=== PATIENT | female | born 1960 | race American Indian/Alaskan Native ===

== ENCOUNTER → 2018-12-11 | Emergency (ER) | payer MEDICARE, OTHER ==
[~2018-12-11] VITALS: Ht 162.6 cm; Wt 80.7 kg
[~2018-12-11] MED LIST: ACETAMINOPHEN500 MG PO; ALLERGY MEDICAT25 MG PO; AMLODIPINE BESY10 MG PO; ASPIRIN EC81 MG PO; CARDURA2 MG PO; CELLCEPT250 MG PO; CITALOPRAM HBR40 MG PO; COZAAR50 MG PO; DEMADEX20 MG PO; FOLIC ACID1 MG PO; HYDROCHLOROTH12.5 MG PO; HYDROCHLOROTHIA25 MG PO; ISOSORBIDE MONO30 MG PO; LANTUS SOL100 UNIT/1 SUB-Q; LEVOTHYROXINE200 MCG PO; LOSARTAN POTASS50 MG PO; NITROFURANTOIN100 M1 PO; NITROSTAT0.4 MG SL; NOVOLOG100 UNITS/ SUB-Q; PEPCID20 MG PO; PREDNISONE20 MG PO; PROAIR RESPICL90 MCG IH; PROCARDIA XL90 MG PO; PULMICORT FLE180 MCG INH; SODIUM BICARBO325 MG PO; TACROLIMUS1 MG PO; TOPROL XL25 MG PO; TOUJEO SOL300 UNIT/1 SQ; VALCYTE450 MG PO; VITAMIN D-32000 UNIT PO; VITAMIN D250000 UNIT PO; ZOCOR20 MG PO; ZOFRAN ODT4 MG SL
--- OUTSIDE RECORDS SUMMARY | ~2018-12-11 | XMS | Encounter Summary ---
Demographics + + + | Address | [address] | | | [place] [address] | + + + | Home Phone | | + + + | Preferred Language | Unknown | + + + | Marital Status | Single | + + + | Advent Affiliation | NRP | + + + | Race | or Other | + + + | Ethnic Group | Not or | + + + Author + + + | Author | [facility] | + + + | Organization | [facility] | + + + | Address | Unknown | + + + | Phone | Unavailable | + + + Support + + +---------+ + | Name | Relationship | Address | Phone | + + +---------+ + | Geraldine Canales | ECON | Unknown | | + + +---------+ + Care Team Providers + +------+ + | Care Technical Education Teacher Name | Role | Phone | + +------+ + | Nadeem Caruso | PCP | | + +------+ + Reason for Visit + + + | Reason | Comments | + + + | Eye examination | OCT | + + + Encounter Details +--------+ + + + + | Date | Type | Department | Care Team | Description | +--------+ + + + + | 05/16/ | Diagnostic | [facility] | | Eye examination | | 2013 | Visit | [facility] | | ([facility]) | | | | [facility] at | | | | | | [place] [address] | | | | | | [address] | | | | | | Mailcode: [place] | | | | | | [place], [place] | | | | | | [address] | | | | | | [phone] | | | +--------+ + + + + Social History + + + +--------+ + | Tobacco Use | Types | Packs/Day | Years | Date | | | | | Used | | + + + +--------+ + | Current Every Day | Cigarettes | 0.2 | 32 | Quit: 11/20/2013 | | Smoker | | | | | + + + +--------+ + + +---+---+---+ | Smokeless Tobacco: | | | | | Never Used | | | | + +---+---+---+ + + +---------+ + | Alcohol Use | Drinks/Week | oz/Week | Comments | + + +---------+ + | No | | | used to "drink | | | | | heavily" | + + +---------+ + + + + | Sex Assigned at | Date Recorded | | | | + + + | Not on file | | + + + + + + + | Job Start Date | Occupation | Industry | + + + + | Not on file | Not on file | Not on file | + + + + + + + + | Travel History | Travel Start | Travel End | + + + + + + | No recent travel history available. | + + documented as of this encounter Progress Reece Sigala - 05/16/2014 12:53 PM PDT Joyce Arnold was seen in the [facility] today, 05/16/2014, for OCT OU. REECE ALBERTO documented in t his encounter Plan of Treatment +--------+---------+ + + + | Date | Type | Specialty | Care Team | Description | +--------+---------+ + + + | 01/30/ | Office | Ophthalmology | Susan Andrews MD | | | 2019 | Visit | | [address] | | | | | | [place], [place] | | | | | | [address] | | | | | | [phone] | | | | | | | | +--------+---------+ + + + documented as of this encounter Visit Diagnoses + + | Diagnosis | + + | Macular edema, diabetic, type 2, with proliferative retinopathy [250.50, 362.02, | | 362.07] - Primary | + + documented in this encounter
--- OUTSIDE RECORDS SUMMARY | ~2018-12-11 | XMS | Encounter Summary ---
Demographics + + + | Address | [address] | | | [place] [address] | + + + | Home Phone | | + + + | Preferred Language | Unknown | + + + | Marital Status | Single | + + + | Sikh Affiliation | NRP | + + + | Race | or Other | + + + | Ethnic Group | Not or | + + + Author + + + | Author | [facility] [facility] | + + + | Organization | [facility] | + + + | Address | Unknown | + + + | Phone | Unavailable | + + + Support + + +---------+ + | Name | Relationship | Address | Phone | + + +---------+ + | Geraldine Canales | ECON | Unknown | | + + +---------+ + Care Team Providers + +------+ + | Care Drug And Alcohol Counselor Name | Role | Phone | + +------+ + | Nadeem Caruso | PCP | | + +------+ + Reason for Visit +---------+ + | Reason | Comments | +---------+ + | Post Op | | +---------+ + Other (Routine) +--------+--------+ + + + + | Status | Reason | Specialty | Diagnoses / | Referred By | Referred To | | | | | Procedures | Contact | Contact | +--------+--------+ + + + + | Closed | | Ophthalmology | Procedures | Non-[facility] | [place], | | | | | [facility] | Epic Dept | MD Susan | | | | | OPHTH DX IMG | | [address] | | | | [address] | | [address] | | | | [address] | | [address] | | | | | [place] | | [place], [place] | | | | | [place] | | [address] | | | | | ANGIOGRAPHY | | Phone: | | | | | AL FUNDAL | | [phone] | | | | | PHOTOGRAPHY | | Fax: | | | | | [place] INJECT | | [phone] | | | | | INTRAVITREAL | | | | | | | | | | | | | | PHARMCOLOGIC | | | | | | | AL | | | | | | | TRIAMCINOLON | | | | | | | E ACETONIDE | | | | | | | INJ 10 MG | | | | | | | AL INJ,THER | | | | | | | AGENT INTO | | | | | | | [place] | | | | | | | CAPSULE | | | +--------+--------+ + + + + Encounter Details +--------+---------+ + + + | Date | Type | Department | Care Team | Description | +--------+---------+ + + + | 01/22/ | Office | [facility] | Susan Chau MD | PDR (proliferative | | 2014 | Visit | [facility] | [address] | diabetic | | | | [facility] [address] [facility] [place] | retinopathy), type | | | | [place] | [address] | 2, with macular | | | | Mailcode: [facility] | [phone] | edema (Primary Dx); | | | | [facility] [place] | | TRD (traction | | | | [phone] | | retinal detachment), | | | | [phone] | | bilateral; Vitreous | | | | | | hemorrhage of both | | | | | | eyes (HCC) | +--------+---------+ + + + Social History + + + +--------+ + | Tobacco Use | Types | Packs/Day | Years | Date | | | | | Used | | + + + +--------+ + | Former Smoker | Cigarettes | 0.2 | 32 | Quit: 11/20/2013 | + + + +--------+ + + [...] + documented as of this encounter Progress Notes Susan Chau MD - 01/22/2014 8:01 AM PDTFormatting of this note might be different from melvin rachel. [facility] Progress Note 01/22/2014 CC: Post Op Initial History: PPV/MP/EL/FAx/1000cstSO right eye and small amount of PRP left eye with preop avastin both eyes. Vision slightly better though having difficulty using eyes together. Denies pain th ough reports intermittent occurrence of sensation similar to a growing pain in legs. Resolv es on its own. Last 3 ambulatory procedures on record: Procedure: Avasti OU (01/01/14 8804) HPI: Joyce Arnold is a 53 y.o. female Last visit: 01/10/14 at 9:00 am Says vision is slightly better, getting around ok. Says vision OD has improved some. Left eye is still pretty bad, but perhaps slightly better than last visit,. Pain:No pain (0 of 0-10) POH: 01/09/14 PPV/MP/EL/FAx/1000cstSO OD and small amount of PRP OS with preop avastin OUDME -Avastin OU initiated 01/01/14 PDR OU Current Outpatient Prescriptions (Ophthalmic Medications) Medication Sig atropine Instill 1 drop into the right eye two times daily. ofloxacin Instill 1 drop into the right eye four times daily for 7 days. prednisoLONE acetate Instill 1 drop into the right eye four times daily. Current Outpatient Prescriptions (Other) Medication Sig amLODIPine Take 10 mg by mouth once daily. aspirin EC Take 81 mg by mouth once daily. citalopram Take 40 mg by mouth once daily. famotidine Take 20 mg by mouth once daily. hydrochlorothiazide Take 25 mg by mouth once daily. HYDROcodone-acetaminophen Take 1-2 tablets by mouth every four hours as needed for mild pain. Max 3250mg acetaminophen per 24hrs insulin detemir Inject 30 Units under the skin (SUBC) two times daily. insulin lispro Inject under the skin (SUBC). "1 dose prn- use sliding scale before ariel ls" isosorbide mononitrate CR Take 30 mg by mouth once daily. LANCETS & BLOOD GLUCOSE STRIPS MISC LEVOTHYROXINE SODIUM (LEVOXYL ORAL) Take 0.2 mg by mouth once daily. metoprolol succinate Take 50 mg by mouth once daily. nitroglycerin Place 0.4 mg under tongue every five minutes as needed for chest pain. Pl romel under tongue and allow to dissolve. Administer every 5 minutes, max of 3 doses in 15 mi nutes. promethazine Take 25 mg by mouth three times daily as needed for nausea/vomiting. simvastatin Take 40 mg by mouth once daily. SYRING W-NDL,DISP,INSUL,0.5ML (INSULIN SYRINGE MISC) Past Medical History Diagnosis Date Diabetes mellitus type 1 Hypertension Heart disease, unspecified Past Surgical History Procedure Laterality Date Tonsillectomy Tubal ligation Cholecystectomy Thyroid lobectomy Carpal tunnel surgery History Substance Use Topics Smoking status: Former Smoker -- 0.20 packs/day for 33 years Types: Cigarettes Quit date: 11/20/2013 Smokeless tobacco: Never Used Alcohol Use: No Comment: used to "drink heavily" See Ophthalmology Module for Examination Diagnostics Ordered Right Left OCT --- --- FA --- --- FUNDUS --- --- Others IMPRESSION: 53 y.o. female with Ophthalmologic Problems 1. POW# 2 s/p 23g PPV/MP/EL/FAx/1000cstSO OD 01/02/14 (oil used because of poor vision in co ntralateral eye) PDR (proliferative diabetic retinopathy) [988160] - previously untreated OD - francois-jaw TRD threatening macula and VH - doing well, retina attached, epi defect healed 2. DME (diabetic macular edema) [825675] OU s/p Avastin x 1 OU pre-op to above surgery - stable OD last visit - unable to determine OS due to VH OS 3. Retinal detachment, tractional, both eyes [394115] 2/2 PDR OU - stable OD, likely stable, extramacular OS 4. Vitreous hemorrhage [379.23] OS - only slightly improved today OS PLAN: Discussed r/b/a of PPV/MP/EL/Gas or Oil OS, IC obtained D/c ofloxacin cont atropine daily, taper prednisolone Stay off of back Call for decreased vision, increased distortion, increased pain, new floaters or flashing l ights Follow up post op NEXT VISIT: DILATE OU Attestations: The tool technician, under the supervision of the physician, is responsible for performing the f ollowing sections: RFV, ROS, PMH, PSH, SocHx, FH, Med list, Base Ophth Exam. The attending physician is responsible for the entire content of the note and has personall y performed the HPI and the physical examination SUSAN CHAU MD documented in this encoun ter Plan of Treatment +--------+---------+ + + + | Date | Type | Specialty | Care Team | Description | +--------+---------+ + + + | 01/30/ | Office | Ophthalmology | Susan Chau MD | | | 2019 | Visit | | [address] | | | | | | [place], [place] | | | | | | [address] | | | | | | [phone] | | | | | | | | +--------+---------+ + + + documented as of this encounter Visit Diagnoses + + | Diagnosis | + + | PDR (proliferative diabetic retinopathy), type 2, with macular edema - Primary | + + | TRD (traction retinal detachment), bilateral Traction detachment of retina | + + | Vitreous hemorrhage of both eyes (HCC) Vitreous hemorrhage | + + documented in this encounter
--- OUTSIDE RECORDS SUMMARY | ~2018-12-11 | XMS | Encounter Summary ---
Demographics + + + | Address | [address] | | | [place] [address] | + + + | Home Phone | | + + + | Preferred Language | Unknown | + + + | Marital Status | Single | + + + | Catholic Affiliation | NRP | + + + | Race | or Other | + + + | Ethnic Group | Not or | + + + Author + + + | Author | [facility] | + + + | Organization | [facility] | + + + | Address | Unknown | + + + | Phone | Unavailable | + + + Support + + +---------+ + | Name | Relationship | Address | Phone | + + +---------+ + | Geraldine Parker | ECON | Unknown | | + + +---------+ + Care Team Providers + +------+ + | Care Training Designer Name | Role | Phone | + +------+ + | Nadeem Caruso | PCP | | + +------+ + Reason for Visit AUTH/CERT +--------+--------+ + + + + | Status | Reason | Specialty | Diagnoses / | Referred By | Referred To | | | | | Procedures | Contact | Contact | +--------+--------+ + + + + | Closed | | | | | | +--------+--------+ + + + + Encounter Details +--------+---------+ + + + | Date | Type | Department | Care Team | Description | +--------+---------+ + + + | 05/08/ | Surgery | [facility] | Susan Andrews MD | [facility] | | 2013 | | [address] | [address] | VITRECTOMY AND | | | | [facility] | [address] [place], [place] | SILICONE OIL | | | | [facility], | [address] | REMOVAL-RIGHT *[id number]* | | | | [place] [address] | [phone] | (ISAC); | | | | | | | +--------+---------+ + + + Social History [...] + + documented as of this encounter Last Filed Vital Signs + + + + + | Vital Sign | Reading | Time Taken | Comments | + + + + + | Blood Pressure | 140/50 | 05/08/2014 9:44 AM | | | | | PDT | | + + + + + | Pulse | 59 | 05/08/2014 9:44 AM | | | | | PDT | | + + + + + | Temperature | 37 C (98.6 F) | 05/08/2014 10:06 AM | | | | | PDT | | + + + + + | Respiratory Rate | 16 | 05/08/2014 9:44 AM | | | | | PDT | | + + + + + | Oxygen Saturation | 96% | 05/08/2014 9:44 AM | | | | | PDT | | + + + + + | Inhaled Oxygen | - | - | | | Concentration | | | | + + + + + | Weight | 82.3 kg (181 lb 8 | 05/08/2014 6:54 AM | | | | oz) | PDT | | + + + + + | Height | 162.6 cm (5' 4") | 05/08/2014 6:33 AM | | | | | PDT | | + + + + + | Body Mass Index | 31.15 | 05/08/2014 6:33 AM | | | | | PDT | | + + + + + documented in this encounter Discharge Instructions Alecia Carrion Chi, RN - 05/08/2014Home care after vitrectomy given to patient and family. documented in this encounter Medications at Time of Discharge + + + +---------+ + + | Medication | Sig | Dispensed | Refills | Start | End Date | | | | | | Date | | + + + +---------+ + + | amLODIPine 10 mg | Take 10 mg by mouth | | 0 | | | | oral tablet | once daily. | | | | | + + + +---------+ + + | aspirin EC 81 mg | Take 325 mg by mouth | | 0 | | | | oral tablet,delayed | once daily. | | | | | | release (/ROCAEL) | | | | | | + + + +---------+ + + | citalopram 40 mg | Take 40 mg by mouth | | 0 | | | | oral tablet | once daily. | | | | | + + + +---------+ + + | famotidine 20 mg | Take 20 mg by mouth | | 0 | | | | oral tablet | once daily. | | | | | + + + +---------+ + + | | Take 25 mg by mouth | | 0 | | | | hydrochlorothiazide | two times daily. | | | | | | 25 mg oral tablet | | | | | | + + + +---------+ + + | LANCETS & BLOOD | | | 0 | | | | GLUCOSE STRIPS MISC | | | | | | + + + +---------+ + + | LEVOTHYROXINE | Take 0.2 mg by mouth | | 0 | | | | SODIUM (LEVOXYL | once daily. | | | | | | ORAL) | | | | | | + + + +---------+ + + | losartan 50 mg | Take 50 mg by mouth | | 0 | | | | oral tablet | two times daily. | | | | | + + + +---------+ + + | nitroglycerin 0.4 | Place 0.4 mg under | | 0 | | | | mg sublingual | tongue every five | | | | | | tablet, sublingual | minutes as needed | | | | | | | for chest pain. | | | | | | | Place under tongue | | | | | | | and allow to | | | | | | | dissolve. | | | | | | | Administer every 5 | | | | | | | minutes, max of 3 | | | | | | | doses in 15 minutes. | | | | | + + + +---------+ + + | simvastatin 40 mg | Take 40 mg by mouth | | 0 | | | | oral tablet | once daily. | | | | | + + + +---------+ + + | sodium bicarbonate | Take 650 mg by mouth | | 0 | | | | 650 mg oral tablet | three times daily. | | | | | + + + +---------+ + + | SYRING | | | 0 | | | | W-NDL,DISP,INSUL,0.5 | | | | | | | ML (INSULIN SYRINGE | | | | | | | MISC) | | | | | | + + + +---------+ + + | ofloxacin 0.3 % | Instill 1 drop into | 5 mL | 0 | 05/08/20 | | | ophthalmic drops | the right eye four | | | 14 | 4 | | | times daily for 7 | | | | | | | days. | | | | | + + + +---------+ + + documented as of this encounter Plan of Treatment +--------+---------+ + + + | Date | Type | Specialty | Care Team | Description | +--------+---------+ + + + | 01/30/ | Office | Ophthalmology | Susan Andrews MD | | | 2019 | Visit | | [address] | | | | | | [place], [place] | | | | | | [address] | | | | | | [phone] | | | | | | | | +--------+---------+ + + + documented as of this encounter Procedures + +--------+ + + + | Procedure Name | Priori | Date/Time | Associated Diagnosis | Comments | | | ty | | | | + +--------+ + + + | PROCEDURE NOTE | Routin | 08/27/2015 | | Results for this | | | e | 5:15 PM | | procedure are in the | | | | PST | | results section. | + +--------+ + + + | PROCEDURE NOTE | Routin | 08/27/2015 | | Results for this | | | e | 5:15 PM | | procedure are in the | | | | PST | | results section. | + +--------+ + + + | PROCEDURE NOTE | Routin | 08/27/2015 | | Results for this | | | e | 5:09 PM | | procedure are in the | | | | PST | | results section. | + +--------+ + + + | CAPILLARY BLOOD | Routin | 05/08/2014 | | Results for this | | GLUCOSE (NO CHG), | e | 10:02 AM | | procedure are in the | | POC | | PDT | | results section. | + +--------+ + + + | CAPILLARY BLOOD | Routin | 05/08/2014 | | Results for this | | GLUCOSE (NO CHG), | e | 9:34 AM | | procedure are in the | | POC | | PDT | | results section. | + +--------+ + + + | CAPILLARY BLOOD | Routin | 05/08/2014 | | Results for this | | GLUCOSE (NO CHG), | e | 8:50 AM | | procedure are in the | | POC | | PDT | | results section. | + +--------+ + + + | PHACO W/IOL | Electi | 05/08/2014 | Chorioretinal | | | | ve | 7:27 AM | scar, left Cataract | | | | Surgic | PDT | | | | | al | | | | + +--------+ + + + | 23G VITRECTOMY | Electi | 05/08/2014 | Chorioretinal | | | | ve | 7:27 AM | scar, left Cataract | | | | Surgic | PDT | | | | | al | | | | + +--------+ + + + | CAPILLARY BLOOD | Routin | 05/08/2014 | | Results for this | | GLUCOSE (NO CHG), | e | 7:16 AM | | procedure are in the | | POC | | PDT | | results section. | + +--------+ + + + | LAB REPORTS | | 05/08/2014 | | Results for this | | | | 12:00 AM | | procedure are in the | | | | PDT | | results section. | + +--------+ + + + documented in this encounter Results PROCEDURE NOTE (08/27/2015 5:15 PM PST)PROCEDURE NOTE (08/27/2015 5:15 PM PST)PROCEDURE N OTE (08/27/2015 5:09 PM PST) + + | Transcriptions | + + | Other, Faculty - 05/20/2014 8:12 AM PDT | + + CAPILLARY BLOOD GLUCOSE (NO CHG), POC (05/08/2014 10:02 AM PDT) + +---------+ + + + | Component | Value | Ref Range | Performed | Pathologist | | | | | At | Signature | + +---------+ + + + | BLOOD | 320 (H) | 60 - 99 mg/dL | [facility] - | | | GLUCOSE, | | | [facility] | | | POC | | | [facility] | | | | | | OF CARE | | | | | | TESTS | | + +---------+ + + + + + | Specimen | + + | | + + + + + + + | Performing | Address | City/State/Zipcode | Phone Number | | Organization | | | | + + + + + | [facility] | [address] | [place], [place] | | | [facility] | [address] | [address] | | | TESTS | | | | + + + + + CAPILLARY BLOOD GLUCOSE (NO CHG), POC (05/08/2014 9:34 AM PDT) + +---------+ + + + | Component | Value | Ref Range | Performed | Pathologist | | | | | At | Signature | + +---------+ + + + | BLOOD | 375 (H) | 60 - 99 mg/dL | [facility] - | | | GLUCOSE, | | | [facility] | | | POC | | | [facility] | | | | | | OF CARE | | | | | | TESTS | | + +---------+ + + + + + | Specimen | + + | | + + + + + + + | Performing | Address | City/State/Zipcode | Phone Number | | Organization | | | | + + + + + | [facility] | [address] | [place], [place] | | | [facility] | [facility] | [address] | | | TESTS | | | | + + + + + CAPILLARY BLOOD GLUCOSE (NO CHG), POC (05/08/2014 8:50 AM PDT) + +---------+ + + + | Component | Value | Ref Range | Performed | Pathologist | | | | | At | Signature | + +---------+ + + + | BLOOD | 396 (H) | 60 - 99 mg/dL | [facility] - | | | GLUCOSE, | | | [facility] | | | POC | | | [facility] | | | | | | OF CARE | | | | | | TESTS | | + +---------+ + + + + + | Specimen | + + | | + + + + + + + | Performing | Address | City/State/Zipcode | Phone Number | | Organization | | | | + + + + + | [facility] | [address] | [place], [place] | | | [facility] | [address] | [address] | | | TESTS | | | | + + + + + CAPILLARY BLOOD GLUCOSE (NO CHG), POC (05/08/2014 7:16 AM PDT) + +---------+ + + + | Component | Value | Ref Range | Performed | Pathologist | | | | | At | Signature | + +---------+ + + + | BLOOD | 355 (H) | 60 - 99 mg/dL | [facility] | | | GLUCOSE, | | | [facility] | | | POC | | | [facility] | | | | | | OF CARE | | | | | | TESTS | | + +---------+ + + + + + | Specimen | + + | | + + + + + + + | Performing | Address | City/State/Zipcode | Phone Number | | Organization | | | | + + + + + | [facility] | [address] | [place], [place] | | | [facility] | [address] | [address] | | | TESTS | | | | + + + + + LAB REPORTS (05/08/2014 12:00 AM PDT) + + + | Narrative | Performed At | + + + | | | | | | + + + + + | Procedure Note | + + | Netta Ross - 05/20/2014 3:03 PM PDT | + + documented in this encounter Visit Diagnoses + + | Diagnosis | + + | Chorioretinal scar, left | + + | Cataract Unspecified cataract | + + documented in this encounter Administered Medications + +--------+ +--------+------+------+ | Medication Order | MAR | Action | Dose | Rate | Site | | | Action | Date | | | | + +--------+ +--------+------+------+ | atropine 1 % ophthalmic drops | Given | 05/08/20 | 1 drop | | | | INTRAPROCEDURE PRN, Starting [facility] | | 14 8:41 | | | | | 05/08/14 at 0841, Until [facility] | | AM PDT | | | | | 05/08/14 at 0849 | | | | | | + +--------+ +--------+------+------+ +---+---+ | | | +---+---+ + +-------+ +-------+---+---+ | balanced salt (BSS) ophthalmic | Given | 05/08/20 | 15 mL | | | | irrigation INTRAPROCEDURE PRN, | | 14 7:55 | | | | | Starting [facility] 05/08/14 at 0755, | | AM PDT | | | | | Until [facility] 05/08/14 at 0849 | | | | | | + +-------+ +-------+---+---+ +---+---+ | | | +---+---+ + +-------+ +--------+---+---+ | cyclopentolate 1%-PHENYLEPHrine | Given | 05/08/20 | 1 drop | | | | 2.5%-tropicamide 0.25% | | 14 7:18 | | | | | (SUPERDROPS) ophthalmic drops 1 | | AM PDT | | | | | drop 1 drop, Right Eye, EVERY 5 | | | | | | | MINUTES NEEDED, 2 doses, | | | | | | | Starting [facility] 05/08/14 at 0704, | | | | | | | Until [facility] 05/08/14 at 0718, | | | | | | | pre-procedure dilation | | | | | | + +-------+ +--------+---+---+ +-------+ +--------+---+---+ | Given | 05/08/20 | 1 drop | | | | | 14 7:13 | | | | | | AM PDT | | | | +-------+ +--------+---+---+ +---+---+ | | | +---+---+ + +-------+ +-------+---+---+ | dexamethasone (DECADRON) | Given | 05/08/20 | 10 mg | | | | injection INTRAPROCEDURE PRN, | | 14 7:55 | | | | | Starting [facility] 05/08/14 at 0755, | | AM PDT | | | | | Until [facility] 05/08/14 at 0849 | | | | | | + +-------+ +-------+---+---+ +---+---+ | | | +---+---+ + +-------+ + +---+---+ | Dilating Solution: BSS Plain | Given | 05/08/20 | 1 Bottle | | | | 500 mL - 0.5 mL EPINEPHrine | | 14 7:55 | | | | | (1:1,000) INTRAPROCEDURE PRN, | | AM PDT | | | | | Starting [facility] 05/08/14 at 0755, | | | | | | | Until [facility] 05/08/14 at 0849 | | | | | | + +-------+ + +---+---+ +---+---+ | | | +---+---+ + +-------+ +-------+---+---+ | hydroxypropyl methylcellulose | Given | 05/08/20 | 15 mL | | | | (GONIOSOL) 2.5 % ophthalmic drops | | 14 7:55 | | | | | INTRAPROCEDURE PRN, Starting | | AM PDT | | | | | [facility] 05/08/14 at 0755, Until [facility] | | | | | | | 05/08/14 at 0849, dry eyes | | | | | | + +-------+ +-------+---+---+ +---+---+ | | | +---+---+ + +---------+ + +---+---+ | insulin regular (HUMULIN R) | New Bag | 05/08/20 | 12 Units | | | | injection 12 Units 12 Units, | | 14 8:56 | | | | | intravenous, ONCE, 1 dose, Mehn[facility] | | AM PDT | | | | | 05/08/14 at 0930 | | | | | | + +---------+ + +---+---+ +---+---+ | | | +---+---+ + +---------+ + + +---+ | lactated ringers IV 10 mL/hr, | New Bag | 05/08/20 | 10 mL/hr | 10 mL/hr | | | intravenous, CONTINUOUS, Starting | | 14 7:01 | | | | | [facility] 05/08/14 at 0700, Until [facility] | | AM PDT | | | | | 05/08/14 at 1616 | | | | | | + +---------+ + + +---+ +---+---+ | | | +---+---+ + +-------+ +-------+---+---+ | Local with hyaluronidase: | Given | 05/08/20 | 10 mL | | | | lidocaine 2% - bupivacaine 0.75% | | 14 7:56 | | | | | - hyaluronidase 200 units/mL 1 mL | | AM PDT | | | | | 1:10:10) INTRAPROCEDURE PRN, | | | | | | | Starting Mehn[facility] 05/08/14 at 0756, | | | | | | | Until [facility] 05/08/14 at 0849 | | | | | | + +-------+ +-------+---+---+ +---+---+ | | | +---+---+ + +-------+ +--------+---+---+ | proparacaine (OPHTHAINE) 0.5 % | Given | 05/08/20 | 1 drop | | | | ophthalmic drops INTRAPROCEDURE | | 14 7:56 | | | | | PRN, Starting Mon05/08/14 at | | AM PDT | | | | | 0756, Until Mon05/08/14 at 0849 | | | | | | + +-------+ +--------+---+---+ +---+---+ | | | +---+---+ + +-------+ +--------+---+---+ | Shugarcaine: lidocaine MPF 4% 1 | Given | 05/08/20 | 0.5 mL | | | | mL - EPINEPHrine 1:1000 1 mL - | | 14 7:56 | | | | | BSS 3 mL INTRAPROCEDURE PRN, | | AM PDT | | | | | Starting [facility]hn[facility] 10/16/14 at 0756, | | | | | | | Until [facility] 05/08/14 at 0849 | | | | | | + +-------+ +--------+---+---+ +---+---+ | | | +---+---+ + +-------+ +--------+---+---+ | tetracaine 0.5 % ophthalmic | Given | 05/08/20 | 1 drop | | | | drops INTRAPROCEDURE PRN, | | 14 7:56 | | | | | Starting [facility]hn[facility] 05/08/14 at 0756, | | AM PDT | | | | | Until [facility] 05/08/14 at 0849 | | | | | | + +-------+ +--------+---+---+ +---+---+ | | | +---+---+ + +-------+ +-------+---+---+ | vancomycin (VANCOCIN) injection | Given | 05/08/20 | 25 mg | | | | INTRAPROCEDURE PRN, Starting | | 14 7:56 | | | | | Mehnaz 05/08/14 at 0756, Until [facility]hn[facility] | | AM PDT | | | | | 05/08/14 at 0849 | | | | | | + +-------+ +-------+---+---+ +---+---+ | | | +---+---+ documented in this encounter
--- OUTSIDE RECORDS SUMMARY | ~2018-12-11 | XMS | Encounter Summary ---
Demographics + + + | Address | [address] | | | [place] [address] | + + + | Home Phone | | + + + | Preferred Language | Unknown | + + + | Marital Status | Single | + + + | Cheondoism Affiliation | NRP | + + + | Race | or Other | + + + | Ethnic Group | Not or | + + + Author + + + | Author | [facility] | + + + | Organization | [facility] | + + + | Address | Unknown | + + + | Phone | Unavailable | + + + Support + + +---------+ + | Name | Relationship | Address | Phone | + + +---------+ + | Geraldine Parker | ECON | Unknown | | + + +---------+ + Care Team Providers + +------+ + | Care Case Checker Name | Role | Phone | + +------+ + | Rohan Wilkes DO | PCP | | + +------+ + Encounter Details +--------+ + + + + | Date | Type | Department | Care Team | Description | +--------+ + + + + | 11/14/ | Lab | LAB [facility] | | | | 2017 | Requisition | [facility] | | | | | | [address] | | | | | | [facility] | | | | | | [place], [place] | | | | | | [address] | | | +--------+ + + + + Social History + + + +--------+ + | Tobacco Use | Types | Packs/Day | Years | Date | | | | | Used | | + + + +--------+ + | Former Smoker | Cigarettes | 2.5 | 32 | Quit: 05/31/2014 | + + + +--------+ + + [...] | | | | | | [place], [place] | | | | | | [address] | | | | | | [phone] | | | | | | | | +--------+---------+ + + + documented as of this encounter Procedures + +--------+ + + + | Procedure Name | Priori | Date/Time | Associated Diagnosis | Comments | | | ty | | | | + +--------+ + + + | LIT ANTI - A TITER, | Routin | 11/14/2017 | | | | BLOOD | e | 7:40 AM | | | | | | PDT | | | + +--------+ + + + documented in this encounter Results LIT ANTI - A TITER, BLOOD (11/14/2017 7:40 AM PDT) + + | Specimen | + + | Blood | + + + + + + + | Performing | Address | City/State/Zipcode | Phone Number | | Organization | | | | + + + + + | [facility] - | [address] | [place] [address] | | | IMMUNOGENETICS/TRANS | [address] | | | | [facility] | | | | + + + + + documented in this encounter Visit Diagnoses Not on filedocumented in this encounter
--- OUTSIDE RECORDS SUMMARY | ~2018-12-11 | XMS | Clinical Summary ---
Demographics + + + | Address | [address] | | | [place] [address] | + + + | Home Phone | | + + + | Preferred Language | Unknown | + + + | Marital Status | Single | + + + | Confucianism Affiliation | NRP | + + + | Race | or Other | + + + | Ethnic Group | Not or | + + + Author + + + | Author | [facility] | + + + | Organization | [facility] | + + + | Address | Unknown | + + + | Phone | Unavailable | + + + Support + + +---------+ + | Name | Relationship | Address | Phone | + + +---------+ + | Geraldine Canales | ECON | Unknown | | + + +---------+ + Care Team Providers + +------+ + | Care Refining Machine Operator Name | Role | Phone | + +------+ + | Rohan Wilkes DO | PP | | + +------+ + Source Comments [facility] is [facility] Allergies + + + + + + | Active Allergy | Reactions | Severity | Noted | Comments | | | | | Date | | + + + + + + | Celecoxib | Pruritus, Rash | | 12/07/19 | | | | | | 14 | | + + + + + + | Iron Dextran | Unknown | Medium | 02/13/20 | Numb lips, itchy | | | | | 14 | on face | + + + + + + | Penicillins | Unknown | | 12/07/19 | Pt. States it | | | | | 14 | doesn't work on her. | + + + + + + | Sulfa (Sulfonamide | Pruritus, Rash | | 12/07/19 | Pt. States she | | Antibiotics) | | | 14 | also gets horrible | | | | | | yeast infection. | + + + + + + Medications + + + +---------+------+------+-------+ | Medication | Sig | Dispensed | Refills | Star | End | Statu | | | | | | t | Date | s | | | | | | Date | | | + + + +---------+------+------+-------+ | amLODIPine 10 mg | Take 10 mg by mouth | | 0 | | | Activ | | oral tablet | once daily. | | | | | e | + + + +---------+------+------+-------+ | aspirin EC 81 mg | Take 325 mg by mouth | | 0 | | | Activ | | oral tablet,delayed | once daily. | | | | | e | | release (DR/EC) | | | | | | | + + + +---------+------+------+-------+ | LANCETS & BLOOD | | | 0 | | | Activ | | GLUCOSE STRIPS MISC | | | | | | e | + + + +---------+------+------+-------+ | citalopram 40 mg | Take 40 mg by mouth | | 0 | | | Activ | | oral tablet | once daily. | | | | | e | + + + +---------+------+------+-------+ | famotidine 20 mg | Take 20 mg by mouth | | 0 | | | Activ | | oral tablet | once daily. | | | | | e | + + + +---------+------+------+-------+ | | Take 25 mg by mouth | | 0 | | | Activ | | hydrochlorothiazide | two times daily. | | | | | e | | 25 mg oral tablet | | | | | | | + + + +---------+------+------+-------+ | LEVOTHYROXINE | Take 0.2 mg by mouth | | 0 | | | Activ | | SODIUM (LEVOXYL | once daily. | | | | | e | | ORAL) | | | | | | | + + + +---------+------+------+-------+ | nitroglycerin 0.4 | Place 0.4 mg under | | 0 | | | Activ | | mg sublingual | tongue every five | | | | | e | | tablet, sublingual | minutes as [...] 15 minutes. | | | | | | + + + +---------+------+------+-------+ | simvastatin 40 mg | Take 40 mg by mouth | | 0 | | | Activ | | oral tablet | once daily. | | | | | e | + + + +---------+------+------+-------+ | SYRING | | | 0 | | | Activ | | W-NDL,DISP,INSUL,0.5 | | | | | | e | | ML (INSULIN SYRINGE | | | | | | | | MISC) | | | | | | | + + + +---------+------+------+-------+ | losartan 50 mg | Take 50 mg by mouth | | 0 | | | Activ | | oral tablet | two times daily. | | | | | e | + + + +---------+------+------+-------+ | sodium bicarbonate | Take 650 mg by mouth | | 0 | | | Activ | | 650 mg oral tablet | three times daily. | | | | | e | + + + +---------+------+------+-------+ | promethazine 25 mg | Take 1 tablet by | 20 | 0 | 11/1 | | Activ | | oral tablet | mouth four times | tablet | | 3/20 | | e | | | daily as needed for | | | 14 | | | | | nausea/vomiting. | | | | | | + + + +---------+------+------+-------+ | NOVOLOG FLEXPEN | | | 12 | 04/2 | | Activ | | 100 unit/mL | | | | 7/20 | | e | | subcutaneous insulin | | | | 15 | | | | pen | | | | | | | + + + +---------+------+------+-------+ | insulin glargine | Inject under the | | 0 | | | Activ | | (CINDY WEEMS) | skin (SUBC). | | | | | e | | 300 unit/mL (1.5 mL) | Indications: TYPE 1 | | | | | | | subcutaneous | DIABETES MELLITUS | | | | | | | insulin | | | | | | | | penIndications: type | | | | | | | | 1 diabetes mellitus | | | | | | | + + + +---------+------+------+-------+ | simvastatin 20 mg | Take 20 mg by mouth | | 0 | | | Activ | | oral tablet | once daily in the | | | | | e | | | evening. | | | | | | + + + +---------+------+------+-------+ | FOLIC ACID ORAL | Take by mouth. | | 0 | | | Activ | | | | | | | | e | + + + +---------+------+------+-------+ | ASMANEX TWISTHALER | | | 5 | 01/1 | | Activ | | 110 mcg (30 doses) | | | | 1/20 | | e | | inhalation aerosol | | | | 16 | | | | powdr breath | | | | | | | | activated | | | | | | | + + + +---------+------+------+-------+ | VITAMIN D2 50,000 | | | 4 | 01/0 | | Activ | | unit oral capsule | | | | 2/20 | | e | | | | | | 16 | | | + + + +---------+------+------+-------+ | torsemide 20 mg | | | 11 | 06/2 | | Activ | | oral tablet | | | | 4/20 | | e | | | | | | 16 | | | + + + +---------+------+------+-------+ | RENVELA 800 mg | | | 0 | 09/1 | | Activ | | oral tablet | | | | 2/20 | | e | | | | | | 16 | | | + + + +---------+------+------+-------+ | potassium chloride | TK 1 T PO daily | | 3 | 10/2 | | Activ | | SR 20 mEq oral | | | | 0/20 | | e | | tablet,ER | | | | 16 | | | | particles/crystals | | | | | | | + + + +---------+------+------+-------+ Active Problems + + + | Problem | Noted Date | + + + | 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/10/2015 | | with type 2 diabetes mellitus | | + + + | Macular edema, diabetic | 03/14/2014 | + + + | TRD (traction retinal detachment) | 01/22/2014 | + + + | Vitreous hemorrhage of both eyes | 01/22/2014 | + + + | PDR (proliferative diabetic retinopathy) | 01/03/2014 | + + + | DME (diabetic macular edema) | 01/03/2014 | + + + | Retinal detachment, tractional, both eyes | 01/03/2014 | + + + | Vitreous hemorrhage | 12/06/2013 | + + + Encounters +--------+ + + + + | Date | Type | Specialty | Care Team | Description | +--------+ + + + + | 11/13/ | Lab | | | | | 2018 | Requisition | | | | +--------+ + + + + | 09/14/ | Lab | | | | | 2018 | Requisition | | | | +--------+ + + + + from Last 3 Months Family History + + +------+ + | Medical History | Relation | Name | Comments | + + +------+ + | Diabetes | Cousin | | | + + +------+ + | Diabetes | Grandmoth | | | | | er | | | + + +------+ + | Additional Family | Maternal | | breast cancer | | History | Grandmoth | | | | | er | | | + + +------+ + | Diabetes | Paternal | | | | | Cousin | | | + + +------+ + | Cataracts | Paternal | | | | | Cousin | | | + + +------+ + | Additional Family | Paternal | | breast cancer | | History | Grandmoth | | | | | er | | | + + +------+ + | Cataracts | Paternal | | | | | Uncle | | | + + +------+ + | Amblyopia | Neg Hx | | | + + +------+ + | Blindness | Neg Hx | | | + + +------+ + | Glaucoma | Neg Hx | | | + + +------+ + | Macular degeneration | Neg Hx | | | + + +------+ + | Retinal detachment | Neg Hx | | | + + +------+ + | Strabismus | Neg Hx | | | + + +------+ + + +------+--------+ + | Relation | Name | Status | Comments | + +------+--------+ + | Cousin | | | | + +------+--------+ + | Grandmother | | | | + +------+--------+ + | Maternal Grandmother | | | | + +------+--------+ + | Paternal Cousin | | | | + +------+--------+ + | Paternal Cousin | | | | + +------+--------+ + | Paternal Grandmother | | | | + +------+--------+ + | Paternal Uncle | | | | + +------+--------+ + Social History + + + +--------+ [...] recent travel history available. | + + Last Filed Vital Signs + + + + + | Vital Sign | Reading | Time Taken | Comments | + + + + + | Blood Pressure | 129/49 | 06/05/2014 9:05 AM | | | | | PST | | + + + + + | Pulse | 58 | 06/05/2014 9:05 AM | | | | | PST | | + + + + + | Temperature | 36.8 C (98.2 F) | 06/05/2014 9:05 AM | | | | | PST | | + + + + + | Respiratory Rate | 16 | 06/05/2014 9:05 AM | | | | | PST | | + + + + + | Oxygen Saturation | 98% | 06/05/2014 9:05 AM | | | | | PST | | + + + + + | Inhaled Oxygen | - | - | | | Concentration | | | | + + + + + | Weight | 85.3 kg (188 lb) | 06/05/2014 7:14 AM | | | | | PST | | + + + + + | Height | 162.6 cm (5' 4") | 06/05/2014 6:44 AM | | | | | PST | | + + + + + | Body Mass Index | 32.27 | 06/05/2014 6:44 AM | | | | | PST | | + + + + + Plan of Treatment +--------+---------+ + + + | Date | Type | Specialty | Care Team | Description | +--------+---------+ + + + | 01/30/ | Office | | Susan Andrews MD | | | 2019 | Visit | | [address] | | | | | | [place], [place] | | | | | | [address] | | | | | | [phone] | | | | | | | | +--------+---------+ + + + + + + + + | Health Maintenance | Due Date | Last Done | Comments | + + + + + | Pneumococcal | | | | | vaccination (1 of 3 | 5 | | | | - PCV13) | | | | + + + + + | Influenza (Flu) | | 04/26/2016, 04/11/2016, | | | vaccination (Season | 9 | 04/27/2015, Additional history | | | Ended) | | exists | | + + + + + Implants + +------+--------+ +--------+--------+--------+ | Implanted | Type | Area | Manufacture | Device | Shelf | Model | | | | | r | | Expira | / | | | | | | Identi | tion | Serial | | | | | | fier | Date | / Lot | + +------+--------+ +--------+--------+--------+ | Oil Silicone 1000 - | | | AJAY | | 03/23/ | [id number] | | [id number]: Qty: 1 on | | | | | 2013 | 1185 / | | 01/02/2014 by Susan Andrews, | | | | | | | | MD at [facility] REV LOC | | | | | | /TPHY. | | | | | | | | 09.01 | + +------+--------+ +--------+--------+--------+ | Oil Silicone 1000 - | | Left: | AJAY | | 08/23/ | [id number] | | [id number]: Qty: 1 on | | Eye | | | 2014 | 1185 / | | 02/21/2014 by Susan Andrews, | | | | | | | | MD at [facility] REV LOC | | | | | | /[id number] | | | | | | | | 107 | + +------+--------+ +--------+--------+--------+ | Implant Lens Posterior | | Right: | AJAY | | 04/22/ | [id number] | | Foldable Optic Type A 6.0mm | | Eye | | | 2017 | | | Aura 10 Deg Haptic Angle - | | | | | | /[id number] | | [id number]: Qty: 1 | | | | | | [id number] | | on 05/08/2014 by Pito, | | | | | | / | | Anderson White MD at [facility] | | | | | | | | REV LOC | | | | | | | + +------+--------+ +--------+--------+--------+ | Implant Lens Posterior | | Left: | AJAY | | 12/21/ | [id number] | | Foldable Optic Type A 6.0mm | | Eye | | | 2017 | | | Aura 10 Deg Haptic Angle - | | | | | | /[id number] | | [id number]: Qty: 1 | | | | | | [id number] | | on 06/05/2014 by Pito, | | | | | | / | | Anderson White MD at [facility] | | | | | | | | REV LOC | | | | | | | + +------+--------+ +--------+--------+--------+ Procedures + +--------+ + + + | Procedure Name | Priori | Date/Time | Associated Diagnosis | Comments | | | ty | | | | + +--------+ + + + | LIT FLOW HLA II AB | Routin | 11/12/2018 | | | | AG ID, BLOOD | e | 12:00 AM | | | | | | PDT | | | + +--------+ + + + | LIT FLOW HLA I AB AG | Routin | 11/12/2018 | | Results for this | | ID, BLOOD | e | 12:00 AM | | procedure are in the | | | | PDT | | results section. | + +--------+ + + + | CLASS I & II ID | Routin | 11/12/2018 | | Results for this | | | e | 12:00 AM | | procedure are in the | | | | PDT | | results section. | + +--------+ + + + | LIT FLOW HLA II AB | Routin | 09/14/2018 | | | | AG ID, BLOOD | e | 12:00 AM | | | | | | PST | | | + +--------+ + + + | LIT FLOW HLA I AB AG | Routin | 09/14/2018 | | Results for this | | ID, BLOOD | e | 12:00 AM | | procedure are in the | | | | PST | | results section. | + +--------+ + + + | CLASS I & II ID | Routin | 09/14/2018 | | Results for this | | | e | 12:00 AM | | procedure are in the | | | | PST | | results section. | + +--------+ + + + from Last 3 Months Results LIT FLOW HLA II AB AG ID, BLOOD (11/12/2018 12:00 AM PDT)Only the most recent of 2 results within the time period is included. + + | Specimen | + + | Blood | + + + + + + + | Performing | Address | City/State/Zipcode | Phone Number | | Organization | | | | + + + + + | [facility] - | [address] | [place] [address] | | | IMMUNOGENETICS/TRANS | [address] | | | | [facility] | | | | + + + + + LIT FLOW HLA I AB AG ID, BLOOD (11/12/2018 12:00 AM PDT)Only the most recent of 2 results w ithin the time period is included. + + + + + + | Component | Value | Ref Range | Performed | Pathologist | | | | | At | Signature | + + + + + + | LABEL ONLY | Please see lab report | | [facility] - | | | - LIT | for result. | | IMMUNOGENET | | | | | | ICS/TRANSPL | | | | | | ANT | | | | | | LABORATORY | | + + + + + + + + | Specimen | + + | Blood | + + + + + + + | Performing | Address | City/State/Zipcode | Phone Number | | Organization | | | | + + + + + | [facility] - | [address] | [place] [address] | | | IMMUNOGENETICS/TRANS | [address] | | | | [facility] | | | | + + + + + from Last 3 Months Insurance + +--------+ +--------+ + +--------+ | Payer | Benefi | Subscriber | Effect | Phone | Address | Type | | | t Plan | ID | radha | | | | | | / | | Dates | | | | | | Group | | | | | | + +--------+ +--------+ + +--------+ | MEDICARE | MEDICA | xxxxxxxxxxx | 03/24/20 | [phone] | [address] | [address] | | | RE A & | | 14-Pre | 1 | [address] | re | | | B | | sent | | [place] | | | | | | | | [address] | | + +--------+ +--------+ + +--------+ | MEDICAID [place] | MCAID | xxxxxxxx | 02/22/20 | [phone] | [address] | [address] | | | QMM | | 15-Pre | 6 | [phone] | id | | | QMB | | sent | | [place], [place] | | | | | | | | [address] | | + +--------+ +--------+ + +--------+ + +--------+ +--------+ + + | Guarantor Name | Accoun | Relation to | Date | Phone | Billing Address | | | t Type | Patient | of | | | | | | | | | | + +--------+ +--------+ + + | Joyce Arnold | Person | Self | [birth year] | [address] | | | al/Fam | | 1959 | [phone] | [place] [address] | | | gucci | | | 8 (Home) | | + +--------+ +--------+ + +
--- OUTSIDE RECORDS SUMMARY | ~2018-12-11 | XMS | Encounter Summary ---
Demographics + + + | Address | [address] | | | [place] [address] | + + + | Home Phone | | + + + | Preferred Language | Unknown | + + + | Marital Status | Single | + + + | Moravian Affiliation | NRP | + + + | Race | or Other | + + + | Ethnic Group | Not or | + + + Author + + + | Author | [place] [facility] | + + + | Organization | [facility] | + + + | Address | Unknown | + + + | Phone | Unavailable | + + + Support + + +---------+ + | Name | Relationship | Address | Phone | + + +---------+ + | Geraldine Parker | ECON | Unknown | | + + +---------+ + Care Team Providers + +------+ + | Care Delivery Technician Name | Role | Phone | + +------+ + | Rohan Wilkes DO | PCP | | + +------+ + Encounter Details +--------+ + + + + | Date | Type | Department | Care Team | Description | +--------+ + + + + | 09/04/ | Lab | LAB IMMUNOGENETIC | | | | 2019 | Requisition | [facility] | | | | | | [address] | | | | | | [facility] | | | | | | [place], [place] | | | | | | [address] | | | +--------+ + + + [...] | | | | | | [place], [place] | | | | | | [address] | | | | | | [phone] | | | | | | | | +--------+---------+ + + + documented as of this encounter Procedures + +--------+ + + + | Procedure Name | Priori | Date/Time | Associated Diagnosis | Comments | | | ty | | | | + +--------+ + + + | LIT FLOW HLA AB PRA | Routin | 08/29/2018 | | | | SCREEN I/II | e | 12:00 AM | | | | | | PST | | | + +--------+ + + + documented in this encounter Results LIT FLOW HLA AB PRA SCREEN I/II (08/29/2018 12:00 AM PST) + + | Specimen | + + | Blood | + + + + + + + | Performing | Address | City/State/Zipcode | Phone Number | | Organization | | | | + + + + + | [facility] - | [address], | [place] [address] | | | IMMUNOGENETICS/TRANS | [address] | | | | [facility] | | | | + + + + + documented in this encounter Visit Diagnoses Not on filedocumented in this encounter
--- OUTSIDE RECORDS SUMMARY | ~2018-12-11 | XMS | Encounter Summary ---
Demographics + + + | Address | [address] | | | [place] [address] | + + + | Home Phone | | + + + | Preferred Language | Unknown | + + + | Marital Status | Single | + + + | Uatsdin Affiliation | NRP | + + + | Race | or Other | + + + | Ethnic Group | Not or | + + + Author + + + | Author | [facility] | + + + | Organization | [facility] | + + + | Address | Unknown | + + + | Phone | Unavailable | + + + Support + + +---------+ + | Name | Relationship | Address | Phone | + + +---------+ + | Geraldine Parker | ECON | Unknown | | + + +---------+ + Care Team Providers + +------+ + | Care Fabricating Machine Operator Name | Role | Phone | + +------+ + | Nadeem Caruso | PCP | | + +------+ + Encounter Details +--------+ + + + + | Date | Type | Department | Care Team | Description | +--------+ + + + + | 01/10/ | Results/Int | [facility] | Meng Stone | Retinal detachment, | | 2013 | erpretation | [facility] | Lewis Mooney MD [address] | tractional, both | | | | [facility] [address] | eyes (Primary Dx) | | | | [address] | [place], [place] | | | | | Mailcode: [place] | [address] | | | | | [place], [place] | [phone] | | | | | [address] | | | | | | [phone] | | | +--------+ + + + [...] + documented as of this encounter Progress Alexey Hutchinson - 01/10/2014 9:44 AM PDT Joyce Arnold was seen in the [facility] today, 01/10/2014, for ultrasound. B-scan OS AC: Formed, deep and clear Lens: Phakic, in relatively good position, clear Vitreous: Mobile vitreous opacities. Incomplete PVD with adhesion at disc. Subhyaloid opaci ties noted. Retina: Multiple focal TRD noted in nasal periphery, inferonasal, and inferotemporal quadra nts. There is a bridging membrane connecting the inferotemporal and inferonasal TRD. The mac yudith appears thick, but attached. Nerve appearance: This is a Preliminary Report. It is the responsibility of the ordering physician to determi ne clinical care from image provided, or wait for official report. ALEXEY DELUCA I have reviewed the images and the initial report and I have made any necessary changes to the report as needed based on my assessment. MENG STONE MD documented in this encounter Plan of Treatment +--------+---------+ + + + | Date | Type | Specialty | Care Team | Description | +--------+---------+ + + + | 01/30/ | Office | Ophthalmology | Susan Andrews MD | | | 2019 | Visit | | [address] | | | | | | [place], [place] | | | | | | [address] | | | | | | [phone] | | | | | | | | +--------+---------+ + + + documented as of this encounter Visit Diagnoses + + | Diagnosis | + + | Retinal detachment, tractional, both eyes - Primary Traction detachment of retina | + + documented in this encounter
--- OUTSIDE RECORDS SUMMARY | ~2018-12-11 | XMS | Encounter Summary ---
Demographics + + + | Address | [address] | | | [place] [address] | + + + | Home Phone | | + + + | Preferred Language | Unknown | + + + | Marital Status | Single | + + + | Yarsanism Affiliation | NRP | + + + | Race | or Other | + + + | Ethnic Group | Not or | + + + Author + + + | Author | [place] [employer] [facility] | + + + | Organization | [facility] | + + + | Address | Unknown | + + + | Phone | Unavailable | + + + Support + + +---------+ + | Name | Relationship | Address | Phone | + + +---------+ + | Princeton Parker | ECON | Unknown | | + + +---------+ + Care Team Providers + +------+ + | Care Compounder Helper Name | Role | Phone | + +------+ + | Nadeem Caruso | PCP | | + +------+ + Reason for Visit + + + | Reason | Comments | + + + | OCT - Macula | ou | + + + Encounter Details +--------+ + + + + | Date | Type | Department | Care Team | Description | +--------+ + + + + | 02/06/ | Diagnostic | [facility] | | OCT - Macula (ou) | | 2015 | Visit | Center | | | | | | Photography at | | | | | | [place] [address] | | | | | | [address] | | | | | | Mailcode: [place] | | | | | | [place], [place] | | | | | | [address] | | | | | | [phone] | | | +--------+ + + + [...] + + documented as of this encounter Mayra Hood - 02/06/2015 3:17 PM PDTThe interpretation for the following study: APR - Raúl - yoli can be found on physician encounter on 02/06/2015. documented in this encounter Plan of Treatment +--------+---------+ + + + | Date | Type | Specialty | Care Team | Description | +--------+---------+ + + + | 01/30/ | Office | Ophthalmology | Susan Andrews MD | | | 2019 | Visit | | [address] | | | | | | [place], [place] | | | | | | [address] | | | | | | [phone] | | | | | | | | +--------+---------+ + + + documented as of this encounter Visit Diagnoses + + | Diagnosis | + + | Macular edema, diabetic (HCC) Type II or unspecified type diabetes mellitus with | | ophthalmic manifestations, not stated as uncontrolled | + + documented in this encounter
--- OUTSIDE RECORDS SUMMARY | ~2018-12-11 | XMS | Encounter Summary ---
Demographics + + + | Address | [address] | | | [place] [address] | + + + | Home Phone | | + + + | Preferred Language | Unknown | + + + | Marital Status | Single | + + + | Congregational Affiliation | NRP | + + + | Race | or Other | + + + | Ethnic Group | Not or | + + + Author + + + | Author | [place] [employer] [facility] | + + + | Organization | [facility] [employer] [facility] | + + + | Address | Unknown | + + + | Phone | Unavailable | + + + Support + + +---------+ + | Name | Relationship | Address | Phone | + + +---------+ + | Geraldine Parker | ECON | Unknown | | + + +---------+ + Care Team Providers + +------+ + | Care L Tacker Name | Role | Phone | + +------+ + | Nadeem Caruso | PCP | | + +------+ + Encounter Details +--------+---------+ + + + | Date | Type | Department | Care Team | Description | +--------+---------+ + + + | 02/22/ | Office | [facility] | Susan Chau MD | PDR (proliferative | | 2013 | Visit | [facility] at | [address] | diabetic | | | | [facility] [address] [facility] [place] | retinopathy), type | | | | [address] | [address] | 2, with macular | | | | Mailcode: [facility] | [phone] | edema (Primary Dx); | | | | [place], [place] | | TRD (traction | | | | [address] | | retinal detachment), | | | | [phone] | | bilateral | +--------+---------+ + + + Social History [...] encounter Progress Notes Susan Chau MD - 02/22/2014 11:18 AM PDTFormatting of this note might be different from melvin rachel. [facility] Progress Note 02/22/2014 CC: No chief complaint on file. Initial History: Last 3 ambulatory procedures on record: Procedure: Avasti OU (01/01/14 9564) HPI: Joyce Arnold is a 53 y.o. female Last visit: 02/21/14 at 9:30 am Here post op day one PPV/EL/drainage/Frieda oil OS for retinal detachment. She says that she hasn't really had too much pain, just itching. Pain:No pain (0 of 0-10) POH: PPV/MP/EL, left eye 02/13/2014 01/09/14 PPV/MP/EL/FAx/1000cstSO OD and small amount of PRP OS with preop avastin OUDME -Avastin OU initiated 6/11/14 PDR OU Current Outpatient Prescriptions (Ophthalmic Medications) Medication Sig atropine Instill 1 drop into the left eye two times daily. ofloxacin Instill 1 drop into the left eye four times daily. prednisoLONE acetate Instill 1 drop into the left eye four times daily. Current Outpatient Prescriptions (Other) Medication Sig amLODIPine Take 10 mg by mouth once daily. aspirin EC Take 81 mg by mouth once daily. citalopram Take 40 mg by mouth once daily. famotidine Take 20 mg by mouth once daily. hydrochlorothiazide Take 25 mg by mouth two times daily. HYDROcodone-acetaminophen Take 1-2 tablets by mouth every four hours as needed for mild pain. Max 3250mg acetaminophen per 24hrs insulin detemir Inject 22 Units under the skin (SUBC) before breakfast. 22 units AM and 18 at HS insulin lispro Inject under the skin (SUBC). "1 dose prn- use sliding scale before ariel ls" isosorbide mononitrate CR Take 30 mg by mouth once daily. LANCETS & BLOOD GLUCOSE STRIPS MISC LEVOTHYROXINE SODIUM (LEVOXYL ORAL) Take 0.2 mg by mouth once daily. losartan Take 50 mg by mouth two times daily. metoprolol succinate Take 50 mg by mouth once daily. nitroglycerin Place 0.4 mg under tongue every five minutes as needed for chest pain. Pl romel under tongue and allow to dissolve. Administer every 5 minutes, max of 3 doses in 15 mi nutes. oxyCODONE (immediate release) Take 1 tablet by mouth every six hours as needed (pain). promethazine Take 25 mg by mouth three times daily as needed for nausea/vomiting. simvastatin Take 40 mg by mouth once daily. SYRING W-NDL,DISP,INSUL,0.5ML (INSULIN SYRINGE MISC) Past Medical History Diagnosis Date Diabetes mellitus type 1 Hypertension Heart disease, unspecified Heart attack Other and unspecified hyperlipidemia Shortness of breath Pneumonia, organism unspecified Renal failure, unspecified Unspecified disorder of thyroid Retinal detachment Cataract Migraine, unspecified, without mention of intractable migraine without mention of statu s migrainosus Congestive heart failure, unspecified stroke Told she had a stroke about 9 years ago Depressive disorder, not elsewhere classified panic attack Past Surgical History Procedure Laterality Date Tonsillectomy [...] 53 y.o. female with Ophthalmologic Problems 1. 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 POM# 1.5 s/p 23g PPV/MP/EL/FAx/1000cstSO OD 01/02/14 PDR (proliferative diabetic retinopathy) [854730] OD - francois-jaw TRD threatening macula and VH - doing well, retina attached, stable - oil was placed due to poor vision in contralateral eye, and [place] 3. 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
--- OUTSIDE RECORDS SUMMARY | ~2018-12-11 | XMS | Encounter Summary ---
Demographics + + + | Address | [address] | | | [place] [address] | + + + | Home Phone | | + + + | Preferred Language | Unknown | + + + | Marital Status | Single | + + + | Presybeterian Affiliation | NRP | + + + | Race | or Other | + + + | Ethnic Group | Not or | + + + Author + + + | Author | [place] [employer] [facility] | + + + | Organization | [facility] | + + + | Address | Unknown | + + + | Phone | Unavailable | + + + Support + + +---------+ + | Name | Relationship | Address | Phone | + + +---------+ + | Geraldine Canales | ECON | Unknown | | + + +---------+ + Care Team Providers + +------+ + | Care Manager Of Pharmacy Name | Role | Phone | + +------+ + | Nadeem Caruso | PCP | | + +------+ + Reason for Visit +---------+ + | Reason | Comments | +---------+ + | Post Op | | +---------+ + Encounter Details +--------+---------+ + + + | Date | Type | Department | Care Team | Description | +--------+---------+ + + + | 09/19/ | Office | [facility] | Carolyn Murphy, | Cataract extraction | | 2015 | Visit | [facility] at | [address] | status, right | | | | [facility] [address] | (Primary Dx); | | | | [address] | [facility] [place] | Cataract extraction | | | | Mailcode: [facility] | [phone] | status, left; | | | | [place], [place] | [phone] | Diabetic macular | | | | [address] | | edema(362.07) ([facility]) | | | | [phone] | | | +--------+---------+ + + + [...] documented as of this encounter Progress Notes Carolyn Murphy MD - 09/19/2014 10:47 AM PSTFormatting of this note might be different fr om the original. [facility] Progress Note 09/19/2014 Joyce Arnold is a 54 y.o. female who returns for follow up. Chief Complaint Patient presents with Post Op Here for po s/p CE/IOL/SOR OD. Patient reports that her eyes seem to be doing well since exam. says she is having a better time reading. Still having problems when it's d ark. Has a cold and is on antibiotics. Says her vision has been a little blurry because of t hat. Pain: 0 ROS: Medications, allergies, medical, surgical and family history were reviewed by me at th is visit utilizing [facility] patient history form and Epic patient history pertinent positives: Past Medical History Diagnosis Date Diabetes mellitus [...] ligation Cholecystectomy Thyroid lobectomy Carpal tunnel surgery Family History Problem Relation Retinal detachment Neg Hx Macular degeneration Neg Hx Glaucoma Neg Hx Diabetes Grandmother Diabetes Cousin Blindness Neg Hx Strabismus Neg Hx Amblyopia Neg Hx Diabetes Paternal Cousin Additional Family History Maternal Grandmother breast cancer Additional Family History Paternal Grandmother breast cancer Cataract Paternal Cousin Cataract Paternal Uncle History Smoking status Former Smoker -- 2.50 packs/day for 33 years Types: Cigarettes Quit date: 05/31/2014 Smokeless tobacco Never Used Allergies Allergen Reactions Iron Dextran Unknown Numb lips, itchy on face Celebrex [Celecoxib] Pruritis and Rash Penicillins Unknown Pt. States it doesn't work on her. Sulfa (Sulfonamide Antibiotics) Pruritis and Rash Pt. States she also gets horrible yeast infection. Current Outpatient Prescriptions (Other) Medication Sig amLODIPine Take 10 mg by mouth once daily. aspirin EC Take 81 mg by mouth once daily. citalopram Take 40 mg by mouth once daily. famotidine Take 20 mg by mouth once daily. hydrochlorothiazide Take 25 mg by mouth two times daily. insulin detemir Inject 15 Units under the skin (SUBC) two times daily. insulin lispro Inject 10-22 Units under the skin (SUBC) four times daily. With every me al. isosorbide mononitrate CR Take 30 mg by [...] doses in 15 mi nutes. promethazine Take 1 tablet by mouth four times daily as needed for nausea/vomiting. promethazine Take 25 mg by mouth three times daily as needed for nausea/vomiting. simvastatin Take 40 mg by mouth once daily. sodium bicarbonate Take 650 mg by mouth three times daily. SYRING W-NDL,DISP,INSUL,0.5ML (INSULIN SYRINGE MISC) All else unless noted was neg. (fever, wt. loss, ENT, cardiovascular, pulmonary, GI, urinar y, neurologic, endocrine, bleeding/blood disorders, AIDS/HIV, cancer/tumors, arthritis) Surplus Property Disposal Agent Attestation: JOSEF Hutton, performed, reviewed or revised the above history, medications, allergies, as well as performed elements noted in the Base Ophthalmology Exam, including visual acuity, pupils, EOMs, CVF and IOP. Examination: Base Exam Visual Acuity Right Left Dist sc 20/60 +2 20/100 -1 Dist ph sc 20/50-1+2 20/80-1 Method: Snellen - Linear Tonometry Right Left Pressure 15 13 Method: Tonopen Time: 11:09 AM Manifest Refraction Sphere Cylinder Alliance Dist Right -0.25 -1.25 175 20/30-2 Left +0.50 -1.00 005 20/80-1 Final Rx Sphere Cylinder Alliance Add Right -0.25 -1.25 175 +2.50 Left +0.50 -1.00 005 +2.50 Neuro/Psych Oriented x3: Yes Mood/Affect: Normal Slit Lamp and Fundus Exam External Exam Right Left External Normal Normal Slit Lamp Exam Right Left Lids/Lashes Normal Normal Conjunctiva/Sclera White and quiet superior suture granuloma [facility] All layers clear All layers clear Anterior Chamber Deep; trace pigment Deep and quiet Iris dilated dilated Lens PCIOL, centered in bag PCIOL well-centered in bag Vitreous avitric avitric Fundus Exam Right Left Disc flat regressed fibrotic NVD slighlty pale Macula tr CME tr CME Vessels attenuated attenuated Periphery good PRP, flat fibrotic scar inferior to IT arcade; attached good PRP, nasal pre- retinal fibrosis is flat, inferior pre-retinal fibrosis is flat, inferotemporal laser, retin a attached throughout IMPRESSION: 54 y.o. female with Ophthalmologic Problems 1.CE c PCIOL OU/Silicone oil removal OD 05/08/14 OS 06/05/14 - doing well, IOL well-centered 2. 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 PDR (proliferative diabetic retinopathy) [565496] - s/p EL PRP OU, regressed OU 4. DME (diabetic macular edema) [444291] OU - follow with Dr Andrews PLAN: MRx given today Continue Artificial tears Follow up with me in 1 year Continue retina exams CAROLYN MURPHY MD [facility]External Disease [facility] documented in this e ncounter Plan of Treatment +--------+---------+ + + + | Date | Type | Specialty | Care Team | Description | +--------+---------+ + + + | 01/30/ | Office | Ophthalmology | Susan Andrews MD | | | 2019 | Visit | | [address] | | | | | | [place], [place] | | | | | | [address] | | | | | | [phone] | | | | | | | | +--------+---------+ + + + documented as of this encounter Visit Diagnoses + + | Diagnosis | + + | Cataract extraction status, right - Primary | + + | Cataract extraction status, left | + + | Diabetic macular edema(362.07) Diabetic macular edema | + + documented in this encounter
--- OUTSIDE RECORDS SUMMARY | ~2018-12-11 | XMS | Encounter Summary ---
Demographics + + + | Address | [address] | | | [place] [address] | + + + | Home Phone | | + + + | Preferred Language | Unknown | + + + | Marital Status | Single | + + + | Druze Affiliation | NRP | + + + | Race | or Other | + + + | Ethnic Group | Not or | + + + Author + + + | Author | [facility] [facility] | + + + | Organization | [facility] | + + + | Address | Unknown | + + + | Phone | Unavailable | + + + Support + + +---------+ + | Name | Relationship | Address | Phone | + + +---------+ + | Geraldine Canales | ECON | Unknown | | + + +---------+ + Care Team Providers + +------+ + | Care Hotel Recreational Facilities Manager Name | Role | Phone | + +------+ + | Nadeem Caruso | PCP | | + +------+ + Reason for Visit + + + | Reason | Comments | + + + | Postoperative visit | | + + + Other (Routine) +--------+--------+ + + + + | Status | Reason | Specialty | Diagnoses / | Referred By | Referred To | | | | | Procedures | Contact | Contact | +--------+--------+ + + + + | Closed | | Ophthalmology | Procedures | Non-[facility] | Juliana, | | | | | MS CPTR | Epic Dept | MD Susan | | | | | OPHTH DX IMG | | [address] | | | | | [address] | | [address] | | | | SE[address]RETINA | | [address] | | | | | [place] | | [place], [place] | | | | | [place]IN | | [address] | | | | | ANGIOGRAPHY | | Phone: | | | | | MS FUNDAL | | [phone] | | | | | PHOTOGRAPHY | | Fax: | | | | | MS INJECT | | [phone] | | | | | INTRAVITREAL | | | | | | | | | | | | | | PHARMCOLOGIC | | | | | | | MS | | | | | | | TRIAMCINOLON | | | | | | | E ACETONIDE | | | | | | | INJ 10 MG | | | | | | | MS INJ,THER | | | | | | | AGENT INTO | | | | | | | TENON'S | | | | | | | CAPSULE | | | +--------+--------+ + + + + Encounter Details +--------+---------+ + + + | Date | Type | Department | Care Team | Description | +--------+---------+ + + + | 03/14/ | Office | [facility] | Susan Chau MD | Macular edema, | | 2013 | Visit | [facility] at | [address] | diabetic, type 2, | | | | [place] [address] [place], [place] | with proliferative | | | | [address] [facility] | [address] | retinopathy [250.50, | | | | Mailcode: [facility] | [phone] | 362.02, 362.07] | | | | [place], [place] | | (Primary Dx); TRD | | | | [address] | | (traction retinal | | | | [phone] | | detachment), | | | | | | bilateral; Vitreous | | | [...] encounter Progress Notes Susan Chau MD - 03/14/2014 8:40 AM PDTFormatting of this note might be different from melvin rachel. [facility] Progress Note 03/14/2014 CC: Postoperative visit Initial History: Increased vision in the left eye. Right eye stable. Pain rating 6 in the left eye 500 mg Tylenol brings pain to 0. No new flashes or floaters. Double vision persists-horizontal. Last 3 ambulatory procedures on record: Procedure: Kenalog both eyes (02/28/14 1047) Procedure: Avasti OU (01/01/14 8574) HPI: Joyce Arnold is a 53 y.o. female Last visit: 02/28/14 at 10:00 am Vision is better. Pain is better too. Pain:Patient had pain 6 of 10. This was relieved with pain medications. POH: PPV/MP/EL, left eye 02/13/2014 01/09/14 PPV/MP/EL/FAx/1000cstSO [...] for Examination Diagnostics Ordered Right Left OCT CMT/Vol:345/9.26 +IRF, similar to previously CMT/Vol: 459/9.97 +IRF, similar to prev iously FA --- --- FUNDUS --- --- Others IMPRESSION: 53 y.o. female with Ophthalmologic Problems 1. 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 POM# 2 s/p 23g PPV/MP/EL/FAx/1000cstSO OD 01/02/14 PDR (proliferative diabetic retinopathy) [321257] OD - francois-jaw TRD threatening macula and VH - doing well, retina attached, stable, vision improved - oil was placed due to poor vision in contralateral eye, and [place] 3. DME (diabetic macular edema) [931695] OU - s/p Avastin x 1 OU pre-op to above surgery - stable OD last visit , stable OS today - s/p PSTK OU, here for IOP check - good IOPs OU, but no improvement in CME OU 4. Cataracts OU PLAN: Observe for now; will consider SOR OD vs CE/IOL/SOR OD at next visit if stable (may conside r intraoperative Avastin too). Will obtain IOL measurements today. 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 physician, [...] | | | | | | [place] [place], [place] | | | | | | [address] | | | | | | [phone] | | | | | | | | +--------+---------+ + + + + + +--------+ + + | Name | Type | Priori | Associated Diagnoses | Order Schedule | | | | ty | | | + + +--------+ + + | CMPTR OPHTH DX IMG | Procedures | Routin | Macular edema, | Expected: | | POST SEGMT | | e | diabetic, type 2, | 03/13/2014, Expires: | | | | | with proliferative | 05/12/2014 | | | | | retinopathy [250.50, | | | | | | 362.02, 362.07] | | + + +--------+ + + | BIOMETRIC RULING | Procedures | Routin | Macular edema, | Expected: | | | | e | diabetic, type 2, | 03/14/2014, Expires: | | | | | with proliferative | 05/13/2014 | | | | | retinopathy [250.50, | | | | | | 362.02, 362.07] | | + + +--------+ + + documented as of this encounter Visit Diagnoses + + | Diagnosis | + + | Macular edema, diabetic, type 2, with proliferative retinopathy [250.50, 362.02, | | 362.07] - Primary | + + | TRD (traction retinal detachment), bilateral Traction detachment of retina | + + | Vitreous hemorrhage of both eyes (HCC) Vitreous hemorrhage | + + documented in this encounter
--- OUTSIDE RECORDS SUMMARY | ~2018-12-11 | XMS | Encounter Summary ---
Demographics + + + | Address | [address] | | | [place] [address] | + + + | Home Phone | | + + + | Preferred Language | Unknown | + + + | Marital Status | Single | + + + | Holiness Affiliation | NRP | + + + | Race | or Other | + + + | Ethnic Group | Not or | + + + Author + + + | Author | [place] [facility] | + + + | Organization | [facility] | + + + | Address | Unknown | + + + | Phone | Unavailable | + + + Support + + +---------+ + | Name | Relationship | Address | Phone | + + +---------+ + | Kingsville Parker | ECON | Unknown | | + + +---------+ + Care Team Providers + +------+ + | Care Billing Clerk Name | Role | Phone | + [...] | +--------+ + + + + | 10/17/ | Diagnostic | [facility] | | OCT - Macula (ou) | | 2015 | Visit | [place] | | | | | | [facility] at | | | | | | [place] [address] | | | | | [address] | | | | | | Mailcode: [place] | | | | | | [place], [place] | | | | | | [address] | | | | | | [phone] | | | +--------+ + + + [...] of this encounter Progress Reece Sigala - 10/20/2014 1:07 PM PDTThe interpretation for the following study: OCT - Macula - ou can be found on physician encounter on 10/17/2014. documented in this encounte r Plan of Treatment +--------+---------+ + + + | Date | Type | Specialty | Care Team | Description | +--------+---------+ + + + | 01/30/ | Office | Ophthalmology | Susan Andrews MD | | | 2019 | Visit | | [address] | | | | | | [place], [place] | | | | | | [address] | | | | | | [phone] | | | | | | | | +--------+---------+ + + + documented as of this encounter Visit Diagnoses + + | Diagnosis | + + | Macular edema, diabetic, type 2, with proliferative retinopathy [250.50, 362.02, | | 362.07] | + + documented in this encounter
--- OUTSIDE RECORDS SUMMARY | ~2018-12-11 | XMS | Encounter Summary ---
Demographics + + + | Address | [address] | | | [place] [address] | + + + | Home Phone | | + + + | Preferred Language | Unknown | + + + | Marital Status | Single | + + + | Jehovah'S Witness Affiliation | NRP | + + + | Race | or Other | + + + | Ethnic Group | Not or | + + + Author + + + | Author | [place] [facility] | + + + | Organization | [facility] | + + + | Address | Unknown | + + + | Phone | Unavailable | + + + Support + + +---------+ + | Name | Relationship | Address | Phone | + + +---------+ + | Geraldine Parker | ECON | Unknown | | + + +---------+ + Care Team Providers + +------+ + | Care Infection Control Manager Name | Role | Phone | + +------+ + | Rohan Wilkes DO | PCP | | + +------+ + Reason for Visit + + + | Reason | Comments | + + + | Diabetic Retinopathy | | | Follow-up | | + + + Office Visit - E/M Services (Routine) +--------+--------+ + + + + | Status | Reason | Specialty | Diagnoses / | Referred By | Referred To | | | | | Procedures | Contact | Contact | +--------+--------+ + + + + | Closed | | Ophthalmology | | Non-[facility] | [facility] | | | | | | Epic Dept | MD Indira | | | | | | | [address] | | | | | [address] | | | | | | | [place] | | | | | | | [place], [place] | | | | | | | [address] | | | | | | | Phone: | | | | | | | [phone] | | | | | | | Fax: | | | | | | | [phone] | +--------+--------+ + + + + Encounter Details +--------+---------+ + + + | Date | Type | Department | Care Team | Description | +--------+---------+ + + + | 01/27/ | Office | [facility] | Indira Chau MD | Proliferative | | 2017 | Visit | [facility] at | [address] | diabetic retinopathy | | | | [facility] [address] [place], [place] | of both eyes with | | | | [address] | [address] | macular edema | | | | Mailcode: [facility] | [phone] | associated with type | | | | [place], [place] | | 2 diabetes mellitus | | | | [address] | | ([facility]) (Primary Dx) | | | | [phone] | | | +--------+---------+ + + + [...] documented as of this encounter Progress Notes Zita Escobar - 01/27/2017 1:30 PM PDT [facility] Progress Note 01/27/2017 CC: Diabetic Retinopathy Follow-up Initial History: Last 3 ambulatory procedures on record: Procedure: Ozurdex both eyes (08/21/15 4712) Procedure: Ozurdex both eyes (02/06/15 1890) Procedure: Ozurdex right eye (10/31/14 1220) HPI: Joyce Arnold is a 56 y.o. female Says vision has been stable Pain:No pain (0 of 0-10) POH: DME Last consent: Ozurdex OU 10/17/2014 Last consent: Avastin OU 01/01/2014 Sub conj Lido -Ozurdex initiated OS 10/17/14-Present -Avastin OU initiated 01/01/14-09/19/14 PPV/SO removal PHACO IOL OS 06/05/14 PPV/SO removal PC IOL OD 05/08/14 PPV/MP/EL, silicone oil left eye 02/13/2014 01/09/14 PPV/MP/EL/FAx/1000cstSO OD and small amount of PRP OS with preop PDR OU Current Outpatient Prescriptions (Other) Medication Sig amLODIPine Take 10 mg by mouth once daily. ASMANEX TWISTHALER aspirin EC Take 325 mg by mouth once daily. citalopram Take 40 mg by mouth once daily. famotidine Take 20 mg by mouth once daily. FOLIC ACID ORAL Take by mouth. hydroCHLOROthiazide Take 25 mg by mouth two times daily. insulin glargine Inject under the skin (SUBC). Indications: TYPE 1 DIABETES MELLITUS LANCETS & BLOOD GLUCOSE STRIPS MISC LEVOTHYROXINE SODIUM (LEVOXYL ORAL) Take 0.2 mg by mouth once daily. losartan Take 50 mg by mouth two times daily. metoprolol succinate TK 2 TS PO ONCE D nitroglycerin Place 0.4 mg under tongue every five minutes as needed for chest pain. Pl romel under tongue and allow to dissolve. Administer every 5 minutes, max of 3 doses in 15 mi nutes. NovoLOG Flexpen potassium chloride SR TK 1 T PO BID promethazine Take 1 tablet by mouth four times daily as needed for nausea/vomiting. RENVELA simvastatin Take 20 mg by mouth once daily in the evening. simvastatin Take 40 mg by mouth once daily. sodium bicarbonate Take 650 mg by mouth three times daily. SYRING W-NDL,DISP,INSUL,0.5ML (INSULIN SYRINGE MISC) torsemide VITAMIN D2 Past Medical History: Diagnosis Date Cataract Congestive heart failure, unspecified (HCC) Depressive disorder, not elsewhere classified Diabetes mellitus type 1 (HCC) Dialysis patient (HCC) Heart attack (HCC) Heart disease, unspecified Hypertension Migraine, unspecified, without mention of intractable migraine without mention of statu s migrainosus Other and unspecified hyperlipidemia panic attack Pneumonia, organism unspecified Renal failure, unspecified Retinal detachment Shortness of breath stroke Told she had a stroke about 9 years ago Unspecified disorder of thyroid Past Surgical History Procedure Laterality Date Tonsillectomy Tubal ligation Cholecystectomy Thyroid lobectomy Carpal tunnel surgery Quadruple coronary bypass Social History Substance Use Topics Smoking status: Former Smoker Packs/day: 2.50 Years: 33.00 Types: Cigarettes Quit date: 05/31/2014 Smokeless tobacco: Never Used Alcohol use No Comment: used to "drink heavily" See Ophthalmology Module for Examination Diagnostics Ordered Right Left OCT CMT/Vol: 289/8.85 tr IRF; overall stable CMT/Vol: 276/8.72 tr temporal IRF; overall s table FA --- --- FUNDUS --- --- Others IMPRESSION: 56 y.o. female with Ophthalmologic Problems 1. s/p PPV/Silicone oil removal/PHACO/IOL OS 06/05/14, oil placed because of altitude - s/p PPV/EL/SO OS on 02/21/14 - doing great, retina attached, PCIOL centered, PDR regressed 2. s/p CE/IOL/SOR OD for retained silicone oil and nuclear cataract 05/08/2014 - s/p 23g PPV/MP/EL/FAx/1000cstSO OD 01/02/14, oil placed because of altitutde - for francois jaw TRD, VH, PDR - doing well, retina attached and stable with regressed PDR , vision great compared to preo p 3. PDR (proliferative diabetic retinopathy) [553934] - regressed OU after the above procedures - initial vision was CF OU 4. DME (diabetic macular edema) [036790] OU - s/p Avastin OD on 05/16/14, OU x3 06/27/14, 08/08/14, 09/19/14 - s/p PSTK OU in the past also with minimal benefit - s/p Ozurdex OS on 10/17/14 - s/p Ozurdex OD on 10/31/14 - s/p Ozurdex OU on 02/06/15, 08/21/15, last 10/02/15 - stable OU without repeated injections PLAN: Observe for now; BG control discussed Call for decreased vision, increased distortion, increased pain, new floaters or flashing l ights Follow up: 6 months 08/04/17 at 10:00 am NEXT VIIST: DILATE OU, OCT OU Attestations: The hospital laboratory technician, under the supervision of the physician, is responsible for performing the f ollowing sections: RFV, ROS, PMH, PSH, SocHx, FH, Med list, Base Ophth Exam. The attending physician is responsible for the entire content of the note and has personall y performed the HPI and the physical examination INDIRA CHAU MD documented in this encoun ter Plan of Treatment +--------+---------+ + + + | Date | Type | Specialty | Care Team | Description | +--------+---------+ + + + | 01/30/ | Office | Ophthalmology | Indira Chau MD | | | 2019 | Visit | | [address] | | | | | | [place], [place] | | | | | | [address] | | | | | | [phone] | | | | | | | | +--------+---------+ + + + + + +--------+ + + | Name | Type | Priori | Associated Diagnoses | Order Schedule | | | | ty | | | + + +--------+ + + | CMPTR OPHTH DX IMG | Procedures | Routin | Proliferative | Expected: | | POST SEGMT | | e | diabetic retinopathy | 01/26/2017, Expires: | | | | | of both eyes with | 07/29/2018 | | | | | macular edema | | | | | | associated with type | | | | | | 2 diabetes mellitus | | | | | | ([facility]) | | + + +--------+ + + documented as of this encounter Visit Diagnoses + + | Diagnosis | + + | Proliferative diabetic retinopathy of both eyes with macular edema associated with | | type 2 diabetes mellitus ([facility]) - Primary | + + documented in this encounter
--- OUTSIDE RECORDS SUMMARY | ~2018-12-11 | XMS | Encounter Summary ---
Demographics + + + | Address | [address] | | | [place] [address] | + + + | Home Phone | | + + + | Preferred Language | Unknown | + + + | Marital Status | Single | + + + | Mormon Affiliation | NRP | + + + | Race | or Other | + + + | Ethnic Group | Not or | + + + Author + + + | Author | [place] [employer] [facility] | + + + | Organization | [facility] [employer] [facility] | + + + | Address | Unknown | + + + | Phone | Unavailable | + + + Support + + +---------+ + | Name | Relationship | Address | Phone | + + +---------+ + | [place] | ECON | Unknown | | + + +---------+ + Care Team Providers + +------+ + | Care Records Specialist Name | Role | Phone | + +------+ + | Nadeem Caruso | PCP | | + +------+ + Reason for Visit + + + | Reason | Comments | + + + | OCT - Macula | OU | + + + Encounter Details +--------+ + + + + | Date | Type | Department | Care Team | Description | +--------+ + + + + | 11/28/ | Diagnostic | [facility] | | OCT - Macula (OU) | | 2015 | Visit | [place] | | | | | | Photography at | | | | | | [place] [address] | | | | | | [address] | | | | | | Mailcode: [address] | | | | | | [place], [place] | | | | | | [address] | | | | | | [phone] | | | +--------+ + + + [...] of this encounter Progress Reece Sigala - 11/28/2014 4:31 PM PDTThe interpretation for the following study: OCT - Macula - OU can be found on physician encounter on 11/28/2014. documented in this encounte r Plan of Treatment +--------+---------+ + + + | Date | Type | Specialty | Care Team | Description | +--------+---------+ + + + | 01/30/ | Office | Ophthalmology | Susan Andrews MD | | | 2019 | Visit | | [address] | | | | | | [place], [place] | | | | | | [address] | | | | | | [phone] | | | | | | | | +--------+---------+ + + + documented as of this encounter Visit Diagnoses + + | Diagnosis | + + | Macular edema, diabetic (HCC) Type II or unspecified type diabetes mellitus with | | ophthalmic manifestations, not stated as uncontrolled | + + | Proliferative diabetic retinopathy with macular edema associated with type 2 diabetes | | mellitus [250.50, 362.07, 362.02] | + + documented in this encounter
--- OUTSIDE RECORDS SUMMARY | ~2018-12-11 | XMS | Encounter Summary ---
Demographics + + + | Address | [address] | | | [place] [address] | + + + | Home Phone | | + + + | Preferred Language | Unknown | + + + | Marital Status | | + + + | Worship Affiliation | Unknown | + + + | Race | Unknown | + + + | Ethnic Group | Unknown | + + + Author + + + | Author | [facility] | + + + | Organization | [facility] | + + + | Address | Unknown | + + + | Phone | Unavailable | + + + Support + + +---------+ + | Name | Relationship | Address | Phone | + + +---------+ + | Geraldine Canales | ECON | Unknown | | + + +---------+ + | Mario Stahl | ECON | Unknown | | + + +---------+ + Care Team Providers + +------+ + | Care Director Of Counseling Name | Role | Phone | + +------+ + | Rohan Wilkes DO | PCP | | + +------+ + Encounter Details +--------+ + + + + | Date | Type | Department | Care Team | Description | +--------+ + + + + | 12/06/ | Orders Only | [facility] | Sherman Chambers MD | Kidney replaced by | | 2019 | | [address] | transplant; | | | | [address] | [address] [place], [place] | Immunosuppression | | | | [place] [address] | [phone] | (HCC); Fever and | | | | [phone] | | chills | +--------+ + + + + Social History + +-------+ +--------+ + | Tobacco Use | Types | Packs/Day | Years | Date | | | | | Used | | + +-------+ +--------+ + | Former Smoker | | | | Quit: 04/22/2015 | + +-------+ +--------+ + + +---+---+---+ | Smokeless Tobacco: | | | | | Never Used | | | | + +---+---+---+ + + +---------+ + | Alcohol Use | Drinks/We | oz/Week | Comments | | | ek | | | + + +---------+ + | No | | | | + + +---------+ + + + + | Sex Assigned at | Date Recorded | | | | + + + | Not on file | | + + + as of this encounter Plan of Treatment +--------+---------+ + + + | Date | Type | Specialty | Care Team | Description | +--------+---------+ + + + | 12/27/ | Office | Endocrinology | Ben Ochoa, | | | 2019 | Visit | | MD Claudine RAHMAN | | | | | | [address] | | | | | | [place] [address] | | | | | | [phone] | | | | | | | | +--------+---------+ + + + + +--------+ + + | Name | Priori | Associated Diagnoses | Order Schedule | | | ty | | | + +--------+ + + | [id number] | Routin | Kidney replaced by | Expected: | | | e | transplant | 12/06/2018, Expires: | | | | Immunosuppression | 12/07/2019 | | | | (HCC) Fever and | | | | | chills | | + +--------+ + + | CBC W/Auto Diff (Reflex to | Routin | Kidney replaced by | Expected: | | Manual) | e | transplant | 12/06/2018, Expires: | | | | Immunosuppression | 12/07/2019 | | | | (HCC) Fever and | | | | | chills | | + +--------+ + + | Renal function panel | Routin | Kidney replaced by | Expected: | | | e | transplant | 12/06/2018, Expires: | | | | Immunosuppression | 12/07/2019 | | | | (HCC) Fever and | | | | | chills | | + +--------+ + + | Urinalysis w/microscopic (reflex | Routin | Kidney replaced by | Expected: | | to culture) | e | transplant | 12/06/2018, Expires: | | | | Immunosuppression | 12/07/2019 | | | | (HCC) Fever and | | | | | chills | | + +--------+ + + as of this encounter Visit Diagnoses + + | Diagnosis | + + | Kidney replaced by transplant | + + | Immunosuppression (HCC) | + + | Unspecified disorder of immune mechanism | + + | Fever and chills | + + | Fever, unspecified | + +"
--- OUTSIDE RECORDS SUMMARY | ~2018-12-11 | XMS | Encounter Summary ---
Demographics + + + | Address | [address] | | | [place] [address] | + + + | Home Phone [...] Author + + + | Author | [place] [employer] [facility] | + + + | Organization | [facility] [employer] [facility] | + + + | Address | Unknown | + + + | Phone | Unavailable | + + + Support + + +---------+ + | Name | Relationship | Address | Phone | + + +---------+ + | Geraldine Parker | ECON | Unknown | | + + +---------+ + Care Team Providers + +------+ + | Care Client Technologies Specialist Name | Role | Phone | [...] +--------+--------+ + + + + Encounter Details +--------+ + + + + | Date | Type | Department | Care Team | Description | +--------+ + + + + | 01/02/ | Anesthesia | [facility] | Julian Pierce, | | | 2013 | Event | [address] | CASUALTY INSURANCE CLAIM ADJUSTER [address] | | | | | [place] | [address] | | | | | [facility], | [place], [place] | | | | | [place] [address] | [address] | | | | | | [phone] | | | | | | | | +--------+ + + + + Anesthesia Record + + + + + | Procedure Name | Responsible | Anesthesia Start | Anesthesia Stop Time | | | Anesthesiologist | Time | | + + + + + | (INACTIVE) 23G | Brandt Ortez MD | 01/02/14 1216 | 01/02/14 1525 | | VITRECTOMY WITH | | | | | SILICONE OIL | | | | | INSERTION (Bilateral | | | | | Eye) | | | | + + + + + +----+---+ + + | Da | T | Event | Comment | | te | i | | | | | m | | | | | e | | | +----+---+ + + | 06 | 1 | Eq Check | Anesthesia machine checked Equipment verified | | /1 | 1 | | | | 2/ | 5 | | | | 20 | 1 | | | | 14 | | | | +----+---+ + + | | 1 | An Start | | | | 2 | | | | | 1 | | | | | 6 | | | +----+---+ + + | | 1 | An Start | | | | 2 | Data | | | | 1 | | | | | 9 | | | +----+---+ + + | | 1 | Vitals | Monitors applied Vital signs checked Patient ready for anesthesia | | | 2 | Checked | | | | 1 | | | | | 9 | | | +----+---+ + + | | 1 | Quick [facility] | a) Monitors Placed b) Arms <90 degrees c) Warm Blankets placed | | | 2 | | Upper and Lower Body d) Bed Turned 90 Degrees | | | 1 | | | | | 9 | | | +----+---+ + + | | 1 | O2 by NC | | | | 2 | | | | | 1 | | | | | 9 | | | +----+---+ + + | | 1 | Ready | | | | 2 | | | | | 2 | | | | | 2 | | | +----+---+ + + | | 1 | Pause | | | | 2 | | | | | 2 | | | | | 3 | | | +----+---+ + + | | 1 | Abx held | | | | 2 | Not Ordered | | | | 2 | | | | | 3 | | | +----+---+ + + | | 1 | Retrobulbar | | | | 2 | Block by | | | | 2 | Surgeon | | | | 5 | | | +----+---+ + + | | 1 | Incision | | | | 2 | | | | | 4 | | | | | 9 | | | +----+---+ + + | | 1 | Surgery end | | | | 5 | | | | | 2 | | | | | 1 | | | +----+---+ + + | | 1 | an stop | | | | 5 | data | | | | 2 | | | | | 1 | | | +----+---+ + + | | 1 | Anesthesia | | | | 5 | End | | | | 2 | | | | | 5 | | | +----+---+ + + +------+ | Meds | +------+ + + + | Name | Total | + + + | midazolam | 3 mg | + + + | alfentanil | 1,000 mcg | + + + | propofol | 20 mg | + + + | fentaNYL | 75 mcg | + + + | ondansetron | 4 mg | + + + | lactated ringers IV | 600 mL | + + + + + | Name | + + | O2 Flow Rate (Total Liters) | + + + + | No blood administrations on file. | + + +--------+ + + + | Type | Details | Placement | Removal | +--------+ + + + | RETIRE | 01/02/14; 1001; 01/02/14; 1620; | 01/02/14 1001 by | 01/02/14 1620 by | | D - | No; 22; Left; Antecubital; None; | Anshu Perry RN | Anshu Perry RN | | Periph | Positive | | | | eral | | | | | Line | | | | +--------+ + + + documented in this encounter Social History + + + +--------+ + | Tobacco Use | Types | Packs/Day | Years | Date | | | | | Used | | + + + +--------+ + | Former Smoker | Cigarettes | 0.2 | 33 | Quit: 11/06/2013 | + + + +--------+ + + [...] | | | | | | [place], [place] | | | | | | [address] | | | | | | [phone] | | | | | | | | +--------+---------+ + + + documented as of this encounter Visit Diagnoses Not on filedocumented in this encounter Administered Medications + +--------+ +--------+------+------+ | Medication Order | MAR | Action | Dose | Rate | Site | | | Action | Date | | | | + +--------+ +--------+------+------+ | alfentanil (ALFENTA) injection | Given | 01/03/20 | 1,000 | | | | INTRAPROCEDURE PRN, Starting Mehnaz | | 14 12:21 | mcg | | | | 01/02/14 at 1221, Until Mehnaz | | PM PDT | | | | | 01/02/14 at 1521 | | | | | | + +--------+ +--------+------+------+ +---+---+ | | | +---+---+ + +-------+ +--------+---+---+ | fentaNYL citrate (PF) | Given | 01/03/20 | 25 mcg | | | | (SUBLIMAZE) injection | | 14 2:27 | | | | | INTRAPROCEDURE PRN, Starting Mehnaz | | PM PDT | | | | | 01/02/14 at 1259, Until Mehnaz | | | | | | | 01/02/14 at 1521, sedation | | | | | | + +-------+ +--------+---+---+ +-------+ +--------+---+---+ | Given | 01/03/20 | 25 mcg | | | | | 14 1:50 | | | | | | PM PDT | | | | +-------+ +--------+---+---+ | Given | 01/03/20 | 25 mcg | | | | | 14 12:59 | | | | | | PM PDT | | | | +-------+ +--------+---+---+ +---+---+ | | | +---+---+ + + + +---+---+---+ | lactated ringers IV 10 mL/hr, | given by | 01/03/20 | | | | | intravenous, CONTINUOUS, Starting | | 14 3:10 | | | | | Mehnaz 01/02/14 at 1030, Until Mehnaz | anesthes | PM PDT | | | | | 01/02/14 at 2220 | iology | | | | | + + + +---+---+---+ +---------+ + + +---+ | New Bag | 01/03/20 | 10 mL/hr | 10 mL/hr | | | | 14 10:01 | | | | | | AM PDT | | | | +---------+ + + +---+ +---+---+ | | | +---+---+ + +-------+ +--------+---+---+ | midazolam (VERSED) injection | Given | 01/03/20 | 0.5 mg | | | | INTRAPROCEDURE PRN, Starting Mehnaz | | 14 1:28 | | | | | 01/02/14 at 1248, Until Mehnaz | | PM PDT | | | | | 01/02/14 at 1521, sedation | | | | | | + +-------+ +--------+---+---+ +-------+ +--------+---+---+ | Given | 01/03/20 | 0.5 mg | | | | | 14 12:48 | | | | | | PM PDT | | | | +-------+ +--------+---+---+ | Given | 01/03/20 | 2 mg | | | | | 14 12:16 | | | | | | PM PDT | | | | +-------+ +--------+---+---+ +---+---+ | | | +---+---+ + +-------+ +------+---+---+ | ondansetron (ZOFRAN) injection | Given | 01/03/20 | 4 mg | | | | INTRAPROCEDURE PRN, Starting Mehnaz | | 14 3:10 | | | | | 01/02/14 at 1510, Until Mehnaz | | PM PDT | | | | | 01/02/14 at 1521 | | | | | | + +-------+ +------+---+---+ +---+---+ | | | +---+---+ + +-------+ +-------+---+---+ | propofol INTRAPROCEDURE PRN, | Given | 01/03/20 | 10 mg | | | | Starting Mehnaz 01/02/14 at 1240, | | 14 1:13 | | | | | Until Mehnaz 01/02/14 at 1521 | | PM PDT | | | | + +-------+ +-------+---+---+ +-------+ +-------+---+---+ | Given | 01/03/20 | 10 mg | | | | | 14 12:40 | | | | | | PM PDT | | | | +-------+ +-------+---+---+ +---+---+ | | | +---+---+ documented in this encounter
--- OUTSIDE RECORDS SUMMARY | ~2018-12-11 | XMS | Clinical Summary ---
Demographics + + + | Address | [address] | | | [place] [address] | + + + | Home Phone | | + + + | Preferred Language | Unknown | + + + | Marital Status | | + + + | Episcopalian Affiliation | Unknown | + + + | Race | Unknown | + + + | Ethnic Group | Unknown | + + + Author + + + | Author | [facility] | | | and [place] | + + + | Organization | [facility] | | | and [place] | + + + | Address | [...] Team Providers + +------+ + | Care Web Ui Developer Name | Role | Phone | + +------+ + | Rohan Wilkes DO | PP | | + +------+ + Allergies + + + + + + | Active Allergy | Reactions | Severity | Noted | Comments | | | | | Date | | + + + + + + | Aclidinium | Itching, Rash | Medium | 11/09/19 | AKA - Longrza | | | | | 16 | inhaler | + + + + + + | Celecoxib | Itching, Rash | Low | 01/07/20 | | | | | | 14 | | + + + + + + | Erythromycin | Itching, Rash | Low | 11/09/19 | | | | | | 16 | | + + + + + + | Iron | Itching, Rash | Low | 06/14/20 | Injectable form is | | | | | 14 | OK | + + + + + + | Penicillins | Other (See Comments) | | 12/07/19 | Pt. States it | | | | | 14 | doesn't work on her. | + + + + + + | Sulfa Antibiotics | Itching, Rash, Other | Low | 01/07/20 | Yeast infection | | | (See Comments) | | 14 | | + + + + + + | Sulfur | Itching, Rash | Medium | 02/09/20 | Other- yeast | | | | | 16 | infection | + + + + + + Medications + + + +---------+------+------+-------+ | Medication | Sig | Dispensed | Refills | Star | End | Statu | | | | | | t | Date | s | | | | | | Date | | | + + + +---------+------+------+-------+ | nitroglycerin | Place 0.4 mg under | | 0 | | | Activ | | (NITROSTAT) 0.4 mg | the tongue every 5 | | | | | e | | SL tablet | minutes as needed. | | | | | | + + + +---------+------+------+-------+ | levothyroxine | Take 200 mcg by | | 0 | | | Activ | | (LEVOXYL) 200 mcg | mouth every morning | | | | | e | | tablet | (before breakfast). | | | | | | + + + +---------+------+------+-------+ | | Take 25 mg by mouth | | 0 | | | Activ | | hydrochlorothiazide | 2 times daily. | | | | | e | | 25 mg tablet | | | | | | | + + + +---------+------+------+-------+ | famotidine | Take 20 mg by mouth | | 0 | | | Activ | | (PEPCID) 20 mg | Daily. | | | | | e | | tablet | | | | | | | + + + +---------+------+------+-------+ | citalopram | Take 40 mg by mouth | | 0 | | | Activ | | (CELEXA) 40 mg | Daily. | | | | | e | | tablet | | | | | | | + + + +---------+------+------+-------+ | ergocalciferol | Take 50,000 Units by | | 0 | | | Activ | | (VITAMIN D-2) 50,000 | mouth Twice a week. | | | | | e | | units capsule | | | | | | | + + + +---------+------+------+-------+ | NOVOLOG FLEXPEN | Inject 10-20 Units | | 6 | 01/1 | | Activ | | 100 UNIT/ML | under the skin 4 | | | 8/20 | | e | | injection pen | times daily. | | | 16 | | | + + + +---------+------+------+-------+ | amLODIPine | Take 10 mg by mouth | | 0 | | | Activ | | (NORVASC) 10 MG | Daily. | | | | | e | | tablet | | | | | | | + + + +---------+------+------+-------+ | losartan (COZAAR) | Take 50 mg by mouth | | 0 | | | Activ | | 50 mg tablet | Daily. | | | | | e | + + + +---------+------+------+-------+ | torsemide | Take 20 mg by mouth | | 11 | 06/2 | | Activ | | (DEMADEX) 20 mg | 2 times daily. | | | 4/20 | | e | | tablet | | | | 16 | | | + + + +---------+------+------+-------+ | simvastatin | TAKE 1 TABLET BY | 90 | 3 | 08/2 | | Activ | | (ZOCOR) 40 mg tablet | MOUTH EVERY DAY IN | tablet | | 04/12 | | e | | | THE EVENING TO TAKE | | | 16 | | | | | WITH 20MG TABLET TO | | | | | | | | EQUAL 60MG DAILY | | | | | | + + + +---------+------+------+-------+ | TOMARIO AVALOSAR | Inject 36 Units | | 0 | 05/0 | | Activ | | 300 UNIT/ML | under the skin | | | 2/20 | | e | | concentrated | nightly. | | | 17 | | | | injection (pen) | | | | | | | + + + +---------+------+------+-------+ | VENTOLIN HFA 108 | Inhale 2 puffs into | | 0 | | | Activ | | (90 Base) MCG/ACT | the lungs every 4 | | | | | e | | inhaler | hours as needed for | | | | | | | | Wheezing or | | | | | | | | Shortness of Breath. | | | | | | + + + +---------+------+------+-------+ | Insulin Pen Needle | 1 each. | | 0 | 09/0 | | Activ | | (PEN NEEDLES | | | | 1/20 | | e | | 31GX5/16") 31G X 8 | | | | 16 | | | | MM MISC | | | | | | | + + + +---------+------+------+-------+ | aspirin 81 MG | Take 81 mg by mouth | | 0 | | | Activ | | tablet | Daily. | | | | | e | + + + +---------+------+------+-------+ | gentamicin 0.1% | Apply 1 thin layer | | 0 | 08/0 | | Activ | | cream | topically Daily. | | | 02/09 | | e | | | | | | 17 | | | + + + +---------+------+------+-------+ | zolpidem (AMBIEN) | Take 5 mg by mouth | | 0 | | | Activ | | 5 mg tablet | as needed. | | | | | e | + + + +---------+------+------+-------+ | melatonin 1 mg | Take 1 mg by mouth | | 0 | | | Activ | | TABS | as needed. | | | | | e | + + + +---------+------+------+-------+ | heparin 1,000 | Inject 1,000 Units | | 0 | | | Activ | | units/mL injection | into the peritoneum | | | | | e | | | as needed. | | | | | | + + + +---------+------+------+-------+ | cefdinir (OMNICEF) | Take 300 mg by mouth | | 0 | 08/1 | | Activ | | 300 mg capsule | as needed. | | | 5/20 | | e | | | | | | 17 | | | + + + +---------+------+------+-------+ Active Problems + + + | Problem | Noted Date | + + + | S/P CABG x 4, 11/27/15, William | 12/04/2015 | + + + | ESRD (end stage renal disease) on dialysis | 12/01/2015 | + + + + + | Last Assessment & Plan: On HD | | Being evaluated for renal transplant | + + + + + | Metabolic syndrome | 11/28/2015 | + + + | Stress hyperglycemia | 11/28/2015 | + + + | Type 2 diabetes, uncontrolled, with renal manifestation | 11/28/2015 | + + + | SHAKEEL (obstructive sleep apnea) | 04/08/2015 | + + + | Periodic limb movement disorder | 04/08/2015 | + + + | Irregular heart rhythm | 04/08/2015 | + + + | Edema of both legs | 03/04/2015 | + + + | COPD (chronic obstructive pulmonary disease) | 02/20/2015 | + + + | Snoring | 02/20/2015 | + + + | Excessive daytime sleepiness | 02/20/2015 | + + + | Bradycardia | 02/20/2015 | + + + + + | Last Assessment & Plan: Tele continues to show SB-SR with 1st | | degree AVBPlanNo beta sushil therapy | |Plan | |No beta sushil therapy | + + + + + | LAKE (dyspnea on exertion) | 01/16/2015 | + + + + + | Overview: ECHO 12/25/14, LVEF 62%. | | Holter Monitor 12/25/14. | + + + + + | Orbital fracture | 12/22/2014 | + + + | Facial fracture | 12/22/2014 | + + + | Osteoporosis | 07/24/2014 | + + + | Emphysema of lung | 07/24/2014 | + + + | CAD (coronary artery disease) | 01/08/2014 | + + + + + | Overview: Cardiac Cath 11/13/10, Stent x1, [place], PROCEDURES | | 1.Selective coronary angiography. 2.LHC3. Percutaneous coronary | | intervention with stenting of the mid left circumflex artery.4. | | Right femoral angiography for possible closure device deployment. | | 5. A 6-Slovenian Mynx closure device deployment at the right | | arteriotomy site.Nuclear Stress Test 02/06/14, LVEF 71%.Echo | | 02/24/14, LVEF 74%. Last Assessment & Plan: 11/27/15 CABG X 4. | | SLOAN sequentially to mid and distal LAD and SVG sequentially to | | 2nd and 3rd OM, Dr. Nobles continues to show SB-SR with | | 1st degree AVBPlan:Continue current therapy Being tsf back to | | [place] later today | |Being tsf back to [place] later today | + + + + + | Chest pain | 01/06/2014 | + + + + + | Overview: Cardiac Cath, 02/24/2009, [place], 1. Left main | | coronary artery was normal. 2. The LAD had mild diffuse disease | | with distal 60% to 65%. plaque. The first diagonal branch had | | mild diffuse disease without obstructive stenosis.3. Left | | circumflex had a mid 50% plaque and distal 40% discrete plaque. | | First obtuse marginal branch was a small caliber vessel with mild | | to moderate diffuse disease. 4. Right coronary artery had mild | | diffuse disease without any significant obstructive stenosis. 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, with chronic kidney | 01/02/2014 | | disease | | + + + | Hypothyroidism (acquired) | 01/02/2014 | + + + | Retinal detachment, bilateral | 07/24/2013 | + + + | Chronic kidney disease | 07/24/2013 | + + + | Anemia | 07/24/2013 | + + + | Goiter diffuse, nontoxic | 07/24/2003 | + + + + + | Overview: with tracheal compression | + + + + + | Heart murmur | 07/24/2002 | + + + | Depression | 07/24/2002 | + + + | Anxiety | 07/24/2002 | + + + | Carpal tunnel syndrome | 07/24/2000 | + + + + + | Overview: right | + + + + + | DM type 2 (diabetes mellitus, type 2) | 07/24/1992 | + + + | ISCHEMIC HEART DISEASE, ACUTE | | + + + | VENTRICULAR HYPERTROPHY, LEFT | | + + + | Pneumonia | | + + + | Obesity | | + + + | Cataracts, bilateral | | + + + + + | Overview: s/p removal | + + Resolved Problems + + + + | Problem | Noted | Resolved | | | Date | Date | + + + + | Leg pain, anterior, right | 03/04/20 | | | | 15 | 6 | + + + + | Open wound of right lower extremity with complication, initial | 02/21/20 | | | encounter | 15 | 6 | + + + + Immunizations + + + + | Name | Dates Previously Given | Next Due | + + + + | INFLUENZA PF | 04/26/2016, 04/27/2015, 05/23/2014 | | | QUAD(PED/ADOL/ADULT) | | | | ,PSKT or VIAL | | | + + + + | PNEUMOCOCCAL | 04/23/2013 | | | POLYSACCHARIDE | | | | 23-VALENT (PPSV23) | | | + + + + | TDAP, (ADOL/ADULT) | 03/27/2013 | | + + + + Family History + + +---------+ + | Medical History | Relation | Name | Comments | + + +---------+ + | Infertility | Daughter | | | + + +---------+ + | Polycystic ovary | Daughter | | | + + +---------+ + | Diabetes | Father | | | + + +---------+ + | Heart disease | Father | | | + + +---------+ + | Stroke | Mother | | | + + +---------+ + | Diabetes | Paternal | Fransisca | | | | Grandmoth | Papito | | | | er | | | + + +---------+ + | Diabetes | Son | Juan Carlos | | | | | Arnold | | + + +---------+ + + +---------+ + + | Relation | Name | Status | Comments | + +---------+ + + | Brother | | Alive | | + +---------+ + + | Daughter | | Alive | | + +---------+ + + | Father | | | heart disease | | | | (Age | | | | | 70s) | | + +---------+ + + | Mother | | | stroke | | | | (Age | | | | | 50s) | | + +---------+ + + | Paternal Grandmother | Fransisca | | | | | Papito | | | + +---------+ + + | Sister | | Alive | | + +---------+ + + | Son | | Alive | | + +---------+ + + | Son | Juan Carlos | | | | | Arnold | | | + +---------+ + + Social History + + + +--------+ + | Tobacco Use | Types | Packs/Day | Years | Date | | | | | Used | | + + + +--------+ + | Former Smoker | Cigarettes | 2.5 | 35 | 03/27/1972 - | | | | | | 05/22/2015 | + + + +--------+ + + +---+---+---+ | Smokeless Tobacco: | | | | | Never Used | | | | + +---+---+---+ + + | Tobacco Cessation: Counseling Given: No | + + + + +---------+ + | Alcohol Use | Drinks/We | oz/Week | Comments | | | ek | | | + + +---------+ + | No | 0 | 0.0 | | | | Standard | | | | | drinks or | | | | | | | | | | equivalen | | | | | t | | | + + +---------+ + [...] Filed Vital Signs + + + + | Vital Sign | Reading | Time Taken | + + + + | Blood Pressure | 120/48 | 10/05/20171317 PDT | + + + + | Pulse | 60 | 10/05/20171317 PDT | + + + + | Temperature | 36.1 C (97 F) | 06/01/2017 0620 PST | + + + + | Respiratory Rate | 18 | 10/05/20171317 PDT | + + + + | Oxygen Saturation | 99% | 06/01/2017 1043 PST | + + + + | Inhaled Oxygen | - | - | | Concentration | | | + + + + | Weight | 87.8 kg (193 lb 9 | 10/05/20171317 PDT | | | oz) | | + + + + | Height | 162.6 cm (5' 4") | 10/05/20171317 PDT | + + + + | Body Mass Index | 33.23 | 10/05/20171317 PDT | + + + + Plan of Treatment +--------+---------+ + + + | Date | Type | Specialty | Care Team | Description | +--------+---------+ + + + | 03/11/ | Office | | Markel Guerra | | | 2019 | Visit | | MD Ben [address] | | | | | [address] | | | | | | [place] [address] | | | | | | [phone] | | | | | | | | +--------+---------+ + + + + + + + + | Health Maintenance | Due Date | Last Done | Comments | + + + + + | Hepatitis C | | | | | Screening | 9 | | | + + + + + | Diabetic Eye Exam | | | | | | 7 | | | + + + + + | Diabetic Foot Exam | | | | | | 7 | | | + + + + + | Cervical Cancer | | | | | Screening (Pap) | 9 | | | + + + + + | Breast Cancer | | | | | Screening (Ages | 9 | | | | 50-74) | | | | + + + + + | Colorectal Cancer | | | | | Screening | 9 | | | | (Colonoscopy) | | | | + + + + + | Lung Cancer | | | | | Screening | 4 | | | + + + + + | Adult Annual | | | | | Wellness Visit | 5 | | | + + + + + | Hemoglobin A1c | | 09/21/2017, 02/24/2017, | | | Screening | 8 | 11/26/2015, Additional history | | | | | exists | | + + + + + | Vaccine: Influenza | | 04/26/2016, 04/27/2015, | | | (Season Ended) | 9 | 03/20/2015, Additional history | | | | | exists | | + + + + + | Vaccine: | | 01/03/2015, 03/27/2013 | | | Dtap/Tdap/Td (3 - | 5 | | | | Td) | | | | + + + + + | Vaccine: | Completed | 10/09/2017, 10/30/2015, | | | Pneumococcal 19-64 | | 04/23/2013, Additional history | | | Highest Risk | | exists | | + + + + + | Vaccine: Zoster | Completed | 12/26/2017, 10/19/2017 | | + + + + + Results Not on filefrom Last 3 Months Insurance + +--------+ +--------+ +---------+--------+ | Payer | Benefi | Subscriber | Effect | Phone | Address | Type | | | t Plan | ID | radha | | | | | | / | | Dates | | | | | | Group | | | | | | + +--------+ +--------+ +---------+--------+ | MEDICARE | MEDICA | [id number] | 03/24/20 | [phone] | | Medica | | | RE | | 14-Pre | 5 | | re | | | PART A | | sent | | | | | | AND B | | | | | | + +--------+ +--------+ +---------+--------+ | [place] | MEDICA | [id number] | | [phone] | | Medica | | | ID | | 015-Pr | 2 | | id | | | [place] | | esent | | | | + +--------+ +--------+ +---------+--------+ + +--------+ +--------+ + + | Guarantor [...] ST | | | al/Fam | | 1960 | [phone] | [place] | | | gucci | | | 8 (Home) | [address] | + +--------+ +--------+ + + Advance Directives Patient has advance care planning documents, and code status on file. For more information, please contact:[facility] [place] [phone] + + + + + | Code Status | Date | Date | Comments | | | Activated | Inactivated | | + + + + + | Full Code | 11/27/2015 | 12/05/2015 | | | | 13:21 | 15:13 | | + + + + +
--- OUTSIDE RECORDS SUMMARY | ~2018-12-11 | XMS | Encounter Summary ---
Demographics + + + | Address | [address] | | | [place] [address] | + + + | Home Phone | | + + + | Preferred Language | Unknown | + + + | Marital Status | Single | + + + | Spiritism Affiliation | NRP | + + + | Race | or Other | + + + | Ethnic Group | Not or | + + + Author + + + | Author | [facility] | + + + | Organization | [facility] [employer] [facility] | + + + | Address | Unknown | + + + | Phone | Unavailable | + + + Support + + +---------+ + | Name | Relationship | Address | Phone | + + +---------+ + | Geraldine Parker | ECON | Unknown | | + + +---------+ + Care Team Providers + +------+ + | Care Information Systems Director Name | Role | Phone | + +------+ + | Nadeem Caruso | PCP | | + +------+ + Encounter Details +--------+ + + + + | Date | Type | Department | Care Team | Description | +--------+ + + + + | 03/14/ | Document-Sc | UNKNOWN DEPARTMENT | Unknown . | | | 2013 | anned | [address] | | | | | | [facility] | | | | | | [place], [place] | | | | | | [address] | | | +--------+ + + + [...] | | | | | | [place], [place] | | | | | | [address] | | | | | | [phone] | | | | | | | | +--------+---------+ + + + documented as of this encounter Visit Diagnoses Not on filedocumented in this encounter
--- OUTSIDE RECORDS SUMMARY | ~2018-12-11 | XMS | Encounter Summary ---
Demographics + + + | Address | [address] | | | [place] [address] | + + + | Home Phone | | + + + | Preferred Language | Unknown | + + + | Marital Status | Single | + + + | Confucianist Affiliation | NRP | + + + | Race | or Other | + + + | Ethnic Group | Not or | + + + Author + + + | Author | [facility] [facility] [facility] | + + + | Organization | [facility] [employer] [facility] | + + + | Address | Unknown | + + + | Phone | Unavailable | + + + Support + + +---------+ + | Name | Relationship | Address | Phone | + + +---------+ + | Genoa Parker | ECON | Unknown | | + + +---------+ + Care Team Providers + +------+ + | Care Carbon Lamp Cleaner Name | Role | Phone | + +------+ + | Nadeem Caruso | PCP | | + +------+ + Reason for Visit + + + | Reason | Comments | + + + | Diabetic Retinopathy | | | Follow-up | | + + + | Follow-up visit | | + + + Office Visit - E/M Services (Routine) +--------+--------+ + + + + | Status | Reason | Specialty | Diagnoses / | Referred By | Referred To | | | | | Procedures | Contact | Contact | +--------+--------+ + + + + | Closed | | Ophthalmology | | Non-[facility] | [facility]iana, | | | | | | Epic Dept | MD Susan | | | | | | | [address] | | | | | | | [address] | | | | | | | [place] | | | | | | | [place], [place] | | | | | | | [address] | | | | | | | Phone: | | | | | | | [phone] | | | | | | | Fax: | | | | | | | [phone] | +--------+--------+ + + + + Encounter Details +--------+---------+ + + + | Date | Type | Department | Care Team | Description | +--------+---------+ + + + | 10/31/ | Office | [facility] | Susan Chau MD | Macular edema, | | 2015 | Visit | [facility] | [address] | diabetic, type 2, | | | | [facility] [address] [place], [place] | with proliferative | | | | [place] [facility] | [address] | retinopathy [250.50, | | | | Mailcode: [facility] | [phone] | 362.02, 362.07] | | | | [place], [place] | | (Primary Dx) | | | | [address] | | | | | | [phone] | | | +--------+---------+ + + + [...] encounter Progress Notes Susan Chau MD - 10/31/2014 2:29 PM PDT Procedure Note10/31/2014 Intravitreal Ozurdex implant, right eye Lot# & Expiration: [id number] - 5EE exp 05/09 Attending: Susan Chau MD Diagnosis: Macular edema, diabetic, type 2, with proliferative retinopathy [250.50, 362.02, 362.07] (primary encounter diagnosis) Retinal edema Indication: To decrease inflammation and/or edema Allergies: Iron dextran; Celebrex; Penicillins; and Sulfa (sulfonamide antibiotics) Anesthesia: Subconjunctival with 1% lidocaine with epinephrine PARQ held for above. Team Pause: At 2:29 PM, prior to the beginning of the procedure, the team paused to verify the patient s identity, the procedure to be performed (in accordance with the consent,) an d the correct side/site. The patient was positioned appropriately. All relevant images and r esults were properly labeled and displayed. We addressed antibiotic prophylaxis and fluids f or irrigation as applicable to this patient. Any safety precautions were addressed. Procedure: After lidocaine was given subconjunctivally, the eyelids were cleaned with betadine soaked cotton tips and a drop of betadine placed in the fornix. At least 1 minute later, a jose guadalupe was placed using a tb syringe to delineate 3.5 mm from the limbus, additional betadine was pain lewis over the jose guadalupe created by the syringe tip. After 20 more seconds, the conjunctiva was di splaced, and the ozurdex injected through inferotempmoral pars plana in a beveled two step i ncisional approach. The conjunctiva was replaced and the scleral injection site tamponaded w ith the cotton tip. Indirect ophthalmoscopy was performed to confirm intravitreal placement of the ozurdex. There were no complications. Complications: None EBL: None Instructions: Follow up in 2-4 weeks Susan Chau MD 10/31/2014 Susan Bang MD - 015 1:29 PM PDT [facility] Progress Note 10/31/2014 CC: Diabetic Retinopathy Follow-up Follow-up visit Initial History: Patient states she feels like her sight is improving. OD stable. Last 3 ambulatory procedures on record: Procedure: Ozurdex Left eye (10/17/14 1516) Procedure: Avastin bilateral (09/19/14 1423) Procedure: avastin OU (08/08/14 1343) HPI: Joyce [place] is a 54 y.o. female Last visit: 10/17/14 at 2:15 pm Feels like vision is improving even more. Pain:No pain (0 of 0-10) POH: 08/08/2014 cx/rs short notice <24 hour (patient) refraction (was still with Dr. Chau, and was dilated anyway...) PPV/SO removal PHACO IOL OS 06/05/14 PPV/SO removal PC IOL OD 05/08/14 PPV/MP/EL, silicone oil left eye 02/13/2014 01/09/14 PPV/MP/EL/FAx/1000cstSO OD and small amount of PRP OS with preop avastin OU DME -Avastin OU initiated 01/01/14 PDR OU Current Outpatient Prescriptions (Other) Medication [...] times daily. SYRING W-NDL,DISP,INSUL,0.5ML (INSULIN SYRINGE MISC) Past [...] Use Topics Smoking status: Former Smoker -- 2.50 packs/day for 33 years Types: Cigarettes Quit date: 05/31/2014 Smokeless tobacco: Never Used Alcohol Use: No Comment: used to "drink heavily" See Ophthalmology Module for Examination Diagnostics Ordered Right Left OCT CMT (OD):: 327 (10/31/14 1300) CMT (OD):: 334 (10/17/14 1400) stable foveal IRF CMT (OS):: 381 (10/31/14 1300) CMT (OS):: 459 (10/17/14 1400) decreased but no resolved IRF in macula FA --- --- FUNDUS --- --- Others IMPRESSION: 54 y.o. female with Ophthalmologic Problems 1. POM # 5 s/p PPV/Silicone oil removal/PHACO/IOL OS 06/05/14, oil placed because of altitu de - s/p PPV/EL/SO OS on 02/21/14 - doing well, IOL stable, retina attached, regressed PDR 2. POM#6 s/p CE/IOL/SOR OD for retained silicone oil and nuclear cataract 05/08/2014 - s/p 23g PPV/MP/EL/FAx/1000cstSO OD 01/02/14, oil placed because of altitutde - for francois jaw TRD, VH, PDR - doing well, retina attached and stable with regressed PDR , vision great 3. PDR (proliferative diabetic retinopathy) [232615] - regressed OU after the above procedures - starting vision was CF OU 4. DME (diabetic macular edema) [690401] OU - s/p Avastin OD on 05/16/14, OU x3 06/27/14, 08/08/14, 09/19/14 - s/p PSTK OU in the past also with minimal benefit - s/p Ozurdex OS on 10/17/14, improved DME OS afterwards - stable DME OD, still central PLAN: PARQ held for Ozurdex OD, given very transient effect of anti-VEGF agents s/p PPV. Pt to eventually follow up with [facility]: [phone] Follow up: 4-5 weeks NEXT VISIT: DILATE OU, OCT OU Attestations: The burner technician, under the supervision of the physician, [...] | | | | | | [place], [place] | | | | | | [address] | | | | | | [phone] | | | | | | | [...] | e | diabetic, type 2, | 10/30/2014, Expires: | | | | | with proliferative | 05/01/2016 | | | | | retinopathy [250.50, | | | | | | 362.02, 362.07] | | + + +--------+ + + documented as of this encounter Procedures + +--------+ + + + | Procedure Name | Priori | Date/Time | Associated Diagnosis | Comments | | | ty | | | | + +--------+ + + + | ID INJ,THER AGENT | Routin | 10/31/2014 | Macular edema, | | | INTO TENON'S CAPSULE | e | 2:29 PM | diabetic, type 2, | | | | | PDT | with proliferative | | | | | | retinopathy [250.50, | | | | | | 362.02, 362.07] | | + +--------+ + + + | ID INJ,THER AGENT | Routin | 10/31/2014 | Macular edema, | | | INTO TENON'S CAPSULE | e | 2:29 PM | diabetic, type 2, | | | | | PDT | with proliferative | | | | | | retinopathy [250.50, | | | | | | 362.02, 362.07] | | + +--------+ + + + documented in this encounter Visit Diagnoses + + | Diagnosis | + + | Macular edema, diabetic, type 2, with proliferative retinopathy [250.50, 362.02, | | 362.07] - Primary | + + documented in this encounter
--- OUTSIDE RECORDS SUMMARY | ~2018-12-11 | XMS | Encounter Summary ---
Demographics + + + | Address | [address] | | | [place] [address] | + + + | Home Phone | | + + + | Preferred Language | Unknown | + + + | Marital Status | Single | + + + | Baptist Affiliation | NRP | + + + | Race | or Other | + + + | Ethnic Group | Not or | + + + Author + + + | Author | [facility] [employer] [facility] | + + + | Organization | [facility] [employer] [facility] | + + + | Address | Unknown | + + + | Phone | Unavailable | + + + Support + + +---------+ + | Name | Relationship | Address | Phone | + + +---------+ + | Geraldine Parker | ECON | Unknown | | + + +---------+ + Care Team Providers + +------+ + | Care Peat Shredder Tender Name | Role | Phone | + [...] Description | +--------+---------+ + + + | 06/05/ | Surgery | [facility] | Susan Andrews MD | [address] | | 2013 | | [address] | [address] | VITRECTOMY, SILICONE | | | | [facility] | [address] [place], [place] | OIL REMOVAL, PHACO | | | | [facility], | [address] | IOL- LEFT EYE | | | | [place] [address] | [phone] | | | | | | | [...] + documented in this encounter Discharge Instructions Instructions Ash Arroyo RN - 06/05/2014[facility] Surgery Instructions documented in this encounter Medications at Time [...] + + + +---------+ + + | promethazine 25 mg | Take 1 tablet by | 20 | 0 | 06/05/20 | | | oral tablet | mouth four times | tablet | | 14 | | | | daily as needed for | | | | | | | nausea/vomiting. | | | | | + + [...] into | 5 mL | 0 | 06/05/20 | | | ophthalmic drops | the left eye four | | | 14 | [...] | | 2019 | Visit | | [address] | | | | | | [place], [place] | | | | | | [address] | | | | | | [phone] | | | | | | | [...] for this | | | e | 4:57 PM | | procedure are in the | | | | PST | | results section. | + +--------+ + + + | PROCEDURE NOTE | Routin | 08/27/2015 | | Results for this | | | e | 4:57 PM | | procedure are in the | | | | PST | | results section. | + +--------+ + + + | PROCEDURE NOTE | Routin | 08/27/2015 | | Results for this | | | e | 4:53 PM | | procedure are in the | | | | PST | | results section. | + +--------+ + + + | 23G VITRECTOMY WITH | Electi | 06/05/2014 | retained silicone | | | SILICONE OIL REMOVAL | ve | 7:27 AM | oil; cataract | | | | Surgic | PST | | | | | al | | | | + +--------+ + + + | PHACO W/IOL | Electi | 06/05/2014 | retained silicone | | | | ve | 7:27 AM | oil; cataract | | | | Surgic | PST | | | | | al | | | | + +--------+ + + + | CAPILLARY BLOOD | Routin | 06/05/2014 | | Results for this | | GLUCOSE (NO CHG), | e | 7:05 AM | | procedure are in the | | POC | | PST | | results section. | + +--------+ + + + documented in this encounter Results PROCEDURE NOTE (08/27/2015 4:57 PM PST)PROCEDURE NOTE (08/27/2015 4:57 PM PST)PROCEDURE N KATHIE (08/27/2015 4:53 PM PST) + + | Transcriptions | + + | Vandana, Faculty - 06/11/2014 8:53 AM PST | + + CAPILLARY BLOOD GLUCOSE (NO CHG), POC (06/05/2014 7:05 AM PST) + +---------+ + + + | Component | Value | Ref Range | Performed | Pathologist | | | | | At | Signature | + +---------+ + + + | BLOOD | 125 (H) | 60 - 99 mg/dL | [...] [facility] | [address] | [place], [place] | | | [facility] | [address] | [address] | | | TESTS | | | | + + + + + documented in this encounter Visit Diagnoses Not on filedocumented in this encounter Administered Medications + +--------+ +-------+------+ + | Medication Order | MAR | Action | Dose | Rate | Site | | | Action | Date | | | | + +--------+ +-------+------+ + | balanced salt (BSS) ophthalmic | Given | 06/05/20 | 15 mL | | Left Eye | | irrigation INTRAPROCEDURE PRN, | | 14 8:01 | | | | | Starting Mehnaz 06/05/14 at 0801, | | AM PST | | | | | Until Mehnaz 06/05/14 at 0850 | | | | | | + +--------+ +-------+------+ + +---+---+ | | | +---+---+ + +-------+ +--------+---+---+ | cyclopentolate 1%-PHENYLEPHrine | Given | 06/05/20 | 1 drop | | | | 2.5%-tropicamide 0.25% | | 14 7:04 | | | | | (SUPERDROPS) ophthalmic drops 1 | | AM PST | | | | | drop 1 drop, Left Eye, EVERY 5 | | | | | | | MINUTES NEEDED, 2 doses, | | | | | | | Starting [facility] 06/05/14 at 0640, | | | | | | | Until [facility] 06/05/14 at 0704, | | | | | | | pre-procedure dilation | | | | | | + +-------+ +--------+---+---+ +-------+ +--------+---+---+ | Given | 06/05/20 | 1 drop | | | | | 14 6:58 | | | | | | AM PST | | | | +-------+ +--------+---+---+ +---+---+ | | | +---+---+ + +-------+ +-------+---+ + | dexamethasone (DECADRON) | Given | 06/05/20 | 10 mg | | Left Eye | | injection INTRAPROCEDURE PRN, | | 14 8:01 | | | | | Starting [facility] 06/05/14 at 0801, | | AM PST | | | | | Until [facility] 06/05/14 at 0850 | | | | | | + +-------+ +-------+---+ + +---+---+ | | | +---+---+ + +-------+ + +---+ + | Dilating Solution: BSS Plain | Given | 06/05/20 | 1 Bottle | | Left Eye | | 500 mL - 0.5 mL EPINEPHrine | | 14 8:01 | | | | | (1:1,000) INTRAPROCEDURE PRN, | | AM PST | | | | | Starting Mehnaz 06/05/14 at 0801, | | | | | | | Until Mehnaz 06/05/14 at 0850 | | | | | | + +-------+ + +---+ + +---+---+ | | | +---+---+ + +-------+ +---------+---+ + | erythromycin ophthalmic | Given | 06/05/20 | 1 strip | | Left Eye | | ointment INTRAPROCEDURE PRN, | | 14 8:45 | | | | | Starting Mehnaz 06/05/14 at 0845, | | AM PST | | | | | Until Mehnaz 06/05/14 at 0855 | | | | | | + +-------+ +---------+---+ + +---+---+ | | | +---+---+ + +-------+ +-------+---+ + | hydroxypropyl methylcellulose | Given | 06/05/20 | 15 mL | | Left Eye | | (GONIOSOL) 2.5 % ophthalmic drops | | 14 8:02 | | | | | INTRAPROCEDURE PRN, Starting | | AM PST | | | | | Mehnaz 06/05/14 at 0802, Until Mehnaz | | | | | | | 06/05/14 at 0850, dry eyes | | | | | | + +-------+ +-------+---+ + +---+---+ | | | +---+---+ + +-------+ +------+---+ + | Local with hyaluronidase: | Given | 06/05/20 | 5 mL | | Left Eye | | lidocaine 2% - bupivacaine 0.75% | | 14 8:05 | | | | | - hyaluronidase 200 units/mL 1 mL | | AM PST | | | | | 1:10:10) INTRAPROCEDURE PRN, | | | | | | | Starting Mehnaz 06/05/14 at 0805, | | | | | | | Until Mehnaz 06/05/14 at 0850 | | | | | | + +-------+ +------+---+ + +---+---+ | | | +---+---+ + + + +---+---+---+ | NaCl 0.9 % IV 10 mL/hr, | given by | 06/05/20 | | | | | intravenous, CONTINUOUS, Starting | | 14 8:00 | | | | | Mehnaz 06/05/14 at 0715, Until Mehnaz | anesthes | AM PST | | | | | 06/05/14 at 1600 | iology | | | | | + + + +---+---+---+ +---------+ + + +---+ | New Bag | 06/05/20 | | | | | | 14 7:03 | | | | | | AM PST | | | | +---------+ + + +---+ | New Bag | 06/05/20 | 10 mL/hr | 10 mL/hr | | | | 14 7:01 | | | | | | AM PST | | | | +---------+ + + +---+ +---+---+ | | | +---+---+ + +-------+ +---------+---+ + | proparacaine (OPHTHAINE) 0.5 % | Given | 06/05/20 | 2 drops | | Left Eye | | ophthalmic drops INTRAPROCEDURE | | 14 8:06 | | | | | PRN, Starting Mon06/05/14 at | | AM PST | | | | | 0806, Until Mon06/05/14 at 0850 | | | | | | + +-------+ +---------+---+ + +---+---+ | | | +---+---+ + +-------+ +--------+---+ + | Shugarcaine: lidocaine MPF 4% 1 | Given | 06/05/20 | 0.5 mL | | Left Eye | | mL - EPINEPHrine 1:1000 1 mL - | | 14 8:06 | | | | | BSS 3 mL INTRAPROCEDURE PRN, | | AM PST | | | | | Starting [facility] 06/05/14 at 0806, | | | | | | | Until [facility] 06/05/14 at 0850 | | | | | | + +-------+ +--------+---+ + +---+---+ | | | +---+---+ + +-------+ +---------+---+ + | tetracaine 0.5 % ophthalmic | Given | 06/05/20 | 2 drops | | Left Eye | | drops INTRAPROCEDURE PRN, | | 14 8:06 | | | | | Starting [facility] 06/05/14 at 0806, | | AM PST | | | | | Until Mehnaz 06/05/14 at 0850 | | | | | | + +-------+ +---------+---+ + +---+---+ | | | +---+---+ + +-------+ +-------+---+ + | vancomycin (VANCOCIN) injection | Given | 06/05/20 | 25 mg | | Left Eye | | INTRAPROCEDURE PRN, Starting | | 14 8:06 | | | | | Mehnaz 06/05/14 at 0806, Until Mehnaz | | AM PST | | | | | 06/05/14 at 0850 | | | | | | + +-------+ +-------+---+ + +---+---+ | | | +---+---+ documented in this encounter
--- OUTSIDE RECORDS SUMMARY | ~2018-12-11 | XMS | Encounter Summary ---
Demographics + + + | Address | [address] | | | [place] [address] | + + + | Home Phone | | + + + | Preferred Language | Unknown | + + + | Marital Status | Single | + + + | Hoahaoism Affiliation | NRP | + + + | Race | or Other | + + + | Ethnic Group | Not or | + + + Author + + + | Author | [facility] | + + + | Organization | [facility] [employer] [facility] | + + + | Address | Unknown | + + + | Phone | Unavailable | + + + Support + + +---------+ + | Name | Relationship | Address | Phone | + + +---------+ + | Geraldine Canales | ECON | Unknown | | + + +---------+ + Care Team Providers + +------+ + | Care Apple Picking Supervisor Name | Role | Phone | + [...] | +--------+ + + + + | 02/28/ | Diagnostic | [facility] | | Eye examination | | 2013 | Visit | [facility] | | (APR) | | | | [facility] at | | | | | | [place] [address] | | | | | | [address] | | | | | | Mailcode: [address] | | | | | | [place], [place] | | | | | | [address] | | | | | | [phone] | | | +--------+ + + + [...] + documented as of this encounter Progress Nola Joseph - 02/28/2014 3:44 PM PDT Joyce Arnold was seen in the [facility] today, 02/28/2014, for OCT OU. NOLA Clarkectronically signed by Nola Kevin at 02/28/2014 3:44 PM PDTdocumented in thi s encounter Plan of Treatment +--------+---------+ + + + | Date | Type | Specialty | Care Team | Description | +--------+---------+ + + + | 01/30/ | Office | Ophthalmology | Susan Andrews MD | | | 2019 | Visit | | [address] | | | | | | [place], [place] | | | | | | [address] | | | | | | [phone] | | | | | | | | +--------+---------+ + + + documented as of this encounter Visit Diagnoses + + | Diagnosis | + + | Macular edema, diabetic, type 2, with proliferative retinopathy [250.50, 362.02, | | 362.07] - Primary | + + documented in this encounter
--- OUTSIDE RECORDS SUMMARY | ~2018-12-11 | XMS | Encounter Summary ---
Demographics + + + | Address | [address] | | | [place] [address] | + + + | Home Phone | | + + + | Preferred Language | Unknown | + + + | Marital Status | Single | + + + | Samaritan Affiliation | NRP | + + + | Race | or Other | + + + | Ethnic Group | Not or | + + + Author + + + | Author | [facility] | + + + | Organization | [facility] [employer] [facility] | + + + | Address | Unknown | + + + | Phone | Unavailable | + + + Support + + +---------+ + | Name | Relationship | Address | Phone | + + +---------+ + | Geraldine Parker | ECON | Unknown | | + + +---------+ + Care Team Providers + +------+ + | Care Solar Field Service Technician Name | Role | Phone | [...] | +--------+ + + + + | 02/21/ | Anesthesia | [facility] | Nanette Hernandez MD | | | 2013 | Event | [address] | [address] | | | | | [facility] | [place], | | | | | [facility], | [place] [address] | | | | | [place] [address] | [phone] | | | | | | | | +--------+ + + + + Anesthesia Record + + + + + | Procedure Name | Responsible | Anesthesia Start | Anesthesia Stop Time | | | Anesthesiologist | Time | | + + + + + | 23G VITRECTOMY WITH | Nanette Hernandez MD | 02/21/14 1720 | 02/21/14 1837 | | SILICONE OIL GROUP | | | | | (Left Eye) | | | | + + + + + +----+---+ + + | Da | T | Event | Comment | | te | i | | | | | m | | | | | e | | | +----+---+ + + | 08 | 1 | Eq Check | Anesthesia machine checked Equipment verified | | /0 | 7 | | | | 1/ | 1 | | | | 20 | 4 | | | | 14 | | | | +----+---+ + + | | 1 | Pt. Check | Prior to anesthesia start, pt. Identified, examined, chart | | | 7 | | reviewed, PARXiomara held, anesthetic plan made or approved by | | | 1 | | attending anesthesiologist. NPO status confirmed as appropriate | | | 4 | | for procedure Preoperative evaluation: unchanged | +----+---+ + + | | 1 | Preprocedur | Pt ID confirmed, informed consent obtained, insertion site | | | 7 | e Checklist | marked, equipment available | | | 1 | | | | | 4 | | | +----+---+ + + | | 1 | An Start | | | | 7 | | | | | 2 | | | | | 0 | | | +----+---+ + + | | 1 | An Start | | | | 7 | Data | | | | 2 | | | | | 6 | | | +----+---+ + + | | 1 | Vitals | Monitors applied Vital signs checked Patient ready for anesthesia | | | 7 | Checked | | | | 2 | | | | | 6 | | | +----+---+ + + | | 1 | Ready | | | | 7 | | | | | 3 | | | | | 4 | | | +----+---+ + + | | 1 | Abx held | | | | 7 | Not Ordered | | | | 3 | | | | | 4 | | | +----+---+ + + | | 1 | Incision | | | | 7 | | | | | 3 | | | | | 6 | | | +----+---+ + + | | 1 | Surgery end | | | | 8 | | | | | 3 | | | | | 0 | | | +----+---+ + + | | 1 | an stop | | | | 8 | data | | | | 3 | | | | | 2 | | | +----+---+ + + | | 1 | Anesthesia | | | | 8 | End | | | | 3 | | | | | 7 | | | +----+---+ + + +------+ | Meds | +------+ + + + | Name | Total | + + + | propofol | 40 mg | + + + | alfentanil | 1,000 mcg | + + + | midazolam | 2 mg | + + + + + | Name | + + | O2 Flow Rate (Total Liters) | + + + + | No blood administrations on file. | + + +--------+ + + + | Type | Details | Placement | Removal | +--------+ + + + | RETIRE | 02/21/14; Left PPV -- Jacky Brown MD; | 02/21/14 0000 by | 05/11/17 1622 by | | D - | Yes; Left:; eye; 05/11/17 | Katie Parker RN | Discontinued After | | [facility]isi | (Automatic cleanup per RA | | Discharge | | on | 3006--contact admin for | | | | | questions.); 1622 (Automatic | | | | | cleanup per RA 3006--contact | | | | | admin for questions.) | | | +--------+ + + + [...] [address] | | | | | | [address] [place], [place] | | | | | | [address] | | | | | | [phone] | | | | | | | | +--------+---------+ + + + documented as of this encounter Visit Diagnoses Not on filedocumented in this encounter Administered Medications + +--------+ +---------+------+------+ | Medication Order | MAR | Action | Dose | Rate | Site | | | Action | Date | | | | + +--------+ +---------+------+------+ | alfentanil (ALFENTA) injection | Given | 02/22/20 | 250 mcg | | | | INTRAPROCEDURE PRN, Starting Mon | | 14 5:42 | | | | | 02/21/14 at 1728, Until Mon02/21/14 | | PM PDT | | | | | at 1832 | | | | | | + +--------+ +---------+------+------+ +-------+ +---------+---+---+ | Given | 02/22/20 | 250 mcg | | | | | 14 5:30 | | | | | | PM PDT | | | | +-------+ +---------+---+---+ | Given | 02/22/20 | 500 mcg | | | | | 14 5:28 | | | | | | PM PDT | | | | +-------+ +---------+---+---+ +---+---+ | | | +---+---+ + +-------+ +------+---+---+ | midazolam (VERSED) injection | Given | 02/22/20 | 2 mg | | | | INTRAPROCEDURE PRN, Starting Fri | | 14 5:20 | | | | | 02/21/14 at 1720, Until Mon02/21/14 | | PM PDT | | | | | at 1832, sedation | | | | | | + +-------+ +------+---+---+ +---+---+ | | | +---+---+ + +-------+ +-------+---+---+ | propofol INTRAPROCEDURE PRN, | Given | 02/22/20 | 20 mg | | | | Starting Mon02/21/14 at 1729, | | 14 5:57 | | | | | Until Mon02/21/14 at 1832 | | PM PDT | | | | + +-------+ +-------+---+---+ +-------+ +-------+---+---+ | Given | 02/22/20 | 20 mg | | | | | 14 5:29 | | | | | | PM PDT | | | | +-------+ +-------+---+---+ +---+---+ | | | +---+---+ documented in this encounter
--- OUTSIDE RECORDS SUMMARY | ~2018-12-11 | XMS | Encounter Summary ---
Demographics + + + | Address | [address] | | | [place] [address] | + + + | Home Phone [...] Author + + + | Author | [place] [employer] [facility] | + + + | Organization | [facility] [employer] [facility] | + + + | Address | Unknown | + + + | Phone | Unavailable | + + + Support + + +---------+ + | Name | Relationship | Address | Phone | + + +---------+ + | Geraldine Parker | ECON | Unknown | | + + +---------+ + Care Team Providers + +------+ + | Care Retail Maintenance Technician Name | Role | Phone | + +------+ + | Rohan Wilkes DO | PCP | | + +------+ + Encounter Details +--------+ + + + + | Date | Type | Department | Care Team | Description | +--------+ + + + + | 06/05/ | Pharmacy | [facility] | | | | 2013 | Visit | [address] | | | | | | [address] | | | | | | [place], [place] | | | | | | [address] | | | | | | [phone] | | | +--------+ + + + [...] | | | | | | [place], [place] | | | | | | [address] | | | | | | [phone] | | | | | | | | +--------+---------+ + + + documented as of this encounter Visit Diagnoses Not on filedocumented in this encounter
--- OUTSIDE RECORDS SUMMARY | ~2018-12-11 | XMS | Encounter Summary ---
Demographics + + + | Address | [address] | | | [place] [address] | + + + | Home Phone | | + + + | Preferred Language | Unknown | + + + | Marital Status | Single | + + + | Mormonism Affiliation | NRP | + + + | Race | or Other | + + + | Ethnic Group | Not or | + + + Author + + + | Author | [place] [employer] [facility] | + + + | Organization | [facility] [employer] [facility] | + + + | Address | Unknown | + + + | Phone | Unavailable | + + + Support + + +---------+ + | Name | Relationship | Address | Phone | + + +---------+ + | Geraldine Parker | ECON | Unknown | | + + +---------+ + Care Team Providers + +------+ + | Care Urban Planner Name | Role | Phone | + +------+ + | Rohan Wilkes DO | PCP | | + +------+ + Reason for Visit + + + | Reason | Comments | + + + | Need To Cancel | | | Appointment | | + + + Encounter Details +--------+ + + + + | Date | Type | Department | Care Team | Description | +--------+ + + + + | 12/02/ | Telephone | [facility] | Susan Andrews MD | Need To Cancel | | 2015 | | [facility] at | [address] | Appointment | | | | [facility] [address] | [place], [place] | | | | | [address] [facility] | [address] | | | | | Mailcode: [address] | [phone] | | | | | [place], [place] | | | | | | [address] | | | | | | [phone] | | | +--------+ + + + [...] | | | | | | [place], [place] | | | | | | [address] | | | | | | [phone] | | | | | | | | +--------+---------+ + + + documented as of this encounter Visit Diagnoses Not on filedocumented in this encounter
--- OUTSIDE RECORDS SUMMARY | ~2018-12-11 | XMS | Encounter Summary ---
Demographics + + + | Address | [address] | | | [place] [address] | + + + | Home Phone | | + + + | Preferred Language | Unknown | + + + | Marital Status | Single | + + + | Orthodox Affiliation | NRP | + + + | Race | or Other | + + + | Ethnic Group | Not or | + + + Author + + + | Author | [facility] | + + + | Organization | [facility] | + + + | Address | Unknown | + + + | Phone | Unavailable | + + + Support + + +---------+ + | Name | Relationship | Address | Phone | + + +---------+ + | Geraldine Parker | ECON | Unknown | | + + +---------+ + Care Team Providers + +------+ + | Care Veneer Layer Name | Role | Phone | + +------+ + | Rohan Wilkes DO | PCP | | + +------+ + Reason for Visit + + + | Reason | Comments | + + + | Follow-up visit | | + + + | Proliferative | | | diabetic retinopathy | | + + + Office Visit [...] | | | | | | [address] | | | | | | [address] | | | | | | | [place] | | | | | | | [place], [place] | | | | | | | [address] | | | | | | | Phone: | | | | | | | [phone] | | | | | | | Fax: | | | | | | | [phone] | +--------+--------+ + + + + Encounter Details +--------+---------+ + + + | Date | Type | Department | Care Team | Description | +--------+---------+ + + + | 02/04/ | Office | [facility] | Indira Chau MD | Proliferative | | 2016 | Visit | [facility] at | [address] | diabetic retinopathy | | | | [facility] [address] [place], [place] | with macular edema | | | | [address] | [address] | associated with type | | | | Mailcode: CEI | [phone] | 2 diabetes mellitus | | | | [place], [place] | | ([facility]) (Primary Dx) | | | | [address] | | | | | | [phone] | | | +--------+---------+ + + + [...] documented as of this encounter Progress Notes Sindy Antonio - 02/05/2016 1:21 PM PDTFormatting of this note might be different from the susy daly. [facility] Progress Note 02/05/2016 CC: Follow-up visit Proliferative diabetic retinopathy Initial History: Vision stable, no new changes or complaints. Pt had port put in and started Dialysis October 22-3 times a week. Pt just had Quadruple Bypass first week of November. BS-has been pretty stable for everything that has been going on. AIC-8.3 (3 months ago) Last 3 ambulatory procedures on record: Procedure: Ozurdex both eyes (08/21/15 6995) Procedure: Ozurdex both eyes (02/06/15 9692) Procedure: Ozurdex right eye (10/31/14 1428) HPI: Joyce Arnold is a 55 y.o. female with HRPDR with DME, multiple prior surgeries OU per POH who presents for follow-up .Vision stable, no new changes or complaints. Pt had port put in and started Dialysis October 22-3 times a week. Pt just had Quadruple Bypass first week of November. BS-has been pretty stable for everything that has been going on. AIC-8.3 (3 months ago). She denies any significant changes in her vision. Last visit: Following up per recommendation with no new issues, including eye pain, decreased vision, i ncreased floaters or increased distortion Pain:No pain (0 of 0-10) POH: DME [...] daily. FOLIC ACID ORAL Take by mouth. hydrochlorothiazide Take 25 mg by mouth two [...] doses in 15 mi nutes. NovoLOG Flexpen promethazine Take 1 tablet by mouth four times daily as needed for nausea/vomiting. simvastatin Take 20 mg by mouth once daily in the evening. simvastatin Take 40 mg by mouth once daily. sodium bicarbonate Take 650 mg by mouth three times daily. SYRING W-NDL,DISP,INSUL,0.5ML (INSULIN SYRINGE MISC) torsemide VITAMIN D2 Past Medical History Diagnosis Date Diabetes mellitus type 1 (HCC) Hypertension Heart disease, unspecified Heart attack (HCC) Other and unspecified hyperlipidemia Shortness of breath Pneumonia, organism unspecified Renal failure, unspecified Unspecified disorder of thyroid Retinal detachment Cataract Migraine, unspecified, without mention of intractable migraine without mention of statu s migrainosus Congestive heart failure, unspecified stroke Told she had a stroke about 9 years ago Depressive disorder, not elsewhere classified panic attack Dialysis patient (HCC) Past Surgical History Procedure Laterality Date Tonsillectomy Tubal ligation Cholecystectomy Thyroid lobectomy Carpal tunnel surgery Quadruple coronary bypass Social History Substance Use Topics Smoking status: Former Smoker -- 2.50 packs/day for 33 years Types: Cigarettes Quit date: 05/31/2014 Smokeless tobacco: Never Used Alcohol Use: No Comment: used to "drink heavily" See Ophthalmology Module for Examination Diagnostics Ordered Right Left OCT CMT: 339 um/9.04 (was 297/8.73 on 10/02/15) + IRF, Center involving edema with large foveal cyst; generalized attenuation of neurosensory retina. No significant change compared to previous CMT: 287 um/8.88 (was 295/8.69) + IRF mostly juxtafoveal, Edema outside of bernice tral subfield temporally with lipid exudates / mild thickening. Generalized attenuation of n eurosensory retina. No significant change compared to previous Others IMPRESSION: 55 y.o. female with the following Ophthalmologic Problems 1. s/p PPV/Silicone oil removal/PHACO/IOL [...] vision great 3. PDR (proliferative diabetic retinopathy) [005623] - regressed OU after the above procedures - starting vision was CF OU 4. DME (diabetic macular edema) [215850] OU - s/p Avastin OD on 05/16/14, OU x3 06/27/14, 08/08/14, 09/19/14 - s/p PSTK OU in the past also with minimal benefit - s/p Ozurdex OS on 10/17/14 - s/p Ozurdex OD on 10/31/14 - s/p Ozurdex OU on 02/06/15, 08/21/15, last 10/02/15 - largely stable DME OU, IOP good OU PLAN: Consider iluvien in next several months if worsening, OD > OS Emphasized importance of blood sugar and blood pressure control. Call for decreased vision, increased distortion, increased pain, new floaters or flashing l ights Return 2 months, 04/15/16 at 1:30 pm NEXT VISIT: dilate OU, OCT OU Attestations: The die maintenance technician, under the supervision of the physician, is responsible for performing the f ollowing sections: RFV, ROS, PMH, PSH, SocHx, FH, Med list, Base Ophth Exam. The attending physician is responsible for the entire content of the note and has personall y performed the HPI and the physical examination INDIRA CHAU MD documented in this encounter Plan of Treatment +--------+---------+ + + + | Date | Type | Specialty | Care Team | Description | +--------+---------+ + + + | 01/30/ | Office | Ophthalmology | Indira Chau MD | | | 2019 | Visit | | [address] | | | | | | [place], [place] | | | | | | [address] | | | | | | [phone] | | | | | | | [...] | | e | diabetic retinopathy | 02/03/2016, Expires: | | | | | with macular edema | 08/05/2017 | | | | | associated with type | | | | | | 2 diabetes mellitus | | | | | | ([facility]) | | + + +--------+ + + documented as of this encounter Visit Diagnoses + + | Diagnosis | + + | Proliferative diabetic retinopathy with macular edema associated with type 2 diabetes | | mellitus (HCC) - Primary | + + documented in this encounter
--- OUTSIDE RECORDS SUMMARY | ~2018-12-11 | XMS | Encounter Summary ---
Demographics + + + | Address | [address] | | | [place] [address] | + + + | Home Phone | | + + + | Preferred Language | Unknown | + + + | Marital Status | | + + + | Mosque Affiliation | Unknown | + + + | Race | Unknown | + + + | Ethnic Group | Unknown | + + + Author + + + | Author | [facility] | + + + | Organization | [facility] | + + + | Address [...] Team Providers + +------+ + | Care Ditcher Name | Role | Phone | + +------+ + | Rohan Wilkes DO | PCP | | + +------+ + Reason for Visit +--------+ + | Reason | Comments | +--------+ + | Other | 11/28/18 [facility] transplant notes, labs | +--------+ + Encounter Details +--------+ + + + + | Date | Type | Department | Care Team | Description | +--------+ + + + + | 11/28/ | Documentati | [facility] | Sherman Chambers MD | Other (11/28/18 | | 2019 | on Only | [address] | [facility] | | | | [address] | [address] [place], [place] | transplant notes, | | | | [place] [address] | [address] | labs) | | | | [phone] | | | +--------+ + + + [...] [address] | | | | | | [place] [address] | | | | | | [phone] | | | | | | | | +--------+---------+ + + + as of this encounter Visit Diagnoses Not on filein this encounter"
--- OUTSIDE RECORDS SUMMARY | ~2018-12-11 | XMS | Encounter Summary ---
Demographics + + + | Address | [address] | | | [place] [address] | + + + | Home Phone | | + + + | Preferred Language | Unknown | + + + | Marital Status | Single | + + + | Mu-Ism Affiliation | NRP | + + + | Race | or Other | + + + | Ethnic Group | Not or | + + + Author + + + | Author | [facility] | + + + | Organization | [facility] [facility] | + + + | Address | Unknown | + + + | Phone | Unavailable | + + + Support + + +---------+ + | Name | Relationship | Address | Phone | + + +---------+ + | Geraldine [place] | ECON | Unknown | | + + +---------+ + Care Team Providers + +------+ + | Care Cutting Department Supervisor Name | Role | Phone | + +------+ + | Rohan Wilkes DO | PCP | | + +------+ + Encounter Details +--------+ + + + + | Date | Type | Department | Care Team | Description | +--------+ + + + + | 11/07/ | Lab | LAB IMMUNOGENETIC | | | | 2017 | Requisition | AND TRANSPLANT LAB | | | | | | [address] | | | | | | [facility] | | | | | | [place], [place] | | | | | | [address] | | | +--------+ + + + [...] | | | | | | [place], [place] | | | | | | [address] | | | | | | [phone] | | | | | | | | +--------+---------+ + + + documented as of this encounter Procedures + +--------+ + + + | Procedure Name | Priori | Date/Time | Associated Diagnosis | Comments | | | ty | | | | + +--------+ + + + | LIT FLOW HLA AB PRA | Routin | 11/07/2017 | | | | SCREEN I/II | e | 12:45 PM | | | | | | PDT | | | + +--------+ + + + documented in this encounter Results LIT FLOW HLA AB PRA SCREEN I/II (11/07/2017 12:45 PM PDT) + + | Specimen | + + | Blood | + + + + + + + | Performing | Address | City/State/Zipcode | Phone Number | | Organization | | | | + + + + + | [facility] - | [address], | [place] [address] | | | IMMUNOGENETICS/TRANS | [address] | | | | [facility] | | | | + + + + + documented in this encounter Visit Diagnoses Not on filedocumented in this encounter
--- OUTSIDE RECORDS SUMMARY | ~2018-12-11 | XMS | Encounter Summary ---
Demographics + + + | Address | [address] | | | [place] [address] | + + + | Home Phone | | + + + | Preferred Language | Unknown | + + + | Marital Status | | + + + | Rastafari Affiliation | Unknown | + + + | Race | Unknown | + + + | Ethnic Group | Unknown | + + + Author + + + | Author | [facility] | + + + | Organization | [facility] | + + + | Address [...] Team Providers + +------+ + | Care Construction Trades Contractor Name | Role | Phone | + +------+ + | Roahn Wilkes DO | PCP | | + +------+ + Reason for Visit + + + | Reason | Comments | + + + | Care Coordination | [facility] Care Unit - 09/18/18 - | | | Discharge Summary notes - Dalton/Trish | + + + Encounter Details +--------+ + + + + | Date | Type | Department | Care Team | Description | +--------+ + + + + | 09/18/ | Documentati | [facility] | Maria Teresa, | Care Coordination | | 2019 | on Only | [address] | ([facility] | | | | [address] | | [facility] | | | | [place] [address] | | Intermediate Care | | | | [phone] | | Unit - 09/18/18 - | | | | | | Discharge Summary | | | | | | notes - | | | | | | Dalton/rTish) | +--------+ + + + + Social [...] [address] | | | | | | [place] [address] | | | | | | [phone] | | | | | | | | +--------+---------+ + + + as of this encounter Visit Diagnoses Not on filein this encounter"
--- OUTSIDE RECORDS SUMMARY | ~2018-12-11 | XMS | Encounter Summary ---
Demographics + + + | Address | [address] | | | [place] [address] | + + + | Home Phone | | + + + | Preferred Language | Unknown | + + + | Marital Status | Single | + + + | Yazdanism Affiliation | NRP | + + + | Race | or Other | + + + | Ethnic Group | Not or | + + + Author + + + | Author | [facility] | + + + | Organization | [facility] | + + + | Address | Unknown | + + + | Phone | Unavailable | + + + Support + + +---------+ + | Name | Relationship | Address | Phone | + + +---------+ + | Geraldine [place] | ECON | Unknown | | + + +---------+ + Care Team Providers + +------+ + | Care Social Insurance Specialist Name | Role | Phone | + +------+ + | Rohan Wilkes DO | PCP | | + +------+ + Encounter Details +--------+ + + + + | Date | Type | Department | Care Team | Description | +--------+ + + + + | 11/13/ | Lab | LAB IMMUNOGENETIC | | | | 2019 | Requisition | AND TRANSPLANT LAB | | | | | | [address] | | | | | | [facility] | | | | | | [place], [place] | | | | | | [address] | | | +--------+ + + + [...] | | | | | | [place], [place] | | | | | | [address] | | | | | | [phone] | | | | | | | [...] in this encounter Results LIT FLOW HLA II AB AG ID, BLOOD (11/12/2018 12:00 AM PDT) + + | Specimen | + + | Blood | + + + + + + + | Performing | Address | City/State/Zipcode | Phone Number | | Organization | | | | + + + + + | [facility] - | [address] | [place] [address] | | | IMMUNOGENETICS/TRANS | [address] | | | | [facility] | | | | + + + + + LIT FLOW HLA I AB AG ID, BLOOD (11/12/2018 12:00 AM PDT) + + + + + + | [...] + + + + + | [facility] - | [address] | [place] [address] | | | IMMUNOGENETICS/TRANS | [address] | | | | [facility] | | | | + + + + + documented in this encounter Visit Diagnoses Not on filedocumented in this encounter
--- OUTSIDE RECORDS SUMMARY | ~2018-12-11 | XMS | Encounter Summary ---
Demographics + + + | Address | [address] | | | [place] [address] | + + + | Home Phone | | + + + | Preferred Language | Unknown | + + + | Marital Status | Single | + + + | Yazidism Affiliation | NRP | + + + | Race | or Other | + + + | Ethnic Group | Not or | + + + Author + + + | Author | [facility] | + + + | Organization | [facility] | + + + | Address | Unknown | + + + | Phone | Unavailable | + + + Support + + +---------+ + | Name | Relationship | Address | Phone | + + +---------+ + | Ihlen [place] | ECON | Unknown | | + + +---------+ + Care Team Providers + +------+ + | Care B Operator Name | Role | Phone | [...] | | | | | | | [address] | | | | | | | [address] | | | | | | | [place] | | | | | | | [place], [place] | | | | | | | [address] | | | | | | | Phone: | | | | | | | [phone] | | | | | | | Fax: | | | | | | | [phone] | +--------+--------+ + + + + Encounter Details +--------+---------+ + + + | Date | Type | Department | Care Team | Description | +--------+---------+ + + + | 09/01/ | Office | [facility] | Indira Chau MD | Proliferative | | 2018 | Visit | [facility] at | [address] | diabetic retinopathy | | | | [facility] [address] [facility], [place] | of both eyes with | | | | [address] | [address] | macular edema | | | | Mailcode: CEI | [phone] | associated with type | | | | [place], [place] | | 2 diabetes mellitus | | | | [address] | | ([facility]) (Primary Dx); | | | | [phone] | | Traction detachment | | | | | | of both retinas | +--------+---------+ + + + Social History [...] documented as of this encounter Progress Notes TeresaLucila - 09/01/2017 1:30 PM PST [facility] Progress Note 09/01/2017 CC: Follow-up visit Initial History: Vision seems to be getting worse, pt is planning to get new glasses Rx. BSL is stable, pt i s due for A1C check soon. Pt denies floaters or flashing lights. Gtt: none. Last 3 ambulatory procedures on record: Procedure: Ozurdex both eyes (08/21/15 9093) Procedure: Ozurdex both eyes (02/06/15 2628) Procedure: Ozurdex right eye (10/31/14 2142) HPI: Joyce Arnold is a 57 y.o. female She feels like vision is getting worse, but not sure if it is due to need for new eyeglasse s. Pain:No pain (0 of 0-10) POH: DME [...] 50 mg by mouth two times daily. nitroglycerin Place 0.4 mg under tongue every five minutes as needed for chest pain. Pl romel under tongue and allow to dissolve. Administer every 5 minutes, max of 3 doses in 15 mi nutes. NovoLOG Flexpen potassium chloride SR TK 1 T PO daily promethazine Take 1 tablet by mouth four times daily as needed for nausea/vomiting. RENVELA simvastatin Take 20 mg by mouth once daily in the evening. simvastatin Take 40 mg by mouth once daily. sodium bicarbonate Take 650 mg by mouth three times daily. SYRING W-NDL,DISP,INSUL,0.5ML (INSULIN SYRINGE MISC) torsemide VITAMIN D2 Past Medical History: Diagnosis Date Cataract Congestive heart failure, unspecified Depressive disorder, not elsewhere classified Diabetes mellitus [...] use No Comment: used to "drink heavily" IMPRESSION: 57 y.o. female with Ophthalmologic Problems 1. s/p PPV/Silicone oil removal/PHACO/IOL OS 06/05/14, oil placed because of altitude - s/p PPV/EL/SO OS on 02/21/14 - doing great, retina attached, PCIOL centered, PDR regressed 2. s/p CE/IOL/SOR OD for retained silicone oil and nuclear cataract 05/08/2014 - s/p 23g PPV/MP/EL/FAx/1000cstSO OD 01/02/14, oil placed because of altitutde - for francois-jaw TRD, VH, PDR - doing well, retina attached and stable with regressed PDR , vision great compared to preo p 3. PDR (proliferative diabetic retinopathy) [185732] - regressed OU after the above procedures - initial vision was CF OU 4. DME (diabetic macular edema) [078999] OU - s/p Avastin OD on 05/16/14, OU x3 06/27/14, 08/08/14, 09/19/14 - s/p PSTK OU in the past also with minimal benefit - s/p Ozurdex OS on 10/17/14 - s/p Ozurdex OD on 10/31/14 - s/p Ozurdex OU on 02/06/15, 08/21/15, last 10/02/15 - stable OU without need for repeated injections PLAN: Continue to observe; okay to proceed with MRx for new eyeglasses Blood pressure and blood glucose control discussed Call for decreased vision, increased distortion, increased pain, new floaters or flashing l ights Follow up: 6 months 03/02/18 at 1:30 pm NEXT VIIST: DILATE OU, OCT OU Attestations: The hospital technician, under the supervision of the physician, [...] [address] | | | | | | [place], [place] | | | | | | [address] | | | | | | [phone] | | | | | | | | +--------+---------+ + + + documented as of this encounter Procedures + +--------+ + + + | Procedure Name | Priori | Date/Time | Associated Diagnosis | Comments | | | ty | | | | + +--------+ + + + | OCT, RETINA | Routin | 09/01/2017 | Proliferative | Results for this | | | e | 2:29 PM | diabetic retinopathy | procedure are in the | | | | PST | of both eyes with | results section. | | | | | macular edema | | | | | | associated with type | | | | | | 2 diabetes mellitus | | | | | | (HCC) | | + +--------+ + + + documented in this encounter Results OCT, RETINA (09/01/2017 2:29 PM PST) + + + | Narrative | Performed At | + + + | Division Chair | [facility] | | DocumentationRight EyeQuality: good Central macular | [facility] | | thickness: 291 Segmentation: accurate Left EyeQuality: | | | good Central macular thickness: 277 Segmentation: accurate | | | Provider DocumentationRight EyeFluid and related findings: IRF, | | | unchanged Left EyeContour: no central thickening Fluid and | | | related findings: IRF, unchanged | | | | | |Left Eye | | |Quality: good | | | | | |Central macular thickness: 277 | | |Segmentation: accurate | | | | | | | | |Provider Documentation | | |Right Eye | | |Fluid and related findings: IRF, unchanged | | | | | | | | |Left Eye | | |Contour: no central thickening | | |Fluid and related findings: IRF, unchanged | | + + + + + + + + | Performing | Address | City/State/Zipcode | Phone Number | | Organization | | | | + + + + + | [facility] | [address] | [place] [address] | | | INSTITUTE | [place] | | | + + + + + documented in this encounter Visit Diagnoses + + | Diagnosis | + + | Proliferative diabetic retinopathy of both eyes with macular edema associated with | | type 2 diabetes mellitus (HCC) - Primary | + + | Traction detachment of both retinas Traction detachment of retina | + + documented in this encounter
--- OUTSIDE RECORDS SUMMARY | ~2018-12-11 | XMS | Encounter Summary ---
Demographics + + + | Address | [address] | | | [place] [address] | + + + | Home Phone [...] Author + + + | Author | [place] [facility] | + + + | Organization | [facility] [employer] [facility] | + + + | Address | Unknown | + + + | Phone | Unavailable | + + + Support + + +---------+ + | Name | Relationship | Address | Phone | + + +---------+ + | Geraldine [place] | ECON | Unknown | | + + +---------+ + Care Team Providers + +------+ + | Care Tentering Machine Off Bearer Name | Role | Phone | + [...] Description | +--------+---------+ + + + | 02/13/ | Surgery | [facility] | Susan Andrews MD | [address] [place] | | 2013 | | [address] | [address] | VITRECTOMY, MEMBRANE | | | | [place]EN [place] | [place] [facility] [place] | PEEL, ENDO LASER, | | | | [facility], | [address] | AIR -LEFT *25G* | | | | [place] [address] | [phone] | | | | | | | [...] + + + | Blood Pressure | 177/61 | 02/13/2014 10:00 AM | | | | | PDT | | + + + + + | Pulse | 50 | 02/13/2014 10:00 AM | | | | | PDT | | + + + + + | Temperature | 36.6 C (97.9 F) | 02/13/2014 9:30 AM | | | | | PDT | | + + + + + | Respiratory Rate | 16 | 02/13/2014 10:00 AM | | | | | PDT | | + + + + + | Oxygen Saturation | 98% | 02/13/2014 10:00 AM | | | | | PDT | | + + + + + | Inhaled Oxygen | - | - | | | Concentration | | | | + + + + + | Weight | 84.4 kg (186 lb) | 02/13/2014 6:41 AM | | | | | PDT | | + + + + + | Height | 162.6 cm (5' 4") | 02/13/2014 6:41 AM | | | | | PDT | | + + + + + | Body Mass Index | 31.93 | 02/13/2014 6:41 AM | | | | | PDT | | + + + + + documented in this encounter Discharge Instructions Instructions Magalys Obrien - 02/13/2014REVIEW: HOME CARE AFTER RETINAL DETACHMENT AND V ITRECTOMY SURGERY documented in this encounter Medications at Time of Discharge + + + +---------+--------+ + | Medication | Sig | Dispensed | Refills | Start | End Date | | | | | | Date | | + + + +---------+--------+ + | amLODIPine 10 mg | Take 10 mg by mouth | | 0 | | | | oral tablet | once daily. | | | | | + + + +---------+--------+ + | aspirin EC 81 mg | Take 325 mg by mouth | | 0 | | | | oral tablet,delayed | once daily. | | | | | | release (/ROCAEL) | | | | | | + + + +---------+--------+ + | citalopram 40 mg | Take 40 mg by mouth | | 0 | | | | oral tablet | once daily. | | | | | + + + +---------+--------+ + | famotidine 20 mg | Take 20 mg by mouth | | 0 | | | | oral tablet | once daily. | | | | | + + + +---------+--------+ + | | Take 25 mg by mouth | | 0 | | | | hydrochlorothiazide | two times daily. | | | | | | 25 mg oral tablet | | | | | | + + + +---------+--------+ + | LANCETS & BLOOD | | | 0 | | | | GLUCOSE STRIPS MISC | | | | | | + + + +---------+--------+ + | LEVOTHYROXINE | Take 0.2 mg by mouth | | 0 | | | | SODIUM (LEVOXYL | once daily. | | | | | | ORAL) | | | | | | + + + +---------+--------+ + | losartan 50 mg | Take 50 mg by mouth | | 0 | | | | oral tablet | two times daily. | | | | | + + + +---------+--------+ + | nitroglycerin 0.4 | Place 0.4 [...] | | | | + + + +---------+--------+ + | simvastatin 40 mg | Take 40 mg by mouth | | 0 | | | | oral tablet | once daily. | | | | | + + + +---------+--------+ + | SYRING | | | 0 | | | | W-NDL,DISP,INSUL,0.5 | | | | | | | ML (INSULIN SYRINGE | | | | | | | MISC) | | | | | | + + + +---------+--------+ + documented as of this encounter Plan of Treatment +--------+---------+ + + + | Date | Type | Specialty | Care Team | Description | +--------+---------+ + + + | 01/30/ | Office | Ophthalmology | Susan Andrews MD | | | 2019 | Visit | | [address] | | | | | | [place] | | | | | | [address] | | | | | | [phone] | | | | | | | [...] for this | | | e | 6:11 PM | | procedure are in the | | | | PST | | results section. | + +--------+ + + + | CAPILLARY BLOOD | Routin | 02/13/2014 | | Results for this | | GLUCOSE (NO CHG), | e | 10:00 AM | | procedure are in the | | POC | | PDT | | results section. | + +--------+ + + + | CAPILLARY BLOOD | Routin | 02/13/2014 | | Results for this | | GLUCOSE (NO CHG), | e | 9:09 AM | | procedure are in the | | POC | | PDT | | results section. | + +--------+ + + + | CAPILLARY BLOOD | Routin | 02/13/2014 | | Results for this | | GLUCOSE (NO CHG), | e | 8:18 AM | | procedure are in the | | POC | | PDT | | results section. | + +--------+ + + + | 25G VITRECTOMY WITH | Electi | 02/13/2014 | Traction | | | [employer] | ve | 7:29 AM | detachment of | | | | Surgic | PDT | retina, left | | | | al | | Vitreous hemorrhage, | | | | | | left ([facility]) | | | | | | Proliferative | | | | | | diabetic | | | | | | retinopathy(362.02) | | | | | | ([facility]) | | + +--------+ + + + | CAPILLARY BLOOD | Routin | 02/13/2014 | | Results for this | | GLUCOSE (NO CHG), | e | 6:57 AM | | procedure are in the | | POC | | PDT | | results section. | + +--------+ + + + | GLUCOSE, POC | Routin | 02/13/2014 | | Results for this | | | e | | | procedure are in the | | | | | | results section. | + +--------+ + + + documented in this encounter Results PROCEDURE NOTE (08/27/2015 6:11 PM PST)CAPILLARY BLOOD GLUCOSE (NO CHG), POC (02/13/2014 1 0:00 AM PDT) + +---------+ + + + | Component | Value | Ref Range | Performed | Pathologist | | | | | At | Signature | + +---------+ + + + | BLOOD | 200 (H) | 60 - 99 mg/dL | [...] [facility] | [address] | [place], [place] | | | [facility] | [address] | [address] | | | TESTS | | | | + + + + + CAPILLARY BLOOD GLUCOSE (NO CHG), POC (02/13/2014 9:09 AM PDT) + +---------+ + + + | Component | Value | Ref Range | Performed | Pathologist | | | | | At | Signature | + +---------+ + + + | BLOOD | 238 (H) | 60 - 99 mg/dL | [...] | [facility] | [address] | [place], [place] | | | [facility] | [facility] | [address] | | | TESTS | | | | + + + + + CAPILLARY BLOOD GLUCOSE (NO CHG), POC (02/13/2014 8:18 AM PDT) + +---------+ + + + | Component | Value | Ref Range | Performed | Pathologist | | | | | At | Signature | + +---------+ + + + | BLOOD | 282 (H) | 60 - 99 mg/dL | [...] + + + | [facility] | [address] | [place], [place] | | | [facility] | [address] | [address] | | | TESTS | | | | + + + + + CAPILLARY BLOOD GLUCOSE (NO CHG), POC (02/13/2014 6:57 AM PDT) + +---------+ + + + | Component | Value | Ref Range | Performed | Pathologist | | | | | At | Signature | + +---------+ + + + | BLOOD | 347 (H) | 60 - 99 mg/dL | [...] [facility] | [address] | [place], [place] | | | [facility] | [address] | [address] | | | TESTS | | | | + + + + + GLUCOSE, POC (02/13/2014) + +-------+ + + + | Component | Value | Ref Range | Performed | Pathologist | | | | | At | Signature | + +-------+ + + + | GLUCOSE, | 282 | | | | | POC | | | | | + +-------+ + + + + + | Specimen | + + | Blood - Blood | + + documented in this encounter Visit Diagnoses + + | Diagnosis | + + | Traction detachment of retina, left Traction detachment of retina | + + | Vitreous hemorrhage, left (HCC) | + + | Proliferative diabetic retinopathy(362.02) Proliferative diabetic retinopathy | + + documented in this encounter Administered Medications + +--------+ +--------+------+ + | Medication Order | MAR | Action | Dose | Rate | Site | | | Action | Date | | | | + +--------+ +--------+------+ + | atropine 1 % ophthalmic drops | Given | 02/14/20 | 1 drop | | Left Eye | | INTRAPROCEDURE PRN, Starting Mehnaz | | 14 8:00 | | | | | 02/13/14 at 0800, Until [facility] | | AM PDT | | | | | 02/13/14 at 0854 | | | | | | + +--------+ +--------+------+ + +---+---+ | | | +---+---+ + +-------+ +-------+---+ + | balanced salt (BSS) ophthalmic | Given | 02/14/20 | 15 mL | | Left Eye | | irrigation INTRAPROCEDURE PRN, | | 14 8:04 | | | | | Starting Mehnaz 02/13/14 at 0804, | | AM PDT | | | | | Until Mehnaz 02/13/14 at 0854 | | | | | | + +-------+ +-------+---+ + +---+---+ | | | +---+---+ + +-------+ +--------+---+---+ | cyclopentolate 1%-PHENYLEPHrine | Given | 02/14/20 | 1 drop | | | | 2.5%-tropicamide 0.25% | | 14 6:50 | | | | | (SUPERDROPS) ophthalmic drops 1 | | AM PDT | | | | | drop 1 drop, Left Eye, EVERY 5 | | | | | | | MINUTES NEEDED, 2 doses, | | | | | | | Starting [facility] 02/13/14 at 0647, | | | | | | | Until [facility] 02/13/14 at 0650, | | | | | | | pre-procedure dilation | | | | | | + +-------+ +--------+---+---+ +-------+ +--------+---+---+ | Given | 02/14/20 | 1 drop | | | | | 14 6:45 | | | | | | AM PDT | | | | +-------+ +--------+---+---+ +---+---+ | | | +---+---+ + +-------+ +-------+---+ + | dexamethasone (DECADRON) | Given | 02/14/20 | 10 mg | | Left Eye | | injection INTRAPROCEDURE PRN, | | 14 8:03 | | | | | Starting [facility] 02/13/14 at 0803, | | AM PDT | | | | | Until [facility] 02/13/14 at 0854 | | | | | | + +-------+ +-------+---+ + +---+---+ | | | +---+---+ + +-------+ + +---+ + | Dilating Solution (Phakic & | Given | 02/14/20 | 1 Bottle | | Left Eye | | Diabetic): BSS Plus 500 mL - 3 mL | | 14 8:02 | | | | | D50 - 0.5 mL EPINEPHrine | | AM PDT | | | | | (1:1,000) INTRAPROCEDURE PRN, | | | | | | | Starting [facility] 02/13/14 at 0802, | | | | | | | Until [facility] 02/13/14 at 0854 | | | | | | + +-------+ + +---+ + +---+---+ | | | +---+---+ + +---------+ +---------+---+---+ | insulin regular (HUMULIN R) | New Bag | 02/14/20 | 5 Units | | | | injection 5 Units 5 Units, | | 14 9:23 | | | | | intravenous, ONCE, 1 dose, Me[facility] | | AM PDT | | | | | 02/13/14 at 0945 | | | | | | + +---------+ +---------+---+---+ +---+---+ | | | +---+---+ + +-------+ +-------+---+ + | Local with hyaluronidase: | Given | 02/14/20 | 10 mL | | Left Eye | | lidocaine 2% - bupivacaine 0.75% | | 14 8:24 | | | | | - hyaluronidase 200 units/mL 1 mL | | AM PDT | | | | | 1:10:10) INTRAPROCEDURE PRN, | | | | | | | Starting [facility] 02/13/14 at 0824, | | | | | | | Until [facility] 02/13/14 at 0854 | | | | | | + +-------+ +-------+---+ + +---+---+ | | | +---+---+ + +---------+ + + +---+ | NaCl 0.9 % IV 10 mL/hr, | New Bag | 02/14/20 | 10 mL/hr | 10 mL/hr | | | intravenous, CONTINUOUS, Starting | | 14 7:02 | | | | | [facility] 02/13/14 at 0745, Until [facility] | | AM PDT | | | | | 02/13/14 at 1624 | | | | | | + +---------+ + + +---+ +---+---+ | | | +---+---+ + +-------+ +--------+---+ + | proparacaine (OPHTHAINE) 0.5 % | Given | 02/14/20 | 1 drop | | Left Eye | | ophthalmic drops INTRAPROCEDURE | | 14 8:03 | | | | | PRN, Starting [facility] 02/13/14 at | | AM PDT | | | | | 0803, Until [facility] 02/13/14 at 0854 | | | | | | + +-------+ +--------+---+ + +---+---+ | | | +---+---+ + +-------+ +---------+---+ + | tetracaine 0.5 % ophthalmic | Given | 02/14/20 | 2 drops | | Left Eye | | drops INTRAPROCEDURE PRN, | | 14 8:49 | | | | | Starting [facility] 02/13/14 at 0849, | | AM PDT | | | | | Until [facility] 02/13/14 at 0854 | | | | | | + +-------+ +---------+---+ + +---+---+ | | | +---+---+ + +-------+ +-------+---+ + | vancomycin (VANCOCIN) injection | Given | 02/14/20 | 25 mg | | Left Eye | | INTRAPROCEDURE PRN, Starting | | 14 8:03 | | | | | [facility] 02/13/14 at 0803, Until [facility] | | AM PDT | | | | | 02/13/14 at 0854 | | | | | | + +-------+ +-------+---+ + +---+---+ | | | +---+---+ documented in this encounter
--- OUTSIDE RECORDS SUMMARY | ~2018-12-11 | XMS | Encounter Summary ---
Demographics + + + | Address | [address] | | | [place] [address] | + + + | Home Phone | | + + + | Preferred Language | Unknown | + + + | Marital Status | | + + + | Episcopalian Affiliation | Unknown | + + + | Race | Unknown | + + + | Ethnic Group | Unknown | + + + Author + + + | Author | [facility] | + + + | Organization | [facility] [employer] | + + + | Address [...] Team Providers + +------+ + | Care Public Works Director Name | Role | Phone | + +------+ + | Rohan Wilkes DO | PCP | | + +------+ + Encounter Details +--------+ + + + + | Date | Type | Department | Care Team | Description | +--------+ + + + + | 12/06/ | Telephone | [facility] | Maryjane Palacios, | | | 2019 | | Endocrinology [address] | [employer]IOR PROJECT MANAGER | | | | | [address]UNN | | | | | | [place] | | | | | | [address] | | | | | | [phone] | | | +--------+ + + + [...] Endocrinology | Ben Ochoa, | | | 2018 | Visit | | MD Claudine RAHMAN | | | | | | [place] | | | | | | [facility] [address] | | | | | | [phone] | | | | | | | | +--------+---------+ + + + as of this encounter Visit Diagnoses Not on filein this encounter"
--- OUTSIDE RECORDS SUMMARY | ~2018-12-11 | XMS | Encounter Summary ---
Demographics + + + | Address | [address] | | | [place] [address] | + + + | Home Phone | | + + + | Preferred Language | Unknown | + + + | Marital Status | Single | + + + | Muslim Affiliation | NRP | + + + | Race | or Other | + + + | Ethnic Group | Not or | + + + Author + + + | Author | [place] [employer] [facility] | + + + | Organization | [facility] [employer] [facility] | + [...] Team Providers + +------+ + | Care Key Account Director Name | Role | Phone | [...] | +--------+ + + + + | 02/13/ | Hospital | [facility] | Ankush Ramos V, | | | 2013 | Encounter | [address] | Retinal | | | | | [address] | [facility] [place] | | | | | [facility] [place] | [address] | | | | | [employer] | [place], [place] | | | | | [place] [address] | [address] | | | | | [phone] | | | | | | | Susan Andrews MD | | | | | | [address] | | | | | | [place], [place] | | | | | | [address] | | | | | | [phone] | | | | | | | [...] + documented in this encounter Discharge Instructions Murali Obrien Magalys - 02/13/2014REVIEW: HOME CARE AFTER RETINAL DETACHMENT [...] | | | | | | release (DR/EC) | | | | | | + [...] | | 2019 | Visit | | [address] | | | | | | [place], [place] | | | | | | [address] | | | | | | [phone] | | | | | | | [...] | | | | | | left ([facility]) | | | | | | Proliferative | | | | | | diabetic | | | | | | retinopathy(362.02) | | | | | | ([facility]) | | + +--------+ + + + [...] | | | POC | | | [place] | | | | | | OF CARE | | | | | | TESTS | | + +---------+ + + + + + | Specimen | + + | | + + + + + + + | Performing | Address | City/State/Zipcode | Phone Number | | Organization | | | | + + + + + | [facility] | [address] | [place], [place] | | | [facility] | [facility] | [address] | | | TESTS | | | [...] (H) | 60 - 99 mg/dL | [facility] - | | | GLUCOSE, | | [...] [facility] | [address] | [place], [place] | | | [facility] | [address] | [address] | | | TESTS | | | [...] [facility] | [address] | [place], [place] | | | [facility] | [facility] | [address] | | | TESTS | | | [...] | | | POC | | | [place] | | | | | | OF CARE | | | | | | TESTS | | + +---------+ + + + + + | Specimen | + + | | + + + + + + + | Performing | Address | City/State/Zipcode | Phone Number | | Organization | | | | + + + + + | [facility] | [address] | [place], [place] | | | [facility] | [address] | [address] | | | TESTS | | | [...] | | | + +--------+ +--------+------+------+ | cyclopentolate 1%-PHENYLEPHrine | Given | 02/14/20 [...] | | | | | | Starting [facility] 02/13/14 at 0647, | | | | | | | Until [facility] 02/13/14 at 0650, | | | | | | | pre-procedure dilation | | | | | | + +--------+ +--------+------+------+ +-------+ +--------+---+---+ | Given | 02/14/20 | 1 drop | | | | | 14 6:45 | | | | | | AM PDT | | | | +-------+ +--------+---+---+ +---+---+ | | | +---+---+ + +---------+ [...] +---------+---+---+ +---+---+ | | | +---+---+ + +---------+ [...] + +---+ +---+---+ | | | +---+---+ documented in this encounter
--- OUTSIDE RECORDS SUMMARY | ~2018-12-11 | XMS | Encounter Summary ---
Demographics + + + | Address | [address] | | | [place] [address] | + + + | Home Phone | | + + + | Preferred Language | Unknown | + + + | Marital Status | Single | + + + | Scientologist Affiliation | NRP | + + + | Race | or Other | + + + | Ethnic Group | Not or | + + + Author + + + | Author | [place] [employer] [facility] | + + + | Organization | [facility] [employer] [facility] | + + + | Address | Unknown | + + + | Phone | Unavailable | + + + Support + + +---------+ + | Name | Relationship | Address | Phone | + + +---------+ + | Geraldine Canales | ECON | Unknown | | + + +---------+ + Care Team Providers + +------+ + | Care Automobile Insurance Claim Examiner Name | Role | Phone | + [...] | | | | | | | [address] | | | | | [address] | | | | | | | [place] | | | | | | | [place], [place] | | | | | | | [address] | | | | | | | Phone: | | | | | | | [phone] | | | | | | | Fax: | | | | | | | [phone] | +--------+--------+ + + + + Encounter Details +--------+---------+ + + + | Date | Type | Department | Care Team | Description | +--------+---------+ + + + | 09/19/ | Office | [facility] | Susan Chau MD | Macular edema, | | 2015 | Visit | [facility] | [address] | diabetic, type 2, | | | | [facility] [address] [place], [place] | with proliferative | | | | [address] | [address] | retinopathy [250.50, | | | | Mailcode: [facility] | [phone] | 362.02, 362.07] | | | | [facility] [place] | | (Primary Dx) | | | | [address] | | | | | | [phone] | | | +--------+---------+ + + + [...] + + documented as of this encounter Patient Instructions Patient Instructions Capo Goodwin - 09/19/2014 2:30 PM PST Care Instructions After Eye Injection: Do not rub or touch your eyes. Redness in the corner of the eye is okay. Use Artificial tears every hour for BOTH EYES as needed for gritty sensation over the ne xt 2-3 days. If you experience increased pain or decreased vision, immediately call [phone].Elec tronically signed by Capo Goodwin at 09/19/2014 2:30 PM PST documented in this encounter Progress Notes Susan Chau MD - 09/19/2014 12:56 PM PSTFormatting of this note might be different from melvin rachel. [facility] Progress Note 09/19/2014 CC: Follow-up visit Initial History: Eyes are a little dry, but otherwise stable. Last 3 ambulatory procedures on record: Procedure: avastin OU (08/08/14 1343) Procedure: Avastin both eyes (06/27/14 1045) Procedure: avastin OD (05/16/14 1333) HPI: Joyce Arnold is a 54 y.o. female Last visit: 08/08/14 at 10:45 am Has already [address] Dr[address] Sheldon and is here for her retina check up. Eyes are pretty stable. Pain:No pain (0 of 0-10) POH: 08/08/2014 [...] Examination Diagnostics Ordered Right Left OCT CMT: 329/9.83 (was 360/10.30) Center involving edema, Tr ERM Improved CMT: 513/10.5 7 (was 453/10.63) Center involving edema, Tr ERM Worse FA --- --- FUNDUS --- --- Others IMPRESSION: 54 y.o. female with IDDM and the following Ophthalmologic Problems 1. POM # 3 s/p PPV/Silicone oil removal/PHACO/IOL OS 06/05/14 - doing well, IOL stable, retina attached, regressed PDR, DME worse OS 2. POM#4 s/p CE/IOL/SOR OD for retained silicone oil and nuclear cataract 05/08/2014 - s/p 23g PPV/MP/EL/FAx/1000cstSO OD 01/02/14, oil placed because of altitutde - for francois jaw TRD, VH, PDR - doing well, IOL well-centered, retina attached and stable with regressed PDR , vision gre at 3. 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 PDR (proliferative diabetic retinopathy) [496812] - s/p EL PRP OU, regressed OU - vision started out at CF in both eyes due to VH and TRDs OU, now MRx to 20/30 OD and 20/8 0 OS 5. DME (diabetic macular edema) [751224] OU - s/p Avastin OD on 05/16/14, OU x2 06/27/14, 08/08/14 - s/p PSTK OU in the past also with minimal benefit - vision and anatomy better OD and refracts to 20/30 but still with central cyst on OCT; vi rosa stable but fluid worse OS, had Avstin OU on 06/27/14 PLAN: PARQ held for Avastin OU, given without compcliation Ozurdex OD f/b OS next visit if approved by insurance 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: The pharmacy technician program director, under the supervision of the physician, is responsible for performing the f ollowing sections: RFV, ROS, PMH, PSH, SocHx, FH, Med list, Base Ophth Exam. The attending physician is responsible for the entire content of the note and has personall y performed the HPI and the physical examination SUSAN CHAU MD Intravitreal Injection Procedure Note 09/19/2014 for: AVASTIN, BOTH EYES LOT # [id number] and Expiration: 09/19/14 RIGHT EYE:10H LOT # [id number] and Expiration: 09/19/14 LEFT EYE:17H Attending: Susan Chau MD Diagnosis: Macular edema, diabetic, type 2, with proliferative retinopathy [250.50, 362.02, 362.07] (primary encounter diagnosis) Type II or unspecified type diabetes mellitus with ophthalmic manifestations, not stated as uncontrolled(250.50) Diabetic macular edema(362.07) Indication: Risk of further vision loss without treatment Allergies: Iron dextran; Celebrex; Penicillins; and Sulfa (sulfonamide antibiotics) Anesthesia: Subconjunctival lidocaine injection PARQ held for above. Team Pause: At [...] patient. Any safety precautions were addressed. Procedure: A sterile prep was performed and ophthalmic speculum was placed. With a 30G needle, 0.05 cc of above medication was injected through the pars plana. Ophthalmoscopy was performed to co nfirm perfusion of the central retinal artery and/or IOP < 30 mmHg was confirmed prior to coleman mcnair. The eye was rinsed. After the injection the patient reported : No pain (0 of 0-10) Complications: None EBL: None Instructions: 1. Artificial tears every hour today, every hours tomorrow 2. Call immediately for worsening redness, light sensitivity, decreased vision or increase d pain Dr. Susan Chau, as the attending surgeon, performed the entire procedure. documented in this encoun ter Plan of Treatment +--------+---------+ + + + | Date | Type | Specialty | Care Team | Description | +--------+---------+ + + + | 01/30/ | Office | Ophthalmology | Susan Chau MD | | | 2019 | Visit | | [address] | | | | | | [place], [place] | | | | | | [address] | | | | | | [phone] | | | | | | | [...] | e | diabetic, type 2, | 09/18/2014, Expires: | | | | | with proliferative | 03/18/2016 | | | | | retinopathy [250.50, | | | | | | 362.02, 362.07] | | + + +--------+ + + documented as of this encounter Procedures + +--------+ + + + | Procedure Name | Priori | Date/Time | Associated Diagnosis | Comments | | | ty | | | | + +--------+ + + + | [facility] | Routin | 09/19/2014 | Macular edema, | | | CHARGE | e | 2:30 PM | diabetic, type 2, | | | | | PST | with proliferative | | | | | | retinopathy [250.50, | | | | | | 362.02, 362.07] | | + +--------+ + + + | [facility], | Routin | 09/19/2014 | Macular edema, | | | AVASTIN | e | 2:30 PM | diabetic, type 2, | | | | | PST | with proliferative | | | | [...]
--- OUTSIDE RECORDS SUMMARY | ~2018-12-11 | XMS | Encounter Summary ---
Demographics + + + | Address | [address] | | | [place] [address] | + + + | Home Phone | | + + + | Preferred Language | Unknown | + + + | Marital Status | Single | + + + | Jewish Affiliation | NRP | + + + | Race | or Other | + + + | Ethnic Group | Not or | + + + Author + + + | Author | [facility] | + + + | Organization | [facility] | + + + | Address | Unknown | + + + | Phone | Unavailable | + + + Support + + +---------+ + | Name | Relationship | Address | Phone | + + +---------+ + | Geraldine Canales | ECON | Unknown | | + + +---------+ + Care Team Providers + +------+ + | Care Slip Caster Name | Role | Phone | + [...] | | | | | | | [address] | | | | | | | [address] | | | | | | | [place] | | | | | | | [place], [place] | | | | | | | [address] | | | | | | | Phone: | | | | | | | [phone] | | | | | | | Fax: | | | | | | | [phone] | +--------+--------+ + + + + Encounter Details +--------+---------+ + + + | Date | Type | Department | Care Team | Description | +--------+---------+ + + + | 10/17/ | Office | [facility] | Susan Chau MD | Macular edema, | | 2015 | Visit | [facility] | [address] | diabetic, type 2, | | | | [facility] [address] [place], [place] | with proliferative | | | | [address] | [address] | retinopathy [250.50, | | | | Mailcode: [facility] | [phone] | 362.02, 362.07] | | | | [facility] [place] | | (Primary Dx) | | | | [address] | | | | | | [phone] | | | +--------+---------+ + + + [...] of this encounter Patient Instructions Patient Instructions Sindy Antonio - 10/17/2014 3:24 PM PDT dexamethasone intravitreal implant Pronunciation: DEX a METH a sone IN tra VIT ree al IM plant Brand: Ozurdex What is dexamethasone intravitreal implant? Dexamethasone is a steroid used to treat inflammation. Dexamethasone intravitreal is an implant injected into the eye to treat swelling that may o ccur when there is a blockage of certain blood vessels in your eyes. Dexamethasone intravitreal implant is also used to treat posterior uveitis, inflammation th at affects the back part of the eye. Dexamethasone intravitreal implant may also be used for purposes not listed in this medicat ion guide. What should I discuss with my healthcare provider before receiving dexamethasone intravitre al implant? You should not receive this medication if you are allergic to dexamethasone, or if you have : an eye infection; advanced glaucoma; an artificial lens implanted in your eye; or a history of eye ulcer, surgery, or wound that has injured or removed the lens in your e ye. To make sure dexamethasone intravitreal is safe for you, tell your doctor if you have ever had herpes infection of the eyes. FDA category C. It is not known whether dexamethasone intravitreal implant will h arm an unborn baby. Tell your doctor if you are or plan to become . It is not known whether dexamethasone intravitreal passes into breast milk or if it could h arm a nursing baby. Tell your doctor if you are breast-feeding a baby. How is dexamethasone intravitreal implant given? Dexamethasone intravitreal implant will be injected into your eye by healthcare professiona l in a clinic setting. After the implant is put in place, you will be watched closely for any swelling, inflammati on, or increased pressure in your eye. What happens if I miss a dose? Since dexamethasone intravitreal is a surgical implant, it does not have a daily dosing ed edule. What happens if I overdose? Since the dexamethasone intravitreal implant contains a specific amount of the medication, you are not likely to receive an overdose. What should I avoid after receiving dexamethasone intravitreal implant? This medication may cause blurred vision. Be careful if you drive or do anything that requi res you to be able to see clearly. What are the possible side effects of dexamethasone intravitreal implant? Get emergency medical help if you have any of these signs of an allergic reaction: hives; d ifficult breathing; swelling of your face, lips, tongue, or throat. Call your doctor at once if you have: vision problems, eye pain, or seeing halos around lights; eye redness, increased sensitivity of your eyes to light; or vision changes. Common side effects may include blurred vision. This is not a complete list of side effects and others may occur. Call your doctor for [facility] advice about side effects. You may report side effects to FDA at 3-086-ZSK-2051. What other drugs will affect dexamethasone intravitreal implant? It is not likely that other drugs you take orally or inject will have an effect on dexameth asone used in the eyes. But many drugs can interact with each other. Tell each of your healt hcare providers about all medicines you use, including prescription and qhbk-tpd-yhowfix med icines, vitamins, and herbal products. Where can I get more information? Your doctor or pharmacist can provide more information about dexamethasone intravitreal imp lant. Remember, keep this and all other medicines out of the reach of children, never share your medicines with others, and use this medication only for the indication prescribed. Every effort has been made to ensure that the information provided by [employer]. ( '[employer]') is accurate, up-to-date, and complete, but no guarantee is made to that effect. Dr janette information contained herein may be time sensitive. [employer] information has been compiled for use by healthcare practitioners and consumers in the [place] and therefore [employer] does not warrant that uses outside of the [place] are appropriate, unless specifically indicated otherwise. [employer] drug information does not endorse drugs, diagnose patients or recommend therapy. [employer] drug information is an informational resource designed to lashaun t licensed healthcare practitioners in caring for their patients and/or to serve consumers v iewing this service as a supplement to, and not a substitute for, the expertise, skill, know ledge and judgment of healthcare practitioners. The absence of a warning for a given drug or drug combination in no way should be construed to indicate that the drug or drug combinatio n is safe, effective or appropriate for any given patient. [employer] does not assume any respon sibility for any aspect of healthcare administered with the aid of information [employer] provid es. The information contained herein is not intended to cover all possible uses, directions, precautions, warnings, drug interactions, allergic reactions, or adverse effects. If you negro ve questions about the drugs you are taking, check with your doctor, nurse or pharmacist. Copyright 0071-3875 [employer] Version: 2.02. Revision date: 06/25/2013. This information does not replace the advice of a doctor. [employer] disclaim s any warranty or liability for your use of this information. Content Version: 10.3.400676 documented in this encounter Progress Notes Susan Chau MD - 10/17/2014 2:18 PM PDTFormatting of this note might be different from melvin rachel. [facility] Progress Note 10/17/2014 CC: Follow-up visit Initial History: Pt got new glasses 3 weeks ago, seem to be working well. Last 3 ambulatory procedures on record: Procedure: Avastin bilateral (09/19/14 1423) Procedure: avastin OU (08/08/14 1343) Procedure: Avastin both eyes (06/27/14 1045) HPI: Joyce Arnold is a 54 y.o. female Last visit: 09/19/14 at 1:15 pm Got new eyeglasses, vision improved. She does thlnk that after injections, she gets better vision, which wears off around 2-3 weeks afterwards. Pain:No pain (0 of 0-10) POH: 08/08/2014 [...] Diagnostics Ordered Right Left OCT CMT (OD):: 334 (10/17/14 1400) CMT (OD):: 329 (09/19/14 1200) + tr IRF, Center involving, stable CMT (OS):: 459 (10/17/14 1400) CMT (OS):: 513 (09/19/14 1200) + IRF, Center involving edema Improved FA --- --- FUNDUS --- --- Others IMPRESSION: 54 y.o. female with Ophthalmologic Problems 1. POM # 4 s/p PPV/Silicone oil removal/PHACO/IOL OS 06/05/14 - doing well, IOL stable, retina attached, regressed PDR, DME worse OS 2. POM#5 s/p CE/IOL/SOR OD for retained silicone oil and nuclear cataract 05/08/2014 - s/p 23g PPV/MP/EL/FAx/1000cstSO OD 01/02/14, oil placed because of altitutde - for francois jaw TRD, VH, PDR - doing well, IOL well-centered, retina attached and stable with regressed PDR , vision gre at 3. 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 PDR (proliferative diabetic retinopathy) [228518] - s/p EL PRP OU, regressed OU - vision started out at CF in both eyes due to VH and TRDs OU, now MRx to 20/30 OD and 20/8 0 OS 5. DME (diabetic macular edema) [825749] OU - s/p Avastin OD on 05/16/14, OU x3 06/27/14, 08/08/14, 09/19/14 - s/p PSTK OU in the past also with minimal benefit - Center involving IRF OS > OD PLAN: Is approved for Ozurdex switch, will start with OS due to worse DMEOS, given OS without com plication Look into retina specialist in [facility], [facility], [facility], [place] or [place] Call for decreased vision, increased distortion, increased pain, new floaters or flashing l ights Follow up: 2 weeks for IOP check OS, also possible OZurdex OD next visit NEXT VISIT: DILATE OU, OCT OU Addendum PLIN: [facility] specialists: [phone] Mago Durbin MD, PhD Uveitis Fellow Attestations: The satellite technician, under the supervision of the physician, is responsible for performing the f ollowing sections: RFV, ROS, PMH, PSH, SocHx, FH, Med list, Base Ophth Exam. The attending physician is responsible for the entire content of the note and has personall y performed the HPI and the physical examination SUSAN CHAU MD Procedure Report 10/17/2014 for: Ozurdex Implant Insertion, left eye Lot#[id number] & Expiration: 01/2017(4dd) Attending: Susan Chau MD Diagnosis: Macular edema, diabetic, type 2, with proliferative retinopathy [250.50, 362.02, 362.07] (primary encounter diagnosis) Indication: Risk of further vision loss without treatment Allergies: Iron dextran; Celebrex; Penicillins; and Sulfa (sulfonamide antibiotics) Anesthesia: Subconjunctival with 1% lidocaine with epinephrine PARQ held for above. Team Pause: At 3:23 PM, prior to the beginning of the [...] patient. Any safety precautions were addressed. Procedure: 1. Sterile prep with Povidone iodine 2. Eye Speculum placed 3. With eye stabilized, the Ozurdex implant was inserted via the pars plana using the supp lied lvn 4. Patent central retinal artery or IOP < 30 mmHG post injection confirmed 5. After the injection patient reported: No pain (0 of 0-10) Complications: None EBL: None Instructions: 1. Artificial tears every hour today, every hours tomorrow 2. Call immediately for worsening redness, light sensitivity, decreased vision or increase d pain Susan Chau MD @ED documented in this encoun ter Plan of Treatment +--------+---------+ + + + | Date | Type | Specialty | Care Team | Description | +--------+---------+ + + + | 01/30/ | Office | Ophthalmology | Susan Cahu MD | | | 2019 | Visit | | [address] | | | | | | [place], [place] | | | | | | [address] | | | | | | [phone] | | | | | | | [...] | e | diabetic, type 2, | 10/16/2014, Expires: | | | | | with proliferative | 04/18/2016 | | | | | retinopathy [250.50, | | | | | | 362.02, 362.07] | | + + +--------+ + + documented as of this encounter Procedures + +--------+ + + + | Procedure Name | Priori | Date/Time | Associated Diagnosis | Comments | | | ty | | | | + +--------+ + + + | [facility] | Routin | 10/17/2014 | Macular edema, | | | CHARGE | e | 3:24 PM | diabetic, type 2, | | | | | PDT | with proliferative | | | | | | retinopathy [250.50, | | | | | | 362.02, 362.07] | | + +--------+ + + + | [facility] | Routin | 10/17/2014 | Macular edema, | | | INTRAVITREAL | e | 3:24 PM | diabetic, type 2, | | | [facility] | | PDT | with proliferative | [...]
--- OUTSIDE RECORDS SUMMARY | ~2018-12-11 | XMS | Encounter Summary ---
Demographics + + + | Address | [address] | | | [place] [address] | + + + | Home Phone | | + + + | Preferred Language | Unknown | + + + | Marital Status | Single | + + + | Zoroastrianism Affiliation | NRP | + + + | Race | or Other | + + + | Ethnic Group | Not or | + + + Author + + + | Author | [place] [employer] [facility] | + + + | Organization | [facility] [employer] [facility] | + + + | Address | Unknown | + + + | Phone | Unavailable | + + + Support + + +---------+ + | Name | Relationship | Address | Phone | + + +---------+ + | Geraldine Canales | ECON | Unknown | | + + +---------+ + Care Team Providers + +------+ + | Care Ampoule Sealer Name | Role | Phone | + [...] | | | | | | | [address] | | | | | | | [address] | | | | | | | [place] | | | | | | | [place], [place] | | | | | | | [address] | | | | | | | Phone: | | | | | | | [phone] | | | | | | | Fax: | | | | | | | [phone] | +--------+--------+ + + + + Encounter Details +--------+---------+ + + + | Date | Type | Department | Care Team | Description | +--------+---------+ + + + | 05/16/ | Office | [facility] | Susan Chau MD | Macular edema, | | 2013 | Visit | [facility] at | [address] | diabetic, type 2, | | | | [facility] [address] [place], [place] | with proliferative | | | | [address] | [address] | retinopathy [250.50, | | | | Mailcode: [facility] | [phone] | 362.02, 362.07] | | | | [place], [place] | | (Primary Dx); TRD | | | | [address] | | (traction retinal | | | | [phone] | | detachment), | | | | | | bilateral | +--------+---------+ + + [...] of this encounter Patient Instructions Patient Instructions Nanci Whittaker - 05/16/2014 1:35 PM PDT Care Instructions After Eye Injection: Do not rub or touch the eye. Redness in the corner of the eye is okay. Use Artificial tears every hour, RIGHT EYE, as needed for gritty sensation for next 2-3 days. Call immediately [phone] for increased pain or decreased vision.Electronically sign ed by Nanci Whittaker at 05/16/2014 1:35 PM PDT documented in this encounter Progress Notes Susan Chau MD - 05/16/2014 1:35 PM PDT Intravitreal Injection Procedure Note 05/16/2014 for: AVASTIN, RIGHT EYE LOT #[id number] and Expiration 05/27/14 RIGHT EYE: Attending: Susan Chau MD Diagnosis: Macular edema, diabetic, type 2, with proliferative retinopathy [250.50, 362.02, 362.07] (primary encounter diagnosis) Type II or unspecified type diabetes mellitus with ophthalmic manifestations, not stated as uncontrolled(250.50) Diabetic macular edema(362.07) Indication: Risk of further vision loss without treatment Allergies: Iron dextran; Celebrex; Penicillins; and Sulfa (sulfonamide antibiotics) Anesthesia: Topical anesthetics only PARQ held for above. Team Pause: At 1:35 PM, prior to the beginning of the [...] < 30 mmHg was confirmed prior to di scharge. The eye was rinsed. After the injection the patient reported : No pain (0 of 0-10) Complications: None EBL: None Instructions: 1. Artificial tears every hour today, every hours tomorrow 2. Call immediately for worsening redness, light sensitivity, decreased vision or increase d pain Dr. Susan Chau, as the attending surgeon, performed the entire procedure. Susan Bang MD - 014 12:02 PM PDT [facility] Progress Note 05/16/2014 CC: Postoperative visit Initial History: Patient reports improved vision in the right eye since surgery. She is taking: Pred Forte 4 times daily right eye Ocuflox 1 drop 4 times daily right eye Atropine drops twice daily right eye Last 3 ambulatory procedures on record: Procedure: Kenalog both eyes (02/28/14 1047) Procedure: Avasti OU (01/01/14 7214) HPI: Joyce Arnold is a 54 y.o. female Last visit: 05/09/14 at 7:00 am Vision is improved since surgery. Not having too much discomfort. Eager to have silicone oil removal and cataract surgery OS. Pain:No pain (0 of 0-10) POH: PPV/SO removal PC IOL OD 05/08/14 PPV/MP/EL, [...] mouth two times daily. insulin detemir Inject 22 Units under the [...] three times daily. SYRING W-NDL,DISP,INSUL,0.5ML (INSULIN SYRINGE MIS) Past Medical History Diagnosis Date Diabetes mellitus [...] surgery History Substance Use Topics Smoking status: Current Every Day Smoker -- 0.20 packs/day for 33 years Types: Cigarettes Last Attempt to Quit: 11/20/2013 Smokeless tobacco: Never Used Alcohol Use: No Comment: used to "drink heavily" See Ophthalmology Module for Examination Diagnostics Ordered Right Left OCT CMT: 333 IRF involving center, essentially stable CMT: 342 IRF involving center, e ssentially stable FA --- --- FUNDUS --- --- Others IMPRESSION: 54 y.o. female with Ophthalmologic Problems 1. POW#1 s/p CE/IOL/SOR OD for retained silicone oil and nuclear cataract 05/08/2014 - s/p 23g PPV/MP/EL/FAx/1000cstSO OD 01/02/14, oil placed because of altitutde - for francois jaw TRD, VH, PDR - doing well, IOL well-centered,, retina attached and stable with regressed PDR 2. 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 PDR (proliferative diabetic retinopathy) [659241] - s/p EL PRP OU, regressed OU 4. DME (diabetic macular edema) [754414] OU - Stable center involving IRF OU PLAN: D/c ofloxacin, taper prednisolone gtts, atropine daily Avastin today OD, given without complication PARQ for CE/IOL/Shaunna oil removal OS with Dr. Sheldon Call for decreased vision, increased distortion, increased pain, new floaters or flashing l ights Follow up: for surgery and post op Amde Edwina Durbin MD, PhD Uveitis Fellow Attestations: The crime scene technician, under the supervision of the physician, [...] | | | | | | [place], [place] | | | | | | [address] | | | | | | [phone] | | | | | | | | +--------+---------+ + + + + + +--------+ + + | Name | Type | Priori | Associated Diagnoses | Order Schedule | | | | ty | | | + + +--------+ + + | [facility]MP[facility] OPHTH DX IMG | Procedures | Routin | Macular edema, | Expected: 05/15/2014 | | POST SEGMT | | e | diabetic, type 2, | | | | | | with proliferative | | | | | | retinopathy [250.50, | | | | | | 362.02, 362.07] | | + + +--------+ + + documented as of this encounter Procedures + +--------+ + + + | Procedure Name | Priori | Date/Time | Associated Diagnosis | Comments | | | ty | | | | + +--------+ + + + | [facility] | Routin | 05/16/2014 | | | | CHARGE | e | 1:35 PM | | | | | | PDT | | | + +--------+ + + + | ME INTRAVITREAL INJ, | Routin | 05/16/2014 | | | | AVASTIN | e | 1:35 PM | | | | | | [...]
--- OUTSIDE RECORDS SUMMARY | ~2018-12-11 | XMS | Encounter Summary ---
Demographics + + + | Address | [address] | | | [place] [address] | + + + | Home Phone | | + + + | Preferred Language | Unknown | + + + | Marital Status | Single | + + + | Taoist Affiliation | NRP | + + + | Race | or Other | + + + | Ethnic Group | Not or | + + + Author + + + | Author | [place] [facility] | + + + | Organization | [facility] | + + + | Address | Unknown | + + + | Phone | Unavailable | + + + Support + + +---------+ + | Name | Relationship | Address | Phone | + + +---------+ + | Geraldine Canales | ECON | Unknown | | + + +---------+ + Care Team Providers + +------+ + | Care Material Processor Name | Role | Phone | + [...] | | | | | | | [place], [place] | | | | | | | [address] | | | | | | | Phone: | | | | | | | [phone] | | | | | | | Fax: | | | | | | | [phone] | +--------+--------+ + + + + Encounter Details +--------+---------+ + + + | Date | Type | Department | Care Team | Description | +--------+---------+ + + + | 06/27/ | Office | [facility] | Carolyn Murphy Christopher, | Cataract extraction | | 2013 | Visit | [facility] | [address] | status, right | | | | [facility] [address] | (Primary Dx); | | | | [address] | [place], [place] | Cataract extraction | | | | Mailcode: [facility] | [address] | status, left | | | | [place], [place] | [phone] | | | | | [address] | | | | | | [phone] | | | +--------+---------+ + + + [...] encounter Progress Notes Carolyn Murphy MD - 06/27/2014 8:35 AM PSTFormatting of this note might be different fr om the original. Cornea Division Progress Note 06/27/2014 Jocye Arnold is a 54 y.o. female who returns for follow up of PCIOL OD. Chief Complaint Patient presents with Post Op Here for 5 week po s/p CE/IOL/SOR OD. Patient reports that she had been noticing some burni ng since last exam due to dry weather, artificial tears help. Not noticing any changes in vi rosa. Today is the last day for her drops, Prednisolone and Atropine. Pain: 0 ROS: Medications, allergies, medical, surgical [...] gets horrible yeast infection. Current Outpatient Prescriptions (Ophthalmic Medications) Medication Sig atropine Instill 1 drop into the left eye two times daily. atropine Instill 1 drop into the right eye two times daily. erythromycin Place 1 cm in lower left eyelid once a night ofloxacin Instill 1 drop into the left eye four times daily for 7 days. [...] HYDROcodone-acetaminophen Take 1-2 tablets by mouth every six hours as needed (mild heath n). Not to exceed 3250 mg of acetaminophen from all products per 24 hour period. insulin detemir Inject 15 Units under the [...] six hours as needed (pain). promethazine Take 1 tablet by mouth four [...] neurologic, endocrine, bleeding/blood disorders, AIDS/HIV, cancer/tumors, arthritis) Direct Support Professional Home Health Attestation: JOSEF Hutton, performed, reviewed or revised the above history, medications, allergies, as well as performed elements noted in the Base Ophthalmology Exam, including visual acuity, pupils, EOMs, CVF and IOP. Examination: Base Exam Visual Acuity Right Left Dist sc 20/70 -1 20/100 -1 Dist ph sc 20/50-2 20/70-1 Method: Snellen - Linear Tonometry Right Left Pressure 14 14 Method: Tonopen Time: 8:51 AM Manifest Refraction Sphere Cylinder [place] Dist Right _0.25 -1.25 002 20/60-1 Left Neuro/Psych Oriented x3: Yes Mood/Affect: Normal Slit Lamp and Fundus Exam External Exam Right Left External Normal Normal Slit Lamp Exam Right Left Lids/Lashes Normal Normal Conjunctiva/Sclera White and quiet White and quiet Cornea Cornea clear, superior cornea wound with loose suture epi defect resolved, Superior wound with suture reaction Anterior Chamber Deep; trace pigment Deep and quiet Iris Normal Normal Lens PCIOL, centered in bag PCIOL well-centered [...] OS 06/05/14 - doing well, IOL well-centered -both eyes with cornea suture reaction, removed at slit lamp. ocuflox given before and afte r -may get glasses Rx in future, could improve vision some, would not give today as still too soon after surgery and eye is mildly irritated from suture. 2. 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 PDR (proliferative diabetic retinopathy) [868689] - s/p EL PRP OU, regressed OU 4. DME (diabetic macular edema) [593819] OU - follow with Dr Andrews PLAN: Prednisolone 1 drop daily for 7 days both eyes Oflox QID x 7days both eyes Return to Dr Murphy in 3-4 months sooner prn CAROLYN MURPHY MD Cornea/External Disease Refractive Surgery [facility] documented in this e ncounter Plan of Treatment +--------+---------+ + + + | Date | Type | Specialty | Care Team | Description | +--------+---------+ + + + | 01/30/ | Office | Ophthalmology | Susan Andrews MD | | | 2019 | Visit | | [address] | | | | | | [place], [place] | | | | | | [address] | | | | | | [phone] | | | | | | | | +--------+---------+ + + + documented as of this encounter Visit Diagnoses + + | Diagnosis | + + | Cataract extraction status, right - Primary | + + | Cataract extraction status, left | + + documented in this encounter
--- OUTSIDE RECORDS SUMMARY | ~2018-12-11 | XMS | Encounter Summary ---
Demographics + + + | Address | [address] | | | [place] [address] | + + + | Home Phone [...] + + + | Author | [place] [address] | + + + | Organization | [facility] [employer] [facility] | + + + | Address | Unknown | + + + | Phone | Unavailable | + + + Support + + +---------+ + | Name | Relationship | Address | Phone | + + +---------+ + | Geraldine [place] | ECON | Unknown | | + + +---------+ + Care Team Providers + +------+ + | Care Armor Officer Name | Role | Phone | + [...] | | | | | | | [place], [place] | | | | | | | [address] | | | | | | | Phone: | | | | | | | [phone] | | | | | | | Fax: | | | | | | | [phone] | +--------+--------+ + + + + Encounter Details +--------+---------+ + + + | Date | Type | Department | Care Team | Description | +--------+---------+ + + + | 10/01/ | Office | [facility] | Indira Chau MD | Proliferative | | 2016 | Visit | [facility] at | [address] | diabetic retinopathy | | | | [facility] [address] [facility] [place] | with macular edema | | | | [address] | [address] | associated with type | | | | Mailcode: [facility] | [phone] | 2 diabetes mellitus | | | | [facility] [place] | | ([facility]) | | | | [address] | | | | | | [phone] | | | +--------+---------+ + + + [...] + documented as of this encounter Progress Zita Delacruz - 10/02/2015 2:17 PM PST [facility] Progress Note 10/02/2015 CC: Diabetic Retinopathy Follow-up Initial History: Stable vision. Just saw Dr. Sheldon who was happy with her exam. Last 3 ambulatory procedures on record: Procedure: Ozurdex both eyes (08/21/15 8980) Procedure: Ozurdex both eyes (02/06/15 0347) Procedure: Ozurdex right eye (10/31/14 7488) ROS Negative for: Constitutional, Gastrointestinal, Neurological, Skin, Genitourinary, Musculo skeletal, HENT, Endocrine, Cardiovascular, Eyes, Respiratory, Psychiatric, Allergic/Imm, Hem e/Lymph Last edited by Zita Escobar on 10/02/2015 2:15 PM. (History) HPI: Joyce Arnold is a 55 y.o. female Last visit: Following up per recommendation with [...] once daily. ASMANEX TWISTHALER aspirin EC Take 81 mg by mouth once daily. citalopram Take 40 mg by mouth once daily. doxazosin famotidine Take 20 mg by mouth once daily. FOLIC ACID ORAL Take by mouth. hydrochlorothiazide Take 25 mg by mouth two times daily. insulin glargine Inject under the skin (SUBC). Indications: TYPE 1 DIABETES MELLITUS isosorbide mononitrate CR Take 60 mg by mouth once daily. LANCETS & [...] times daily. SYRING W-NDL,DISP,INSUL,0.5ML (INSULIN SYRINGE MISC) VITAMIN D2 Past Medical History Diagnosis Date [...] Examination Diagnostics Ordered Right Left OCT CMT/Vol: 297/8.73 (was 329/9.13) slightly less IRF CMT/Vol: 295/8.69 (was 323/9.20) s lightly less IRF FA --- --- FUNDUS --- --- Others IMPRESSION: 55 y.o. female with the [...] vision great 3. PDR (proliferative diabetic retinopathy) [558487] - regressed OU after the above procedures - starting vision was CF OU 4. 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, [...] | | | | | | [place], [place] | | | | | | [address] | | | | | | [phone] | | | | | | | | +--------+---------+ + + + + + +--------+ + + | Name | Type | Priori | Associated Diagnoses | Order Schedule | | | | ty | | | + + +--------+ + + | CMPTR OPHTH DX IMG | Procedures | Routin | | Expected: | | POST SEGMT | | e | | 10/02/2015, Expires: | | | | | | 04/03/2017 | + + +--------+ + + documented as of this encounter Visit Diagnoses + + | Diagnosis | + + | Proliferative diabetic retinopathy with macular edema associated with type 2 diabetes | | mellitus (HCC) | + + documented in this encounter
--- OUTSIDE RECORDS SUMMARY | ~2018-12-11 | XMS | Encounter Summary ---
Demographics + + + | Address | [address] | | | [place] [address] | + + + | Home Phone | | + + + | Preferred Language | Unknown | + + + | Marital Status | | + + + | Yazidism Affiliation | Unknown | + + + | Race | Unknown | + + + | Ethnic Group | Unknown | + + + Author + + + | Author | [facility] | + + + | Organization | [facility] | + + + | Address [...] Team Providers + +------+ + | Care Network Support Technician Name | Role | Phone | + +------+ + | Rohan Wilkes DO | PCP | | + +------+ + Reason for Visit +--------+ + | Reason | Comments | +--------+ + | Other | 11/28/18 [facility] notes | +--------+ + Encounter Details +--------+ + + + + | Date | Type | Department | Care Team | Description | +--------+ + + + + | 11/28/ | Documentati | [facility] | Sherman Chambers MD | Other (11/28/18 | | 2019 | on Only | [address] | [facility] | | | | [address] | [address] [place], [place] | Tranplant notes) | | | | [place] [address] | [address] | | | | | [phone] | | | +--------+ + + + [...] | | | | | [place] [address] | | | | | | [phone] | | | | | | | | +--------+---------+ + + + as of this encounter Visit Diagnoses Not on filein this encounter"
--- OUTSIDE RECORDS SUMMARY | ~2018-12-11 | XMS | Encounter Summary ---
Demographics + + + | Address | [address] | | | [place] [address] | + + + | Home Phone | | + + + | Preferred Language | Unknown | + + + | Marital Status | Single | + + + | Pentecostal Affiliation | NRP | + + + | Race | or Other | + + + | Ethnic Group | Not or | + + + Author + + + | Author | [employer] [facility] | + + + | Organization | [facility] | + + + | Address | Unknown | + + + | Phone | Unavailable | + + + Support + + +---------+ + | Name | Relationship | Address | Phone | + + +---------+ + | Geraldine [place] | ECON | Unknown | | + + +---------+ + Care Team Providers + +------+ + | Care Under Cutter Name | Role | Phone | + +------+ + | Rohan Wilkes DO | PCP | | + +------+ + Encounter Details +--------+ + + + + | Date | Type | Department | Care Team | Description | +--------+ + + + + | 05/01/ | Lab | LAB [facility] | | | | 2017 | Requisition | [facility]PL[facility] | | | | | | [address] | | | | | | [facility] | | | | | | [place], [place] | | | | | | [address] | | | +--------+ + + + [...] | | | | | | [place], [place] | | | | | | [address] | | | | | | [phone] | | | | | | | | +--------+---------+ + + + documented as of this encounter Procedures + +--------+ + + + | Procedure Name | Priori | Date/Time | Associated Diagnosis | Comments | | | ty | | | | + +--------+ + + + | HLA FLOW PRA WITH | Routin | 04/25/2018 | | Results for this | | YEARLY ID | e | 12:00 AM | | procedure are in the | | | | PDT | | results section. | + +--------+ + + + | LIT FLOW HLA AB PRA | Routin | 04/25/2018 | | | | SCREEN I/II | e | 12:00 AM | | | | | | PDT | | | + +--------+ + + + | LIT FLOW HLA II AB | Routin | 04/25/2018 | | | | AG ID, BLOOD | e | 12:00 AM | | | | | | PDT | | | + +--------+ + + + | LIT FLOW HLA I AB AG | Routin | 04/25/2018 | | Results for this | | ID, BLOOD | e | 12:00 AM | | procedure are in the | | | | PDT | | results section. | + +--------+ + + + | LIT ANTI - A TITER, | Routin | 04/25/2018 | | | | BLOOD | e | 12:00 AM | | | | | | PDT | | | + +--------+ + + + documented in this encounter Results LIT FLOW HLA II AB AG ID, BLOOD (04/25/2018 12:00 AM PDT) + + | Specimen | + + | Blood | + + + + + + + | Performing | Address | City/State/Zipcode | Phone Number | | Organization | | | | + + + + + | [facility] - | [address] | [place] [address] | | | IMMUNOGENETICS/TRANS | [address] | | | | [facility] | | | | + + + + + LIT FLOW HLA I AB AG ID, BLOOD (04/25/2018 12:00 AM PDT) + + + + [...] + + | [facility] - | [address] | [place] [address] | | | IMMUNOGENETICS/TRANS | [address] | | | | [facility] | | | | + + + + + LIT FLOW HLA AB PRA SCREEN I/II (04/25/2018 12:00 AM PDT) + + | Specimen | + + | Blood | + + + + + + + | Performing | Address | City/State/Zipcode | Phone Number | | Organization | | | | + + + + + | [facility] - | [address] | [place] [address] | | | IMMUNOGENETICS/TRANS | [address] | | | | PL[facility] LAB[facility]ORY | | | | + + + + + LIT ANTI - A TITER, BLOOD (04/25/2018 12:00 AM PDT) + + | Specimen | + + | Blood | + + + + + + + | Performing | Address | City/State/Zipcode | Phone Number | | Organization | | | | + + + + + | [facility] - | [address] | [place] [address] | | | IMMUNOGENETICS/TRANS | [address] | | | | [facility] | | | | + + + + + documented in this encounter Visit Diagnoses Not on filedocumented in this encounter
--- OUTSIDE RECORDS SUMMARY | ~2018-12-11 | XMS | Encounter Summary ---
Demographics + + + | Address | [address] | | | [place] [address] | + + + | Home Phone [...] + + | Author | [place] [employer] [facility] | + + + | Organization | [facility] [employer] [facility] | + + + | Address | Unknown | + + + | Phone | Unavailable | + + + Support + + +---------+ + | Name | Relationship | Address | Phone | + + +---------+ + | Milton [place] | ECON | Unknown | | + + +---------+ + Care Team Providers + +------+ + | Care Silviculturist Name | Role | Phone | + +------+ + | Nadeem Caruso | PCP | | + +------+ + Reason for Visit + + + | Reason | Comments | + + + | Post Op Eye Surgery, | | | One Day | | + + + Other (Routine) +--------+--------+ + + + + | Status | Reason | Specialty | Diagnoses / | Referred By | Referred To | | | | | Procedures | Contact | Contact | +--------+--------+ + + + + | Closed | | Ophthalmology | Procedures | Non-[facility] | [place], | | | | | [place] [facility] | Epic Dept | MD Susan | | | | | OPHTH DX IMG | | [address] | | | [address] | | | | [address] | | [address] | | | | | [place] | | [place], [place] | | | | | FLUORESCEIN | | [address] | | | | | ANGIOGRAPHY | | Phone: | | | | | [place] FUNDAL | | [phone] | | | | | PHOTOGRAPHY | | Fax: | | | | | [place] INJECT | | [phone] | | | | | INTRAVITREAL | | | | | | | | | | | | | | PHARMCOLOGIC | | | | | | | [place] | | | | | | | TRIAMCINOLON | | | | | | | E ACETONIDE | | | | | | | INJ 10 MG | | | | | | | [place] INJ,THER | | | | | | | AGENT INTO | | | | | | | TENON'S | | | | | | | CAPSULE | | | +--------+--------+ + + + + Encounter Details +--------+---------+ + + + | Date | Type | Department | Care Team | Description | +--------+---------+ + + + | 02/14/ | Office | [facility] | Susan Chau MD | Traction detachment | | 2013 | Visit | [facility] | [address] | of retina, bilateral | | | | [facility] [address] [place], [place] | [060.88] (Primary | | | | [address] | [address] | Dx); Vitreous | | | | Mailcode: [facility] | [phone] | hemorrhage, | | | | [place], [place] | | bilateral [578.50] | | | | [address] | | | | | | [phone] | | | +--------+---------+ + + + [...] + documented as of this encounter Progress Susan Gaines MD - 02/14/2014 9:09 AM PDTFormatting of this note might be different from melvin rachel. [facility] Progress Note 02/14/2014 CC: Post Op Eye Surgery, One Day Initial History: Patient slept from 12:00 noon to 5:00 pm yesterday and then between about 6:00 to 1:00 am. Her pain rating with meds is 2 today. She sees a black line across the central vision of t he left eye like her eye is divided in half. Last 3 ambulatory procedures on record: Procedure: Avasti OU (01/01/14 1454) HPI: Joyce Arnold is a 53 y.o. female Last visit: 01/22/14 at 8:15 am Says she had a hard time sleeping due to keeping face down. She has not had a lot of pain. Less pain than the last surgery. Pain:Minimal pain (1-2 of 0-10) POH: PPV/MP/EL, left eye 02/13/2014 [...] migraine without mention of statu s migrainosus Past Surgical History Procedure Laterality Date Tonsillectomy [...] FA --- --- FUNDUS --- --- Others Bscan Nasal subretinal vs subhyaloid hemorrhage ; inferior retinal thickening, no traction on this area; diffuse VH below air bubble IMPRESSION: 53 y.o. female with Ophthalmologic Problems 1. POM# 1.5 s/p 23g PPV/MP/EL/FAx/1000cstSO OD 01/02/14 (oil used because of poor vision in contralateral eye) PDR (proliferative diabetic retinopathy) [856196] OD - francois-jaw TRD threatening macula and VH - doing well, retina attached, epi defect healed 2. DME (diabetic macular edema) [346580] OU s/p Avastin x 1 OU pre-op to above surgery - stable OD last visit - unable to determine OS due to VH OS 3. 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, [...] | | | | | | [place], [place] | | | | | | [address] | | | | | | [phone] | | | | | | | | +--------+---------+ + + + + + +--------+ + + | Name | Type | Priori | Associated Diagnoses | Order Schedule | | | | ty | | | + + +--------+ + + | ULTRASOUND, B SCAN | Procedures | Routin | Traction | Expected: | | | | e | detachment of | 02/14/2014, Expires: | | | | | retina, bilateral | 04/15/2014 | | | | | [361.81] Vitreous | | | | | | hemorrhage, | | | | | | bilateral [379.23] | | + + +--------+ + + documented as of this encounter Visit Diagnoses + + | Diagnosis | + + | Traction detachment of retina, bilateral [361.81] - Primary Traction detachment of | | retina | + + | Vitreous hemorrhage, bilateral [379.23] Vitreous hemorrhage | + + documented in this encounter
--- OUTSIDE RECORDS SUMMARY | ~2018-12-11 | XMS | Encounter Summary ---
Demographics + + + | Address | [address] | | | [place] [address] | + + + | Home Phone | | + + + | Preferred Language | Unknown | + + + | Marital Status | | + + + | Restorationism Affiliation | Unknown | + + + | Race | Unknown | + + + | Ethnic Group | Unknown | + + + Author + + + | Author | [facility] [facility] | + + + | Organization | [facility] [facility] | + + + | Address [...] Team Providers + +------+ + | Care Traffic Operator Name | Role | Phone | + +------+ + | Rohan Wilkes DO | PCP | | + +------+ + Reason for Visit +--------+ + | Reason | Comments | +--------+ + | Other | Scheduling | +--------+ + Encounter Details +--------+ + + + + | Date | Type | Department | Care Team | Description | +--------+ + + + + | 11/27/ | Telephone | [facility] | Maryjane Palacios, | Other (Scheduling) | | 2019 | | Endocrinology [address] [address] | | | | | [address] | | | | | | [place], [place] | | | | | | [address] | | | | | | [phone] | | | +--------+ + + + [...] | | 2019 | Visit | | [address] | | | | | | [address] | | | | | | [place] [address] | | | | | | [phone] | | | | | | | | +--------+---------+ + + + as of this encounter Visit Diagnoses Not on filein this encounter"
--- OUTSIDE RECORDS SUMMARY | ~2018-12-11 | XMS | Encounter Summary ---
Demographics + + + | Address | [address] | | | [place] [address] | + + + | Home Phone [...] + + + | Author | [place] [employer] [facility] | + + + | Organization | [facility] [employer] [facility] | + + + | Address | Unknown | + + + | Phone | Unavailable | + + + Support + + +---------+ + | Name | Relationship | Address | Phone | + + +---------+ + | Geraldine Parker | ECON | Unknown | | + + +---------+ + Care Team Providers + +------+ + | Care Emr Implementation Specialist Name | Role | Phone | [...] + + + + | 02/13/ | Anesthesia | [facility] | Errol Tenorio I, | | | 2013 | Event | [address] | SEED CLEANER OPERATOR [address] | | | | | [place] | [address] | | | | | [facility], | [place], [place] | | | | | [place] [address] | [address] | | | | | | [phone] | | | | | | | | +--------+ + + + + Anesthesia Record + + + + + | Procedure Name | Responsible | Anesthesia Start | Anesthesia Stop Time | | | Anesthesiologist | Time | | + + + + + | 25G VITRECTOMY WITH | Ash Monk | 02/13/14 0726 | 02/13/14 0858 | | [facility] [facility] | MD Brynn | | | | (Left Eye) | | | | + + + + + +----+---+ + + | Da | T | Event | Comment | | te | i | | | | | m | | | | | e | | | +----+---+ + + | 07 | 0 | Eq Check | Anesthesia machine checked Equipment verified | | /2 | 6 | | | | 4/ | 4 | | | | 20 | 2 | | | | 14 | | | | +----+---+ + + | | 0 | Pt. Check | Prior to anesthesia start, pt. Identified, examined, chart | | | 7 | | reviewed, PARQ held, anesthetic plan made or approved by | | | 1 | | attending anesthesiologist. NPO status confirmed as appropriate | | | 0 | | for procedure Preoperative evaluation: unchanged | +----+---+ + + | | 0 | An Start | | | | 7 | | | | | 2 | | | | | 6 | | | +----+---+ + + | | 0 | An Start | | | | 7 | Data | | | | 3 | | | | | 0 | | | +----+---+ + + | | 0 | Vitals | Monitors applied Vital signs checked Patient ready for anesthesia | | | 7 | Checked | | | | 3 | | | | | 1 | | | +----+---+ + + | | 0 | O2 by NC | | | | 7 | | | | | 3 | | | | | 1 | | | +----+---+ + + | | 0 | Ready | | | | 7 | | | | | 3 | | | | | 3 | | | +----+---+ + + | | 0 | Pause | | | | 7 | | | | | 3 | | | | | 4 | | | +----+---+ + + | | 0 | Retrobulbar | | | | 7 | Block by | | | | 3 | Surgeon | | | | 5 | | | +----+---+ + + | | 0 | Abx held | | | | 7 | Not Ordered | | | | 4 | | | | | 0 | | | +----+---+ + + | | 0 | Quick Note | Patients POC glucose was 347. 10 units of regular insulin given | | | 7 | | by RN in preop. Plan to check POC glucose at 8:15am. | | | 4 | | | | | 4 | | | +----+---+ + + | | 0 | Incision | | | | 7 | | | | | 4 | | | | | 7 | | | +----+---+ + + | | 0 | Quick Note | BG 282 | | | 8 | | | | | 2 | | | | | 0 | | | +----+---+ + + | | 0 | Surgery end | | | | 8 | | | | | 5 | | | | | 2 | | | +----+---+ + + | | 0 | an stop | | | | 8 | data | | | | 5 | | | | | 2 | | | +----+---+ + + | | 0 | Anesthesia | | | | 8 | End | | | | 5 | | | | | 8 | | | +----+---+ + + +------+ | Meds | +------+ + + + | Name | Total | + + + | midazolam | 3 mg | + + + | alfentanil | 1,000 mcg | + + + | propofol | 40 mg | + + + | insulin regular | 2 Units | + + + | lactated ringers IV | 500 mL | + + + + + | Name | + + | O2 Flow Rate (Total Liters) | + + + + | No blood administrations on file. | + + +--------+ + + + | Type | Details | Placement | Removal | +--------+ + + + | RETIRE | 02/13/14; 0705; 02/13/14; 1006; | 02/13/14 0705 by | 02/13/14 1006 by | | D - | 22; Right; Forearm; None; | Ash Arroyo, | Magalys Obrien | | Periph | Positive; 1 | RN | | | eral | | | [...] [address] | | | | | | [place], [place] | | | | | | [address] | | | | | | [phone] | | | | | | | | +--------+---------+ + + + documented as of this encounter Visit Diagnoses Not on filedocumented in this encounter Administered Medications + +--------+ +---------+------+------+ | Medication Order | MAR | Action | Dose | Rate | Site | | | Action | Date | | | | + +--------+ +---------+------+------+ | alfentanil (ALFENTA) injection | Given | 02/14/20 | 500 mcg | | | | INTRAPROCEDURE PRN, Starting Mehnaz | | 14 7:31 | | | | | 02/13/14 at 0730, Until Mehnaz | | AM PDT | | | | | 02/13/14 at 0852 | | | | | | + +--------+ +---------+------+------+ +-------+ +---------+---+---+ | Given | 02/14/20 | 500 mcg | | | | | 14 7:30 | | | | | | AM PDT | | | | +-------+ +---------+---+---+ +---+---+ | | | +---+---+ + +-------+ +---------+---+---+ | insulin regular bolus from | Given | 02/14/20 | 2 Units | | | | continuous infusion | | 14 8:23 | | | | | INTRAPROCEDURE PRN, Starting Mehnaz | | AM PDT | | | | | 02/13/14 at 0823, Until Mehnaz | | | | | | | 02/13/14 at 0852 | | | | | | + +-------+ +---------+---+---+ +---+---+ | | | +---+---+ + +---------+ +---+---+---+ | lactated ringers IV 10 mL/hr, | New Bag | 02/14/20 | | | | | intravenous, CONTINUOUS, Starting | | 14 8:30 | | | | | Mehnaz 02/13/14 at 0715, Until Mehnaz | | AM PDT | | | | | 02/13/14 at 1624 | | | | | | + +---------+ +---+---+---+ +---------+ +---+---+---+ | New Bag | 02/14/20 | | | | | | 14 7:26 | | | | | | AM PDT | | | | +---------+ +---+---+---+ +---+---+ | | | +---+---+ + +-------+ +------+---+---+ | midazolam (VERSED) injection | Given | 02/14/20 | 1 mg | | | | INTRAPROCEDURE PRN, Starting Mehnaz | | 14 7:53 | | | | | 14 at 0726, Until Mehnaz | | AM PDT | | | | | 14 at 0852, sedation | | | | | | + +-------+ +------+---+---+ +-------+ +------+---+---+ | Given | 20 | 2 mg | | | | | 14 7:26 | | | | | | AM PDT | | | | +-------+ +------+---+---+ +---+---+ | | | +---+---+ + +-------+ +-------+---+---+ | propofol INTRAPROCEDURE PRN, | Given | 02/14/20 | 20 mg | | | | Starting Mehnaz 02/13/14 at 0732, | | 14 7:33 | | | | | Until Mehnaz 02/13/14 at 0852 | | AM PDT | | | | + +-------+ +-------+---+---+ +-------+ +-------+---+---+ | Given | 20 | 20 mg | | | | | 14 7:32 | | | | | | AM PDT | | | | +-------+ +-------+---+---+ +---+---+ | | | +---+---+ documented in this encounter
--- OUTSIDE RECORDS SUMMARY | ~2018-12-11 | XMS | Encounter Summary ---
Demographics + + + | Address | [address] | | | [place] [address] | + + + | Home Phone [...] + + + | Author | [place] [employer] [facility] | + + + | Organization | [facility] [employer] [facility] | + + + | Address | Unknown | + + + | Phone | Unavailable | + + + Support + + +---------+ + | Name | Relationship | Address | Phone | + + +---------+ + | [place] Parker | ECON | Unknown | | + + +---------+ + Care Team Providers + +------+ + | Care Apartment Groundskeeper Name | Role | Phone | + [...] | +--------+ + + + + | 10/31/ | Diagnostic | [facility] | | OCT - Macula (OU) | | 2015 | Visit | [place] | | | | | | Photography at | | | | | | [place] [id number] | | | | | | [address] | | | | | | Mailcode: [place] | | | | | | [place], [place] | | | | | | [address] | | | | | | [phone] | | | +--------+ + + + [...] as of this encounter Mayra Hood - 10/31/2014 2:26 PM PDTThe interpretation for the following study: Apr - can be found on physician encounter on 10/31/2014. documented in this encounter Plan of Treatment +--------+---------+ + + + | Date | Type | Specialty | Care Team | Description | +--------+---------+ + + + | 01/30/ | Office | Ophthalmology | Susan Andrews MD | | | 2019 | Visit | | [address] | | | | | | [place], [place] | | | | | | [address] | | | | | | [phone] | | | | | | | | +--------+---------+ + + + documented as of this encounter Visit Diagnoses + + | Diagnosis | + + | Macular edema, diabetic, type 2, with proliferative retinopathy [250.50, 362.02, | | 362.07] | + + documented in this encounter
--- OUTSIDE RECORDS SUMMARY | ~2018-12-11 | XMS | Encounter Summary ---
Demographics + + + | Address | [address] | | | [place] [address] | + + + | Home Phone | | + + + | Preferred Language | Unknown | + + + | Marital Status | Single | + + + | Oriental Orthodox Affiliation | NRP | + + + | Race | or Other | + + + | Ethnic Group | Not or | + + + Author + + + | Author | [place] [employer] [facility] | + + + | Organization | [facility] [employer] [facility] | + + + | Address | Unknown | + + + | Phone | Unavailable | + + + Support + + +---------+ + | Name | Relationship | Address | Phone | + + +---------+ + | Geraldine Canales | ECON | Unknown | | + + +---------+ + Care Team Providers + +------+ + | Care District Manager Postal Service Name | Role | Phone | + +------+ + | Nadeem Caruso | PCP | | + +------+ + Reason for Visit + + + | Reason | Comments | + + + | Eye examination | | + + + Encounter Details +--------+ + + + + | Date | Type | Department | Care Team | Description | +--------+ + + + + | 01/10/ | Diagnostic | [facility] | | Eye examination | | 2013 | Visit | [place] | | | | | | Photography at | | | | | | [place] [id number] | | | | | | [address] | | | | | | Mailcode: [place] | | | | | | [place], [place] | | | | | | [address] | | | | | | [phone] | | | +--------+ + + + [...] + + documented as of this encounter Alexey Echavarria - 01/10/2014 9:43 AM PDT Joyce Brittany Arnold was seen in the [facility] Photography/Ultrasound Department today, 01/10/2014, for ultrasound. B-scan [...] or wait for official report. ALEXEY DELUCA documented in this encount er Plan of Treatment +--------+---------+ + + + | Date | Type | Specialty | Care Team | Description | +--------+---------+ + + + | 01/30/ | Office | Ophthalmology | Susan Andrews MD | | | 2019 | Visit | | [address] | | | | | | [place], [place] | | | | | | [address] | | | | | | [phone] | | | | | | | | +--------+---------+ + + + documented as of this encounter Visit Diagnoses + + | Diagnosis | + + | Macular edema, diabetic ([facility]) - Primary Type II or unspecified type diabetes mellitus | | with ophthalmic manifestations, not stated as uncontrolled | + + | PDR (proliferative diabetic retinopathy) ([facility]) Type II or unspecified type diabetes | | mellitus with ophthalmic manifestations, not stated as uncontrolled | + + | Traction detachment of retina | + + | Vitreous hemorrhage ([facility]) Vitreous hemorrhage | + + documented in this encounter
--- OUTSIDE RECORDS SUMMARY | ~2018-12-11 | XMS | Encounter Summary ---
Demographics + + + | Address | [address] | | | [place] [address] | + + + | Home Phone [...] Author + + + | Author | [place] [employer] [facility] | + + + | Organization | [facility] [employer] [facility] | + + + | Address | Unknown | + + + | Phone | Unavailable | + + + Support + + +---------+ + | Name | Relationship | Address | Phone | + + +---------+ + | Geraldine Parker | ECON | Unknown | | + + +---------+ + Care Team Providers + +------+ + | Care Tunnel Kiln Firer Name | Role | Phone | + +------+ + | Rohan Wilkes DO | PCP | | + +------+ + Encounter Details +--------+ + + + + | Date | Type | Department | Care Team | Description | +--------+ + + + + | 04/09/ | Lab | LAB IMMUNOGENETIC | | | | 2017 | Requisition | [facility] | | | | | | [address] | | | | | | [facility] | | | | | | [place], [place] | | | | | | [address] | | | +--------+ + + + [...] | | | | | | [place], [place] | | | | | | [address] | | | | | | [phone] | | | | | | | | +--------+---------+ + + + documented as of this encounter Procedures + +--------+ + + + | Procedure Name | Priori | Date/Time | Associated Diagnosis | Comments | | | ty | | | | + +--------+ + + + | LIT FLOW HLA AB PRA | Routin | 04/02/2018 | | | | SCREEN I/II | e | 12:00 AM | | | | | | PDT | | | + +--------+ + + + documented in this encounter Results LIT FLOW HLA AB PRA SCREEN I/II (04/02/2018 12:00 AM PDT) + + | Specimen | + + | Blood | + + + + + + + | Performing | Address | City/State/Zipcode | Phone Number | | Organization | | | | + + + + + | [facility] - | [address], | [place] [address] | | | IMMUNOGENETICS/TRANS | [address] | | | | [facility] | | | | + + + + + documented in this encounter Visit Diagnoses Not on filedocumented in this encounter
--- OUTSIDE RECORDS SUMMARY | ~2018-12-11 | XMS | Encounter Summary ---
Demographics + + + | Address | [address] | | | [place] [address] | + + + | Home Phone | | + + + | Preferred Language | Unknown | + + + | Marital Status | | + + + | Islam Affiliation | Unknown | + + + | Race | Unknown | + + + | Ethnic Group | Unknown | + + + Author + + + | Author | [facility] | + + + | Organization | [facility] | + + + | Address [...] Team Providers + +------+ + | Care Shed Boss Name | Role | Phone | + +------+ + | Rohan Wilkes DO | PCP | | + +------+ + Encounter Details +--------+ + + + + | Date | Type | Department | Care Team | Description | +--------+ + + + + | 12/06/ | Telephone | [facility] | Maryjane Palacios, | | | 2019 | | Endocrinology [address] | | | | | [address] | | | | | | [place] | | | | | | [address] | | | | | | [phone] | | | +--------+ + + + [...] PAUL | | | | | | [facility] [place] [address] | | | | | | [phone] | | | | | | | | +--------+---------+ + + + as of this encounter Visit Diagnoses Not on filein this encounter"
--- OUTSIDE RECORDS SUMMARY | ~2018-12-11 | XMS | Encounter Summary ---
Demographics + + + | Address | [address] | | | [place] [address] | + + + | Home Phone | | + + + | Preferred Language | Unknown | + + + | Marital Status | Single | + + + | Bahai Affiliation | NRP | + + + | Race | or Other | + + + | Ethnic Group | Not or | + + + Author + + + | Author | [facility] | + + + | Organization | [facility] | + + + | Address | Unknown | + + + | Phone | Unavailable | + + + Support + + +---------+ + | Name | Relationship | Address | Phone | + + +---------+ + | Geraldine Canales | ECON | Unknown | | + + +---------+ + Care Team Providers + +------+ + | Care Skate Boarder Name | Role | Phone | + +------+ + | Nadeem Caruso | PCP | | + +------+ + Reason for Visit + + + | Reason | Comments | + + + | Eye examination | | + + + AUTH/CERT +--------+--------+ + + + + | [...] + + + + | 02/21/ | Diagnostic | [facility] | | Eye examination | | 2013 | Visit | [facility] | | | | | | Photography at | | | | | | [address] | | | | | | [address] | | | | | | Mailcode: [address] | | | | | | [place], [place] | | | | | | [address] | | | | | | [phone] | | | +--------+ + + + [...] of this encounter Progress Alexey Hutchinson - 02/21/2014 11:17 AM PDT Joyce Arnold was seen in the [facility]Ultrasound Department today, 02/21/2014, for ultrasound. The repeat B-scan of the left eye shows diffuse vitreous opacities with anterior residual v itreous. There is 360 degree subretinal fluid extending into the posterior pole. No definiti ve tears are noted. The macula appears attached. This is a Preliminary Report. It is [...] | Susan Andrews MD | | | 2018 | Visit | | [address] | | | | | | [place], [place] | | | | | | [address] | | | | | | [phone] | | | | | | | | +--------+---------+ + + + documented as of this encounter Visit Diagnoses + + | Diagnosis | + + | PDR (proliferative diabetic retinopathy), type 2, with macular edema [250.50, 362.02, | | 362.07] - Primary | + + | Traction detachment of retina, bilateral [361.81] Traction detachment of retina | + + | Vitreous hemorrhage, bilateral [379.23] Vitreous hemorrhage | + + documented in this encounter
--- OUTSIDE RECORDS SUMMARY | ~2018-12-11 | XMS | Encounter Summary ---
Demographics + + + | Address | [address] | | | [place] [address] | + + + | Home Phone | | + + + | Preferred Language | Unknown | + + + | Marital Status | Single | + + + | Protestant Affiliation | NRP | + + + | Race | or Other | + + + | Ethnic Group | Not or | + + + Author + + + | Author | [place] [employer] [facility] | + + + | Organization | [facility] [employer] [facility] | + + + | Address | Unknown | + + + | Phone | Unavailable | + + + Support + + +---------+ + | Name | Relationship | Address | Phone | + + +---------+ + | Geraldine Parker | ECON | Unknown | | + + +---------+ + Care Team Providers + +------+ + | Care Metal Fabricating Inspector Name | Role | Phone | + [...] | +--------+ + + + + | 01/27/ | Diagnostic | [facility] | | OCT - Macula (OU) | | 2017 | Visit | [place] | | | | | | Photography at | | | | | | [place] [address] | | | | | | [address] | | | | | | Mailcode: [address] | | | | | | [place], [place] | | | | | | [address] | | | | | | [phone] | | | +--------+ + + + [...] + documented as of this encounter Progress Mayra Joseph - 01/27/2017 1:15 PM PDTThe interpretation for the following study: APR - [facility] - can be found on physician encounter on 01/27/2017. documented in this encounter Plan of Treatment +--------+---------+ + + + | Date | Type | Specialty | Care Team | Description | +--------+---------+ + + + | 01/30/ | Office | Ophthalmology | Susan Andrews MD | | | 2019 | Visit | | [address] | | | | | | [place], [place] | | | | | | [address] | | | | | | [phone] | | | | | | | | +--------+---------+ + + + documented as of this encounter Visit Diagnoses + + | Diagnosis | + + | Proliferative diabetic retinopathy of both eyes with macular edema associated with | | type 2 diabetes mellitus (HCC) | + + documented in this encounter
--- OUTSIDE RECORDS SUMMARY | ~2018-12-11 | XMS | Encounter Summary ---
Demographics + + + | Address | [address] | | | [place] [address] | + + + | Home Phone [...] + + + | Author | [place] [employer] [facility] | + + + | Organization | [facility] [employer] [facility] | + + + | Address | Unknown | + + + | Phone | Unavailable | + + + Support + + +---------+ + | Name | Relationship | Address | Phone | + + +---------+ + | [place] Parker | ECON | Unknown | | + + +---------+ + Care Team Providers + +------+ + | Care Nitriles Lab Technician Name | Role | Phone | [...] ([place]) | | 2015 | Visit | [place] | | | | | | Photography at | | | | | | [place] [id number] | | | | | | [address] | | | | | | Mailcode: [address] | | | | | | [place], [place] | | | | | | [address] | | | | | | [phone] | | | +--------+ + + + [...] | | | | | | [place], [place] | | | | | | [address] | | | | | | [phone] | | | | | | | | +--------+---------+ + + + documented as of this encounter Visit Diagnoses + + | Diagnosis | + + | Macular edema, diabetic, type 2, with proliferative retinopathy [250.50, 362.02, | | 362.07] | + + documented in this encounter
--- OUTSIDE RECORDS SUMMARY | ~2018-12-11 | XMS | Encounter Summary ---
Demographics + + + | Address | [address] | | | [place] [address] | + + + | Home Phone | | + + + | Preferred Language | Unknown | + + + | Marital Status | Single | + + + | Amish Affiliation | NRP | + + + | Race | or Other | + + + | Ethnic Group | Not or | + + + Author + + + | Author | [place] [employer] [facility] | + + + | Organization | [facility] [address] [facility] | + + + | Address | Unknown | + + + | Phone | Unavailable | + + + Support + + +---------+ + | Name | Relationship | Address | Phone | + + +---------+ + | Geraldine Canales | ECON | Unknown | | + + +---------+ + Care Team Providers + +------+ + | Care Detention Sergeant Name | Role | Phone | + [...] | | | | | | | [address] | | | | [address] | | | | | | | [place] | | | | | | | [place], [place] | | | | | | | [address] | | | | | | | Phone: | | | | | | | [phone] | | | | | | | Fax: | | | | | | | [phone] | +--------+--------+ + + + + Encounter Details +--------+---------+ + + + | Date | Type | Department | Care Team | Description | +--------+---------+ + + + | 08/08/ | Office | [facility] | Susan Chau MD | Macular edema, | | 2015 | Visit | [facility] at | [address] | diabetic, type 2, | | | | [facility] [address] [place], [place] | with proliferative | | | | [address] | [address] | retinopathy [250.50, | | | | Mailcode: [facility] | [phone] | 362.02, 362.07] | | | | [facility] [place] | | (Primary Dx); Type | | | | [address] | | II or unspecified | | | | [phone] | | type diabetes | | | | | | mellitus with | | | | | | ophthalmic | | | | | | manifestations, not | | | | | | stated as | | | | | | uncontrolled(250.50) | | | | | | ; Diabetic macular | | | | | | edema(362.07) ([facility]) | +--------+---------+ + + + Social History [...] Patient Instructions Patient Instructions Nanci Whittaker - 08/08/2014 1:44 PM PST Care Instructions After Eye Injection: Do not rub or touch your eyes. Redness in the corner of the eye is okay. Use Artificial tears every hour for BOTH EYES as needed for gritty sensation over the ne xt 2-3 days. If you experience increased pain or decreased vision, immediately call [phone].Elec tronically signed by Nanci Whittaker at 08/08/2014 1:44 PM PST documented in this encounter Progress Notes Susan Chau MD - 08/08/2014 1:44 PM PST Intravitreal Injection Procedure Note 08/08/2014 for: AVASTIN, BOTH EYES LOT #[id number] and Expiration 08/19/14 RIGHT EYE: LOT #[id number] and Expiration 08/19/14 LEFT EYE: Attending: Susan Chau MD Diagnosis: Macular edema, diabetic, type 2, with proliferative retinopathy [250.50, 362.02, 362.07] (primary encounter diagnosis) Type II or unspecified type diabetes mellitus with ophthalmic manifestations, not stated as uncontrolled(250.50) Diabetic macular edema(362.07) Indication: Risk of further vision loss without treatment Allergies: Iron dextran; Celebrex; Penicillins; and Sulfa (sulfonamide antibiotics) Anesthesia: Subconjunctival lidocaine injections PARQ held for above. Team Pause: At 1:44 PM, prior to the beginning of the [...] as the attending surgeon, performed the entire procedure.Electronically sig chris by Susan Chau MD at 08/11/2014 4:47 PM Susan Meyers MD - 08/08/2014 10:59 AM PSTFor matting of this note might be different from the original. [facility] Progress Note 08/08/2014 CC: Follow-up visit Initial History: S/P PPV/SO removal, PHACO IOL OS 06/05/14 Blood sugars running around 100. No recent A1C. No pain. Last 3 ambulatory procedures on record: Procedure: Avastin both eyes (06/27/14 1045) Procedure: avastin OD (05/16/14 1333) Procedure: Kenalog both eyes (02/28/14 1047) HPI: Joyce Arnold is a 54 y.o. female Last visit: 06/27/14 at 10:00 am Doing well. Vision continues to improve. BG is doing well. Pain:No pain (0 of 0-10) POH: PPV/SO removal PHACO IOL OS 06/05/14 PPV/SO [...] Diagnostics Ordered Right Left OCT CMT (OD):: 360 (08/08/14 1000) CMT (OD):: 404 (06/27/14 0900) + IRF slightly tr ERM Improved CMT (OS):: 453 (08/08/14 1000) CMT (OS):: 413 (06/27/14 0900) + IRF slightly worse, tr ERM FA --- --- FUNDUS --- --- Others IMPRESSION: 54 y.o. female with Ophthalmologic Problems 1. POM # 2 s/p PPV/Silicone oil removal/PHACO/IOL OS 06/05/14 - doing well, IOP good, stable, vision improved 2. POM#3 s/p CE/IOL/SOR OD for retained silicone oil and nuclear cataract 05/08/2014 - s/p 23g PPV/MP/EL/FAx/1000cstSO OD 01/02/14, oil placed because of altitutde - for frnacois jaw TRD, VH, PDR - doing well, IOL well-centered, retina attached and stable with regressed PDR , vision imp roved 3. 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 PDR (proliferative diabetic retinopathy) [241051] - s/p EL PRP OU, regressed OU - vision started out at CF in both eyes due to VH and TRDs OU, now PH to 20/50 OD and 20/70 OS 5. DME (diabetic macular edema) [240896] OU - s/p Avastin OD on 05/16/14 - s/p PSTK OU in the past also - vision better OU, anatomy better OD, worse OS, had Avstin OU on 06/27/14 PLAN: PARQ held for Avastin OU, given without complication. Appmt with Dr. Sheldon next visit prior to appointment with me so she can have refraction for new eyeglasses before being dilated 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: The special effects technician, under the supervision of the physician, [...] | Susan Chau MD | | | 2018 | Visit | | [address] | | | | | | [place], [place] | | | | | | [address] | | | | | | [phone] | | | | | | | [...] | e | diabetic, type 2, | 08/07/2014, Expires: | | | | | with proliferative | 02/05/2016 | | | | | retinopathy [250.50, | | | | | | 362.02, 362.07] | | + + +--------+ + + documented as of this encounter Procedures + +--------+ + + + | Procedure Name | Priori | Date/Time | Associated Diagnosis | Comments | | | ty | | | | + +--------+ + + + | [facility] | Routin | 08/08/2014 | Macular edema, | | | CHARGE | e | 1:44 PM | diabetic, type 2, | | | | | PST | with proliferative | | | | | | retinopathy [250.50, | | | | | | 362.02, 362.07] | | | | | | Type II or | | | | | | unspecified type | | | | | | diabetes mellitus | | | | | | with ophthalmic | | | | | | manifestations, not | | | | | | stated as | | | | | | uncontrolled(250.50) | | | | | | Diabetic macular | | | | | | edema(362.07) (HCC) | | + +--------+ + + + | [facility], | Routin | 08/08/2014 | Macular edema, | | | AVASTIN | e | 1:44 PM | diabetic, type 2, | | | | | PST | with proliferative | | | | | | retinopathy [250.50, | | | | | | 362.02, 362.07] | | | | | | Type II or | | | | | | unspecified type | | | | | | diabetes mellitus | | | | | | with ophthalmic | | | | | | manifestations, not | | | | | | stated as | | | | | | uncontrolled(250.50) | | | | | | Diabetic macular | | | | | | edema(362.07) ([facility]) | | + +--------+ + + + documented in this encounter Visit Diagnoses + + | Diagnosis | + + | Macular edema, diabetic, type 2, with proliferative retinopathy [250.50, 362.02, | | 362.07] - Primary | + + | Type II or unspecified type diabetes mellitus with ophthalmic manifestations, not | | stated as uncontrolled(250.50) ([facility]) Type II or unspecified type diabetes mellitus with | | ophthalmic manifestations, not stated as uncontrolled | + + | Diabetic macular edema(362.07) Diabetic macular edema | + + documented in this encounter
--- OUTSIDE RECORDS SUMMARY | ~2018-12-11 | XMS | Encounter Summary ---
Demographics + + + | Address | [address] | | | [place] [address] | + + + | Home Phone | | + + + | Preferred Language | Unknown | + + + | Marital Status | Single | + + + | Christianity Affiliation | NRP | + + + | Race | or Other | + + + | Ethnic Group | Not or | + + + Author + + + | Author | [place] [facility] | + + + | Organization | [facility] [employer] [facility] | + + + | Address | Unknown | + + + | Phone | Unavailable | + + + Support + + +---------+ + | Name | Relationship | Address | Phone | + + +---------+ + | Geraldine Parker | ECON | Unknown | | + + +---------+ + Care Team Providers + +------+ + | Care Research Assistant Professor Name | Role | Phone | + +------+ + | Rohan Wilkes DO | PCP | | + +------+ + Encounter Details +--------+ + + + + | Date | Type | Department | Care Team | Description | +--------+ + + + + | 01/10/ | Pharmacy | [facility] | | | | 2013 | Visit | [address] | | | | [address] | | | | | | [place], [place] | | | | | | [address] | | | | | | [phone] | | | +--------+ + + + [...] | | | | | | [place], [place] | | | | | | [address] | | | | | | [phone] | | | | | | | | +--------+---------+ + + + documented as of this encounter Visit Diagnoses Not on filedocumented in this encounter
--- OUTSIDE RECORDS SUMMARY | ~2018-12-11 | XMS | Encounter Summary ---
Demographics + + + | Address | [address] | | | [place] [address] | + + + | Home Phone | | + + + | Preferred Language | Unknown | + + + | Marital Status | Single | + + + | Church Affiliation | NRP | + + + | Race | or Other | + + + | Ethnic Group | Not or | + + + Author + + + | Author | [place] [employer] [facility] | + + + | Organization | [facility] [employer] | + + + | Address | Unknown | + + + | Phone | Unavailable | + + + Support + + +---------+ + | Name | Relationship | Address | Phone | + + +---------+ + | Geraldine Parker | ECON | Unknown | | + + +---------+ + Care Team Providers + +------+ + | Care Brewery Worker Name | Role | Phone | + +------+ + | Rohan Wilkes DO | PCP | | + +------+ + Encounter Details +--------+ + + + + | Date | Type | Department | Care Team | Description | +--------+ + + + + | 07/03/ | Lab | LAB [facility]MM[facility]OGENETIC | | | | 2018 | Requisition | [facility]PL[facility] | | | | | | [address] | | | | | | [facility] | | | | | | [place], [place] | | | | | | [address] | | | +--------+ + + + [...] | | | | | | [place], [place] | | | | | | [address] | | | | | | [phone] | | | | | | | | +--------+---------+ + + + documented as of this encounter Procedures + +--------+ + + + | Procedure Name | Priori | Date/Time | Associated Diagnosis | Comments | | | ty | | | | + +--------+ + + + | LIT FLOW HLA AB PRA | Routin | 06/27/2018 | | | | SCREEN I/II | e | 12:00 AM | | | | | | PST | | | + +--------+ + + + documented in this encounter Results LIT FLOW HLA AB PRA SCREEN I/II (06/27/2018 12:00 AM PST) + + | Specimen | + + | Blood | + + + + + + + | Performing | Address | City/State/Zipcode | Phone Number | | Organization | | | | + + + + + | [facility] - | [address], | [place] [address] | | | IMMUNOGENETICS/TRANS | [address] | | | | [facility] | | | | + + + + + documented in this encounter Visit Diagnoses Not on filedocumented in this encounter
--- OUTSIDE RECORDS SUMMARY | ~2018-12-11 | XMS | Encounter Summary ---
Demographics + + + | Address | [address] | | | [place] [address] | + + + | Home Phone | | + + + | Preferred Language | Unknown | + + + | Marital Status | Single | + + + | Islam Affiliation | NRP | + + + | Race | or Other | + + + | Ethnic Group | Not or | + + + Author + + + | Author | [place] [facility] [employer] [facility] | + + + | Organization | [facility] [employer] [facility] | + + + | Address | Unknown | + + + | Phone | Unavailable | + + + Support + + +---------+ + | Name | Relationship | Address | Phone | + + +---------+ + | Geraldine Parker | ECON | Unknown | | + + +---------+ + Care Team Providers + +------+ + | Care Termite Treater Helper Name | Role | Phone | [...] | | | | | | | [place], [place] | | | | | | | [address] | | | | | | | Phone: | | | | | | | [phone] | | | | | | | Fax: | | | | | | | [phone] | +--------+--------+ + + + + Encounter Details +--------+---------+ + + + | Date | Type | Department | Care Team | Description | +--------+---------+ + + + | 10/01/ | Office | [facility] | Indira Chau MD | Proliferative | | 2016 | Visit | [facility] at | [address] | diabetic retinopathy | | | | [facility] [address] [facility] [place] | with macular edema | | | | [address] | [address] | associated with type | | | | Mailcode: [facility] | [phone] | 2 diabetes mellitus | | | | [facility] [place] | | ([facility]) | | | | [address] | | | | | | [phone] | | | +--------+---------+ + + + [...] PM PST [facility] Progress Note 10/02/2015 CC: Diabetic Retinopathy Follow-up Initial History: Stable vision. Just saw Dr. Sheldon who was happy with her exam. Last 3 ambulatory procedures on record: Procedure: Ozurdex both eyes (08/21/15 5596) Procedure: Ozurdex both eyes (02/06/15 7907) Procedure: Ozurdex right eye (10/31/14 1438) ROS Negative for: Constitutional, Gastrointestinal, Neurological, Skin, [...] vision great 3. PDR (proliferative diabetic retinopathy) [965400] - regressed OU after the above procedures - starting vision was CF OU 4. DME (diabetic macular edema) [881190] OU - s/p Avastin OD on 05/16/14, [...] VISIT: DILATE OU, OCT OU Attestations: The lead manufacturing technician, under the supervision of the physician, [...] | | | | | | [place], [place] | | | | | | [address] | | | | | | [phone] | | | | | | | [...]
--- OUTSIDE RECORDS SUMMARY | ~2018-12-11 | XMS | Encounter Summary ---
Demographics + + + | Address | [address] | | | [place] [address] | + + + | Home Phone [...] Author + + + | Author | [place] [employer] [facility] | + + + | Organization | [facility] [employer] [facility] | + + + | Address | Unknown | + + + | Phone | Unavailable | + + + Support + + +---------+ + | Name | Relationship | Address | Phone | + + +---------+ + | Geraldine Canales | ECON | Unknown | | + + +---------+ + Care Team Providers + +------+ + | Care Plate Gauger Name | Role | Phone | + [...] | +--------+ + + + + | 04/16/ | Diagnostic | [facility] | | Eye examination | | 2013 | Visit | Reading | | (APR) | | | | Photography at | | | | | | [place] [address] | | | | | [address] | | | | | | Mailcode: [place] | | | | | | [place], [place] | | | | | | [address] | | | | | | [phone] | | | +--------+ + + + [...] of this encounter Progress Nola Joseph - 04/16/2014 2:22 PM PDT Joyce Soto Arnold was seen in the [facility] Photography/Ultrasound Department today, 04/16/2014, for OCT OU. NOLA Clarkectronically signed by Nola Kevin at 04/16/2014 2:22 PM PDTdocumented in thi s encounter Plan of Treatment +--------+---------+ + + + | Date | Type | Specialty | Care Team | Description | +--------+---------+ + + + | 01/30/ | Office | Ophthalmology | Susan Andrews MD | | | 2019 | Visit | | [address] | | | | | | [place], [place] | | | | | | [address] | | | | | | [phone] | | | | | | | | +--------+---------+ + + + documented as of this encounter Visit Diagnoses + + | Diagnosis | + + | Macular edema, diabetic, type 2, with proliferative retinopathy [250.50, 362.02, | | 362.07] - Primary | + + documented in this encounter
--- OUTSIDE RECORDS SUMMARY | ~2018-12-11 | XMS | Encounter Summary ---
Demographics + + + | Address | [address] | | | [place] [address] | + + + | Home Phone | | + + + | Preferred Language | Unknown | + + + | Marital Status | Single | + + + | Baptism Affiliation | NRP | + + + | Race | or Other | + + + | Ethnic Group | Not or | + + + Author + + + | Author | [place] [employer] [facility] | + + + | Organization | [facility] [employer] [facility] | + + + | Address | Unknown | + + + | Phone | Unavailable | + + + Support + + +---------+ + | Name | Relationship | Address | Phone | + + +---------+ + | Geraldine Parker | ECON | Unknown | | + + +---------+ + Care Team Providers + +------+ + | Care Barrel Scraper Name | Role | Phone | + [...] | | | | | | | [place], [place] | | | | | | | [address] | | | | | | | Phone: | | | | | | | [phone] | | | | | | | Fax: | | | | | | | [phone] | +--------+--------+ + + + + Encounter Details +--------+---------+ + + + | Date | Type | Department | Care Team | Description | +--------+---------+ + + + | 05/27/ | Office | [facility] | Indira Chau MD | Proliferative | | 2016 | Visit | [facility] at | [address] | diabetic retinopathy | | | | [facility] [address] [facility] [place] | with macular edema | | | | [address] | [address] | associated with type | | | | Mailcode: [place] | [phone] | 2 diabetes mellitus | | | | [facility] [place] | | ([facility]) (Primary Dx) | | | | [address] | | | | | | [phone] | | | +--------+---------+ + + + [...] documented as of this encounter Progress Notes Indira Chau MD - 05/27/2016 12:56 PM PDTFormatting of this note might be different from melvin rachel. [facility] Progress Note 05/27/2016 CC: Diabetic Retinopathy Follow-up Initial History: Patient states that vision is stable if not better in both eyes. She reports having occasio nal dry eyes, using AT's for relief. Blood sugars were 121 and working to better her A1c, la st was 8.6. Last 3 ambulatory procedures on record: Procedure: Ozurdex both eyes (08/21/15 5224) Procedure: Ozurdex both eyes (02/06/15 3707) Procedure: Ozurdex right eye (10/31/14 9904) HPI: Joyce Arnold is a 56 y.o. female with PDR with DME OU - no recent changes in vision - no new distortions or scotomas - no eye pain or photophobia - last a1c 8.6% Ocular meds: Pres free artificial tears PRN OU Last visit: Following up per recommendation with [...] statu s migrainosus Congestive heart failure, unspecified (HCC) stroke Told she had a stroke about [...] Examination Diagnostics Ordered Right Left OCT CMT: 309 + IRF, Center involving edema. Slightly reduced size of foveal cyst. Improve d CMT: 278 + IRF, Edema outside of central subfield. Slight reduction of temporal fluid. Re solution of juxtafoveal cyst. Improved FA FUNDUS Others IMPRESSION: 56 y.o. female with Ophthalmologic [...] preo p 3. PDR (proliferative diabetic retinopathy) [149925] - regressed OU after the above procedures - initial vision was CF OU 4. DME (diabetic macular edema) [937045] OU - s/p Avastin OD on 05/16/14, OU x3 06/27/14, 08/08/14, 09/19/14 - s/p PSTK OU in the past also with minimal benefit - s/p Ozurdex OS on 10/17/14 - s/p Ozurdex OD on 10/31/14 - s/p Ozurdex OU on 02/06/15, 08/21/15, last 10/02/15 - largely stable DME OU (VA and fluid slightly improved 05/27/16), IOP good OU PLAN: Observe for now Glucose and BP control discussed Call for decreased vision, increased distortion, increased pain, new floaters or flashing l ights Consider iluvien in next several months if worsening, OD > OS Follow up: 6 months; see local retina specialist, refer to Dr. 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
--- OUTSIDE RECORDS SUMMARY | ~2018-12-11 | XMS | Encounter Summary ---
Demographics + + + | Address | [address] | | | [place] [address] | + + + | Home Phone | | + + + | Preferred Language | Unknown | + + + | Marital Status | Single | + + + | Hindu Affiliation | NRP | + + + | Race | or Other | + + + | Ethnic Group | Not or | + + + Author + + + | Author | [place] [employer] [facility] | + + + | Organization | [facility] [employer] [facility] | + [...] Team Providers + +------+ + | Care Nougat Cutter Machine Name | Role | Phone | + [...] Event | [address] | [place] [address] | | | | | [place] | [address] | | | | | [facility], | [place], [place] | | | | | [place] [address] | [address] | | | | | | [phone] | | | | | | | [...] | | | | | | [place], [place] | | | | | | [address] | | | | | | [phone] | | | | | | | [...]
--- OUTSIDE RECORDS SUMMARY | ~2018-12-11 | XMS | Encounter Summary ---
Demographics + + + | Address | [address] | | | [place] [address] | + + + | Home Phone [...] Author + + + | Author | [place] [employer] [facility] | + + + | Organization | [facility] [employer] [facility] | + + + | Address | Unknown | + + + | Phone | Unavailable | + + + Support + + +---------+ + | Name | Relationship | Address | Phone | + + +---------+ + | Geraldine Parker | ECON | Unknown | | + + +---------+ + Care Team Providers + +------+ + | Care Jingle Writer Name | Role | Phone | + +------+ + | Rohan Wilkes DO | PCP | | + +------+ + Encounter Details +--------+ + + + + | Date | Type | Department | Care Team | Description | +--------+ + + + + | 06/05/ | Lab | LAB IMMUNOGENETIC | | | | 2018 | Requisition | AND TRANSPLANT LAB | | | | | | [address] | | | | | | [facility] | | | | | | [place], [place] | | | | | | [address] | | | +--------+ + + + [...] | | | | | | [place], [place] | | | | | | [address] | | | | | | [phone] | | | | | | | | +--------+---------+ + + + documented as of this encounter Procedures + +--------+ + + + | Procedure Name | Priori | Date/Time | Associated Diagnosis | Comments | | | ty | | | | + +--------+ + + + | LIT FLOW HLA AB PRA | Routin | 05/30/2018 | | | | SCREEN I/II | e | 12:00 AM | | | | | | PST | | | + +--------+ + + + documented in this encounter Results LIT FLOW HLA AB PRA SCREEN I/II (05/30/2018 12:00 AM PST) + + | Specimen | + + | Blood | + + + + + + + | Performing | Address | City/State/Zipcode | Phone Number | | Organization | | | | + + + + + | [facility] - | [address], | [place] [address] | | | IMMUNOGENETICS/TRANS | [address] | | | | [facility] | | | | + + + + + documented in this encounter Visit Diagnoses Not on filedocumented in this encounter
--- OUTSIDE RECORDS SUMMARY | ~2018-12-11 | XMS | Encounter Summary ---
Demographics + + + | Address | [address] | | | [place] [address] | + + + | Home Phone | | + + + | Preferred Language | Unknown | + + + | Marital Status | | + + + | Yazidism Affiliation | Unknown | + + + | Race | Unknown | + + + | Ethnic Group | Unknown | + + + Author + + + | Author | [facility] | + + + | Organization | [facility] | + + + | Address [...] Team Providers + +------+ + | Care Airline Pilot Flight Instructor Name | Role | Phone | + +------+ + | Rohan Wilkes DO | PCP | | + +------+ + Reason for Visit +--------+ + | Reason | Comments | +--------+ + | Other | Lab orders | +--------+ + Encounter Details +--------+ + + + + | Date | Type | Department | Care Team | Description | +--------+ + + + + | 12/06/ | Telephone | [facility] | Viktoria Mancini | Other (Lab orders) | | 2019 | | [address] | [address] | | | | | [address] | | | | | | [place] [address] | | | | | | [phone] | | | +--------+ + + + [...] | | | | | [place] [address] | | | | | | [phone] | | | | | | | | +--------+---------+ + + + as of this encounter Visit Diagnoses Not on filein this encounter"
--- OUTSIDE RECORDS SUMMARY | ~2018-12-11 | XMS | Encounter Summary ---
Demographics + + + | Address | [address] | | | [place] [address] | + + + | Home Phone | | + + + | Preferred Language | Unknown | + + + | Marital Status | Single | + + + | Restoration Affiliation | NRP | + + + | Race | or Other | + + + | Ethnic Group | Not or | + + + Author + + + | Author | [facility] | + + + | Organization | [facility] | + + + | Address | Unknown | + + + | Phone | Unavailable | + + + Support + + +---------+ + | Name | Relationship | Address | Phone | + + +---------+ + | Geraldine [place] | ECON | Unknown | | + + +---------+ + Care Team Providers + +------+ + | Care Commercial Retoucher Name | Role | Phone | + [...] + + + + | 06/05/ | Anesthesia | [facility] | Brandt Ortez MD | | | 2013 | Event | [address] | [address] | | | | | [place] | [place], | | | | | [facility], | [place] [address] | | | | | [place] [address] | [phone] | | | | | | | | +--------+ + + + + Anesthesia Record + + + + + | Procedure Name | Responsible | Anesthesia Start | Anesthesia Stop Time | | | Anesthesiologist | Time | | + + + + + | 23G VITRECTOMY WITH | Brandt Ortez MD | 06/05/1425 | 06/05/1453 | | SILICONE OIL REMOVAL | | | | | (Left Eye) | | | | + + + + + +----+---+ + + | Da | T | Event | Comment | | te | i | | | | | m | | | | | e | | | +----+---+ + + | 11 | 0 | Eq Check | Anesthesia machine checked Equipment verified | | /1 | 7 | | | | 3/ | 1 | | | | 20 [...] +----+---+ + + | | 0 | | | | | 7 | | | | | 1 | [...] | 2 | | | | | 7 | | | +----+---+ + + | | 0 | Vitals | Monitors applied Vital signs checked Patient ready for anesthesia | | | 7 | Checked | | | | 3 | | | | | 0 | | | +----+---+ + + | | 0 | Quick CEI | a) Monitors Placed b) Arms <90 degrees c) Warm Blankets placed | | | 7 | | Upper and Lower Body d) Bed Turned 90 Degrees | | | 3 | | | | | 1 | | | +----+---+ + + | | 0 | Retrobulbar | | | | 7 | Block by | | | | 3 | Surgeon | | | | 2 | | [...] | 7 | | | | | 5 | | | | | 0 | | | +----+---+ + + | | 0 | Surgery end | | | | 8 | | | | | 4 | | | | | 7 | | | +----+---+ + + | | 0 | an stop | | | | 8 | data | | | | 4 | | | | | 9 | | | +----+---+ + + | | 0 | Anesthesia | | | | 8 | End | | | | 5 | | | | | 3 | | | +----+---+ + + +------+ | Meds | +------+ + + + | Name | Total | + + + | midazolam | 2 mg | + + + | alfentanil | 1,000 mcg | + + + | NaCl 0.9 % IV | 200 mL | + + + + + [...] | | | +--------+ + + + | RETIRE | 06/05/14; 701 (by Naveed Villa RN); | 06/05/14701 by | 06/05/14923 by | | D - | 06/05/14; 923; No; 20; Right; | Franci Persaud RN | Franci Persaud RN | | Periph | Forearm; None; No; Positive; 1 | | | | eral | | [...] | | 2019 | Visit | | [address] | | | | | | [place], [place] | | | | | | [address] | | | | | | [phone] | | | | | | | | +--------+---------+ + + + documented as of this encounter Visit Diagnoses Not on filedocumented in this encounter Administered Medications + +--------+ +--------+------+------+ | Medication Order | MAR | Action | Dose | Rate | Site | | | Action | Date | | | | + +--------+ +--------+------+------+ | alfentanil (ALFENTA) injection | Given | 06/05/20 | 1,000 | | | | INTRAPROCEDURE PRN, Starting Mehnaz | | 14 7:32 | mcg | | | | 06/05/14 at 0732, Until Mehnaz | | AM PST | | | | | 06/05/14 at 0849 | | | | | | + +--------+ +--------+------+------+ +---+---+ | | | +---+---+ + +-------+ +------+---+---+ | midazolam (VERSED) injection | Given | 06/05/20 | 2 mg | | | | INTRAPROCEDURE PRN, Starting Mehnaz | | 14 7:32 | | | | | 06/05/14 at 0732, Until Mehnaz | | AM PST | | | | | 06/05/14 at 0849, sedation | | | | | | + +-------+ +------+---+---+ +---+---+ | | | +---+---+ + + [...] + + +---+ | New Bag | 11/13/20 | 10 mL/hr | 10 mL/hr | | | | 14 7:01 | | | | | | AM PST | | | | +---------+ + + +---+ +---+---+ | | | +---+---+ documented in this encounter
--- OUTSIDE RECORDS SUMMARY | ~2018-12-11 | XMS | Encounter Summary ---
Demographics + + + | Address | [address] | | | [place] [address] | + + + | Home Phone | | + + + | Preferred Language | Unknown | + + + | Marital Status | | + + + | Mormon Affiliation | Unknown | + + + | Race | Unknown | + + + | Ethnic Group | Unknown | + + + Author + + + | Author | [facility] | + + + | Organization | [facility] | + + + | Address [...] Team Providers + +------+ + | Care Boom Worker Name | Role | Phone | + +------+ + | Rohan Wilkes DO | PCP | | + +------+ + Reason for Visit +--------+ + | Reason | Comments | +--------+ + | Other | Kidney transplant received on 09/14/18 | +--------+ + Encounter Details +--------+ + + + + | Date | Type | Department | Care Team | Description | +--------+ + + + + | 09/14/ | Telephone | [facility] | Viktoria Mancini | Other (Kidney | | 2018 | | [address] | M RN | transplant received | | | | [address] | | on 09/14/18) | | | | [place] [address] | | | | | | [phone] | | | +--------+ + + + [...] | | | | | [place] [address] | | | | | | [phone] | | | | | | | | +--------+---------+ + + + as of this encounter Visit Diagnoses Not on filein this encounter"
--- OUTSIDE RECORDS SUMMARY | ~2018-12-11 | XMS | Encounter Summary ---
Demographics + + + | Address | [address] | | | [place] [address] | + + + | Home Phone | | + + + | Preferred Language | Unknown | + + + | Marital Status | Single | + + + | Anabaptist Affiliation | NRP | + + + | Race | or Other | + + + | Ethnic Group | Not or | + + + Author + + + | Author | [facility] | + + + | Organization | [facility] | + + + | Address | Unknown | + + + | Phone | Unavailable | + + + Support + + +---------+ + | Name | Relationship | Address | Phone | + + +---------+ + | Geraldine [place] | ECON | Unknown | | + + +---------+ + Care Team Providers + +------+ + | Care Tech Ed Teacher Name | Role | Phone | [...] + + + + | 02/21/ | Hospital | [facility] | Susan Andrews MD | | | 2013 | Encounter | [address] | | | | [address] | [address] [place], [place] | | | | | [facility] | [address] | | | | | [employer] | [phone] | | | | | [place] [address] | | | | | | [phone] | | | +--------+ + + + [...] + + + | Blood Pressure | 156/57 | 02/21/2014 6:41 PM | | | | | PDT | | + + + + + | Pulse | 46 | 02/21/2014 6:41 PM | | | | | PDT | | + + + + + | Temperature | 36.5 C (97.7 F) | 02/21/2014 6:41 PM | | | | | PDT | | + + + + + | Respiratory Rate | 20 | 02/21/2014 6:41 PM | | | | | PDT | | + + + + + | Oxygen Saturation | 98% | 02/21/2014 6:41 PM | | | | | PDT | | + + + + + | Inhaled Oxygen | - | - | | | Concentration | | | | + + + + + | Weight | 80.1 kg (176 lb 9.4 | 02/21/2014 4:30 PM | | | | oz) | PDT | | + + + + + | Height | 162.6 cm (5' 4") | 02/21/2014 4:30 PM | | | | | PDT | | + + + + + | Body Mass Index | 30.31 | 02/21/2014 4:30 PM | | | | | PDT | | + + + + + documented in this encounter Discharge Instructions Instructions Katie [place] RN - 02/21/2014Please review the Home Care after Retinal Detach ment and Vitrectomy Surgery instructions. Resume your usual diet and usual medications. Positioning: Sleep on your right side. Side to side. Do not lay flat on your back. documented in this encounter Medications at Time [...] | | 2019 | Visit | | [address] | | | | | | [place], [place] | | | | | | [address] | | | | | | [phone] | | | | | | | [...] for this | | | e | 6:06 PM | | procedure are in the | | | | PST | | results section. | + +--------+ + + + | PROCEDURE NOTE | Routin | 08/27/2015 | | Results for this | | | e | 6:00 PM | | procedure are in the | | | | PST | | results section. | + +--------+ + + + | CAPILLARY BLOOD | Routin | 02/21/2014 | | Results for this | | GLUCOSE (NO CHG), | e | 6:39 PM | | procedure are in the | | POC | | PDT | | results section. | + +--------+ + + + | 23G VITRECTOMY WITH | Electi | 02/21/2014 | Retinal | | | SILICONE OIL GROUP | ve | 5:24 PM | detachment, left | | | | Surgic | PDT | | | | | al | | | | + +--------+ + + + | CAPILLARY BLOOD | Routin | 02/21/2014 | | Results for this | | GLUCOSE (NO CHG), | e | 5:03 PM | | procedure are in the | | POC | | PDT | | results section. | + +--------+ + + + documented in this encounter Results PROCEDURE NOTE (08/27/2015 6:06 PM PST)PROCEDURE NOTE (08/27/2015 6:00 PM PST) + + | Transcriptions | + + | Other, Faculty - 02/25/2014 8:07 AM PDT | + + CAPILLARY BLOOD GLUCOSE (NO CHG), POC (02/21/2014 6:39 PM PDT) + +---------+ + + + | Component | Value | Ref Range | Performed | Pathologist | | | | | At | Signature | + +---------+ + + + | BLOOD | 385 (H) | 60 - 99 mg/dL | [...] [facility] | [address] | [place], [place] | | | [facility] | [address] | [address] | | | TESTS | | | | + + + + + CAPILLARY BLOOD GLUCOSE (NO CHG), POC (02/21/2014 5:03 PM PDT) + +---------+ + + + | Component | Value | Ref Range | Performed | Pathologist | | | | | At | Signature | + +---------+ + + + | BLOOD | 380 (H) | 60 - 99 mg/dL | [...] [facility] | [address] | [place], [place] | | | [facility] | [address] | [address] | | | TESTS | | | | + + + + + documented in this encounter Visit Diagnoses Not on filedocumented in this encounter Administered Medications + +--------+ +--------+------+------+ | Medication Order | MAR | Action | Dose | Rate | Site | | | Action | Date | | | | + +--------+ +--------+------+------+ | cyclopentolate 1%-PHENYLEPHrine | Given | 02/22/20 | 1 drop | | | | 2.5%-tropicamide 0.25% | | 14 4:49 | | | | | (SUPERDROPS) ophthalmic drops 1 | | PM PDT | | | | | drop 1 drop, Left Eye, EVERY 5 | | | | | | | MINUTES NEEDED, 2 doses, | | | | | | | Starting Mon02/21/14 at 1626, | | | | | | | Until Mon02/21/14 at 1649, | | | | | | | pre-procedure dilation | | | | | | + +--------+ +--------+------+------+ +-------+ +--------+---+---+ | Given | 02/22/20 | 1 drop | | | | | 14 4:43 | | | | | | PM PDT | | | | +-------+ +--------+---+---+ +---+---+ | | | +---+---+ + +---------+ + +---+---+ | insulin regular (HUMULIN R) | New Bag | 02/22/20 | 10 Units | | | | injection 10 Units 10 Units, | | 14 5:22 | | | | | intravenous, ONCE, 1 dose, Fri | | PM PDT | | | | | 02/21/14 at 1800 | | | | | | + +---------+ + +---+---+ +---+---+ | | | +---+---+ + +---------+ + + +---+ | NaCl 0.9 % IV 25 mL/hr, | New Bag | 02/22/20 | 25 mL/hr | 25 mL/hr | | | intravenous, CONTINUOUS, Starting | | 14 5:00 | | | | | 02/21/14 at 1700, Until Sat | | PM PDT | | | | | 02/22/14 at 0112 | | | | | | + +---------+ + + +---+ +---+---+ | | | +---+---+ documented in this encounter
--- OUTSIDE RECORDS SUMMARY | ~2018-12-11 | XMS | Encounter Summary ---
Demographics + + + | Address | [address] | | | [place] [address] | + + + | Home Phone | | + + + | Preferred Language | Unknown | + + + | Marital Status | Single | + + + | Episcopalian Affiliation | NRP | + + + | Race | or Other | + + + | Ethnic Group | Not or | + + + Author + + + | Author | [facility] | + + + | Organization | [facility] | + + + | Address | Unknown | + + + | Phone | Unavailable | + + + Support + + +---------+ + | Name | Relationship | Address | Phone | + + +---------+ + | Geraldine [place] | ECON | Unknown | | + + +---------+ + Care Team Providers + +------+ + | Care Food Service Employee Name | Role | Phone | + [...] [address] | | | | | | [facility] | | | | | | [place], [place] | | | | | | [address] | | | +--------+ + + + [...] | | | | | | [place], [place] | | | | | | [address] | | | | | | [phone] | | | | | | | [...] [facility] - | [address], | [place] [address] | | | IMMUNOGENETICS/TRANS | [address] | | | | [facility] | | | | + + + + + documented in this encounter Visit Diagnoses Not on filedocumented in this encounter
--- OUTSIDE RECORDS SUMMARY | ~2018-12-11 | XMS | Encounter Summary ---
Demographics + + + | Address | [address] | | | [place] [address] | + + + | Home Phone [...] + + + | Author | [facility] | + + + | Organization | [facility] | + + + | Address | Unknown | + + + | Phone | Unavailable | + + + Support + + +---------+ + | Name | Relationship | Address | Phone | + + +---------+ + | Grealdine [place] | ECON | Unknown | | + + +---------+ + Care Team Providers + +------+ + | Care Travel Ticketing Reviewer Name | Role | Phone | + [...] | [address] | FACILITIES PAINTER [address] | | | | | [address] | [address] | | | | | [facility], | [place], [place] | | | | | [place] [address] | [address] | | | | | | [phone] | | | | | | | [...] [address] | | | | | | [place], [place] | | | | | | [address] | | | | | | [phone] | | | | | | | [...]
--- OUTSIDE RECORDS SUMMARY | ~2018-12-11 | XMS | Encounter Summary ---
Demographics + + + | Address | [address] | | | [place] [address] | + + + | Home Phone [...] + + + | Author | [facility] [facility] | + + + | Organization | [facility] | + + + | Address | Unknown | + + + | Phone | Unavailable | + + + Support + + +---------+ + | Name | Relationship | Address | Phone | + + +---------+ + | Geraldine [place] | ECON | Unknown | | + + +---------+ + Care Team Providers + +------+ + | Care Diesel Dinkey Operator Name | Role | Phone | [...] Description | +--------+---------+ + + + | 02/21/ | Surgery | [facility] | Susan Andrews MD | 23 KAM VITRECTOMY | | 2013 | | [address] | [address] | WITH LASER AND OIL | | | | [address] | [place], [place] | | | | | [facility], | [address] | | | | | [place] [address] | [phone] | | | | | | | [...] | | | | | | release (/EC) | | | | | | + [...] | | 2019 | Visit | | [address] | | | | | | [place], [place] | | | | | | [address] | | | | | | [phone] | | | | | | | [...] [facility] | [address] | [place], [place] | | | [facility] [facility] | [address] | [address] | | | TESTS | | | [...] [facility] | [address] | [place], [place] | | | [place] [facility] | [address] | [address] | | | TESTS | | | | + + + + + documented in this encounter Visit Diagnoses + + | Diagnosis | + + | Retinal detachment, left Unspecified retinal detachment | + + documented in this encounter Administered Medications + +--------+ +--------+------+ + | Medication Order | MAR | Action | Dose | Rate | Site | | | Action | Date | | | | + +--------+ +--------+------+ + | atropine 1 % ophthalmic drops | Given | 02/22/20 | 1 drop | | Left Eye | | INTRAPROCEDURE PRN, Starting Mon | | 14 6:30 | | | | | 02/21/14 at 1830, Until Mon02/21/14 | | PM PDT | | | | | at 1832 | | | | | | + +--------+ +--------+------+ + +---+---+ | | | +---+---+ + +-------+ +-------+---+ + | balanced salt (BSS) ophthalmic | Given | 02/22/20 | 15 mL | | Left Eye | | irrigation INTRAPROCEDURE PRN, | | 14 5:46 | | | | | Starting Mon02/21/14 at 1746, | | PM PDT | | | | | Until Mon02/21/14 at 1832 | | | | | | + +-------+ +-------+---+ + +---+---+ | | | +---+---+ + +-------+ +--------+---+---+ | cyclopentolate 1%-PHENYLEPHrine | Given | 02/22/20 [...] +-------+ +--------+---+---+ +-------+ +--------+---+---+ | Given | 02/22/20 | 1 drop | | | | | 14 4:43 | | | | | | PM PDT | | | | +-------+ +--------+---+---+ +---+---+ | | | +---+---+ + +-------+ +-------+---+ + | dexamethasone (DECADRON) | Given | 02/22/20 | 10 mg | | Left Eye | | injection INTRAPROCEDURE PRN, | | 14 6:30 | | | | | Starting Mon02/21/14 at 1830, | | PM PDT | | | | | Until Mon02/21/14 at 1832 | | | | | | + +-------+ +-------+---+ + +---+---+ | | | +---+---+ + +-------+ + +---+ + | Dilating Solution (Phakic & | Given | 02/22/20 | 1 Bottle | | Left Eye | | Diabetic): BSS Plus 500 mL - 3 mL | | 14 5:47 | | | | | D50 - 0.5 mL EPINEPHrine | | PM PDT | | | | | (1:1,000) INTRAPROCEDURE PRN, | | | | | | | Starting Mon02/21/14 at 1747, | | | | | | | Until Mon02/21/14 at 1832 | | | | | | + +-------+ + +---+ + +---+---+ | | | +---+---+ + +-------+ +------+---+ + | hydroxypropyl methylcellulose | Given | 02/22/20 | 6 mL | | Left Eye | | (GONIOSOL) 2.5 % ophthalmic drops | | 14 5:47 | | | | | INTRAPROCEDURE PRN, Starting | | PM PDT | | | | | 02/21/14 at 1747, Until Fri | | | | | | | 02/21/14 at 1832, dry eyes | | | | | [...] | Local with hyaluronidase: | Given | 02/22/20 | 10 mL | | Left Eye | | lidocaine 2% - bupivacaine 0.75% | | 14 5:35 | | | | | - hyaluronidase 200 units/mL 1 mL | | PM PDT | | | | | 1:10:10) INTRAPROCEDURE PRN, | | | | | | | Starting Mon02/21/14 at 1735, | | | | | | | Until Mon02/21/14 at 1832 | | | | | | + +-------+ +-------+---+ + +---+---+ | | | +---+---+ + +---------+ + + +---+ | NaCl 0.9 % IV 25 mL/hr, | New Bag | 02/22/20 | 25 mL/hr | 25 mL/hr | | | intravenous, CONTINUOUS, Starting | | 14 5:00 | | | | | Mon02/21/14 at 1700, Until Sat | | PM PDT | | | | | 02/22/14 at 0112 | | | | | | + +---------+ + + +---+ +---+---+ | | | +---+---+ + +-------+ +--------+---+ + | proparacaine (OPHTHAINE) 0.5 % | Given | 02/22/20 | 1 drop | | Left Eye | | ophthalmic drops INTRAPROCEDURE | | 14 5:40 | | | | | PRN, Starting 02/21/14 at 1740, | | PM PDT | | | | | Until Mon02/21/14 at 1832 | | | | | | + +-------+ +--------+---+ + +---+---+ | | | +---+---+ + +-------+ +-------+---+ + | vancomycin (VANCOCIN) injection | Given | 02/22/20 | 25 mg | | Left Eye | | INTRAPROCEDURE PRN, Starting | | 14 6:30 | | | | | 02/21/14 at 1830, Until Fri | | PM PDT | | | | | 02/21/14 at 1832 | | | | | | + +-------+ +-------+---+ + +---+---+ | | | +---+---+ documented in this encounter
--- OUTSIDE RECORDS SUMMARY | ~2018-12-11 | XMS | Encounter Summary ---
Demographics + + + | Address | [address] | | | [place] [address] | + + + | Home Phone [...] Author + + + | Author | [facility] | + + + | Organization | [facility] | + + + | Address | Unknown | + + + | Phone | Unavailable | + + + Support + + +---------+ + | Name | Relationship | Address | Phone | + + +---------+ + | [place] Parker | ECON | Unknown | | + + +---------+ + Care Team Providers + +------+ + | Care User Interface Designer Name | Role | Phone | [...] | | | | | | | [address] | | | | | | [address] | | | | | | | [place] | | | | | | | [place], [place] | | | | | | | [address] | | | | | | | Phone: | | | | | | | [phone] | | | | | | | Fax: | | | | | | | [phone] | +--------+--------+ + + + + Encounter Details +--------+---------+ + + + | Date | Type | Department | Care Team | Description | +--------+---------+ + + + | 08/21/ | Office | [facility] | Susan Chau MD | Proliferative | | 2016 | Visit | [facility] at | [address] | diabetic retinopathy | | | | [facility] [address] [place], [place] | with macular edema | | | | [address] | [address] | associated with type | | | | Mailcode: CEAnni | [phone] | 2 diabetes mellitus | | | | [place], [place] | | ([facility]) | | | | [address] | | | | | | [phone] | | | +--------+---------+ + + + [...] of this encounter Patient Instructions Patient Instructions Akash Guzman - 08/21/2015 1:56 PM PST dexamethasone intravitreal implant Pronunciation: DEX a METH [...] al implant? You should not receive this implant if you are allergic to dexamethasone, or if you have: an eye infection; advanced glaucoma; an artificial lens implanted in your eye; or a history of eye ulcer, surgery, or wound that has injured or removed the lens in your e ye. To make sure dexamethasone intravitreal is safe for you, tell your doctor if you have ever had herpes infection of the eyes. It is not known whether this medicine will harm an unborn baby. Tell your doctor if you are or plan to become . Dexamethasone can pass into breast milk and may harm a nursing baby. Tell your doctor if yo u are breast-feeding a baby. How is dexamethasone intravitreal implant given? Dexamethasone intravitreal implant will be injected into your eye by healthcare professiona rakan in a clinic setting. After the implant [...] implant contains a specific amount of the medicine, yo u are not likely to receive an overdose. What should I avoid after receiving dexamethasone intravitreal implant? This medicine may cause blurred vision. Be careful if you drive or do anything that require s you to be able to see clearly. What are the possible side effects of dexamethasone intravitreal implant? Get emergency medical help if you have signs of an allergic reaction: hives; difficult david thing; swelling of your face, lips, tongue, or throat. Call your doctor at once if you have: vision problems, eye pain, or seeing halos around lights; eye redness, increased sensitivity of your eyes to light; or vision changes. Common side effects may include blurred vision. This is not a complete list of side effects and others may occur. Call your doctor for [facility] advice about side effects. You may report side effects to FDA at 0-376-POC-4369. What other drugs will affect dexamethasone intravitreal implant? It is not likely that other drugs you take orally or inject will have an effect on dexameth asone used in the eyes. But many drugs can interact with each other. Tell each of your healt hcare providers about all medicines you use, including prescription and gvws-ogo-jiwiaxj med icines, vitamins, and herbal products. Where [...] to ensure that the information provided by [employer]. ( '[employer]') is accurate, up-to-date, and complete, but no guarantee is made to that effect. Dr ug information contained herein may be time sensitive. [employer] information has been compiled for use by healthcare practitioners and consumers in the [place] and therefore [employer] does not warrant that uses outside of the [place] are appropriate, unless specifically indicated otherwise. [employer] drug information does not endorse drugs, diagnose patients or recommend therapy. [employer] drug information is an informational resource designed [...] effective or appropriate for any given patient. [employer] does not assume any respon sibility for any aspect of healthcare administered with the aid of information [employer] provid es. The information contained herein is not intended to cover all possible uses, directions, precautions, warnings, drug interactions, allergic reactions, or adverse effects. If you negro ve questions about the drugs you are taking, check with your doctor, nurse or pharmacist. Copyright 9301-1510 [employer]. Version: 3.01. Revision date: 08/06/2014. This information does not replace the advice of a doctor. [employer] disclaim s any warranty or liability for your use of this information. 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 Team Pause: At 1:56 PM, prior to the beginning of the [...] the pars plana using the supp lied career developer 4. Patent central retinal artery or IOP < 30 mmHG post injection confirmed 5. After the injection patient reported: No pain (0 of 0-10) Complications: None EBL: None I, Susan Chau MD, performed the entire procedure. Susan Chau MD, 08/21/2015 Sindy Esteban - 08/21/2015 12:58 PM PST [facility] Progress Note 08/21/2015 CC: Follow-up visit Proliferative diabetic retinopathy Initial History: Vision stable, no new changes or complaints. Last 3 ambulatory procedures on record: Procedure: Ozurdex both eyes (02/06/15 1437) Procedure: Ozurdex right eye (10/31/14 1428) Procedure: Ozurdex Left eye (10/17/14 1516) HPI: Joyce Arnold is a 55 y.o. female Last visit: Says that vision has been stable. She couldn't make it back for follow up as scheduled due to weather issues. Pain:No pain (0 of 0-10) POH: 08/08/2014 cx/rs short notice <24 hour (patient) refraction (was still with Dr. Chau, and was dilated anyway...) PPV/SO removal PHACO IOL OS 06/05/14 PPV/SO removal PC IOL OD 05/08/14 PPV/MP/EL, silicone oil left eye 02/13/2014 01/09/14 PPV/MP/EL/FAx/1000cstSO OD and small amount of PRP OS with preop avastin OU DME -Avastin OU initiated 01/01/14-09/19/14 Ozurdex initiated OS 10/17/14-Present -Consented OS 10/17/14 Ozurdex initiated OD 10/31/14-Present -Consented OD 10/31/14 PDR OU Current Outpatient Prescriptions (Other) Medication [...] Examination Diagnostics Ordered Right Left OCT CMT/Vol: 329/9.13 IRF in foveal center stable from previously CMT/Vol: 323/9.20 IRF i n fovea and temporal macula; ERM; overall stable FA --- --- FUNDUS --- --- Others IMPRESSION: 55 y.o. female with Ophthalmologic Problems 1. s/p [...] vision great 3. PDR (proliferative diabetic retinopathy) [516114] - regressed OU after the above procedures - starting vision was CF OU 4. DME (diabetic macular edema) [021401] OU - s/p Avastin OD on 05/16/14, OU x3 06/27/14, 08/08/14, 09/19/14 - s/p PSTK OU in the past also with minimal benefit - s/p Ozurdex OS on 10/17/14 - s/p Ozurdex OD on 10/31/14 - s/p Ozurdex OU on 02/06/15 - stable DME OU, IOP good OU PLAN: PARQ held for rpt Ozurdex OU, given with subconj lidocaine without complication Call for decreased vision, increased distortion, increased pain, new floaters or flashing l ights Follow up: 2 months, if no improvement, consider holding off on future therapy NEXT VISIT: DILATE OU, OCT OU Attestations: The graphic technician, under the supervision of the physician, is responsible for performing the f ollowing sections: RFV, ROS, PMH, PSH, SocHx, FH, Med list, Base Ophth Exam. The attending physician is responsible for the entire content of the note and has personall y performed the HPI and the physical examination SUSAN CHAU MD documented in this encounter Plan of Treatment +--------+---------+ + + + | Date | Type | Specialty | Care Team | Description | +--------+---------+ + + + | 01/30/ | Office | Ophthalmology | Susan Chau MD | | | 2019 | Visit | | [address] | | | | | | [place], [place] | | | | | | [address] | | | | | | [phone] | | | | | | | | +--------+---------+ + + + + + +--------+ + + | Name | Type | Priori | Associated Diagnoses | Order Schedule | | | | ty | | | + + +--------+ + + | CMPTR OPHTH DX IMG | Procedures | Routin | | Expected: | | POST SEGMT | | e | | 08/20/2015, Expires: | | | | | | 02/17/2017 | + + +--------+ + + documented as of this encounter Procedures + +--------+ + + + | Procedure Name | Priori | Date/Time | Associated Diagnosis | Comments | | | ty | | | | + +--------+ + + + | [facility] | Routin | 08/21/2015 | | | | CHARGE | e | 1:56 PM | | | | | | PST | | | + +--------+ + + + | MN INJECT | Routin | 08/21/2015 | | | | INTRAVITREAL | e | 1:56 PM | | | | PHARMCOLOGIC | | PST | | | + +--------+ + + + documented in this encounter Visit Diagnoses + + | Diagnosis | + + | Proliferative diabetic retinopathy with macular edema associated with type 2 diabetes | | mellitus (HCC) | + + documented in this encounter
--- OUTSIDE RECORDS SUMMARY | ~2018-12-11 | XMS | Encounter Summary ---
Demographics + + + | Address | [address] | | | [place] [address] | + + + | Home Phone [...] + + + | Author | [place] [facility] | + + + | Organization | [facility] | + + + | Address | Unknown | + + + | Phone | Unavailable | + + + Support + + +---------+ + | Name | Relationship | Address | Phone | + + +---------+ + | Geraldine Canales | ECON | Unknown | | + + +---------+ + Care Team Providers + +------+ + | Care Public Health Outreach Worker Name | Role | Phone | [...] examination | | 2013 | Visit | [facility] | | | | | | [facility] at | | | | | | [place] [id number] | | | | | | [address] | | | | | | Mailcode: [place] | | | | | | [place], [place] | | | | | | [address] | | | | | | [phone] | | | +--------+ + + + [...] Joyce Brittany Arnold was seen in the [facility] today, 01/10/2014, for ultrasound. B-scan [...] | | | | | | [place], [place] | | | | | | [address] | | | | | | [phone] | | | | | | | | +--------+---------+ + + + documented as of this encounter Visit Diagnoses + + | Diagnosis | + + | Macular edema, diabetic ([facility]) - Primary Type II or unspecified type diabetes mellitus | | with ophthalmic manifestations, not stated as uncontrolled | + + | PDR (proliferative diabetic retinopathy) ([facility]) Type II or unspecified type diabetes | | mellitus with ophthalmic manifestations, not stated as uncontrolled | + + | Traction detachment of retina | + + | Vitreous hemorrhage ([facility]) Vitreous hemorrhage | + + documented in this encounter
--- OUTSIDE RECORDS SUMMARY | ~2018-12-11 | XMS | Encounter Summary ---
Demographics + + + | Address | [address] | | | [place] [address] | + + + | Home Phone | | + + + | Preferred Language | Unknown | + + + | Marital Status | Single | + + + | Gnosticist Affiliation | NRP | + + + | Race | or Other | + + + | Ethnic Group | Not or | + + + Author + + + | Author | [facility] [facility] | + + + | Organization | [facility] [employer] | + + + | Address | Unknown | + + + | Phone | Unavailable | + + + Support + + +---------+ + | Name | Relationship | Address | Phone | + + +---------+ + | Geraldine [place] | ECON | Unknown | | + + +---------+ + Care Team Providers + +------+ + | Care Oem Sales Manager Name | Role | Phone | + +------+ + | Rohan Wilkes DO | PCP | | + +------+ + Encounter Details +--------+ + + + + | Date | Type | Department | Care Team | Description | +--------+ + + + + | 02/06/ | Lab | LAB IMMUNOGENETIC | | | | 2017 | Requisition | AND TRANSPLANT LAB | | | | | | [address] | | | | | | [facility] | | | | | | [place], [place] | | | | | | [address] | | | +--------+ + + + [...] | | | | | | [place], [place] | | | | | | [address] | | | | | | [phone] | | | | | | | | +--------+---------+ + + + documented as of this encounter Procedures + +--------+ + + + | Procedure Name | Priori | Date/Time | Associated Diagnosis | Comments | | | ty | | | | + +--------+ + + + | LIT FLOW HLA AB PRA | Routin | 02/02/2018 | | | | SCREEN I/II | e | 12:00 AM | | | | | | PDT | | | + +--------+ + + + | LIT ANTI - A TITER, | Routin | 02/02/2018 | | | | BLOOD | e | 12:00 AM | | | | | | PDT | | | + +--------+ + + + documented in this encounter Results LIT ANTI - A TITER, BLOOD (02/02/2018 12:00 AM PDT) + + | Specimen | + + | Blood | + + + + + + + | Performing | Address | City/State/Zipcode | Phone Number | | Organization | | | | + + + + + | [facility] - | [address] | [place] [address] | | | IMMUNOGENETICS/TRANS | [address] | | | | [facility] | | | | + + + + + LIT FLOW HLA AB PRA SCREEN I/II (02/02/2018 12:00 AM PDT) + + | Specimen | + + | Blood | + + + + + + + | Performing | Address | City/State/Zipcode | Phone Number | | Organization | | | | + + + + + | [facility] - | [address] | [place] [address] | | | IMMUNOGENETICS/TRANS | [address] | | | | [facility] | | | | + + + + + documented in this encounter Visit Diagnoses Not on filedocumented in this encounter
--- OUTSIDE RECORDS SUMMARY | ~2018-12-11 | XMS | Encounter Summary ---
Demographics + + + | Address | [address] | | | [place] [address] | + + + | Home Phone | | + + + | Preferred Language | Unknown | + + + | Marital Status | Single | + + + | Latter Day Affiliation | NRP | + + + | Race | or Other | + + + | Ethnic Group | Not or | + + + Author + + + | Author | [place] [facility] | + + + | Organization | [facility] [facility] | + + + | Address | Unknown | + + + | Phone | Unavailable | + + + Support + + +---------+ + | Name | Relationship | Address | Phone | + + +---------+ + | Geraldine Canales | ECON | Unknown | | + + +---------+ + Care Team Providers + +------+ + | Care Retort Feeder Ground Bone Name | Role | Phone | + +------+ + | Nadeem Caruso | PCP | | + +------+ + Reason for Visit +---------+ + | Reason | Comments | +---------+ + | Post Op | | +---------+ + Encounter Details +--------+---------+ + + + | Date | Type | Department | Care Team | Description | +--------+---------+ + + + | 01/10/ | Office | [facility] | Susan Chau MD | Macular edema, | | 2013 | Visit | [facility] at | [address] | diabetic (HCC) | | | | [facility] [address] [facility] [place] | (Primary Dx); PDR | | | | [address] | [address] | (proliferative | | | | Mailcode: CE | [phone] | diabetic | | | | [facility] [place] | | retinopathy) (HCC); | | | | [address] | | Traction detachment | | | | [phone] | | of retina; Vitreous | | | | | | hemorrhage (HCC) | +--------+---------+ + + + Social [...] encounter Progress Notes Susan Chau MD - 01/10/2014 9:19 AM PDTFormatting of this note might be different from melvin rachel. [facility] Progress Note 01/10/2014 CC: Post Op Patient reports blurry but increased vision in right eye. She is experiencing a pain rating of 9, but with pain medication the pain is managed to a level of 0-1. She has noticed a cre scent shaped white floater temporally in the right eye. Initial History: Last 3 ambulatory procedures on record: Procedure: Avasti OU (01/01/14 1454) HPI: Joyce Arnold is a 53 y.o. female Last visit: 01/03/14 at 7:45 am Vision is improved OD, says she has been getting around ok ay at home. Not too much pain. Left eye is the same and is not better yet. Pain:Minimal pain (1-2 of 0-10) POH: DME -Avastin OU initiated 01/01/14 PDR OU [...] four hours as needed for mild pain. Not to exceed 3250 mg of acetaminophen in 24 hours. insulin detemir Inject 30 Units under the [...] for 33 years Types: Cigarettes Quit date: 11/06/2013 Smokeless tobacco: Never Used Alcohol Use: No Comment: used to "drink heavily" See Ophthalmology Module for Examination Diagnostics Ordered Right Left OCT IRF, attached, no SRF --- FA --- --- FUNDUS --- --- Others IMPRESSION: 53 y.o. female with Ophthalmologic Problems 1. POW# 1 s/p 23g PPV/MP/EL/FAx/1000cstSO OD and small amount of PRP OS with preop avastin OU (d-1)Proliferative diabetic retinopathy with extramacular TRDs OU - previously untreated OD - francois-jaw TRD threatening macula and VH - doing well, retina attached, small healing epi defect OS - inferotemporal TRD with VH (less than OD) S/p partial PRP 01/02/14 2. Clinically significant diabetic macular edema OU - s/p Avastin x 1 OU 01/01/14 PLAN: Oflox QID cont as epi defect healing but not resolved Decrease Atropine daily OD Decrease Pred TID OD Follow up: 1 week NEXT VISIT: DILATE OU, no imaging Attestations: The quality control engineering technician, under the supervision of the physician, [...] | | | | | | [place], [place] | | | | | | [address] | | | | | | [phone] | | | | | | | [...] POST SEGMT | | e | diabetic ([facility]) PDR | 01/09/2014, Expires: | | | | | (proliferative | 03/10/2014 | | | | | diabetic | | | | | | retinopathy) ([facility]) | | | | | | Traction detachment | | | | | | of retina Vitreous | | | | | | hemorrhage ([facility]) | | + + +--------+ + + | ULTRASOUND, B SCAN | Procedures | Routin | Macular edema, | Expected: | | | | e | diabetic ([facility]) PDR | 01/09/2014, Expires: | | | | | (proliferative | 03/10/2014 | | | | | diabetic | | | | | | retinopathy) ([facility]) | | | | | | Traction detachment | | | | | | of retina Vitreous | | | | | | hemorrhage ([facility]) | | + + +--------+ + + documented as of this encounter Visit Diagnoses + + | Diagnosis | + + | Macular edema, diabetic ([facility]) - Primary Type II or unspecified type diabetes mellitus | | with ophthalmic manifestations, not stated as uncontrolled | + + | PDR (proliferative diabetic retinopathy) (HCC) Type II or unspecified type diabetes | | mellitus with ophthalmic manifestations, not stated as uncontrolled | + + | Traction detachment of retina | + + | Vitreous hemorrhage (HCC) Vitreous hemorrhage | + + documented in this encounter
--- OUTSIDE RECORDS SUMMARY | ~2018-12-11 | XMS | Encounter Summary ---
Demographics + + + | Address | [address] | | | [place] [address] | + + + | Home Phone | | + + + | Preferred Language | Unknown | + + + | Marital Status | | + + + | Religion Affiliation | Unknown | + + + | Race | Unknown | + + + | Ethnic Group | Unknown | + + + Author + + + | Author | [facility] | + + + | Organization | [facility] | + + + | Address [...] Team Providers + +------+ + | Care Liner Replacer Name | Role | Phone | + [...] | | [address] | [address] [place], [place] | Immunosuppression | | | | [place] [address] | [address] | (HCC); Fever and | | | | [phone] | | chills | +--------+ + + [...] [address] | | | | | | [place] [address] | | | | | | [phone] | | | | | | | [...]
--- OUTSIDE RECORDS SUMMARY | ~2018-12-11 | XMS | Encounter Summary ---
Demographics + + + | Address | [address] | | | [place] [address] | + + + | Home Phone [...] + + + | Author | [facility] | + + + | Organization | [facility] | + + + | Address | Unknown | + + + | Phone | Unavailable | + + + Support + + +---------+ + | Name | Relationship | Address | Phone | + + +---------+ + | Geraldine [place] | ECON | Unknown | | + + +---------+ + Care Team Providers + +------+ + | Care Steam Trap Man Name | Role | Phone | + [...] | +--------+ + + + + | 05/08/ | Hospital | [facility] | Susan Andrews MD | | | 2013 | Encounter | [address] | | | | [address] [place], [place] | | | | | [facility] | [address] | | | | | [employer] | [phone] | | | | | [place] [address] | | | | | | [phone] | | | +--------+ + + + [...] into | 5 mL | 0 | 05/08/ | | | ophthalmic drops | the [...] | | 2019 | Visit | | [address] | | | | | | [place], [place] | | | | | | [address] | | | | | | [phone] | | | | | | | [...] PST)PROCEDURE NOTE (08/27/2015 5:15 PM PST)PROCEDURE N KATHIE (08/27/2015 5:09 PM PST) + + | [...] [facility] | [address] | [place], [place] | | | [facility] | [address] | [address] | | | TESTS | | | [...] [facility] | [address] | [place], [place] | | | [facility] | [address] | [address] | | | TESTS | | | [...] + + + + | [facility] | [address] | [place], [place] | | | [facility] | [address] | [address] | | | TESTS | | | [...] (H) | 60 - 99 mg/dL | [facility] - | | | GLUCOSE, | | | [facility] | | | POC | | | [facility] | | | | | | [...] + + + | [facility] | [address] | [place], [place] | | | [facility] | [address] | [address] | | | TESTS | | | [...] +--------+------+------+ | cyclopentolate 1%-PHENYLEPHrine | Given | 05/08/20 [...] | | | Starting Mehnaz 05/08/14 at 0704, | | | | | | | Until Mehnaz 05/08/14 at 0718, | | | | | | | pre-procedure dilation | | | | | | + +--------+ +--------+------+------+ +-------+ +--------+---+---+ | Given | 05/08/20 | [...]
--- OUTSIDE RECORDS SUMMARY | ~2018-12-11 | XMS | Encounter Summary ---
Demographics + + + | Address | [address] | | | [place] [address] | + + + | Home Phone [...] + + + | Author | [place] [employer] [facility] | + + + | Organization | [facility] Appetite+ [facility] | + + + | Address | Unknown | + + + | Phone | Unavailable | + + + Support + + +---------+ + | Name | Relationship | Address | Phone | + + +---------+ + | Geraldine Canales | ECON | Unknown | | + + +---------+ + Care Team Providers + +------+ + | Care Puddler Pile Driving Name | Role | Phone | + +------+ + | Nadeem Caruso | PCP | | + +------+ + Reason for Visit + + + | Reason | Comments | + + + | Pre-op evaluation | | + + + Encounter Details +--------+ + + + + | Date | Type | Department | Care Team | Description | +--------+ + + + + | 02/12/ | Telephone-S | Preoperative | | Pre-op evaluation | | 2013 | cheduled | [facility] at | | | | | | [facility] Floor Day | | | | | | Stay [address] | | | | | | [facility] | | | | | | Mailcode: [id number] | | | | | | Melodie Dumont | | | | | | [address] [place], [place] | | | | | | [address] | | | | | | [phone] | | | +--------+ + + + [...] | | | 7 | | reviewed, FRANCISCO held, anesthetic plan made or approved by [...] | Meds | +------+ + + + No medications | on file. | + + + + + | No agents on file. | + + + + | No [...] of this encounter Patient Instructions Patient Instructions Tessa Martínez RN - 02/12/2014 2:44 PM PDT PREOPERATIVE INSTRUCTIONS Diabetes instructions before surgery The night before the procedure LEVEMIR: As usual LISPRO: As usual The morning of the procedure LEVEMIR: 50% of usual dose LISPRP: HOLD Check your blood sugars The night before surgery. When you wake up and every 4 hours until you arrive at the hospital on the day of your p rocedure. If you have low blood sugars (less than 70) while you are fasting 1. Take 4 glucose tablets 2. Wait 15 minutes, and then recheck your sugar 3. If it is still less than 70, repeat treatment until the level is over 70 4. When you get to the hospital, report what time you had a low blood sugar 5. If you do not have glucose tablets, you can drink 4 ounces of clear liquid (apple juice, monica mayi); however your surgery may be delayed a few hours. If your blood sugars are higher than 250 on the morning of surgery and you have an insul in "sliding scale" correction regimen, please follow it to correct the high blood sugar. Do not eat or drink anything after midnight the night before surgery. TAKE the following medications with a sip of water on the morning of surgery:AMLODIPINE 10 MG TABLET CITALOPRAM 40 MG TABLET FAMOTIDINE 20 MG TABLET HYDROCODONE 5 MG-ACETAMINOPHEN 325 MG TABLET LEVOXYL ORAL METOPROLOL SUCCINATE ER 50 MG TABLET,EXTENDED RELEASE 24 HR Do NOT take the following medications on the morning of surgery: ASPIRIN 81 MG TABLET,DELAYED RELEASE ATROPINE 1 % EYE DROPS HYDROCHLOROTHIAZIDE 25 MG TABLET INSULIN DETEMIR 100 UNIT/ML SUBCUTANEOUS SOLUTION INSULIN LISPRO 100 UNIT/ML SUBCUTANEOUS SOLUTION ISOSORBIDE MONONITRATE ER 30 MG TABLET,EXTENDED RELEASE 24 HR LOSARTAN 50 MG TABLET NITROGLYCERIN 0.4 MG SUBLINGUAL TABLET PREDNISOLONE ACETATE 1 % EYE DROPS,SUSPENSION PROMETHAZINE 25 MG TABLET SIMVASTATIN 40 MG TABLET Do not take any Aspirin, vitamin E or non-steroidal anti-inflammatory (NSAIDs i.e. Advil , Aleve, Ibuprofen) or herbal supplements seven days prior to your surgery. These drugs may interfere with normal blood clotting and may cause excessive bleeding and bruising during or after the surgery. If you are taking Coumadin (warfarin), Plavix or any other blood thinners please let you r surgical team know as medication changes will be necessary. If you need a pain medication for general purposes, use Tylenol as directed. If you are in doubt about any medications that you are taking, please contact our office . Important Guidelines Do not shave the surgical area Do not smoke, drink alcohol or use recreational drugs f or 24 hours before your surgery Do not eat any hard candy or chew gum after midnight the night before your surgery. Watch for any change in your health condition. Let your surgeon know right away if you do not feel well. Do not wear makeup, perfume, lotions or powder. Remove any nail indonesian from at least one fingernail. Do not wear any jewelry to the hospital. Wear loose, comfortable clothing. Bring the case and solution for your contact lenses or wear your glasses. Leave all your valuables at home. Allow enough travel time so you re not late for your check in for surgery. Take a bath or shower and remember to shampoo your hair using your usual hair product be fore your arrival at the hospital. Please remember to brush your teeth the night before and the morning of your procedure. Surgery Check in Locations [facility], sixth floor Surgery Check in Time: Someone from your surgeon's office or [facility] will provide you with information regarding your check in time. If you have any questions about this, pl ease contact your surgeon's office. Going Home Your surgical team will decide when you are medically ready to go home. If you are released to go home on the same day as your procedure/surgery please note the following: You will not be able to drive. You will be required to have a competent adult drive you or accompany you by taxi or pub lic transportation on the day of discharge. It is also required that you have a competent adult assist you and look after you on the first night after you have undergone regional blocks (72 hours for patients going home with regional block pump), deep sedation, and/or general anesthesia. If you have questions or concerns after you go home, call your doctor s office. If it is after office hours, call the [facility] keyboard operator at [phone] and ask them to page your doc tor. documented in this encounter Plan of Treatment +--------+---------+ + + + | Date | Type | Specialty | Care Team | Description | +--------+---------+ + + + | 01/30/ | Office | Ophthalmology | Susan Andrews MD | | | 2019 | Visit | | [address] | | | | | | [place], [place] | | | | | | [address] | | | | | | [phone] | | | | | | | | +--------+---------+ + + + documented as of this encounter Visit Diagnoses Not on filedocumented in this encounter
--- OUTSIDE RECORDS SUMMARY | ~2018-12-11 | XMS | Clinical Summary ---
Demographics + + + | Address | [address] | | | [place] [address] | + + + | Home Phone | | + + + | Preferred Language | Unknown | + + + | Marital Status | | + + + | Jehovah'S Witness Affiliation | Unknown | + + + | Race | Unknown | + + + | Ethnic Group | Unknown | + + + Author + + + | Author | [facility] [facility] | + + + | Organization | [facility] | + + + | Address [...] Team Providers + +------+ + | Care Tiler'S Assistant Name | Role | Phone | + +------+ + | Rohan Wilkes DO | PP | | + +------+ + Allergies + + + + + + | Active Allergy | Reactions | Severity | Noted | Comments | | | | | Date | | + + + + + + | Celecoxib | Itching, Rash | Medium | 01/16/20 | | | | | | 14 | | + + + + + + | Iron | Rash | Medium | 11/05/19 | | | | | | 16 | | + + + + + + | Sulfur | Itching, Rash, Other | Medium | 01/16/20 | Other- yeast | | | (See Comments) | | 14 | infection | + + + + + + Current Medications + + +---------+---------+------+------+-------+ | Prescription | Sig. | Disp. | Refills | Star | End | Statu | | | | | | t | Date | s | | | | | | Date | | | + + +---------+---------+------+------+-------+ | simvastatin | Take 40 mg by mouth | | | | | Activ | | (ZOCOR) 40 MG tablet | nightly. | | | | | e | + + +---------+---------+------+------+-------+ | nitroGLYCERIN | Place 0.4 mg under | | | | | Activ | | (NITROSTAT) 0.4 MG | the tongue every 5 | | | | | e | | SL tablet | (five) minutes as | | | | | | | | needed. | | | | | | + + +---------+---------+------+------+-------+ | levothyroxine | Take 200 mcg by | | | | | Activ | | (SYNTHROID) 200 MCG | mouth every morning | | | | | e | | tablet | before breakfast. | | | | | | + + +---------+---------+------+------+-------+ | famotidine | Take 20 mg by mouth | | | | | Activ | | (PEPCID) 20 MG | daily. | | | | | e | | tablet | | | | | | | + + +---------+---------+------+------+-------+ | citalopram | Take 40 mg by mouth | | | | | Activ | | (CELEXA) 40 MG | daily. | | | | | e | | tablet | | | | | | | + + +---------+---------+------+------+-------+ | aspirin 81 MG EC | Take 81 mg by mouth | | | | | Activ | | tablet | daily with | | | | | e | | | breakfast. | | | | | | + + +---------+---------+------+------+-------+ | amLODIPine | Take 10 mg by mouth | | | | | Activ | | (NORVASC) 10 MG | daily. | | | | | e | | tablet | | | | | | | + + +---------+---------+------+------+-------+ | | TAKE ONE TABLET BY | 60 | 0 | 07/0 | | Activ | | hydrochlorothiazide | MOUTH TWICE DAILY | tablet | | 2/20 | | e | | (HYDRODIURIL) 25 MG | | | | 15 | | | | tablet | | | | | | | + + +---------+---------+------+------+-------+ | simvastatin | Take 20 mg by mouth | | | / | | Activ | | (ZOCOR) 20 MG tablet | nightly. | | | 12/10 | | e | | | | | | 15 | | | + + +---------+---------+------+------+-------+ | folic acid | Take 1 mg by mouth | | | | | Activ | | (FOLVITE) 1 MG | daily. | | | | | e | | tablet | | | | | | | + + +---------+---------+------+------+-------+ | ergocalciferol | Take 50,000 Units by | | | | | Activ | | (DRISDOL) 21237 | mouth once a week. | | | | | e | | UNITS capsule | | | | | | | + + +---------+---------+------+------+-------+ | albuterol (PROAIR | Inhale 2 puffs into | | | | | Activ | | HFA) 108 (90 BASE) | the lungs every 4 | | | | | e | | MCG/ACT inhaler | (four) hours as | | | | | | | | needed for Wheezing. | | | | | | + + +---------+---------+------+------+-------+ | torsemide | Take 1 tablet by | 30 | 11 | 10/0 | | Activ | | (DEMADEX) 10 MG | mouth daily. | tablet | | 5/20 | | e | | tablet | | | | 15 | | | + + +---------+---------+------+------+-------+ | losartan (COZAAR) | Take 50 mg by mouth | | | 10/0 | | Activ | | 50 MG tablet | 2 (two) times daily. | | | 8/20 | | e | | | | | | 15 | | | + + +---------+---------+------+------+-------+ | insulin pen needle | 1 each by Other | 500 | 3 | 09/0 | | Activ | | (B-D ULTRAFINE III | route 4 (four) times | each | | 1/20 | | e | | SHORT PEN) 31G X 8 | daily. | | | 16 | | | | MMIndications: | | | | | | | | Diabetes mellitus | | | | | | | | type II, | | | | | | | | uncontrolled (HCC) | | | | | | | + + +---------+---------+------+------+-------+ | gentamicin | APPLY TO EXIT SITE | 30 g | 2 | 08/0 | | Activ | | (GARAMYCIN) 0.1 % | DAILY | | | 7/20 | | e | | cream | | | | 17 | | | + + +---------+---------+------+------+-------+ | b complex-vitamin | Take 0.8 mg by mouth | | | | | Activ | | c-folic acid | daily. | | | | | e | | (NEPHRO-VANESSA) 0.8 MG | | | | | | | | TABS tablet | | | | | | | + + +---------+---------+------+------+-------+ | insulin aspart | Inject up to 100 | 90 mL | 3 | 05/0 | | Activ | | (NOVOLOG FLEXPEN) | units over the day, | | | 4/20 | | e | | 100 UNIT/ML | as directed; subq | | | 18 | | | | injection | | | | | | | + + +---------+---------+------+------+-------+ | insulin NPH | 70 units SC at night | 60 mL | 3 | 05/0 | | Activ | | (NOVOLIN N) 100 | | | | 4/20 | | e | | UNIT/ML injection | | | | 18 | | | + + +---------+---------+------+------+-------+ | Insulin | USE TO INJECT | 100 | 11 | 06/0 | | Activ | | Syringe-Needle U-100 | INSULIN DIRECTED | each | | 5/20 | | e | | (INSULIN SYRINGE | | | | 18 | | | | .3CC/31GX5/16") 31G | | | | | | | | X 5/16" 0.3 ML MISC | | | | | | | + + +---------+---------+------+------+-------+ | TRUE METRIX BLOOD | USE TO TEST BLOOD | 400 | 3 | 06/0 | | Activ | | GLUCOSE TEST test | GLUCOSE IN THE | each | | 5/20 | | e | | strip | MORNING, BEFORE | | | 18 | | | | | MEALS, AND AT | | | | | | | | BEDTIME | | | | | | + + +---------+---------+------+------+-------+ | B-D ULTRAFINE III | USE TO INJECT | 600 | 3 | 06/0 | | Activ | | SHORT PEN 31G X 8 MM | INSULIN 6 TIMES | each | | 5/20 | | e | | | DAILY | | | 18 | | | + + +---------+---------+------+------+-------+ | B complex-vitamin | TAKE 1 TABLET BY | 90 | 3 | / | | Activ | | C-folic acid | MOUTH EVERY DAY | tablet | | 04/12 | | e | | (NEPHRO-VANESSA) 1 MG | | | | 18 | | | | tablet | | | | | | | + + +---------+---------+------+------+-------+ | BASAGLAR BHAVYAIKPEN | INJECT 36 UNITS | 30 mL | 5 | 01/2 | | Activ | | 100 UNIT/ML | UNDER THE SKIN EVERY | | | 8/20 | | e | | injection | NIGHT | | | 19 | | | + + +---------+---------+------+------+-------+ Active Problems + + + | Problem | Noted Date | + + + | Kidney replaced by transplant | 12/06/2018 | + + + | Immunosuppression (HCC) | 12/06/2018 | + + + | Fever and chills | 12/06/2018 | + + + | Diabetic nephropathy associated with type 2 diabetes mellitus | 04/06/2015 | | (HCC) | | + + + | Vitamin D deficiency | 02/10/2014 | + + + | Iron deficiency | 02/10/2014 | + + + | Nephrotic range proteinuria | 01/29/2014 | + + + | Anemia of chronic renal failure, stage 5 (HCC) | 01/29/2014 | + + + | Hypothyroidism | 01/29/2014 | + + + | CAD (coronary artery disease) | 01/29/2014 | + + + + + | Patience: Lacho/Jacky KNIGHT in 10/2010. | + + + + + | Diabetic retinopathy (HCC) | 01/29/2014 | + + + | Cataracts, bilateral | 01/29/2014 | + + + | Diabetes mellitus type II, uncontrolled | 01/20/2014 | + + + | Essential hypertension, benign | 01/20/2014 | + + + | Hyperlipidemia with target LDL less than 70 | 01/20/2014 | + + + | Retinopathy | 01/20/2014 | + + + | CKD (chronic kidney disease), stage V | 01/20/2014 | + + + | Diabetic neuropathy (HCC) | 01/20/2014 | + + + Encounters +--------+ + + + + | Date | Type | Specialty | Care Team | Description | +--------+ + + + + | 12/10/ | Telephone | | Uri, | | | 2018 | | | LENIN Kaur | | +--------+ + + + + | 12/07/ | Telephone | | Uri, | | | 2018 | | | LENIN Kaur | | +--------+ + + + + | 12/06/ | Telephone | | Viktoria Mancini | Other (Lab orders) | | 2018 | | | DINORAH King | | +--------+ + + + + | 12/06/ | Orders Only | | Sherman Chambers MD | Kidney replaced by | | 2018 | | | | transplant; | | | | | | Immunosuppression | | | | | | ([facility]); Fever and | | | | | | chills | +--------+ + + + + | 12/06/ | Telephone | | Maryjane Palacios | | | 2018 | | | AMANDA | | +--------+ + + + + | 11/28/ | Documentati | | Sherman Chambers MD | Other (11/28/18 | | 2019 | on Only | | | [facility] | | | | | | transplant notes, | | | | | | labs) | +--------+ + + + + | 11/28/ | Documentati | | Sherman Chambers MD | Other (11/28/18 | | 2018 | on Only | | | [facility] | | | | | | Tranplant notes) | +--------+ + + + + | 11/27/ | Telephone | | Maryjane Palacios, | Other (Scheduling) | | 2019 | | | ROLL SLICING MACHINE TENDER | | +--------+ + + + + | 09/18/ | Documentati | | Maria Teresa | Care Coordination | | 2019 | on Only | | AMANDA Dupont | ([facility] | | | | | | [facility] | | | | | | Intermediate Care | | | | | | Unit - 09/18/18 - | | | | | | Discharge Summary | | | | | | notes - | | | | | | Quoc/Emely) | +--------+ + + + + | 09/17/ | Documentati | | Maria Teresa, | Other ([facility] lab | | 2018 | on Only | | AMANDA Dupont | services - Surgical | | | | | | Pathology Report - | | | | | | 09/14/18 - | | | | | | Quoc/emely); Other | | | | | | [facility] | | | | | | services - Pathology | | | | | | addendum Report - | | | | | | 09/14/18 - emely) | +--------+ + + + + | 09/14/ | Telephone | | Viktoria Mancini | Other (Kidney | | 2018 | | | DINORAH Kign | transplant received | | | | | | on 09/14/18) | +--------+ + + + + from Last 3 Months Family History + + +------+ + | Medical History | Relation | Name | Comments | + + +------+ + | Heart disease | Father | | | + + +------+ + | Cancer | Maternal | | | | | Grandmoth | | | | | er | | | + + +------+ + | Stroke | Mother | | | + + +------+ + | Heart disease | Paternal | | | | | Aunt | | | + + +------+ + | Diabetes type II | Paternal | | | | | Grandmoth | | | | | er | | | + + +------+ + | Heart disease | Paternal | | | | | Uncle | | | + + +------+ + | Malig hypertherm | Neg Hx | | | + + +------+ + + +------+--------+ + | Relation | Name | Status | Comments | + +------+--------+ + | Father | | | | + +------+--------+ + | Maternal Grandmother | | | | + +------+--------+ + | Mother | | | | + +------+--------+ + | Paternal Aunt | | | | + +------+--------+ + | Paternal Grandmother | | | | + +------+--------+ + | Paternal Uncle | | | | + +------+--------+ + Social History + +-------+ +--------+ + [...] on file | | + + + Last Filed Vital Signs + + + + | Vital Sign | Reading | Time Taken | + + + + | Blood Pressure | 132/72 | 11/24/2017 3:51 PM PDT | + + + + | Pulse | 71 | 11/24/2017 3:51 PM PDT | + + + + | Temperature | 36.9 C (98.5 F) | 05/12/2017 1:49 PM PDT | + + + + | Respiratory Rate | 15 | 03/01/2016 8:50 AM PDT | + + + + | Oxygen Saturation | 99% | 11/24/2017 3:51 PM PDT | + + + + | Inhaled Oxygen | - | - | | Concentration | | | + + + + | Weight | 87 kg (191 lb 11.2 | 11/24/2017 3:51 PM PDT | | | oz) | | + + + + | Height | 162.6 cm (5' 4") | 05/12/2017 1:49 PM PDT | + + + + | Body Mass Index | 32.91 | 11/24/2017 3:51 PM PDT | + + + + Plan of Treatment +--------+---------+ + + + | Date | Type | Specialty | Care Team | Description | +--------+---------+ + + + | 12/27/ | Office | | Ben Ochoa, | | | 2018 | Visit | | MD Claudine RAHMAN | | | | | | [address] | | | | | | [place] [address] | | | | | | [phone] | | | | | | | | +--------+---------+ + + + + + + + + | Health Maintenance | Due Date | Last Done | Comments | + + + + + | Diabetic Eye Exam | | | | | | 9 | | | + + + + + | Diabetic Foot Exam | | | | | | 9 | | | + + + + + | Cervical Cancer | | | | | Screening (Pap) | 9 | | | + + + + + | Breast Cancer | | | | | Screening | 9 | | | | (Mammogram) | | | | + + + + + | Colon Cancer | | | | | Screening | 9 | | | | (Colonoscopy) | | | | + + + + + | Hemoglobin A1c | | 04/27/2017, 08/06/2015, | | | | 8 | 01/29/2011, Additional history | | | | | exists | | + + + + + | Vaccine: Influenza | | 04/26/2016, 04/11/2016, | | | (Season Ended) | 9 | 04/27/2015, Additional history | | | | | [...] + + + + + Implants + +------+------+ +--------+--------+--------+ | Implanted | Type | Area | Manufacture | Device | Expira | Model | | | | | r | | tion | / | | | | | | Identi | Date | Serial | | | | | | fier | | / Lot | + +------+------+ +--------+--------+--------+ | Esperanza West Perit 14fr 57cm | | | COVIDIEN | | 12/01/ | [id number] | | - SnaImplanted: Qty: 1 on | | | -BO 867 - | | 2019 | [id number] | | 03/01/2016 by Erich Fritz MD | | | [place] | | | /[id number] | | | | | | | | [id number] | | | | | | | | /[id number] | | | | | | | | [id number] | + +------+------+ +--------+--------+--------+ Results Not on filefrom Last 3 Months Insurance + +--------+ +------+-------+ + | Payer | Benefi | Subscriber | Type | Phone | Address | | | t Plan | ID | | | | | | / | | | | | | | Group | | | | | + +--------+ +------+-------+ + | MEDICARE | MEDICA | [id number] | | | [address] | | | RE | | | | [place] [phone] | | | IP-OP | | | | | + +--------+ +------+-------+ + + +--------+ +--------+ + + | Guarantor Name | Accoun | Relation to | Date | Phone | Billing Address | | | t Type | Patient | of | | | | | | | | | | + +--------+ +--------+ + + | JOYCE CAMP | Person | Self [birth year] | Home: | [address] | | | al/Fam | | 1960 | [phone] | [place] | | | [place] | | | [phone] | [phone] | + +--------+ +--------+ + +
--- OUTSIDE RECORDS SUMMARY | ~2018-12-11 | XMS | Encounter Summary ---
Demographics + + + | Address | [address] | | | [place] [address] | + + + | Home Phone [...] + + + | Author | [facility] | + + + | Organization | [facility] | + + + | Address | Unknown | + + + | Phone | Unavailable | + + + Support + + +---------+ + | Name | Relationship | Address | Phone | + + +---------+ + | [place] | ECON | Unknown | | + + +---------+ + Care Team Providers + +------+ + | Care Fireman Helper Name | Role | Phone | + +------+ + | Rohan Wilkes DO | PCP | | + +------+ + Encounter Details +--------+ + + + + | Date | Type | Department | Care Team | Description | +--------+ + + + + | 01/02/ | Pharmacy | [facility] | | | | 2013 | Visit | [address] | | | | | | [address] | | | | | | [place], [place] | | | | | | [address] | | | | | | [phone] | | | +--------+ + + + [...] | | | | | | [place], [place] | | | | | | [address] | | | | | | [phone] | | | | | | | | +--------+---------+ + + + documented as of this encounter Visit Diagnoses Not on filedocumented in this encounter
--- OUTSIDE RECORDS SUMMARY | ~2018-12-11 | XMS | Encounter Summary ---
Demographics + + + | Address | [address] | | | [place] [address] | + + + | Home Phone [...] + + + | Author | [place] [facility] | + + + | Organization | [facility] [...] Team Providers + +------+ + | Care Chemistry Lab Instructor Name | Role | Phone | + +------+ + | Naedem Caruso | PCP | | + +------+ + Reason for Visit +---------+ + | Reason | Comments | +---------+ + | Post Op | | +---------+ + Encounter Details +--------+---------+ + + + | Date | Type | Department | Care Team | Description | +--------+---------+ + + + | 01/03/ | Office | [facility] | Susan Chau MD | PDR (proliferative | | 2014 | Visit | [facility] | [address] | diabetic | | | | [facility] [address] [place], [place] | retinopathy) ([facility]) | | | | [address] | [address] | (Primary Dx); DME | | | | Mailcode: CE[facility] | [phone] | (diabetic macular | | | | [place], [place] | | edema) ([facility]); | | | | [address] | | Vitreous hemorrhage | | | | [phone] | | ([facility]); Retinal | | | | | | detachment, | | | | | | tractional, both | | | | | | eyes | +--------+---------+ + + + Social History [...] encounter Progress Notes Susan Chau MD - 01/03/2014 7:53 AM PDTFormatting of this note might be different from melvin rachel. Retina Division Progress Note 01/03/2014 CC: Post Op POD# 1 s/p 23gPPV/MP/EL/FAx/1000cstk Shaunna oil OD for francois-jaw tractional detachment and v itreous hemorrhage HPI: Joyce Arnold is a 53 y.o. female, last seen on 12/06/13 at 10:00 am Slept ok last night. Pain improved with meds. Managed to maintain the face down position l ast night. Pain:Patient had pain 3 of 10. This was transient and decreased significantly without treat ment. PMH: No recent hospitalizations, ER visits, or surgeries POH: DME -Avastin OU initiated 01/01/14 PDR [...] once daily. SYRING W-NDL,DISP,INSUL,0.5ML (INSULIN SYRINGE MISC) Initial hx, allergies, meds, Va, IOP and above exam elements reviewed / performed by CAROLYN PARRY MD See Ophthalmology Module for Examination Diagnostics Ordered Right Left OCT --- --- FA --- --- FUNDUS --- --- Others IMPRESSION: 53 y.o. female with Ophthalmologic Problems 1. Proliferative diabetic retinopathy with extramacular TRDs OU - previously untreated OD - nicolettejaw TRD threatening macula and VH POD# 1 s/p 23g PPV/MP/EL/FAx/1000cstSO OD and small amount of PRP OS with preop avastin OU (d-1) - doing well, retina attached OS - inferotemporal TRD with VH (less than OD) S/p partial PRP 01/02/14 2. Clinically significant diabetic macular edema OU - s/p Avastin x 1 OU 01/01/14 PLAN: Ofloxacin qid; Pred Acetate qid; Atropine bid to operative eye Use shield at night time for 1 week; Do not bend over, strain, or lift > 20lbs x 2 weeks Call for decreased vision, increased distortion, increased pain, new floaters or flashing l ights RTC in 1w NEXT VISIT: DILATE OU, OCT OD, Bscan OS, please remove bandage contact Lens OD I reviewed all components above, made necessary revisions and performed critical portions o f the history and examination. SUSAN CHAU MD documented in this encoun ter Plan of Treatment +--------+---------+ + + + | Date | Type | Specialty | Care Team | Description | +--------+---------+ + + + | 01/30/ | Office | Ophthalmology | Susan Chau MD | | | 2018 | Visit | | [address] | | | | | | [place], [place] | | | | | | [address] | | | | | | [phone] | | | | | | | | +--------+---------+ + + + documented as of this encounter Visit Diagnoses + + | Diagnosis | + + | PDR (proliferative diabetic retinopathy) (HCC) - Primary Type II or unspecified type | | diabetes mellitus with ophthalmic manifestations, not stated as uncontrolled | + + | DME (diabetic macular edema) | + + | Vitreous hemorrhage (HCC) Vitreous hemorrhage | + + | Retinal detachment, tractional, both eyes Traction detachment of retina | + + documented in this encounter
--- OUTSIDE RECORDS SUMMARY | ~2018-12-11 | XMS | Encounter Summary ---
Demographics + + + | Address | [address] | | | [place] [address] | + + + | Home Phone | | + + + | Preferred Language | Unknown | + + + | Marital Status | Single | + + + | Congregation Affiliation | NRP | + + + | Race | or Other | + + + | Ethnic Group | Not or | + + + Author + + + | Author | [place] [facility] | + + + | Organization | [facility] [employer] [facility] | + + + | Address | Unknown | + + + | Phone | Unavailable | + + + Support + + +---------+ + | Name | Relationship | Address | Phone | + + +---------+ + | Geraldine Parker | ECON | Unknown | | + + +---------+ + Care Team Providers + +------+ + | Care Distribution Center Supervisor Name | Role | Phone | + +------+ + | Nadeem Caruso | PCP | | + +------+ + Encounter Details +--------+ + + + + | Date | Type | Department | Care Team | Description | +--------+ + + + + | 03/14/ | Document-Sc | UNKNOWN DEPARTMENT | Unknown . | | | 2013 | anned | [address] [facility] | | | | | | [facility] | | | | | | [place], [place] | | | | | | [address] | | | +--------+ + + + [...] | | | | | | [place], [place] | | | | | | [address] | | | | | | [phone] | | | | | | | | +--------+---------+ + + + documented as of this encounter Visit Diagnoses Not on filedocumented in this encounter
--- OUTSIDE RECORDS SUMMARY | ~2018-12-11 | XMS | Encounter Summary ---
Demographics + + + | Address | [address] | | | [place] [address] | + + + | Home Phone [...] + + + | Author | [place] [facility] | + + + | Organization | [facility] [employer] [facility] | + + + | Address | Unknown | + + + | Phone | Unavailable | + + + Support + + +---------+ + | Name | Relationship | Address | Phone | + + +---------+ + | Geraldine Canales | ECON | Unknown | | + + +---------+ + Care Team Providers + +------+ + | Care Jewelry Sales Name | Role | Phone | + [...] | | | | | | | [address] | | | | | [address] | | | | | | | [place] | | | | | | | [place], [place] | | | | | | | [address] | | | | | | | Phone: | | | | | | | [phone] | | | | | | | Fax: | | | | | | | [phone] | +--------+--------+ + + + + Encounter Details +--------+---------+ + + + | Date | Type | Department | Care Team | Description | +--------+---------+ + + + | 06/27/ | Office | [facility] | Susan Chau MD | Macular edema, | | 2013 | Visit | [facility] at | [address] | diabetic, type 2, | | | | [facility] [address] [place], [place] | with proliferative | | | | [address] | [address] | retinopathy [250.50, | | | | Mailcode: [facility] | [phone] | 362.02, 362.07] | | | | [place], [place] | | (Primary Dx) | | | | [address] | | | | | | [phone] | | | +--------+---------+ + + + [...] Patient Instructions Patient Instructions Akash Guzman - 06/27/2014 10:46 AM PST Care Instructions After Eye Injection: Do not rub or touch your eyes. Redness in the corner of the eye is okay. Use Artificial tears every hour for BOTH EYES as needed for gritty sensation over the ne xt 2-3 days. If you experience increased pain or decreased vision, immediately call [phone].Elec tronically signed by Akash Guzman at 06/27/2014 10:46 AM PST documented in this encounter Progress Notes Akash Guzman - 06/27/2014 10:46 AM PST Intravitreal Injection Procedure Note 06/27/2014 for: AVASTIN, BOTH EYES LOT # and Expiration RIGHT EYE: [id number] - 14C exp 07/08/14 LOT # and Expiration LEFT EYE: [id number] - 11C exp 07/08/14 Attending: Susan Chau MD Diagnosis: Macular edema, [...] PARQ held for above. Team Pause: At 10:45 AM, prior to the beginning of the procedure, the team paused to verify the patient s identity, the procedure to be performed (in accordance with the consent,) a nd the correct side/site. The patient was positioned appropriately. All relevant images and results were properly labeled and displayed. We addressed antibiotic prophylaxis and fluids for irrigation as applicable to this patient. Any [...] performed the entire procedure.Electronically sig chris by Akash Guzman at 06/28/2014 3:46 PM Susan Meyers MD - 06/27/2014 9:34 AM Evelyn cabrera of this note might be different from the original. [facility] Progress Note 06/27/2014 CC: Postoperative visit Initial History: Stable. Last 3 ambulatory procedures on record: Procedure: avastin OD (05/16/14 1333) Procedure: Kenalog both eyes (02/28/14 1047) Procedure: Avasti OU (01/01/14 1454) HPI: Joyce Arnold is a 54 y.o. female Last visit: 06/06/14 at 8:45 am Doing well. Vision improved. Pain:No pain (0 of 0-10) POH: PPV/SO removal PHACO IOL OS 06/05/14 PPV/SO removal PC IOL OD 05/08/14 PPV/MP/EL, silicone oil left eye 02/13/2014 01/09/14 PPV/MP/EL/FAx/1000cstSO OD and small amount of PRP OS with preop avastin OU DME -Avastin OU initiated 01/01/14 PDR OU Current Outpatient Prescriptions (Ophthalmic Medications) Medication Sig atropine Instill 1 drop into the left eye two times daily. erythromycin Place 1 [...] Diagnostics Ordered Right Left OCT CMT (OD):: 404 (06/27/14 0900) CMT (OD):: 298 (04/16/14 1000) + IRF Worse CMT (OS):: 413 (06/27/14 0900) CMT (OS):: 374 (04/16/14 1000) + IRF Worse FA --- --- FUNDUS --- --- Others IMPRESSION: 54 y.o. female with Type 2 DM and the following Ophthalmologic Problems 1. POW # 3 PPV/Silicone oil removal/PHACO/IOL OS 06/05/14 - doing well, IOP good, epi defect resolved, retina attached, IOL looks good, vision improv ed 2. POM#2 s/p CE/IOL/SOR OD for retained silicone oil and nuclear cataract 05/08/2014 - s/p 23g PPV/MP/EL/FAx/1000cstSO OD 01/02/14, oil placed because of altitutde - for francois jaw TRD, VH, PDR - doing well, IOL well-centered, retina attached and stable with regressed PDR , vision imp roved 3. 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 PDR (proliferative diabetic retinopathy) [701285] - s/p EL PRP OU, regressed OU - vision started out at CF in both eyes due to VH and TRDs OU, now PH to 20/50 OD and 20/70 OS 5. DME (diabetic macular edema) [705706] OU - s/p Avastin OD on 05/16/14 - s/p PSTK OU in the past also - slightly worse today OU PLAN: PARQ held for Avastin OU, given without complication OU Ofloxacin and prednisolone per Dr. Sheldon, stop atropine Call for decreased vision, increased distortion, increased pain, new floaters or flashing l ights Follow up: 4 weeks, schedule for appointment with [facility] on the same day for MRx for new eyegl asses NEXT VISIT: DILATE OU, OCT OU Attestations: The ct scan technician, under the supervision of the physician, [...] | | | | | | [place], [place] | | | | | | [address] | | | | | | [phone] | | | | | | | | +--------+---------+ + + + + + +--------+ + + | Name | Type | Priori | Associated Diagnoses | Order Schedule | | | | ty | | | + + +--------+ + + | CMPTR OPHTH DX IMG | Procedures | Routin | Macular edema, | Expected: 06/26/2014 | | POST SEGMT | | e [...] | + +--------+ + + + | [facility] | Routin | 06/27/2014 | Macular edema, | | | CHARGE | e | 10:46 AM | diabetic, type 2, | | | | | PST | with proliferative | | | | | | retinopathy [250.50, | | | | | | 362.02, 362.07] | | + +--------+ + + + | [facility], | Routin | 06/27/2014 | Macular edema, | | | AVASTIN | e | 10:46 AM | diabetic, type 2, | | | [...]
--- OUTSIDE RECORDS SUMMARY | ~2018-12-11 | XMS | Encounter Summary ---
Demographics + + + | Address | [address] | | | [place] [address] | + + + | Home Phone | | + + + | Preferred Language | Unknown | + + + | Marital Status | Single | + + + | Religion Affiliation | NRP | + + + | Race | or Other | + + + | Ethnic Group | Not or | + + + Author + + + | Author | [place] [employer] [facility] | + + + | Organization | [facility] [facility] | + + + | Address | Unknown | + + + | Phone | Unavailable | + + + Support + + +---------+ + | Name | Relationship | Address | Phone | + + +---------+ + | Geraldine Canales | ECON | Unknown | | + + +---------+ + Care Team Providers + +------+ + | Care Manager Database Administration Name | Role | Phone | + [...] | +--------+ + + + + | 02/14/ | Diagnostic | [facility] | | Eye examination | | 2013 | Visit | [facility] | | | | | | [facility] at | | | | | | [place] [address] | | | | | | [address] | | | | | | Mailcode: [place] | | | | | | [place], [place] | | | | | | [address] | | | | | | [phone] | | | +--------+ + + + [...] of this encounter Progress Alexey Hutchinson - 02/14/2014 10:44 AM PDT Joyce Arnold was seen in the [facility] today, 02/14/2014, for ultrasound. The B-scan of the left eye shows an approximate 75% gas fill. Probable sub-retinal fluid no lewis both inferotemporal and inferonasal extending posteriorly into the mid-periphery. Unable to assess the status of the macula due to the gas bubble. This is a Preliminary Report. It is [...] | | | | | | [place], [place] | | | | | | [address] | | | | | | [phone] | | | | | | | [...]
--- OUTSIDE RECORDS SUMMARY | ~2018-12-11 | XMS | Encounter Summary ---
Demographics + + + | Address | [address] | | | [place] [address] | + + + | Home Phone | | + + + | Preferred Language | Unknown | + + + | Marital Status | Single | + + + | Restorationist Affiliation | NRP | + + + | Race | or Other | + + + | Ethnic Group | Not or | + + + Author + + + | Author | [place] [facility] [facility] | + + + | Organization | [facility] [employer] [facility] | + + [...] Providers + +------+ + | Care Metal Finish Inspector Name | Role | Phone | + +------+ + | Rohan Wilkes DO | PCP | | + +------+ + Encounter Details +--------+ + + + + | Date | Type | Department | Care Team | Description | +--------+ + + + + | 02/13/ | Pharmacy | [facility] | | | | 2013 | Visit | [address] | | | | | [address] | | | | | | [place], [place] | | | | | | [address] | | | | | | [phone] | | | +--------+ + + + [...] | | | | | | [place], [place] | | | | | | [address] | | | | | | [phone] | | | | | | | | +--------+---------+ + + + documented as of this encounter Visit Diagnoses Not on filedocumented in this encounter
--- OUTSIDE RECORDS SUMMARY | ~2018-12-11 | XMS | Encounter Summary ---
Demographics + + + | Address | [address] | | | [place] [address] | + + + | Home Phone [...] + + + | Author | [place] [facility] [employer] [facility] | + + + | Organization | [facility] [employer] [facility] | + + + | Address | Unknown | + + + | Phone | Unavailable | + + + Support + + +---------+ + | Name | Relationship | Address | Phone | + + +---------+ + | Geraldine Parker | ECON | Unknown | | + + +---------+ + Care Team Providers + +------+ + | Care Energy Project Manager Name | Role | Phone | + +------+ + | Rohan Wilkes DO | PCP | | + +------+ + Encounter Details +--------+ + + + + | Date | Type | Department | Care Team | Description | +--------+ + + + + | 05/21/ | Outside | Pulmonary Function | [place], | | | 2014 | Referral | Lab at [facility] [address] | Elizabeth Lee MD | | | | Order | [address] | | | | | | Road Mailcode: | | | | | | [address] | | | | | | [address] | | | | | | [place], [place] | | | | | | [address] | | | | | | [phone] | | | +--------+ + + + [...] | | | | | | [place], [place] | | | | | | [address] | | | | | | [phone] | | | | | | | | +--------+---------+ + + + documented as of this encounter Visit Diagnoses + + | Diagnosis | + + | LAKE (dyspnea on exertion) - Primary Other dyspnea and respiratory abnormality | + + documented in this encounter
--- OUTSIDE RECORDS SUMMARY | ~2018-12-11 | XMS | Encounter Summary ---
Demographics + + + | Address | [address] | | | [place] [address] | + + + | Home Phone [...] + + + | Author | [place] [employer] [facility] | + + + | Organization | [facility] [employer] [facility] | + + + | Address | Unknown | + + + | Phone | Unavailable | + + + Support + + +---------+ + | Name | Relationship | Address | Phone | + + +---------+ + | Geraldine Parker | ECON | Unknown | | + + +---------+ + Care Team Providers + +------+ + | Care Leasing Representative Name | Role | Phone | + [...] | | | [address] | [place], [place] | | | | | [facility], | [address] | | | | | [place] [address] | [phone] | | | | | | | [...] | | 2019 | Visit | | [address] | | | | | | [place], [place] | | | | | | [address] | | | | | | [phone] | | | | | | | [...] JAVED | [address] | [place], [place] | | | [facility] | [address] | [address] | | | TESTS | | | [...] [facility] | [address] | [place], [place] | | | [facility] | [place] | [address] | | | TESTS | | | [...]
--- OUTSIDE RECORDS SUMMARY | ~2018-12-11 | XMS | Encounter Summary ---
Demographics + + + | Address | [address] | | | [place] [address] | + + + | Home Phone [...] + + | Author | [place] [employer] [facility] | + + + | Organization | [facility] [employer] [facility] | + [...] Team Providers + +------+ + | Care Duct Layer Helper Name | Role | Phone | + +------+ + | Nadeem Caruso | PCP | | + +------+ + Encounter Details +--------+ + + + + | Date | Type | Department | Care Team | Description | +--------+ + + + + | 02/14/ | Results/Int | [facility] | Meng Stone | Retinal detachment, | | 2013 | erpretation | [facility] | Lewis Mooney MD [address] | tractional, both | | | | [facility] [address] | eyes (Primary Dx) | | | | [address] | [place], [place] | | | | | Mailcode: [place] | [address] | | | | | [place], [place] | [phone] | | | | | [address] | | | | | | [phone] | | | +--------+ + + + [...] this encounter Progress Alexey Hutchinson - 02/14/2014 10:46 AM PDT Joyce Arnold was seen in the [facility] Department today, 02/14/2014, for ultrasound. The [...] based on my assessment. MENG STONE MD nal documented in this encounter Plan of Treatment +--------+---------+ + + + | Date | Type | Specialty | Care Team | Description | +--------+---------+ + + + | 01/30/ | Office | Ophthalmology | Susan Andrews MD | | | 2019 | Visit | | [address] | | | | | | [place], [place] | | | | | | [address] | | | | | | [phone] | | | | | | | | +--------+---------+ + + + documented as of this encounter Visit Diagnoses + + | Diagnosis | + + | Retinal detachment, tractional, both eyes - Primary Traction detachment of retina | + + documented in this encounter
--- OUTSIDE RECORDS SUMMARY | ~2018-12-11 | XMS | Encounter Summary ---
Demographics + + + | Address | [address] | | | [place] [address] | + + + | Home Phone [...] + + + | Author | [place] [employer] [facility] | + + + | Organization | [facility] | + + + | Address | Unknown | + + + | Phone | Unavailable | + + + Support + + +---------+ + | Name | Relationship | Address | Phone | + + +---------+ + | Geraldine Parker | ECON | Unknown | | + + +---------+ + Care Team Providers + +------+ + | Care Oxygen Therapy Technician Name | Role | Phone | + +------+ + | Rohan Wilkes DO | PCP | | + +------+ + Encounter Details +--------+ + + + + | Date | Type | Department | Care Team | Description | +--------+ + + + + | 05/08/ | Pharmacy | [facility] | | | | 2013 | Visit | [address] | | | [address] | | | | | | [place], [place] | | | | | | [address] | | | | | | [phone] | | | +--------+ + + + [...] | | | | | | [place], [place] | | | | | | [address] | | | | | | [phone] | | | | | | | | +--------+---------+ + + + documented as of this encounter Visit Diagnoses Not on filedocumented in this encounter
--- OUTSIDE RECORDS SUMMARY | ~2018-12-11 | XMS | Encounter Summary ---
Demographics + + + | Address | [address] | | | [place] [address] | + + + | Home Phone | | + + + | Preferred Language | Unknown | + + + | Marital Status | Single | + + + | Yazidi Affiliation | NRP | + + + | Race | or Other | + + + | Ethnic Group | Not or | + + + Author + + + | Author | [place] [employer] [facility] | + + + | Organization | [facility] [employer] [facility] | + + + | Address | Unknown | + + + | Phone | Unavailable | + + + Support + + +---------+ + | Name | Relationship | Address | Phone | + + +---------+ + | Geraldine Parker | ECON | Unknown | | + + +---------+ + Care Team Providers + +------+ + | Care Quality Control Operator Name | Role | Phone | [...] [address] | | | | | | [facility] | | | | | | [place], [place] | | | | | | [address] | | | +--------+ + + + [...] | | | | | | [place], [place] | | | | | | [address] | | | | | | [phone] | | | | | | | [...] + + | [facility] - | [address] | [place] [address] | | | IMMUNOGENETICS/TRANS | [address] [...] + + | [facility] - | [address] | [place] [address] | | | IMMUNOGENETICS/TRANS | [address] [...] [facility] - | [address] | [place] [address] | | | IMMUNOGENETICS/TRANS | [address] [...] + + + | [facility] - | [address] | [place] [address] | | | IMMUNOGENETICS/TRANS | [address] | | | | [facility] | | | | + + + + + documented in this encounter Visit Diagnoses Not on filedocumented in this encounter
--- OUTSIDE RECORDS SUMMARY | ~2018-12-11 | XMS | Encounter Summary ---
Demographics + + + | Address | [address] | | | [place] [address] | + + + | Home Phone | | + + + | Preferred Language | Unknown | + + + | Marital Status | Single | + + + | Synagogue Affiliation | NRP | + + + | Race | or Other | + + + | Ethnic Group | Not or | + + + Author + + + | Author | [place] [employer] [facility] | + + + | Organization | [facility] [employer] [facility] | + + + | Address | Unknown | + + + | Phone | Unavailable | + + + Support + + +---------+ + | Name | Relationship | Address | Phone | + + +---------+ + | Geraldine Parker | ECON | Unknown | | + + +---------+ + Care Team Providers + +------+ + | Care Coke Oven Patcher Name | Role | Phone | + [...] | +--------+ + + + + | 02/04/ | Diagnostic | [facility] | | OCT - Macula (OU) | | 2016 | Visit | [place] | | | | | | Photography at | | | | | | [place] [address] | | | | | | [address] | | | | | | Mailcode: [address] | | | | | | [place], [place] | | | | | | [address] | | | | | | [phone] | | | +--------+ + + + [...] + + documented as of this encounter Raghavendra Brewster - 02/05/2016 4:28 PM PDTThe interpretation for the following study: Apr - can be found on physician encounter on 02/05/2016. documented in this e ncounter Plan of Treatment +--------+---------+ + + + | Date | Type | Specialty | Care Team | Description | +--------+---------+ + + + | 01/30/ | Office | Ophthalmology | Susan Andrews MD | | | 2019 | Visit | | [address] | | | | | | [address] [place], [place] | | | | | | [address] | | | | | | [phone] | | | | | | | | +--------+---------+ + + + documented as of this encounter Visit Diagnoses + + | Diagnosis | + + | Proliferative diabetic retinopathy with macular edema associated with type 2 diabetes | | mellitus (HCC) | + + documented in this encounter
--- OUTSIDE RECORDS SUMMARY | ~2018-12-11 | XMS | Encounter Summary ---
Demographics + + + | Address | [address] | | | [place] [address] | + + + | Home Phone [...] + + + | Author | [place] [employer] [facility] | + + + | Organization | [facility] [employer] [facility] | + + + | Address | Unknown | + + + | Phone | Unavailable | + + + Support + + +---------+ + | Name | Relationship | Address | Phone | + + +---------+ + | Cordova Parker | ECON | Unknown | | + + +---------+ + Care Team Providers + +------+ + | Care Junior Net Developer Name | Role | Phone | [...] | | | | | | | [address] | | | | | | | [address] | | | | | | | [place] | | | | | | | [place], [place] | | | | | | | [address] | | | | | | | Phone: | | | | | | | [phone] | | | | | | | Fax: | | | | | | | [phone] | +--------+--------+ + + + + Encounter Details +--------+---------+ + + + | Date | Type | Department | Care Team | Description | +--------+---------+ + + + | 09/01/ | Office | [facility] | Indira Chau MD | Proliferative | | 2018 | Visit | [facility] at | [address] | diabetic retinopathy | | | | [facility] [address] [facility], [place] | of both eyes with | | | | [address] | [address] | macular edema | | | | Mailcode: CEI | [phone] | associated with type | | | | [place], [place] | | 2 diabetes mellitus | | | | [address] | | ([facility]) (Primary Dx); | | | | [phone] | | Traction detachment | | | [...] AT [facility] Progress Note 09/01/2017 CC: Follow-up visit Initial History: Vision seems to be getting worse, pt is planning to get new glasses Rx. BSL is stable, pt i s due for A1C check soon. Pt denies floaters or flashing lights. Gtt: none. Last 3 ambulatory procedures on record: Procedure: Ozurdex both eyes (08/21/15 5871) Procedure: Ozurdex both eyes (02/06/15 8675) Procedure: Ozurdex right eye (10/31/14 9243) HPI: Joyce Arnold is a 57 y.o. [...] preo p 3. PDR (proliferative diabetic retinopathy) [901668] - regressed OU after the above procedures - initial vision was CF OU 4. 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 | [...]
--- OUTSIDE RECORDS SUMMARY | ~2018-12-11 | XMS | Encounter Summary ---
Demographics + + + | Address | [address] | | | [place] [address] | + + + | Home Phone | | + + + | Preferred Language | Unknown | + + + | Marital Status | Single | + + + | Voodoo Affiliation | NRP | + + + | Race | or Other | + + + | Ethnic Group | Not or | + + + Author + + + | Author | [place] [employer] [facility] | + + + | Organization | [facility] [employer] [facility] | + + + | Address | Unknown | + + + | Phone | Unavailable | + + + Support + + +---------+ + | Name | Relationship | Address | Phone | + + +---------+ + | Loch Sheldrake Parker | ECON | Unknown | | + + +---------+ + Care Team Providers + +------+ + | Care Elevators Inspector Name | Role | Phone | [...] | +--------+ + + + + | 08/21/ | Diagnostic | [facility] | | OCT - Macula (ou) | | 2015 | Visit | [place] | | | | | | Photography at | | | | | | [place] [id number] | | | | | | [address] [place] | | | | | | Mailcode: [place] | | | | | | [place], [place] | | | | | | [address] | | | | | | [phone] | | | +--------+ + + + [...] as of this encounter Mayra Hood - 08/21/2015 4:27 PM PSTThe interpretation for the following study: Apr - yoli can be found on physician encounter on 08/21/2015. documented in this encounter Plan of Treatment +--------+---------+ + + + | Date | Type | Specialty | Care Team | Description | +--------+---------+ + + + | 01/30/ | Office | Ophthalmology | Susan Andrews MD | | | 2019 | Visit | | [address] | | | | | | [place], [place] | | | | | | [address] | | | | | | [phone] | | | | | | | | +--------+---------+ + + + documented as of this encounter Visit Diagnoses + + | Diagnosis | + + | Macular edema, diabetic (HCC) Type II or unspecified type diabetes mellitus with | | ophthalmic manifestations, not stated as uncontrolled | + + documented in this encounter
--- OUTSIDE RECORDS SUMMARY | ~2018-12-11 | XMS | Encounter Summary ---
Demographics + + + | Address | [address] | | | [place] [address] | + + + | Home Phone | | + + + | Preferred Language | Unknown | + + + | Marital Status | | + + + | Zoroastrian Affiliation | Unknown | + + + | Race | Unknown | + + + | Ethnic Group | Unknown | + + + Author + + + | Author | [employer] | + + + | Organization | [employer] | + + + | Address [...] Team Providers + +------+ + | Care Change Control Specialist Name | Role | Phone | [...] | on 09/14/18) | | | | [place] [address] | | | | | | [phone] | | | +--------+ + + + [...] | | | | | [place] [address] | | | | | | [phone] | | | | | | | | +--------+---------+ + + + as of this encounter Visit Diagnoses Not on filein this encounter"
--- OUTSIDE RECORDS SUMMARY | ~2018-12-11 | XMS | Encounter Summary ---
Demographics + + + | Address | [address] | | | [place] [address] | + + + | Home Phone [...] + + + | Author | [place] [employer] [facility] | + + + | Organization | [facility] [employer] [facility] | + + + | Address | Unknown | + + + | Phone | Unavailable | + + + Support + + +---------+ + | Name | Relationship | Address | Phone | + + +---------+ + | Etta Parker | ECON | Unknown | | + + +---------+ + Care Team Providers + +------+ + | Care Front Line Leader Name | Role | Phone | + [...] | Closed | | Ophthalmology | | Brennen, | Pito, | | | | | | Rich Souza MD | Anderson White MD | | | | | | [place] | [address] | [facility] | [address] | | | | | [address] | | | | | | [place] | [place] [employer], [place] | | | | | | [place] | [address] | | | | | | [place], | Phone: | | | | | | [place] [address] | [phone] | | | | | | Phone: | Fax: | | | | | | [phone] | [phone] | | | | | | Fax: | | | | | | | [phone] | | +--------+--------+ + + + + Encounter Details +--------+---------+ + + + | Date | Type | Department | Care Team | Description | +--------+---------+ + + + | 10/01/ | Office | [facility] | Anderson Sheldon, | Meibomian gland | | 2016 | Visit | [facility] | MD [address] | dysfunction (MGD) of | | | | [facility] [address] | upper and lower | | | | [address] | [place], [place] | lids of both eyes | | | | Mailcode: CEI | [address] | (Primary Dx); S/P | | | | [place], [place] | [phone] | bilateral cataract | | | | [address] | | extraction | | | | [phone] | | | +--------+---------+ + + + [...] documented as of this encounter Progress Notes Anderson Sheldon MD - 10/02/2015 1:00 PM PSTFormatting of this note might be different fr om the original. Cornea Division Progress Note 10/02/2015 Joyce Arnold is a 55 y.o. female who returns for follow up. Chief Complaint Patient presents with Follow-up visit Vision stable, no new changes or complaints. Pain: No pain score recorded ROS: Medications, allergies, medical, surgical and family [...] SYRING W-NDL,DISP,INSUL,0.5ML (INSULIN SYRINGE MISC) VITAMIN D2 All else unless noted was neg. (fever, wt. loss, ENT, cardiovascular, pulmonary, GI, urinar y, neurologic, endocrine, bleeding/blood disorders, AIDS/HIV, cancer/tumors, arthritis) Cosmetic Sales Consultant Attestation:Anni Antonio, performed, reviewed or revised the above history, med ications, allergies, as well as performed elements noted in the Base Ophthalmology Exam, vis ual acuity, pupils, EOMs, CVF and IOP. Examination: Base Exam Visual Acuity (Snellen - Linear) Right Left Dist cc 20/40+2 20/40-2 Dist ph cc NI NI Tonometry (Tonopen, 1:18 PM) Right Left Pressure 15 18 Dilation Both eyes: 2.5% Phenylephrine, 1.0% Mydriacyl @ 1:24 PM Pupils Pupils APD Right PERRL None Left PERRL None Neuro/Psych Oriented x3: Yes Mood/Affect: Normal Slit Lamp and Fundus Exam External Exam Right Left External Normal Normal Slit Lamp Exam Right Left Lids/Lashes Normal Normal Conjunctiva/Sclera White, scarring White, scarring Cornea All layers clear All layers clear Anterior Chamber Deep and quiet Deep and quiet Iris dilated dilated Lens PCIOL, centered in bag PCIOL centered in bag, small defect in center of lens - stable Vitreous avitric, few motile pigmented cells avitric IMPRESSION: 1. PCIOL OU -doing great -small stable defect in center of IOL, but no symptoms 2. MGD OU - mild with few symptoms Monitor 3. PDR OU - following with Retina PLAN: F/u as needed with me Anderson Sheldon MD Cornea/External Disease Refractive [facility] documented in this e ncounter Plan of Treatment +--------+---------+ + + + | Date | Type | Specialty | Care Team | Description | +--------+---------+ + + + | 01/30/ | Office | Ophthalmology | Susan Andrews MD | | | 2019 | Visit | | [address] | | | | | | [place], [place] | | | | | | [address] | | | | | | [phone] | | | | | | | | +--------+---------+ + + + documented as of this encounter Visit Diagnoses + + | Diagnosis | + + | Meibomian gland dysfunction (MGD) of upper and lower lids of both eyes - Primary | + + | S/P bilateral cataract extraction Cataract extraction status | + + documented in this encounter
--- OUTSIDE RECORDS SUMMARY | ~2018-12-11 | XMS | Encounter Summary ---
Demographics + + + | Address | [address] | | | [place] [address] | + + + | Home Phone | | + + + | Preferred Language | Unknown | + + + | Marital Status | Single | + + + | Rastafarian Affiliation | NRP | + + + | Race | or Other | + + + | Ethnic Group | Not or | + + + Author + + + | Author | [place] [employer] [facility] | + + + | Organization | [facility] [employer] [facility] | + [...] Team Providers + +------+ + | Care Nuclear Fuels Research Engineer Name | Role | Phone | + [...] [address] | | | | | | [place], [place] | | | | | | [address] | | | | | | [phone] | | | +--------+ + + + [...] | | | | | | [place], [place] | | | | | | [address] | | | | | | [phone] | | | | | | | | +--------+---------+ + + + documented as of this encounter Visit Diagnoses Not on filedocumented in this encounter
--- OUTSIDE RECORDS SUMMARY | ~2018-12-11 | XMS | Encounter Summary ---
Demographics + + + | Address | [address] | | | [place] [address] | + + + | Home Phone [...] + + + | Author | [place] [employer] [facility] | + + + | Organization | [facility] [employer] [facility] | + + + | Address | Unknown | + + + | Phone | Unavailable | + + + Support + + +---------+ + | Name | Relationship | Address | Phone | + + +---------+ + | Geraldine Parker | ECON | Unknown | | + + +---------+ + Care Team Providers + +------+ + | Care Laster Hand Name | Role | Phone | + [...] | | | [facility] | [place] [facility] [place] | PEEL, ENDO LASER, | | | | [facility], | [address] | AIR -LEFT *25G* | | | | [place] [address] | [phone] | | | | | | | [...] [place] | | | | | | [address] | | | | | | [phone] | | | | | | | [...] | | | | | | left ([facility]) | | | | | | Proliferative | | | | | | diabetic | | | | | | retinopathy(362.02) | | | | | | ([facility]) | | + +--------+ + + [...] [place] | [address] | [place], [place] | | | [facility] | [address] | [address] | | | TESTS | | | [...] - [place] | [address] | [place], [place] | | | [facility] | [facility] | [address] | | | TESTS | | | [...] [place] | [address] | [place], [place] | | | [facility] | [address] | [address] | | | TESTS | | | [...] [place] | [address] | [place], [place] | | | [facility] | [address] | [address] | | | TESTS | | | [...] | | | | | | Starting [facility] 02/13/14 at 0647, | | | | | | | Until [facility] 02/13/14 at 0650, | | | [...] 8:03 | | | | | Starting [facility] 02/13/14 at 0803, | | AM [...]
--- OUTSIDE RECORDS SUMMARY | ~2018-12-11 | XMS | Encounter Summary ---
Demographics + + + | Address | [address] | | | [place] [address] | + + + | Home Phone | | + + + | Preferred Language | Unknown | + + + | Marital Status | Single | + + + | Nondenominational Affiliation | NRP | + + + | Race | or Other | + + + | Ethnic Group | Not or | + + + Author + + + | Author | [place] [employer] [facility] | + + + | Organization | [facility] | + + + | Address | Unknown | + + + | Phone | Unavailable | + + + Support + + +---------+ + | Name | Relationship | Address | Phone | + + +---------+ + | Geraldine Parker | ECON | Unknown | | + + +---------+ + Care Team Providers + +------+ + | Care End Polisher Name | Role | Phone | + [...] | | | | | | | [place], [place] | | | | | | | [address] | | | | | | | Phone: | | | | | | | [phone] | | | | | | | Fax: | | | | | | | [phone] | +--------+--------+ + + + + Encounter Details +--------+---------+ + + + | Date | Type | Department | Care Team | Description | +--------+---------+ + + + | 02/04/ | Office | [facility] | Indira Chau MD | Proliferative | | 2016 | Visit | [facility] at | [address] | diabetic retinopathy | | | | [facility] [address] [place], [place] | with macular edema | | | | [address] | [address] | associated with type | | | | Mailcode: [facility] | [phone] | 2 diabetes mellitus | | | | [place], [place] | | ([facility]) (Primary Dx) | | | | [address] | | | | | | [phone] | | | +--------+---------+ + + + [...] might be different from the susy daly. [facility] Progress Note 02/05/2016 CC: Follow-up visit [...] on record: Procedure: Ozurdex both eyes (08/21/15 6035) Procedure: Ozurdex both eyes (02/06/15 5264) Procedure: Ozurdex right eye (10/31/14 1428) HPI: [...] vision great 3. PDR (proliferative diabetic retinopathy) [898044] - regressed OU after the above procedures - starting vision was CF OU 4. 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
--- OUTSIDE RECORDS SUMMARY | ~2018-12-11 | XMS | Encounter Summary ---
Demographics + + + | Address | [address] | | | [place] [address] | + + + | Home Phone | | + + + | Preferred Language | Unknown | + + + | Marital Status | | + + + | Scientologist Affiliation | Unknown | + + + | Race | Unknown | + + + | Ethnic Group | Unknown | + + + Author + + + | Author | [facility] [employer] | + + + | Organization | [facility] [employer] [facility] | + + + | Address [...] Providers + +------+ + | Care Technical Operations Specialist Name | Role | Phone | + +------+ + | Rohan Wilkes DO | PCP | | + +------+ + Encounter Details +--------+ + + + + | Date | Type | Department | Care Team | Description | +--------+ + + + + | 12/10/ | Telephone | [facility] | [place], | | | 2019 | | [address] | | | | | [address] | | | | | | [place] [address] | | | | | | [phone] | | | +--------+ + + + [...] PAUL | | | | | | [place] [address] | | | | | | [phone] | | | | | | | | +--------+---------+ + + + as of this encounter Visit Diagnoses Not on filein this encounter"
--- OUTSIDE RECORDS SUMMARY | ~2018-12-11 | XMS | Encounter Summary ---
Demographics + + + | Address | [address] | | | [place] [address] | + + + | Home Phone [...] + + + | Author | [place] [employer] [facility] | + + + | Organization | [facility] [employer] [facility] | + + + | Address | Unknown | + + + | Phone | Unavailable | + + + Support + + +---------+ + | Name | Relationship | Address | Phone | + + +---------+ + | Geraldine Parker | ECON | Unknown | | + + +---------+ + Care Team Providers + +------+ + | Care Sql Tech Name | Role | Phone | + [...] + + + + | 05/08/ | Anesthesia | [facility] | [place], | | | 2013 | Event | [address] | MANUFACTURING QUALITY ENGINEER [address] | | | | | [facility] | [address] | | | | | [facility], | [place], [place] | | | | | [place] [address] | [address] | | | | | | [phone] | | | | | | | | +--------+ + + + + Anesthesia Record + + + + + | Procedure Name | Responsible | Anesthesia Start | Anesthesia Stop Time | | | Anesthesiologist | Time | | + + + + + | 23G VITRECTOMY | Baldev Leo, | 05/08/14726 | 05/08/14 0849 | | (Right Eye) | MD | | | + + + + + +----+---+ + + | Da | T | Event | Comment | | te | i | | | | | m | | | | | e | | | +----+---+ + + | 10 | 0 | Eq Check | Anesthesia machine checked Equipment verified | | /1 | 6 | | | | 6/ | 5 | | | | 20 | 6 | | | | 14 | | | | +----+---+ + + | | 0 | Pt. Check | Prior to anesthesia start, pt. Identified, examined, chart | | | 7 | | reviewed, FRANCISCO held, anesthetic plan made or approved by | | | 2 | | attending anesthesiologist. NPO status confirmed as appropriate | | | 7 | | for procedure Preoperative evaluation: unchanged [...] | | 0 | Abx held | Abx held for Medical Reason: Contraindicated or already receiving | | | 7 | Medical or | antibiotics | | | 3 | Surgical | | | | 2 | Reason | | +----+---+ + + | | 0 | Retrobulbar | | | | 7 | Block by | | | | 3 | Surgeon | | | | 5 | | | +----+---+ + + | | 0 | Incision | | | | 7 | | | | | 4 | | | | | 5 | [...] | 4 | | | | | 6 | | | +----+---+ + + | | 0 | Anesthesia | | | | 8 | End | | | | 4 | | | | | 9 | | | +----+---+ + + +------+ | Meds | +------+ + + + | Name | Total | + + + | midazolam | 2 mg | + + + | alfentanil | 1,000 mcg | + + + | propofol | 20 mg | + + + | lactated ringers IV | 250 mL | + + + + + [...] +--------+ + + + | RETIRE | 05/08/14; 0715; 05/08/14; 1007; | 05/08/14 0715 by | 05/08/14 1007 by | | D - | No; 20; Right; Forearm; None; No; | Franci Persaud RN | Alecia Barreto Chi, RN | | Periph | Positive; 1 | | | | eral | | | | | Line | | | | +--------+ + + + | RETIRE | 05/08/14; 904; No; Right:; eye; | 05/08/14 0905 by | 05/08/14 1007 by | | D - | 05/08/14; 1007 | Alecia Barreto Chi, RN | Alecia Barreto Chi, RN | | Incisi | | | | | on | | | | +--------+ + + [...] | | | | | | [place], [place] | | | | | | [address] | | | | | | [phone] | | | | | | | | +--------+---------+ + + + documented as of this encounter Visit Diagnoses Not on filedocumented in this encounter Administered Medications + +--------+ +--------+------+------+ | Medication Order | MAR | Action | Dose | Rate | Site | | | Action | Date | | | | + +--------+ +--------+------+------+ | alfentanil (ALFENTA) injection | Given | 05/08/20 | 1,000 | | | | INTRAPROCEDURE PRN, Starting Mehnaz | | 14 7:35 | mcg | | | | 05/08/14 at 0735, Until Mehnaz | | AM PDT | | | | | 05/08/14 at 0846 | | | | | | + +--------+ +--------+------+------+ +---+---+ | | | +---+---+ + +-------+ +------+---+---+ | midazolam (VERSED) injection | Given | 05/08/20 | 2 mg | | | | INTRAPROCEDURE PRN, Starting Mehnaz | | 14 7:27 | | | | | 05/08/14 at 0727, Until Mehnaz | | AM PDT | | | | | 05/08/14 at 0846, sedation | | | | | | + +-------+ +------+---+---+ +---+---+ | | | +---+---+ + +-------+ +-------+---+---+ | propofol INTRAPROCEDURE PRN, | Given | 05/08/20 | 20 mg | | | | Starting Mhenaz 05/08/14 at 0735, | | 14 7:35 | | | | | Until Mehnaz 05/08/14 at 0846 | | AM PDT | | | | + +-------+ +-------+---+---+ +---+---+ | | | +---+---+ documented in this encounter
--- OUTSIDE RECORDS SUMMARY | ~2018-12-11 | XMS | Encounter Summary ---
Demographics + + + | Address | [address] | | | [place] [address] | + + + | Home Phone [...] + + | Author | [place] [employer] [facility] | + + + | Organization | [facility] [employer] [facility] | + [...] Team Providers + +------+ + | Care Safety Teacher Name | Role | Phone | [...] [place] | | | | | | [facility] | | | | | | [place], [place] | | | | | | [address] | | | +--------+ + + + [...] | | | | | | [place], [place] | | | | | | [address] | | | | | | [phone] | | | | | | | [...] [facility] - | [address], | [place] [address] | | | IMMUNOGENETICS/TRANS | [address] | | | | [facility] | | | | + + + + + documented in this encounter Visit Diagnoses Not on filedocumented in this encounter
--- OUTSIDE RECORDS SUMMARY | ~2018-12-11 | XMS | Encounter Summary ---
Demographics + + + | Address | [address] | | | [place] [address] | + + + | Home Phone | | + + + | Preferred Language | Unknown | + + + | Marital Status | Single | + + + | Shinto Affiliation | NRP | + + + | Race | or Other | + + + | Ethnic Group | Not or | + + + Author + + + | Author | [place] [employer] [facility] [[email or web address] | + + + | Organization | [facility] [[email or web address]] | + + + | Address | Unknown | + + + | Phone | Unavailable | + + + Support + + +---------+ + | Name | Relationship | Address | Phone | + + +---------+ + | Geraldine Canales | ECON | Unknown | | + + +---------+ + Care Team Providers + +------+ + | Care Graphotype Operator Name | Role | Phone | + +------+ + | Nadeem Caruso | PCP | | + +------+ + Reason for Visit + + + | Reason | Comments | + + + | Return Patient | | + + + Encounter Details +--------+---------+ + + + | Date | Type | Department | Care Team | Description | +--------+---------+ + + + | 02/28/ | Office | [facility] | Susan hCau MD | Macular edema, | | 2013 | Visit | [facility] at | [address] | diabetic, type 2, | | | | [facility] [address] [place], [place] | with proliferative | | | | [address] [facility] | [address] | retinopathy [250.50, | | | | Mailcode: [facility] | [phone] | 362.02, 362.07] | | | | [place], [place] | | (Primary Dx) | | | | [address] | | | | | | [phone] | | | +--------+---------+ + + + [...] encounter Progress Notes Susan Chau MD - 02/28/2014 10:50 AM PDT Procedure Note02/28/2014 Periocular Kenalog 40mg Injection, Right Eye Lot# & Expiration: [id number] - 5C exp 05/2015 Attending: Susan Chau MD Diagnosis: Macular edema, diabetic, type 2, with proliferative retinopathy [250.50, 362.02, 362.07] (primary encounter diagnosis) Macular edema, diabetic, type 1, with other ophthalmic complication [250.51] Indication: To decrease inflammation and/or edema Allergies: Iron dextran; Celebrex; Penicillins; and Sulfa (sulfonamide antibiotics) Anesthesia: Topical anesthesia PARQ held for above. Team Pause: At 10:50 AM, prior to the beginning of the [...] Any safety precautions were addressed. Procedure: After a drop of propericaine and betadine 5% was placed in the eye, a 3 ML syringe on a 25 gauge 5/8 inch needle was used to inject 1 mL of kenalog in the superotemporal fornix. In direct ophthalmoscopy was performed to confirm that there were no complications. After the injection patient reported: No pain (0 of 0-10) Complications: None EBL: None Instructions: Follow up in 2-4 weeks Susan Chau MD 02/28/2014 Procedure Note02/28/2014 Periocular Kenalog 40mg Injection, Left Eye Lot# & Expiration: [id number] 2A exp 06/2015 Attending: Susan Chau MD Diagnosis: Macular edema, diabetic, type 2, with proliferative retinopathy [250.50, 362.02, 362.07] (primary encounter diagnosis) Macular edema, diabetic, type 1, with other ophthalmic complication [250.51] Indication: To decrease inflammation and/or edema Allergies: Iron dextran; Celebrex; Penicillins; and Sulfa (sulfonamide antibiotics) Anesthesia: Subconjunctival with 1% lidocaine with epinephrine PARQ held for above. Team Pause: At 10:50 AM, prior to the beginning of the [...] Any safety precautions were addressed. Procedure: After a drop of propericaine and betadine 5% was placed in the eye, a 3 ML syringe on a 25 gauge 5/8 inch needle was used to inject 1 mL of kenalog in the superotemporal fornix. Gabrielle rect ophthalmoscopy was performed to confirm that there were no complications. After the in jection patient reported: No pain (0 of 0-10) Complications: None EBL: None Instructions: Follow up in 2-4 weeks Susan Chau MD 02/28/2014 in, MD Susan - 014 9:26 AM PDT [facility] Progress Note 02/28/2014 CC: Return Patient Initial History: Post op Pt. Doing well. She has noticed some improvement. Last 3 ambulatory procedures on record: Procedure: Avasti OU (01/01/14 3150) ROS Negative for: Constitutional, Gastrointestinal, Neurological, Skin, Genitourinary, Musculo skeletal, HENT, Endocrine, Cardiovascular, Eyes, Respiratory, Psychiatric, Allergic/Imm, Hem e/Lymph HPI: Joyce Arnold is a 53 y.o. female Last visit: 02/22/14 at 9:00 am Following up per recommendation with no new issues, including eye pain, decreased vision, i ncreased floaters or increased distortion. Vision has improved per patient. Pain:No pain (0 of 0-10) POH: PPV/MP/EL, [...] mouth once daily. SYRING W-NDL,DISP,INSUL,0.5ML (INSULIN SYRINGE MIS) Past [...] Examination Diagnostics Ordered Right Left OCT CMT: 345 IRF No significant change compared to previous CMT: 454 IRF improving FA --- --- FUNDUS Infrared fundus photos obtained for documentation & OCT localization Infrared fund us photos obtained for documentation & OCT localization Others IMPRESSION: 53 y.o. female with Ophthalmologic Problems 1. POW# 2 s/p PPV/EL/1000 horseradish grinder SO OS - for serous choroidals and serous RD (small) - retina attached, IOP good, vision better than previously 2. POM# 2 s/p 23g PPV/MP/EL/FAx/1000cstSO OD 6/12/14 PDR (proliferative diabetic retinopathy) [836659] OD - francois-jaw TRD threatening macula and VH - doing well, retina attached, stable - oil was placed due to poor vision in contralateral eye, and [place] 3. 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 [...] | 2019 | Visit | | [address] | | | | | | [place], [place] | | | | | | [address] | | | | | | [phone] | | | | | | | [...] | e | diabetic, type 2, | 02/27/2014, Expires: | | | | | with proliferative | 04/28/2014 | | | | | retinopathy [250.50, | | | | | | 362.02, 362.07] | | + + +--------+ + + documented as of this encounter Procedures + +--------+ + + + | Procedure Name | Priori | Date/Time | Associated Diagnosis | Comments | | | ty | | | | + +--------+ + + + | OR INJ,THER AGENT | Routin | 02/28/2014 | Macular edema, | | | INTO [place]S CAPSULE | e | 10:50 AM | diabetic, type 2, | | | | | PDT | with proliferative | | | | | | retinopathy [250.50, | | | | | | 362.02, 362.07] | | + +--------+ + + + | [place] INJ,THER AGENT | Routin | 02/28/2014 | Macular edema, | | | INTO [place]'[employer]SULE | e | 10:50 AM | diabetic, type 2, | | | | | PDT | with proliferative | | | | | | retinopathy [250.50, | | | | | | 362.02, 362.07] | | + +--------+ + + + | [place] INJ,THER AGENT | Routin | 02/28/2014 | Macular edema, | | | INTO [place]'[employer]SULE | e | 10:50 AM | diabetic, type 2, | | | | | PDT | with proliferative | | | | | | retinopathy [250.50, | | | | | | 362.02, 362.07] | | + +--------+ + + + | [place] INJ,THER AGENT | Routin | 02/28/2014 | Macular edema, | | | INTO [place]SULE | e | 10:50 AM | diabetic, type 2, | | [...]
--- OUTSIDE RECORDS SUMMARY | ~2018-12-11 | XMS | Encounter Summary ---
Demographics + + + | Address | [address] | | | [place] [address] | + + + | Home Phone | | + + + | Preferred Language | Unknown | + + + | Marital Status | Single | + + + | Buddhist Affiliation | NRP | + + + | Race | or Other | + + + | Ethnic Group | Not or | + + + Author + + + | Author | [place] [facility] [employer] [facility] | + + + | Organization | [facility] | + + + | Address | Unknown | + + + | Phone | Unavailable | + + + Support + + +---------+ + | Name | Relationship | Address | Phone | + + +---------+ + | Geraldine Canales | ECON | Unknown | | + + +---------+ + Care Team Providers + +------+ + | Care Transmitter Chief Name | Role | Phone | + [...] | Juliana, | | | | | [place] [facility] | Epic Dept | MD Susan | | | | | OPHTH DX IMG | | [address] | | | | | [address] | | [address] | | | | | SEG[address]-RETINA | | [address] | | | | | [place] | | [place], [place] | | | | | [place] | | [address] | | | | | ANGIOGRAPHY | | Phone: | | | | | [place] FUNDAL | | [phone] | | | | | PHOTOGRAPHY | | Fax: | | | | | [place] INJECT | | [phone] | | | | | INTRAVITREAL | | | | | | | | | | | | | | PHARMCOLOGIC | | | | | | | [place] | | | | | | | TRIAMCINOLON | | | | | | | E ACETONIDE | | | | | | | INJ 10 MG | | | | | | | [place] INJ,THER | | | | | | | AGENT INTO | | | | | | | [place] | | | | | | | CAPSULE | | | +--------+--------+ + + + + Encounter Details +--------+---------+ + + + | Date | Type | Department | Care Team | Description | +--------+---------+ + + + | 04/16/ | Office | [facility] | Susan Chau MD | Macular edema, | | 2013 | Visit | [facility] at | [address] | diabetic, type 2, | | | | [facility] [address] [place], [place] | with proliferative | | | | [address] [facility] | [address] | retinopathy [250.50, | | | | Mailcode: [facility] | [phone] | 362.02, 362.07] | | | | [place], [place] | | (Primary Dx); TRD | | | | [address] | | (traction retinal | | | | [phone] | | detachment), | | | | [...] encounter Progress Notes Susan Chau MD - 04/16/2014 10:14 AM PDTFormatting of this note might be different from melvin rachel. [facility] Progress Note 04/16/2014 CC: Post Op Initial History: H/o s/p PPV/MP/EL/silicone oil left eye on 02/13/14 and PPV/MP/EL/DYo3789mmc SO right eye on 01/09/14 Patient mentioned she can read a little more but still difficult with some straining and ti redness at times No new flashes, floaters, or eye pain Average BSC = 150-165 Last 3 ambulatory procedures on record: Procedure: Kenalog both eyes (02/28/14 1047) Procedure: Avasti OU (01/01/14 1454) HPI: Joyce Arnold is a 54 y.o. female Last visit: 03/14/14 at 9:30 am No real complaints. Says she is packed and ready to have surgery tomorrow if she can! Pain:No pain (0 of 0-10) POH: PPV/MP/EL, silicone oil left eye 02/13/2014 01/09/14 [...] for Examination Diagnostics Ordered Right Left OCT Slightly decreased IRF CMT/Vol: 296/8.22, overall improved Slightly decreased IRF CMT /Vol: 374/9.34, overall improved FA --- --- FUNDUS --- --- Others IMPRESSION: 54 y.o. female with Ophthalmologic Problems 1. POM# 2 s/p PPV/EL/1000 compo caster SO OS performed on 02/21/14 - for serous choroidals and serous RD (small) (originally thought to be rhegmatogenous - oil placed due to altitude - retina attached, IOP good, vision better than previously - doing great 2. POM# 3.5 s/p 23g PPV/MP/EL/FAx/1000cstSO OD 01/02/14 - for francois jaw TRD, VH, PDR - oil placed due to altitude - doing great 3. PDR (proliferative diabetic retinopathy) [181796] - s/p EL PRP OU, regressed OU 4. DME (diabetic macular edema) [105029] OU - s/p Avastin x 1 OU pre-op to above surgery - stable OD last visit , stable OS today - s/p PSTK OU 02/28/14, IOPs fine OU afterwards - no improvement in CME OU until now - today DME improved OU 5. Cataracts OU, OD > OS (significant OD now) PLAN: Discussed r/b/a of Phaco/IOL/SOR with Dr. 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
--- OUTSIDE RECORDS SUMMARY | ~2018-12-11 | XMS | Encounter Summary ---
Demographics + + + | Address | [address] | | | [place] [address] | + + + | Home Phone [...] Author + + + | Author | [place] [employer] [facility] | + + + | Organization | [facility] [employer] [facility] | + + + | Address | Unknown | + + + | Phone | Unavailable | + + + Support + + +---------+ + | Name | Relationship | Address | Phone | + + +---------+ + | Geraldine Parker | ECON | Unknown | | + + +---------+ + Care Team Providers + +------+ + | Care Processing Archivist Name | Role | Phone | + [...] | +--------+ + + + + | 05/27/ | Diagnostic | [facility] | | OCT - Macula (OU) | | 2016 | Visit | [facility] | | | | | | Photography at | | | | | | [place] [address] | | | | | | [address] [place] | | | | | | Mailcode: [place] | | | | | | [place], [place] | | | | | | [address] | | | | | | [phone] | | | +--------+ + + + [...] as of this encounter Raghavendra Brewster - 05/27/2016 4:09 PM PDTThe interpretation for the following study: Apr can be found on physician encounter on 05/27/2016. documented in this e ncounter Plan of Treatment +--------+---------+ + + + | Date | Type | Specialty | Care Team | Description | +--------+---------+ + + + | 01/30/ | Office | Ophthalmology | Susan Andrews MD | | | 2019 | Visit | | [address] | | | | | | Bl[address] [place], [place] | | | | | | [address] | | | | | | [phone] | | | | | | | | +--------+---------+ + + + documented as of this encounter Visit Diagnoses + + | Diagnosis | + + | Proliferative diabetic retinopathy with macular edema associated with type 2 diabetes | | mellitus (HCC) | + + documented in this encounter
--- OUTSIDE RECORDS SUMMARY | ~2018-12-11 | XMS | Encounter Summary ---
Demographics + + + | Address | [address] | | | [place] [address] | + + + | Home Phone [...] + + + | Author | [place] [facility] | + + + | Organization | [facility] [employer] [facility] | + + + | Address | Unknown | + + + | Phone | Unavailable | + + + Support + + +---------+ + | Name | Relationship | Address | Phone | + + +---------+ + | Aurora Parker | ECON | Unknown | | + + +---------+ + Care Team Providers + +------+ + | Care Easter Bunny Name | Role | Phone | + [...] | | | | | | | [address] | [address] | | | | | | | [place] | | | | | | | [place], [place] | | | | | | | [address] | | | | | | | Phone: | | | | | | | [phone] | | | | | | | Fax: | | | | | | | [phone] | +--------+--------+ + + + + Encounter Details +--------+---------+ + + + | Date | Type | Department | Care Team | Description | +--------+---------+ + + + | 06/06/ | Office | [facility] | Susan Chau MD | TRD (traction | | 2013 | Visit | [facility] at | [address] | retinal detachment), | | | | [facility] [address] [facility] [place] | bilateral (Primary | | | | [address] | [address] | Dx); PDR | | | | Mailcode: [facility] | [phone] | (proliferative | | | | [place], [place] | | diabetic | | | | [address] | | retinopathy), type | | | | [phone] | | 2, with macular | | | | | | edema | +--------+---------+ + + + Social History [...] encounter Progress Notes Susan Chau MD - 06/06/2014 8:35 AM PSTFormatting of this note might be different from melvin rachel. [facility] Progress Note 06/06/2014 CC: Post Op Eye Surgery, One Day Initial History: S/p PPV/Silicone Oil Removal/PHACO IOL left eye for RD s/p CE/IOL/SOR OD for retained silicone oil and nuclear cataract 05/08/2014 Patient mentioned slight pain yesterday - took pain medication and slept all day Last 3 ambulatory procedures on record: Procedure: avastin OD (05/16/14 8003) Procedure: Kenalog both eyes (02/28/14 5521) Procedure: Avasti OU (01/01/14 1202) HPI: Joyce Arnold is a 54 y.o. female Last visit: 05/16/14 at 12:45 pm Face itches. Eye is a little sore. Pain:No pain (0 of 0-10) POH: PPV/SO [...] 54 y.o. female with Type 2 DM Ophthalmologic Problems 1. S/p POD # 1 PPV/Silicone oil removal/PHACO/IOL OS 06/05/14 - doing well, IOP good, epi defect, retina attached, IOL looks good 2. s/p CE/IOL/SOR OD for retained silicone oil and nuclear cataract 05/08/2014 - s/p 23g PPV/MP/EL/FAx/1000cstSO OD 01/02/14, oil placed because of altitutde - for francois jaw TRD, VH, PDR - doing well, IOL well-centered,, retina attached and stable with regressed PDR 3. s/p PPV/EL/1000 popcorn attendant SO OS performed on 02/21/14 - for serous choroidals and serous RD (small) (originally thought to be rhegmatogenous - oil placed due to altitude 4. PDR (proliferative diabetic retinopathy) [748690] - s/p EL PRP OU, regressed OU 5. DME (diabetic macular edema) [714092] OU - Stable center involving IRF OU - s/p Avastin OD on 05/16/14 PLAN: Ofloxacin qid; Pred Acetate qid; Atropine bid to operative eye Added Erythromycin dinora Qhs OS (may use up to QID after drops are placed) Call for decreased vision, increased distortion, increased pain, new floaters or flashing l ights Follow up: [address] 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
--- OUTSIDE RECORDS SUMMARY | ~2018-12-11 | XMS | Encounter Summary ---
Demographics + + + | Address | [address] | | | [place] [address] | + + + | Home Phone [...] + + | Author | [place] [employer] [facility] | + + + | Organization | [facility] [employer] [facility] | + + + | Address | Unknown | + + + | Phone | Unavailable | + + + Support + + +---------+ + | Name | Relationship | Address | Phone | + + +---------+ + | Geraldine Canales | ECON | Unknown | | + + +---------+ + Care Team Providers + +------+ + | Care Rocket Motor Tester Name | Role | Phone | + [...] | +--------+ + + + + | 06/27/ | Diagnostic | [facility] | | Eye examination | | 2013 | Visit | [place] | | (APR) | | | | Photography at | | | | | | [place] [address] | | | | | | [address] | | | | | | Mailcode: [place] | | | | | | [place], [place] | | | | | | [address] | | | | | | [phone] | | | +--------+ + + + [...] of this encounter Progress Nola Joseph - 06/27/2014 11:04 AM PST Joycesourav Arnold was seen in the [facility] [place] [facility]/Ultrasound Department today, 06/27/2014, for OCT OU. NOLA Clarkectronically signed by Nola Kevin at 06/27/2014 11:04 AM PSTdocumar in thi s encounter Plan of Treatment +--------+---------+ + + + | Date | Type | Specialty | Care Team | Description | +--------+---------+ + + + | 01/30/ | Office | Ophthalmology | Susan Andrews MD | | | 2019 | Visit | | [address] | | | | | | [place], [place] | | | | | | [address] | | | | | | [phone] | | | | | | | | +--------+---------+ + + + documented as of this encounter Visit Diagnoses + + | Diagnosis | + + | Macular edema, diabetic, type 2, with proliferative retinopathy [250.50, 362.02, | | 362.07] - Primary | + + documented in this encounter
--- OUTSIDE RECORDS SUMMARY | ~2018-12-11 | XMS | Encounter Summary ---
Demographics + + + | Address | [address] | | | [place] [address] | + + + | Home Phone [...] Author + + + | Author | [place] [employer] [facility] | + + + | Organization | [facility] [employer] [facility] | + + + | Address | Unknown | + + + | Phone | Unavailable | + + + Support + + +---------+ + | Name | Relationship | Address | Phone | + + +---------+ + | Geraldine Parker | ECON | Unknown | | + + +---------+ + Care Team Providers + +------+ + | Care Clinical Informatics Specialist Name | Role | Phone | + +------+ + | Nadeem Caruso | PCP | | + +------+ + Encounter Details +--------+ + + + + | Date | Type | Department | Care Team | Description | +--------+ + + + + | 01/01/ | Document-Sc | UNKNOWN DEPARTMENT | Unknown . | | | 2013 | anned | [address] [facility] | | | | | | [facility] | | | | | | [place], [place] | | | | | | [address] | | | +--------+ + + + [...] | | | | | | [place], [place] | | | | | | [address] | | | | | | [phone] | | | | | | | | +--------+---------+ + + + documented as of this encounter Visit Diagnoses Not on filedocumented in this encounter
--- OUTSIDE RECORDS SUMMARY | ~2018-12-11 | XMS | Encounter Summary ---
Demographics + + + | Address | [address] | | | [place] [address] | + + + | Home Phone [...] + + + | Author | [place] [facility] | + + + | Organization | [facility] [employer] [facility] | + + + | Address | Unknown | + + + | Phone | Unavailable | + + + Support + + +---------+ + | Name | Relationship | Address | Phone | + + +---------+ + | Geraldine Parker | ECON | Unknown | | + + +---------+ + Care Team Providers + +------+ + | Care Commercial Review Appraiser Name | Role | Phone | + [...] [address] | | | | | | [place], [place] | | | | | | [address] | | | | | | [phone] | | | +--------+ + + + [...] | | | | | | [place], [place] | | | | | | [address] | | | | | | [phone] | | | | | | | | +--------+---------+ + + + documented as of this encounter Visit Diagnoses Not on filedocumented in this encounter
--- OUTSIDE RECORDS SUMMARY | ~2018-12-11 | XMS | Encounter Summary ---
Demographics + + + | Address | [address] | | | [place] [address] | + + + | Home Phone | | + + + | Preferred Language | Unknown | + + + | Marital Status | Single | + + + | Temple Affiliation | NRP | + + + | Race | or Other | + + + | Ethnic Group | Not or | + + + Author + + + | Author | [place] [facility] | + + + | Organization | [facility] | + + + | Address | Unknown | + + + | Phone | Unavailable | + + + Support + + +---------+ + | Name | Relationship | Address | Phone | + + +---------+ + | La Salle Parker | ECON | Unknown | | + + +---------+ + Care Team Providers + +------+ + | Care Laboratory Associate Name | Role | Phone | + [...] | | | | | | | [address] | | | | | | | [address] | | | | | | | [place] | | | | | | | [place], [place] | | | | | | | [address] | | | | | | | Phone: | | | | | | | [phone] | | | | | | | Fax: | | | | | | | [phone] | +--------+--------+ + + + + Encounter Details +--------+---------+ + + + | Date | Type | Department | Care Team | Description | +--------+---------+ + + + | 08/21/ | Office | [facility] | Susan Chau MD | Proliferative | | 2016 | Visit | [facility] at | [address] | diabetic retinopathy | | | | [facility] [address] [place], [place] | with macular edema | | | | [address] | [address] | associated with type | | | | Mailcode: CEAnni | [phone] | 2 diabetes mellitus | | | | [place], [place] | | ([facility]) | | | | [address] | | | | | | [phone] | | | +--------+---------+ + + + [...] others may occur. Call your doctor for [facility] advice about side effects. You may report side effects to FDA at [phone]-FJB-[phone]. What other drugs will affect dexamethasone intravitreal implant? It is not likely that other drugs you take orally or inject will have an effect on dexameth asone used in the eyes. But many drugs can interact with each other. Tell each of your healt hcare providers about all medicines you use, including prescription and cagg-bgm-mmtdpma med icines, vitamins, and herbal products. Where [...] to ensure that the information provided by [employer]. ( '[employer]') is accurate, up-to-date, and complete, but no guarantee is made to that effect. Dr ug information contained herein may be time sensitive. [employer] information has been compiled for use by healthcare practitioners and consumers in the [place] and therefore [employer] does not warrant that uses outside of the [place] are appropriate, unless specifically indicated otherwise. [employer] drug information does not endorse drugs, diagnose patients or recommend therapy. [facility] drug information is an informational resource designed [...] effective or appropriate for any given patient. [employer] does not assume any respon sibility for any aspect of healthcare administered with the aid of information [employer] provid es. The information contained herein is not intended to cover all possible uses, directions, precautions, warnings, drug interactions, allergic reactions, or adverse effects. If you negro ve questions about the drugs you are taking, check with your doctor, nurse or pharmacist. Copyright 8390-5386 [employer]. Version: 3.01. Revision date: 08/06/2014. This information does not replace the advice of a doctor. [employer] disclaim s any warranty or liability for your use of this information. Content Version: 10.7.664715 documented in this encounter Progress Notes Akash Guzman - 08/21/2015 1:56 PM PST Procedure Report 08/21/2015 for: Ozurdex Implant Insertion, both eyes Lot# & Expiration: [id number] - 5ZZ exp 10/2017 - OD [id number] - 4ZZ exp 10/2017 - OS Attending: [...] the pars plana using the supp lied dietitian teaching 4. Patent central retinal artery or IOP < 30 mmHG post injection confirmed 5. After the injection patient reported: No pain (0 of 0-10) Complications: None EBL: None I, Susan Chau MD, performed the entire procedure. Susan Chau MD, 08/21/2015 Sindy Esteban - 08/21/2015 12:58 PM PST [facility] Progress Note 08/21/2015 CC: Follow-up visit Proliferative [...] vision great 3. PDR (proliferative diabetic retinopathy) [355538] - regressed OU after the above procedures - starting vision was CF OU 4. 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
--- OUTSIDE RECORDS SUMMARY | ~2018-12-11 | XMS | Encounter Summary ---
Demographics + + + | Address | [address] | | | [place] [address] | + + + | Home Phone [...] + + + | Author | [facility] [employer] [facility] | + + + | Organization | [facility] [employer] | + + + | Address | Unknown | + + + | Phone | Unavailable | + + + Support + + +---------+ + | Name | Relationship | Address | Phone | + + +---------+ + | Geraldine Canales | ECON | Unknown | | + + +---------+ + Care Team Providers + +------+ + | Care Hydraulic Auto Jack Mechanic Name | Role | Phone | + [...] examination | | 2013 | Visit | [place] | | (APR) | | | | [facility] at | | | | | | [place] [address] | | | | | | [address] | | | | | | Mailcode: FRANCIOS | | | | | | [place], [place] | | | | | | [address] | | | | | | [phone] | | | +--------+ + + + [...] Arnold was seen in the [facility] [place] [facility]ound Department today, 06/27/2014, for OCT OU. [...] | | | | | | [place], [place] | | | | | | [address] | | | | | | [phone] | | | | | | | | +--------+---------+ + + + documented as of this encounter Visit Diagnoses + + | Diagnosis | + + | Macular edema, diabetic, type 2, with proliferative retinopathy [250.50, 362.02, | | 362.07] - Primary | + + documented in this encounter
--- OUTSIDE RECORDS SUMMARY | ~2018-12-11 | XMS | Encounter Summary ---
Demographics + + + | Address | [address] | | | [place] [address] | + + + | Home Phone | | + + + | Preferred Language | Unknown | + + + | Marital Status | Single | + + + | Taoism Affiliation | NRP | + + + | Race | or Other | + + + | Ethnic Group | Not or | + + + Author + + + | Author | [email or web address] | + + + | Organization | [facility] | + + + | Address | Unknown | + + + | Phone | Unavailable | + + + Support + + +---------+ + | Name | Relationship | Address | Phone | + + +---------+ + | Geraldine [place] | ECON | Unknown | | + + +---------+ + Care Team Providers + +------+ + | Care Motor Generator Set Operator Name | Role | Phone | + +------+ + | Nadeem Caruso | PCP | | + +------+ + Encounter Details +--------+ + + + + | Date | Type | Department | Care Team | Description | +--------+ + + + + | 01/10/ | Results/Int | [facility] | Meng Stone | Retinal detachment, | | 2013 | erpretation | [facility] | Lewis Mooney MD [address] | tractional, both | | | | [facility] [place] [address] | eyes (Primary Dx) | | | | [address] | [place], [place] | | | | | Mailcode: CE | [address] | | | | | [place], [place] | [phone] | | | | | [address] | | | | | | [phone] | | | +--------+ + + + [...] PDT Joyce Arnold was seen in the [facility] [place] [facility] [place] [facility]Ultrasound Department today, 01/10/2014, for ultrasound. B-scan [...] [address] | | | | | | [place], [place] | | | | | | [address] | | | | | | [phone] | | | | | | | | +--------+---------+ + + + documented as of this encounter Visit Diagnoses + + | Diagnosis | + + | Retinal detachment, tractional, both eyes - Primary Traction detachment of retina | + + documented in this encounter
--- OUTSIDE RECORDS SUMMARY | ~2018-12-11 | XMS | Encounter Summary ---
Demographics + + + | Address | [address] | | | [place] [address] | + + + | Home Phone [...] + + + | Author | [facility] | + + + | Organization | [facility] | + + + | Address | Unknown | + + + | Phone | Unavailable | + + + Support + + +---------+ + | Name | Relationship | Address | Phone | + + +---------+ + | Geraldine Canales | ECON | Unknown | | + + +---------+ + Care Team Providers + +------+ + | Care Integrated Marketing Manager Name | Role | Phone | [...] 05/16/ | Office | [facility] | Carolyn Murphy, | Cataract extraction | | 2014 | Visit | [place] at | [address] | status, right | | | | [place] [address] | (Primary Dx) | | | | [address] | [place], [place] | | | | | Mailcode: [facility] | [address] | | | | | [place], [place] | [phone] | | | | | [address] | | | | | | [phone] | | | +--------+---------+ + + + [...] encounter Progress Notes Carolyn Murphy MD - 05/16/2014 10:54 AM PDTFormatting of this note might be different fr om the original. Cor[facility] Division Progress Note 05/16/2014 Joyce Arnold is a 54 y.o. female who returns for follow up of CE/IOL/SOR OD Chief Complaint Patient presents with Post Op Here for 1 week po s/p CE/IOL/SOR OD. Pain: 0 ROS: Medications, allergies, medical, surgical [...] Cousin Cataract Paternal Uncle History Smoking status Current Every Day Smoker -- 0.20 packs/day for 33 years Types: Cigarettes Last Attempt to Quit: 11/20/2013 Smokeless tobacco Never Used Allergies Allergen Reactions Iron Dextran Unknown Numb lips, itchy on face Celebrex [Celecoxib] Unknown Penicillins Unknown Sulfa (Sulfonamide Antibiotics) Unknown Current Outpatient Prescriptions (Ophthalmic Medications) Medication Sig [...] neurologic, endocrine, bleeding/blood disorders, AIDS/HIV, cancer/tumors, arthritis) Construction Recruiter Attestation: JOSEF Hutton, performed, reviewed or revised the above history, medications, allergies, as well as performed elements noted in the Base Ophthalmology Exam, including visual acuity, pupils, EOMs, CVF and IOP. Examination: Base Exam Visual Acuity Right Left Dist sc 20/80 -1+2 Dist ph sc 20/70 Tonometry Right Left Pressure 8 Method: Tonopen Time: 11:19 AM Manifest Refraction Sphere Cylinder [place] Dist Right +0.50 -0.75 020 20/70-1 Left Slit Lamp and Fundus Exam External Exam Right Left External Normal Slit Lamp Exam Right Left Lids/Lashes Normal Conjunctiva/Sclera subconj heme Cornea superior cornea wound, + nylon suture, nasal paracentesis. Dyan negative. Cornea c lear Anterior Chamber trace cell Iris dilated Lens PCIOL, centered in bag Vitreous avitric Fundus Exam Right Left Disc flat regressed fibrotic NVD Macula CME Vessels attenuated Periphery good PRP, flat fibrotic scar infeiror to IT arcade; attached From Dr. Andrews's appointment 05/09/14 IMPRESSION: 54 y.o. female with Ophthalmologic Problems 1. POW#1 s/p CE/IOL/SOR OD for retained silicone oil and nuclear cataract - s/p 23g PPV/MP/EL/FAx/1000cstSO OD 01/02/14, oil placed because of altitutde - for francois jaw TRD, VH, PDR - doing well, IOL well-centered, retina attached and stable -did not remove cornea suture, as note indicated possible injection into right eye with ret oscar clinic. Remove at 1 month visit 2. 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 PDR (proliferative diabetic retinopathy) [401813] - s/p EL PRP OU, regressed OU 4. DME (diabetic macular edema) [957275] OU - will potentially treat at POW#1 OD PLAN: Prednisolone 1% begin 1 month taper Right eye 1st week: 1 drop 4 times daily 2nd week: 1 drop 3 times daily 3rd week: 1 drop 2 times daily 4th week: 1 drop 1 time daily Ok to stop Oflox Atropine drops as directed by Dr Andrews Call for decreased vision, increased distortion, increased pain, new floaters or flashing l ights Apptmt with Dr. Murphy in 1 month CAROLYN MURPHY MD Cornea/External Disease Refractive Surgery [facility] [place] documented in this e ncounter Plan of Treatment +--------+---------+ + + + | Date | Type | Specialty | Care Team | Description | +--------+---------+ + + + | 01/30/ | Office | Ophthalmology | Susan Andrews MD | | | 2019 | Visit | | [address] | | | | | | [place], [place] | | | | | | [address] | | | | | | [phone] | | | | | | | | +--------+---------+ + + + documented as of this encounter Visit Diagnoses + + | Diagnosis | + + | Cataract extraction status, right - Primary | + + documented in this encounter
--- OUTSIDE RECORDS SUMMARY | ~2018-12-11 | XMS | Encounter Summary ---
Demographics + + + | Address | [address] | | | [place] [address] | + + + | Home Phone [...] + + + | Author | [place] [employer] [facility] | + + + | Organization | [facility] [employer] [facility] | + + + | Address | Unknown | + + + | Phone | Unavailable | + + + Support + + +---------+ + | Name | Relationship | Address | Phone | + + +---------+ + | Geraldine Canales | ECON | Unknown | | + + +---------+ + Care Team Providers + +------+ + | Care Automotive Sales Associate Name | Role | Phone | [...] Omar | | | | | | [facility] | | | | | | Mailcode: UHN65 | | | | | | [place] | | | | | | [address], [place] | | | | | | [address] | | | | | | [phone] | | | +--------+ + + + [...] perfume, lotions or powder. Remove any nail lithuanian from at least one fingernail. Do not [...] Surgery Check in Locations [facility], sixth floor Surgery Check in Time: Someone from your surgeon's office or [facility] will provide you with information regarding your [...] it is after office hours, call the [facility] wet plant operator at [phone] and ask them to page your doc tor. documented in this encounter Plan of Treatment +--------+---------+ + + + | Date | Type | Specialty | Care Team | Description | +--------+---------+ + + + | 01/30/ | Office | Ophthalmology | Susan Andrews MD | | | 2019 | Visit | | [address] | | | | | | [place], [place] | | | | | | [address] | | | | | | [phone] | | | | | | | | +--------+---------+ + + + documented as of this encounter Visit Diagnoses Not on filedocumented in this encounter
--- OUTSIDE RECORDS SUMMARY | ~2018-12-11 | XMS | Encounter Summary ---
Demographics + + + | Address | [address] | | | [place] [address] | + + + | Home Phone [...] + + + | Author | [place] [employer] [facility] | + + + | Organization | [facility] [email or web address] [facility] | + + + | Address | Unknown | + + + | Phone | Unavailable | + + + Support + + +---------+ + | Name | Relationship | Address | Phone | + + +---------+ + | Geraldine Canales | ECON | Unknown | | + + +---------+ + Care Team Providers + +------+ + | Care Mechanic Recovery Name | Role | Phone | + [...] | | | | | | | [address] | | | | | | | [address] | | | | | | | [place] | | | | | | | [place], [place] | | | | | | | [address] | | | | | | | Phone: | | | | | | | [phone] | | | | | | | Fax: | | | | | | | [phone] | +--------+--------+ + + + + Encounter Details +--------+---------+ + + + | Date | Type | Department | Care Team | Description | +--------+---------+ + + + | 11/28/ | Office | [facility] | Susan Chau MD | Proliferative | | 2015 | Visit | [facility] at | [address] | diabetic retinopathy | | | | [facility] [address] [facility] [place] | with macular edema | | | | [address] | [address] | associated with type | | | | Mailcode: [facility]I | [phone] | 2 diabetes mellitus | | | | [facility] [place] | | [721.50, 362.07, | | | | [address] | | 362.02] | | | | [phone] | | | +--------+---------+ + + + [...] encounter Progress Notes Susan Chau MD - 11/28/2014 1:39 PM PDTFormatting of this note might be different from melvin rachel. [facility] Progress Note 11/28/2014 CC: Follow-up visit Initial History: H/o DME - Patient mentioned no new vision changes, flashes, floaters, or eye pain. Patient mentioned her blood sugars has fluctuated from 40s - 170s - will be seeing PCP and Endocrin ologist soon Last 3 ambulatory procedures on record: Procedure: Ozurdex right eye (10/31/14 5683) Procedure: Ozurdex Left eye (10/17/14 3766) Procedure: Avastin bilateral (09/19/14 7183) HPI: Joyce Arnold is a 54 y.o. female Last visit: 10/31/14 at 1:30 pm No changes in vision. BG numbers are doing well. Pain:No pain (0 of 0-10) POH: 08/08/2014 [...] three times daily. SYRING W-NDL,DISP,INSUL,0.5ML (INSULIN SYRINGE [facility]) Past Medical History Diagnosis Date Diabetes mellitus [...] Examination Diagnostics Ordered Right Left OCT CMT/Vol: 294/9.21 (was 327/9.66) +ERM, foveal IRF similar to previously; CMT/Vol: 31 9/9.20 (was 381/9.59) +ERM, decreased IRF from previously; HE in temporal macula FA --- --- FUNDUS --- --- Others IMPRESSION: 54 y.o. female with Ophthalmologic Problems 1. s/p [...] vision great 3. PDR (proliferative diabetic retinopathy) [581659] - regressed OU after the above procedures - starting vision was CF OU 4. 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
--- OUTSIDE RECORDS SUMMARY | ~2018-12-11 | XMS | Encounter Summary ---
Demographics + + + | Address | [address] | | | [place] [address] | + + + | Home Phone | | + + + | Preferred Language | Unknown | + + + | Marital Status | | + + + | Pentecostal Affiliation | Unknown | + + + | Race | Unknown | + + + | Ethnic Group | Unknown | + + + Author + + + | Author | [facility] [employer] [facility] | + + + | Organization | [facility] [employer] [facility] | + + + | Address [...] Team Providers + +------+ + | Care Combat Control Name | Role | Phone | + +------+ + | Rohan Wilkes DO | PCP | | + +------+ + Reason for Visit +--------+ + | Reason | Comments | +--------+ + | Other | [employer] lab services - Surgical Pathology Report - 09/14/18 - | | | [facility] | +--------+ + | Other | legacy lab services - Pathology addendum Report - 09/14/18 - emely | +--------+ + Encounter Details +--------+ + + + + | Date | Type | Department | Care Team | Description | +--------+ + + + + | 09/17/ | Documentati | [facility] | Maria Teresa, | Other ([facility] lab | | 2019 | on Only | [place] [address] | AMANDA [address]ont | services - Surgical | | | | [address] | | Pathology Report - | | | | [place] [address] | | 09/14/18 - | | | | [phone] | | [facility]); Other | | | | | | (legacy lab | | | | | | services - Pathology | | | | | | addendum Report - | | | | | | 09/14/18 - emely) | +--------+ + + + + Social [...] [address] | | | | | | [place] [address] | | | | | | [phone] | | | | | | | | +--------+---------+ + + + as of this encounter Visit Diagnoses Not on filein this encounter"
--- OUTSIDE RECORDS SUMMARY | ~2018-12-11 | XMS | Encounter Summary ---
Demographics + + + | Address | [address] | | | [place] [address] | + + + | Home Phone [...] + + | Author | [place] [employer] [facility] | + + + | Organization | [facility] [employer] [facility] | + [...] Team Providers + +------+ + | Care Orange Picking Supervisor Name | Role | Phone [...] edema, | | 2013 | Visit | [facility] | [address] | diabetic (HCC) | | | | [facility] [address] [facility] [place] | (Primary Dx); PDR | | | | [address] | [phone] | (proliferative | | | | Mailcode: [place] | [phone] | diabetic | | | | 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, under the supervision of the physician, [...] | | | | | | [place], [place] | | | | | | [address] | | | | | | [phone] | | | | | | | [...] POST SEGMT | | e | diabetic ([facility]) PDR | 01/09/2014, Expires: | | | | | (proliferative | 03/10/2014 | | | | | diabetic | | | | | | retinopathy) ([facility]) | | | | | | Traction detachment | | | | | | of retina Vitreous | | | | | | hemorrhage ([facility]) | | + + +--------+ + + | ULTRASOUND, B SCAN | Procedures | Routin | Macular edema, | Expected: | | | | e | diabetic ([facility]) PDR | 01/09/2014, Expires: | | | | | (proliferative | 03/10/2014 | | | | | diabetic | | | | | | retinopathy) ([facility]) | | | | | | Traction detachment | | | | | | of retina Vitreous | | | | | | hemorrhage ([facility]) | | + + +--------+ + + documented as of this encounter Visit Diagnoses + + | Diagnosis | + + | Macular edema, diabetic ([facility]) - Primary Type II or [...]
--- OUTSIDE RECORDS SUMMARY | ~2018-12-11 | XMS | Encounter Summary ---
Demographics + + + | Address | [address] | | | [place] [address] | + + + | Home Phone | | + + + | Preferred Language | Unknown | + + + | Marital Status | | + + + | Amish Affiliation | Unknown | + + + | Race | Unknown | + + + | Ethnic Group | Unknown | + + + Author + + + | Author | [facility] [employer] | + + + | Organization | [facility] [employer] [facility] | + + + | Address [...] Team Providers + +------+ + | Care Purse Seining Hand Name | Role | Phone | + +------+ + | Rohan Wilkes DO | PCP | | + +------+ + Encounter Details +--------+ + + + + | Date | Type | Department | Care Team | Description | +--------+ + + + + | 12/07/ | Telephone | [facility] | [place], | | | 2019 | | [address] | | | | | [address] | | | | | | [place] [address] | | | | | | [phone] | | | +--------+ + + + [...] [address] | | | | | | [place] [address] | | | | | | [phone] | | | | | | | | +--------+---------+ + + + as of this encounter Visit Diagnoses Not on filein this encounter"
--- OUTSIDE RECORDS SUMMARY | ~2018-12-11 | XMS | Encounter Summary ---
Demographics + + + | Address | [address] | | | [place] [address] | + + + | Home Phone [...] Author + + + | Author | [facility] | + + + | Organization | [facility] | + + + | Address | Unknown | + + + | Phone | Unavailable | + + + Support + + +---------+ + | Name | Relationship | Address | Phone | + + +---------+ + | Geraldine Canales | ECON | Unknown | | + + +---------+ + Care Team Providers + +------+ + | Care Mechanical Car Checker Name | Role | Phone | [...] | | | | | | | [address] | | | | | | | [address] | | | | | | | [place] | | | | | | | [place], [place] | | | | | | | [address] | | | | | | | Phone: | | | | | | | [phone] | | | | | | | Fax: | | | | | | | [phone] | +--------+--------+ + + + + Encounter Details +--------+---------+ + + + | Date | Type | Department | Care Team | Description | +--------+---------+ + + + | 06/27/ | Office | [facility] | Susan Chau MD | Macular edema, | | 2013 | Visit | [facility] at | [address] | diabetic, type 2, | | | | [facility] [address] [place], [place] | with proliferative | | | | [address] | [address] | retinopathy [250.50, | | | | Mailcode: [facility] | [phone] | 362.02, 362.07] | | | | [place], [place] | | (Primary Dx) | | | | [address] | | | | | | [phone] | | | +--------+---------+ + + + [...] increased pain or decreased vision, immediately call [phone].Elec tronically signed by Akash Guzman at 06/27/2014 10:46 AM PST documented in this encounter Progress Notes Akash Guzman - 06/27/2014 10:46 AM PST Intravitreal Injection Procedure Note 06/27/2014 for: AVASTIN, BOTH EYES LOT # and Expiration RIGHT EYE: [id number] - 14C exp 07/08/14 LOT # and Expiration LEFT EYE: [id number] - 11C exp 07/08/14 Attending: Susan Chau [...] note might be different from the original. [facility] Progress Note 06/27/2014 CC: Postoperative visit Initial [...] , vision imp roved 3. 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 PDR (proliferative diabetic retinopathy) [070797] - s/p EL PRP OU, regressed OU - vision started out at CF in both eyes due to VH and TRDs OU, now PH to 20/50 OD and 20/70 OS 5. 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
--- OUTSIDE RECORDS SUMMARY | ~2018-12-11 | XMS | Encounter Summary ---
Demographics + + + | Address | [address] | | | [place] [address] | + + + | Home Phone [...] + + | Author | [place] [employer] [facility] | + + + | Organization | [facility] | + + + | Address | Unknown | + + + | Phone | Unavailable | + + + Support + + +---------+ + | Name | Relationship | Address | Phone | + + +---------+ + | Geraldine Parker | ECON | Unknown | | + + +---------+ + Care Team Providers + +------+ + | Care Co Founder And Chairman Name | Role | Phone | + [...] + + + + | 01/02/ | Hospital | [facility] | Susan Andrews MD | | | 2013 | Encounter | [address] | | | | | [address] [place], [place] | | | | | [facility] | [address] | | | | | [employer] | [phone] | | | | | [place] [address] | | | | | | [phone] | | | +--------+ + + + [...] + + + | Blood Pressure | 162/60 | 01/02/2014 3:45 PM | | | | | PDT | | + + + + + | Pulse | 51 | 01/02/2014 3:45 PM | | | | | PDT | | + + + + + | Temperature | 36.5 C (97.7 F) | 01/02/2014 3:45 PM | | | | | PDT | | + + + + + | Respiratory Rate | 16 | 01/02/2014 3:45 PM | | | | | PDT | | + + + + + | Oxygen Saturation | 94% | 01/02/2014 3:45 PM | | | | | PDT | | + + + + + | Inhaled Oxygen | - | - | | | Concentration | | | | + + + + + | Weight | 86.6 kg (191 lb) | 01/02/2014 9:52 AM | | | | | PDT | | + + + + + | Height | 162.6 cm (5' 4") | 01/02/2014 9:52 AM | | | | | PDT | | + + + + + | Body Mass Index | 32.79 | 01/02/2014 9:52 AM | | | | | PDT | | + + + + + documented in this encounter Discharge Instructions Instructions Katie Parker RN - 01/02/2014Please review the Home Care after Retinal Detach ment and Vitrectomy Surgery instructions. Resume your usual diet; and, also resume your usual oral medications. documented in this encounter Medications at Time [...] into | 5 mL | 0 | 01/03/20 | | | ophthalmic drops | the [...] | | | | | | Blvd [place], [place] | | | | | | [address] | | | | | | [phone] | | | | | | | [...] for this | | | e | 6:52 PM | | procedure are in the | | | | PST | | results section. | + +--------+ + + + | PROCEDURE NOTE | Routin | 08/27/2015 | | Results for this | | | e | 6:51 PM | | procedure are in the | | | | PST | | results section. | + +--------+ + + + | CAPILLARY BLOOD | Routin | 01/02/2014 | | Results for this | | GLUCOSE (NO CHG), | e | 3:24 PM | | procedure are in the | | POC | | PDT | | results section. | + +--------+ + + + | (INACTIVE) 23G | Electi | 01/02/2014 | Traction | | | VITRECTOMY WITH | ve | 12:19 PM | detachment of retina | | | SILICONE OIL | Surgic | PDT | Vitreous | | | INSERTION | al | | hemorrhage (HCC) | | | | | | Proliferative | | | | | | diabetic | | | | | | retinopathy(362.02) | | | | | | (HCC) | | + +--------+ + + + | CAPILLARY BLOOD | Routin | 01/02/2014 | | Results for this | | GLUCOSE (NO CHG), | e | 9:58 AM | | procedure are in the | | POC | | PDT | | results section. | + +--------+ + + + documented in this encounter Results PROCEDURE NOTE (08/27/2015 6:52 PM PST)PROCEDURE NOTE (08/27/2015 6:51 PM PST) + + | Transcriptions | + + | Other, Faculty - 01/04/2014 12:01 AM PDT | + + CAPILLARY BLOOD GLUCOSE (NO CHG), POC (01/02/2014 3:24 PM PDT) + +---------+ + + + | Component | Value | Ref Range | Performed | Pathologist | | | | | At | Signature | + +---------+ + + + | BLOOD | 284 (H) | 60 - 99 mg/dL | [...] GRUPO | [address] | [place], [place] | | | [facility] | [address] | [address] | | | TESTS | | | | + + + + + CAPILLARY BLOOD GLUCOSE (NO CHG), POC (01/02/2014 9:58 AM PDT) + +---------+ + + + | Component | Value | Ref Range | Performed | Pathologist | | | | | At | Signature | + +---------+ + + + | BLOOD | 321 (H) | 60 - 99 mg/dL | [...] JAVED | [address] | [place], [place] | | | [facility] | [address] | [address] | | | TESTS | | | | + + + + + documented in this encounter Visit Diagnoses Not on filedocumented in this encounter Administered Medications + +--------+ +--------+------+------+ | Medication Order | MAR | Action | Dose | Rate | Site | | | Action | Date | | | | + +--------+ +--------+------+------+ | cyclopentolate 1%-phenylephrine | Given | 01/03/20 | 1 drop | | | | 2.5%-tropicamide 0.25% | | 14 10:00 | | | | | (SUPERDROPS) ophthalmic drops 1 | | AM PDT | | | | | drop 1 drop, Both Eyes, EVERY 5 | | | | | | | MINUTES NEEDED, 2 doses, | | | | | | | Starting [facility] 01/02/14 at 0949, | | | | | | | Until [facility] 01/02/14 at 1000, | | | | | | | pre-procedure dilation | | | | | | + +--------+ +--------+------+------+ +-------+ +--------+---+---+ | Given | 01/03/20 | 1 drop | | | | | 14 9:55 | | | | | | AM [...] + + +---+ | New Bag | 06/12/20 | 10 mL/hr | 10 mL/hr | | | | 14 10:01 | | | | | | AM PDT | | | | +---------+ + + +---+ +---+---+ | | | +---+---+ documented in this encounter
--- OUTSIDE RECORDS SUMMARY | ~2018-12-11 | XMS | Encounter Summary ---
Demographics + + + | Address | [address] | | | [place] [address] | + + + | Home Phone | | + + + | Preferred Language | Unknown | + + + | Marital Status | Single | + + + | Mandaeism Affiliation | NRP | + + + | Race | or Other | + + + | Ethnic Group | Not or | + + + Author + + + | Author | [facility] | + + + | Organization | [facility] | + [...] Team Providers + +------+ + | Care Supervisor Adult Education Name | Role | Phone | + [...] | | | | | | | [address] | | | | | | | [address] | | | | | | | [place] | | | | | | | [place], [place] | | | | | | | [address] | | | | | | | Phone: | | | | | | | [phone] | | | | | | | Fax: | | | | | | | [phone] | +--------+--------+ + + + + Encounter Details +--------+---------+ + + + | Date | Type | Department | Care Team | Description | +--------+---------+ + + + | 08/08/ | Office | [facility] | Susan Chau MD | Macular edema, | | 2015 | Visit | [facility] at | [address] | diabetic, type 2, | | | [facility] [address] [place], [place] | with proliferative | | | | [address] | [address] | retinopathy [250.50, | | | | Mailcode: [facility] | [phone] | 362.02, 362.07] | | | | [facility] [place] | | (Primary Dx); Type | | | | [address] | | II or unspecified | | | | [phone] | | type diabetes | | | | | | mellitus with | | | | | | ophthalmic | | | | | | manifestations, not | | | | | | stated as | | | | | | uncontrolled(250.50) | | | | | | ; Diabetic macular | | | | | | edema(362.07) ([facility]) | +--------+---------+ + + + Social [...] increased pain or decreased vision, immediately call [phone].Elec tronically signed by Nanci Whittaker at 08/08/2014 1:44 PM PST documented in this encounter Progress Notes Susan Chau MD - 08/08/2014 1:44 PM PST Intravitreal Injection Procedure Note 08/08/2014 for: AVASTIN, BOTH EYES LOT #[id number] and Expiration 08/19/14 RIGHT EYE: LOT #[id number] and Expiration 08/19/14 LEFT EYE: Attending: Susan [...] note might be different from the original. [facility] Progress Note 08/08/2014 CC: Follow-up visit [...] , vision imp roved 3. 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 PDR (proliferative diabetic retinopathy) [298288] - s/p EL PRP OU, regressed OU - vision started out at CF in both eyes due to VH and TRDs OU, now PH to 20/50 OD and 20/70 OS 5. 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 physician, [...] | | | | | | jesus [place], [place] | | | | | | [address] | | | | | | [phone] | | | | | | | [...] | + +--------+ + + + | [facility] | Routin | 08/08/2014 | [...] | + +--------+ + + + | [place] INTRAVITREAL INJ, | Routin | 08/08/2014 | [...] | | | | | | edema(362.07) ([facility]) | | + +--------+ + + + documented in this encounter Visit Diagnoses + + | Diagnosis | + + | Macular edema, diabetic, type 2, with proliferative retinopathy [250.50, 362.02, | | 362.07] - Primary | + + | Type II or unspecified type diabetes mellitus with ophthalmic manifestations, not | | stated as uncontrolled(250.50) ([facility]) Type II or unspecified type diabetes mellitus with | | ophthalmic manifestations, not stated as uncontrolled | + + | Diabetic macular edema(362.07) Diabetic macular edema | + + documented in this encounter
--- OUTSIDE RECORDS SUMMARY | ~2018-12-11 | XMS | Encounter Summary ---
Demographics + + + | Address | [address] | | | [place] [address] | + + + | Home Phone [...] + + + | Author | [facility] | + + + | Organization | [facility] | + + + | Address | Unknown | + + + | Phone | Unavailable | + + + Support + + +---------+ + | Name | Relationship | Address | Phone | + + +---------+ + | Geraldine Parker | ECON | Unknown | | + + +---------+ + Care Team Providers + +------+ + | Care Linoleum Layer Apprentice Name | Role | Phone | + [...] Description | +--------+---------+ + + + | 01/02/ | Surgery | [facility] | Susan Andrews MD | INDIRECT LASER-LEFT; | | 2013 | | [address] | [address] | *23G* [address] | | | | [facility] | [place], [place] | VITRECTOMY, ENDO | | | | [facility], | [address] | [place], [place] | | | | [place] [address] | [phone] | PEEL, POSSIBLE GAS | | | | | | [place] SILICONE | | | | | | OIL-RIGHT | +--------+---------+ + + + Social History [...] | | | | | | [place], [place] | | | | | | [address] | | | | | | [phone] | | | | | | | [...] retinopathy(362.02) | | | | | | ([facility]) | | + +--------+ + + + [...] [facility] | [address] | [place], [place] | | | [facility] | [address] | [address] | | | TESTS | | | [...] + + | [facility] | [address] | [place], [place] | | | [facility] | [address] | [address] | | | TESTS | | | | + + + + + documented in this encounter Visit Diagnoses + + | Diagnosis | + + | Traction detachment of retina | + + | Vitreous hemorrhage (HCC) Vitreous hemorrhage | + + | Proliferative diabetic retinopathy(362.02) Proliferative diabetic retinopathy | + + documented in this encounter Administered Medications + +--------+ +---------+------+--------+ | Medication Order | MAR | Action | Dose | Rate | Site | | | Action | Date | | | | + +--------+ +---------+------+--------+ | atropine 1 % ophthalmic drops | Given | 01/03/20 | 2 drops | | Right | | INTRAPROCEDURE PRN, Starting [facility] | | 14 1:01 | | | Eye | | 01/02/14 at 1301, Until [facility] | | PM PDT | | | | | 01/02/14 at 1522 | | | | | | + +--------+ +---------+------+--------+ +---+---+ | | | +---+---+ + +-------+ +-------+---+ + | balanced salt (BSS) ophthalmic | Given | 01/03/20 | 15 mL | | Left Eye | | irrigation INTRAPROCEDURE PRN, | | 14 1:44 | | | | | Starting [facility] 01/02/14 at 1233, | | PM PDT | | | | | Until [facility] 01/02/14 at 1522 | | | | | | + +-------+ +-------+---+ + +-------+ +-------+---+ + | Given | 01/03/20 | 15 mL | | Left Eye | | | 14 12:33 | | | | | | PM PDT | | | | +-------+ +-------+---+ + +---+---+ | | | +---+---+ + +-------+ +--------+---+---+ | cyclopentolate 1%-phenylephrine | Given | 01/03/20 [...] | | | | | | Starting [facility] 01/02/14 at 0949, | | | | | | | Until [facility] 01/02/14 at 1000, | | | | | | | pre-procedure dilation | | | | | | + +-------+ +--------+---+---+ +-------+ +--------+---+---+ | Given | 01/03/20 | 1 drop | | | | | 14 9:55 | | | | | | AM PDT | | | | +-------+ +--------+---+---+ +---+---+ | | | +---+---+ + +-------+ +-------+---+--------+ | dexamethasone (DECADRON) | Given | 01/03/20 | 10 mg | | Right | | injection INTRAPROCEDURE PRN, | | 14 1:00 | | | Eye | | Starting [facility] 01/02/14 at 1300, | | PM PDT | | | | | Until [facility] 01/02/14 at 1522 | | | | | | + +-------+ +-------+---+--------+ +---+---+ | | | +---+---+ + +-------+ + +---+--------+ | Dilating Solution (Phakic & | Given | 01/03/20 | 1 Bottle | | Right | | Diabetic): BSS Plus 500 mL - 3 mL | | 14 12:34 | | | Eye | | D50 - 0.5 mL EPINEPHrine | | PM PDT | | | | | (1:1,000) INTRAPROCEDURE PRN, | | | | | | | Starting [facility] 01/02/14 at 1234, | | | | | | | Until [facility] 01/02/14 at 1522 | | | | | | + +-------+ + +---+--------+ +---+---+ | | | +---+---+ + +-------+ +------+---+--------+ | hydroxypropyl methylcellulose | Given | 01/03/20 | 6 mL | | Right | | (GONIOSOL) 2.5 % ophthalmic drops | | 14 12:58 | | | Eye | | INTRAPROCEDURE PRN, Starting | | PM PDT | | | | | [facility] 01/02/14 at 1258, Until [facility] | | | | | | | 01/02/14 at 1522, dry eyes | | | | | | + +-------+ +------+---+--------+ +---+---+ | | | +---+---+ + + [...] | | +---+---+ + +-------+ +---------+---+---+ | Local with hyaluronidase: | Given | 01/03/20 | 10.5 mL | | | | lidocaine 4% - bupivacaine 0.75% | | 14 12:34 | | | | | - hyaluronidase 200 units/mL (0.5 | | PM PDT | | | | | mL/10 mL 4% lidocaine) | | | | | | | INTRAPROCEDURE PRN, Starting [facility] | | | | | | | 01/02/14 at 1234, Until [facility] | | | | | | | 01/02/14 at 1522 | | | | | | + +-------+ +---------+---+---+ +---+---+ | | | +---+---+ + +-------+ +---------+---+--------+ | proparacaine (OPHTHAINE) 0.5 % | Given | 01/03/20 | 2 drops | | Right | | ophthalmic drops INTRAPROCEDURE | | 14 1:07 | | | Eye | | PRN, Starting [facility] 01/02/14 at | | PM PDT | | | | | 1258, Until [facility] 01/02/14 at 1522 | | | | | | + +-------+ +---------+---+--------+ +-------+ +---------+---+ + | Given | 01/03/20 | 2 drops | | Right | | | 14 12:59 | | | Eye | | | PM PDT | | | | +-------+ +---------+---+ + | Given | 01/03/20 | 2 drops | | Left Eye | | | 14 12:58 | | | | | | PM PDT | | | | +-------+ +---------+---+ + +---+---+ | | | +---+---+ + +-------+ +-------+---+--------+ | sterile water for injection | Given | 01/03/20 | 10 mL | | Right | | INTRAPROCEDURE PRN, Starting [facility] | | 14 12:59 | | | Eye | | 01/02/14 at 1259, Until [facility] | | PM PDT | | | | | 14 at 1522 | | | | | | + +-------+ +-------+---+--------+ +---+---+ | | | +---+---+ + +-------+ +-------+---+--------+ | vancomycin (VANCOCIN) injection | Given | 01/03/20 | 25 mg | | Right | | INTRAPROCEDURE PRN, Starting | | 14 1:00 | | | Eye | | [facility] 01/02/14 at 1300, Until [facility] | | PM PDT | | | | | 01/02/14 at 1522 | | | | | | + +-------+ +-------+---+--------+ +---+---+ | | | +---+---+ documented in this encounter
--- OUTSIDE RECORDS SUMMARY | ~2018-12-11 | XMS | Encounter Summary ---
Demographics + + + | Address | [address] | | | [place] [address] | + + + | Home Phone [...] + + | Author | [place] [facility] | + + + | Organization | [facility] | + + + | Address | Unknown | + + + | Phone | Unavailable | + + + Support + + +---------+ + | Name | Relationship | Address | Phone | + + +---------+ + | Smoot Parker | ECON | Unknown | | + + +---------+ + Care Team Providers + +------+ + | Care Furnace Packer Name | Role | Phone | + [...] (OU) | | 2015 | Visit | [place] | | | | | | [facility] at | | | | | | [place] [id number] | | | | | | [address] | | | | | | Mailcode: [place] | | | | | | [place], [place] | | | | | | [address] | | | | | | [phone] | | | +--------+ + + + [...] | | | | | | [place], [place] | | | | | | [address] | | | | | | [phone] | | | | | | | [...]
--- OUTSIDE RECORDS SUMMARY | ~2018-12-11 | XMS | Encounter Summary ---
Demographics + + + | Address | [address] | | | [place] [address] | + + + | Home Phone | | + + + | Preferred Language | Unknown | + + + | Marital Status | Single | + + + | Sikhism Affiliation | NRP | + + + | Race | or Other | + + + | Ethnic Group | Not or | + + + Author + + + | Author | [place] [employer] [facility] | + + + | Organization | [facility] | + + + | Address | Unknown | + + + | Phone | Unavailable | + + + Support + + +---------+ + | Name | Relationship | Address | Phone | + + +---------+ + | Geraldine Parker | ECON | Unknown | | + + +---------+ + Care Team Providers + +------+ + | Care Convention Planner Name | Role | Phone | [...] | | | [facility] | [place], [place] | VITRECTOMY, ENDO | | | | [facility], | [address] | [place], [place] | | | | [place] [address] | [phone] | PEEL, POSSIBLE GAS | | | [...] | | | | | | [place], [place] | | | | | | [address] | | | | | | [phone] | | | | | | | [...] retinopathy(362.02) | | | | | | ([facility]) | | + +--------+ + [...] [facility] | [address] | [place], [place] | | | [facility] | [address] | [address] | | | TESTS | | | [...] [facility] | [address] | [place], [place] | | | [facility] | [address] | [address] | | | TESTS | | | [...] | | | | | | Starting [facility] 01/02/14 at 0949, | | | | | | | Until [facility] 01/02/14 at 1000, | | | [...] | | | Eye | | Starting [facility] 01/02/14 at 1300, | | PM PDT | | | | | Until [facility] 01/02/14 at 1522 | | | [...]
--- OUTSIDE RECORDS SUMMARY | ~2018-12-11 | XMS | Encounter Summary ---
Demographics + + + | Address | [address] | | | [place] [address] | + + + | Home Phone [...] + + + | Author | [place] [employer] [facility] | + + + | Organization | [facility] | + + + | Address | Unknown | + + + | Phone | Unavailable | + + + Support + + +---------+ + | Name | Relationship | Address | Phone | + + +---------+ + | Geraldine Parker | ECON | Unknown | | + + +---------+ + Care Team Providers + +------+ + | Care Dock Loader Name | Role | Phone | + +------+ + | Juan Carlos Grullon | PCP | | + +------+ + Reason for Visit + + + | Reason | Comments | + + + | Eye examination | | + + + Encounter Details +--------+ + + + + | Date | Type | Department | Care Team | Description | +--------+ + + + + | 12/06/ | Diagnostic | [facility] | | Eye examination | | 2013 | Visit | [place] | | | | | | Photography at | | | | | | [place] [address] | | | | | | [address] | | | | | | Mailcode: [address] | | | | | | [place], [place] | | | | | | [address] | | | | | | [phone] | | | +--------+ + + + + Social History + +-------+ +--------+ + | Tobacco Use | Types | Packs/Day | Years | Date | | | | | Used | | + +-------+ +--------+ + | Former Smoker | | | | Quit: 11/06/2013 | + +-------+ +--------+ + + + + | Sex Assigned [...] of this encounter Progress Alexey Hutchinson - 12/06/2013 2:53 PM PDT B-scan OU OD OS AC: Formed, deep and clear AC: Formed, deep and clear Lens: Phakic, in relatively good position, clear Lens: Phakic, in relatively good position, clear Vitreous: Mild vitreous debris with subhyaloid hemorrhage Vitreous: Moderate vitreous debis Retina: Multiple areas of focal TRD noted in superior, superonasal, and nasal quadrants. Th ere is an inferior TRD with tabletop configuration. The macula appears attached. Retina: Mu ltiple focal TRD noted in nasal periphery, inferonasal, and inferotemporal quadrants. There is a bridging membrane connecting the inferotemporal and inferonasal TRD. The macula appears thick, but attached. Disc/ Nerve appearance: WNL Disc/ Nerve apperance: CANDIDA DELUCA documented in this encount er Plan of Treatment +--------+---------+ + + + | Date | Type | Specialty | Care Team | Description | +--------+---------+ + + + | 01/30/ | Office | Ophthalmology | Susan Andrews MD | | | 2019 | Visit | | [address] | | | | | | [place], [place] | | | | | | [address] | | | | | | [phone] | | | | | | | | +--------+---------+ + + + documented as of this encounter Visit Diagnoses + + | Diagnosis | + + | Vitreous hemorrhage (HCC) - Primary Vitreous hemorrhage | + + documented in this encounter"
--- OUTSIDE RECORDS SUMMARY | ~2018-12-11 | XMS | Clinical Summary ---
Demographics + + + | Address | [address] | | | [place] [address] | + + + | Home Phone | | + + + | Preferred Language | Unknown | + + + | Marital Status | | + + + | Latter Day Affiliation | Unknown | + + + | Race | Unknown | + + + | Ethnic Group | Unknown | + + + Author + + + | Author | [facility] | | | and Lucasana | + + + | Organization | [facility] | | | and [...] Team Providers + +------+ + | Care Photo Print Specialist Name | Role | Phone | [...] closure device deployment. | | 5. A 6-Italian Mynx closure device deployment at the right [...] therapy Being tsf back to | | [place] later today | |Being tsf back to [place] later today | + + + + [...] | | | | | [place] [address] | | | | | | [phone] | | | | | | | [...] +--------+ +---------+--------+ | MEDICARE | MEDICA | [id number] | 03/24/20 | [phone] | | Medica | | | RE | | 14-Pre | 5 | | re | | | PART A | | sent | | | | | | AND B | | | | | | + +--------+ +--------+ +---------+--------+ | MEDICAID [place] | MEDICA | [id number] | | [phone] | | Medica | [...] gucci | | | 8 (Home) | [address] | + +--------+ +--------+ + + Advance Directives Patient has advance care planning documents, and code status on file. For more information, please contact:[facility] [place] [address] + + + + + | Code Status | Date | Date | Comments | | | Activated | Inactivated | | + + + + + | Full Code | 11/27/2015 | 12/05/2015 | | | | 13:21 | 15:13 | | + + + + +
--- OUTSIDE RECORDS SUMMARY | ~2018-12-11 | XMS | Encounter Summary ---
Demographics + + + | Address | [address] | | | [place] [address] | + + + | Home Phone | | + + + | Preferred Language | Unknown | + + + | Marital Status | Single | + + + | Worship Affiliation | NRP | + + + | Race | or Other | + + + | Ethnic Group | Not or | + + + Author + + + | Author | [place] [employer] [facility] | + + + | Organization | [facility] [employer] [facility] | + + + | Address | Unknown | + + + | Phone | Unavailable | + + + Support + + +---------+ + | Name | Relationship | Address | Phone | + + +---------+ + | Geraldine Parker | ECON | Unknown | | + + +---------+ + Care Team Providers + +------+ + | Care Box Bender Name | Role | Phone | + +------+ + | Nadeem Caruso | PCP | | + +------+ + Encounter Details +--------+ + + + + | Date | Type | Department | Care Team | Description | +--------+ + + + + | 02/12/ | Document-Sc | UNKNOWN DEPARTMENT | Unknown . | | | 2013 | anned | [address] [facility] | | | | | | [facility] | | | | | | [place], [place] | | | | | | [address] | | | +--------+ + + + [...] | | | | | | [place], [place] | | | | | | [address] | | | | | | [phone] | | | | | | | | +--------+---------+ + + + documented as of this encounter Procedures + +--------+ + + + | Procedure Name | Priori | Date/Time | Associated Diagnosis | Comments | | | ty | | | | + +--------+ + + + | OUTSIDE CARDIOLOGY | | 02/12/2014 | | Results for this | | | | 12:00 AM | | procedure are in the | | | | PDT | | results section. | + +--------+ + + + documented in this encounter Results OUTSIDE CARDIOLOGY (02/12/2014 12:00 AM PDT) + + + | Narrative | Performed At | + + + | | | | | | + + + + + | Procedure Note | + + | Netta Ross - 02/12/2014 2:41 PM PDT | + + documented in this encounter Visit Diagnoses Not on filedocumented in this encounter
--- OUTSIDE RECORDS SUMMARY | ~2018-12-11 | XMS | Encounter Summary ---
Demographics + + + | Address | [address] | | | [place] [address] | + + + | Home Phone [...] + + + | Author | [place] [employer] [facility] | + + + | Organization | [facility] [employer] [facility] | + + + | Address | Unknown | + + + | Phone | Unavailable | + + + Support + + +---------+ + | Name | Relationship | Address | Phone | + + +---------+ + | Geraldine Parker | ECON | Unknown | | + + +---------+ + Care Team Providers + +------+ + | Care Inspector And Mender Name | Role | Phone | + [...] [place] | | | | | | [place], [place] | | | | | | [address] | | | | | | [phone] | | | +--------+ + + + [...] | | | | | | [place], [place] | | | | | | [address] | | | | | | [phone] | | | | | | | | +--------+---------+ + + + documented as of this encounter Visit Diagnoses Not on filedocumented in this encounter
--- OUTSIDE RECORDS SUMMARY | ~2018-12-11 | XMS | Encounter Summary ---
Demographics + + + | Address | [address] | | | [place] [address] | + + + | Home Phone [...] + + + | Author | [place] [employer] [facility] | + + + | Organization | [facility] | + + + | Address | Unknown | + + + | Phone | Unavailable | + + + Support + + +---------+ + | Name | Relationship | Address | Phone | + + +---------+ + | Geraldine Parker | ECON | Unknown | | + + +---------+ + Care Team Providers + +------+ + | Care Sight Mounter Name | Role | Phone | + [...] [place] | | | | | | [facility] | | | | | | [place], [place] | | | | | | [address] | | | +--------+ + + + [...] [place] | | | | | | [address] | | | | | | [phone] | | | | | | | [...] [facility] - | [address], | [place] [address] | | | IMMUNOGENETICS/TRANS | [address] | | | | PLANT LABORATORY | | | | + + + + + documented in this encounter Visit Diagnoses Not on filedocumented in this encounter
--- OUTSIDE RECORDS SUMMARY | ~2018-12-11 | XMS | Encounter Summary ---
Demographics + + + | Address | [address] | | | [place] [address] | + + + | Home Phone [...] + + + | Author | [place] [employer] [facility] | + + + | Organization | [facility] [employer] [facility] | + + + | Address | Unknown | + + + | Phone | Unavailable | + + + Support + + +---------+ + | Name | Relationship | Address | Phone | + + +---------+ + | Geraldine Canales | ECON | Unknown | | + + +---------+ + Care Team Providers + +------+ + | Care Capper Machine Operator Name | Role | Phone [...] examination | | 2013 | Visit | [place] | | (APR) | | | | Photography at | | | | | | [place] [address] | | | | | | [address] [place] | | | | | | Mailcode: [place] | | | | | | [place], [place] | | | | | | [address] | | | | | | [phone] | | | +--------+ + + + [...] Arnold was seen in the [facility]Ultrasound Department today, 02/28/2014, for OCT OU. NOLA Clarkectronically signed by Nola Kevin at 02/28/2014 3:44 PM PDTdocumented in thi s encounter Plan of Treatment +--------+---------+ + + + | Date | Type | Specialty | Care Team | Description | +--------+---------+ + + + | 01/30/ | Office | Ophthalmology | Susan nAdrews MD | | | 2019 | Visit | | [address] | | | | | | [place], [place] | | | | | | [address] | | | | | | [phone] | | | | | | | | +--------+---------+ + + + documented as of this encounter Visit Diagnoses + + | Diagnosis | + + | Macular edema, diabetic, type 2, with proliferative retinopathy [250.50, 362.02, | | 362.07] - Primary | + + documented in this encounter
--- OUTSIDE RECORDS SUMMARY | ~2018-12-11 | XMS | Encounter Summary ---
Demographics + + + | Address | [address] | | | [place] [address] | + + + | Home Phone | | + + + | Preferred Language | Unknown | + + + | Marital Status | | + + + | Druze Affiliation | Unknown | + + + | Race | Unknown | + + + | Ethnic Group | Unknown | + + + Author + + + | Author | [facility] [employer] | + + + | Organization | [facility] [employer] | + + + | [...] Team Providers + +------+ + | Care Servicer Coin Machines Name | Role | Phone | + [...] | [address] | [address] [place], [place] | Tranplant notes) | | | | [place] [address] | [address] | | | | | [phone] | | | +--------+ + + + [...] | | | | | [place] [address] | | | | | | [phone] | | | | | | | | +--------+---------+ + + + as of this encounter Visit Diagnoses Not on filein this encounter"
--- OUTSIDE RECORDS SUMMARY | ~2018-12-11 | XMS | Encounter Summary ---
Demographics + + + | Address | [address] | | | [place] [address] | + + + | Home Phone [...] + + + | Author | [place] [employer] [facility] | + + + | Organization | [facility] [employer] [facility] | + + [...] Providers + +------+ + | Care Manager Respiratory Name | Role | Phone | + [...] [place] | | | | | | [facility] | | | | | | [place], [place] | | | | | | [address] | | | +--------+ + + + [...] | | | | | | [place], [place] | | | | | | [address] | | | | | | [phone] | | | | | | | [...] [facility] - | [address], | [place] [address] | | | IMMUNOGENETICS/TRANS | [address] | | | | PLANT LABORATORY | | | | + + + + + documented in this encounter Visit Diagnoses Not on filedocumented in this encounter
--- OUTSIDE RECORDS SUMMARY | ~2018-12-11 | XMS | Encounter Summary ---
Demographics + + + | Address | [address] | | | [place] [address] | + + + | Home Phone [...] + + + | Author | [place] [employer] [email or web address] | + + + | Organization | [facility] [employer] [facility] [[email or web address]] | + [...] Team Providers + +------+ + | Care Process Helper Name | Role | Phone | [...] [place] | | | | | | [facility] | | | | | | [place], [place] | | | | | | [address] | | | +--------+ + + + [...] | | | | | | [place], [place] | | | | | | [address] | | | | | | [phone] | | | | | | | [...] [facility] - | [address], | [place] [address] | | | IMMUNOGENETICS/TRANS | [address] | | | | PLANT LABORATORY | | | | + + + + + documented in this encounter Visit Diagnoses Not on filedocumented in this encounter
--- OUTSIDE RECORDS SUMMARY | ~2018-12-11 | XMS | Encounter Summary ---
Demographics + + + | Address | [address] | | | [place] [address] | + + + | Home Phone [...] + + + | Author | [place] [employer] [facility] | + + + | Organization | [facility] [employer] [facility] | + + + | Address | Unknown | + + + | Phone | Unavailable | + + + Support + + +---------+ + | Name | Relationship | Address | Phone | + + +---------+ + | Geraldine Parker | ECON | Unknown | | + + +---------+ + Care Team Providers + +------+ + | Care Home Care Scheduler Name | Role | Phone | + [...] | | | | | | [address] | | | | | | [place], [place] | | | | | | [address] | | | | | | [phone] | | | +--------+ + + + [...] | | | | | | [place], [place] | | | | | | [address] | | | | | | [phone] | | | | | | | | +--------+---------+ + + + documented as of this encounter Visit Diagnoses + + | Diagnosis | + + | LAKE (dyspnea on exertion) - Primary Other dyspnea and respiratory abnormality | + + documented in this encounter
--- OUTSIDE RECORDS SUMMARY | ~2018-12-11 | XMS | Encounter Summary ---
Demographics + + + | Address | [address] | | | [place] [address] | + + + | Home Phone | | + + + | Preferred Language | Unknown | + + + | Marital Status | | + + + | Faith Affiliation | Unknown | + + + | Race | Unknown | + + + | Ethnic Group | Unknown | + + + Author + + + | Author | [facility] [employer] | + + + | Organization | [facility] [employer] | + + + | Address [...] Team Providers + +------+ + | Care Principal Technical Specialist Name | Role | Phone | [...] | [address] | [address] [place], [place] | transplant notes, | | | | [place] [address] | [address] | labs) | | | | [phone] | | | +--------+ + + + [...] PA[place] | | | | | | [place] [address] | | | | | | [phone] | | | | | | | | +--------+---------+ + + + as of this encounter Visit Diagnoses Not on filein this encounter"
--- OUTSIDE RECORDS SUMMARY | ~2018-12-11 | XMS | Encounter Summary ---
Demographics + + + | Address | [address] | | | [place] [address] | + + + | Home Phone [...] + + + | Author | [place] [employer] [facility] | + + + | Organization | [facility] [employer] [facility] | + + + | Address | Unknown | + + + | Phone | Unavailable | + + + Support + + +---------+ + | Name | Relationship | Address | Phone | + + +---------+ + | Geraldine [place] | ECON | Unknown | | + + +---------+ + Care Team Providers + +------+ + | Care Research Compliance Specialist Name | Role | Phone | [...] | | | | | [address] | [address] [place], | | | | | [facility], | [place] [address] | | | | | [place] [address] | [phone] | | | | | | | [...] | | 2019 | Visit | | [address] | | | | | | [place], [place] | | | | | | [address] | | | | | | [phone] | | | | | | | [...]
--- OUTSIDE RECORDS SUMMARY | ~2018-12-11 | XMS | Encounter Summary ---
Demographics + + + | Address | [address] | | | [place] [address] | + + + | Home Phone | | + + + | Preferred Language | Unknown | + + + | Marital Status | Single | + + + | Scientology Affiliation | NRP | + + + | Race | or Other | + + + | Ethnic Group | Not or | + + + Author + + + | Author | [place] [email or web address] [facility] | + + + | Organization | [facility] [employer] [facility] | [...] Team Providers + +------+ + | Care Acquisition Marketing Manager Name | Role | Phone [...] | | | | [facility] | [address] [place], | | | | | [facility], | [place] [address] | | | | | [place] [address] | [phone] | | | | | | | [...] | | | | | | Blvd [place], [place] | | | | | | [address] | | | | | | [phone] | | | | | | | [...]
--- OUTSIDE RECORDS SUMMARY | ~2018-12-11 | XMS | Encounter Summary ---
Demographics + + + | Address | [address] | | | [place] [address] | + + + | Home Phone [...] + + | Author | [place] [employer] [facility] | + + + | Organization | [facility] [employer] [facility] | + + + | Address | Unknown | + + + | Phone | Unavailable | + + + Support + + +---------+ + | Name | Relationship | Address | Phone | + + +---------+ + | Geraldine [place] | ECON | Unknown | | + + +---------+ + Care Team Providers + +------+ + | Care Sales And Marketing Specialist Name | Role | Phone | [...] + + | 01/02/ | Hospital | [facility] | Susan Andrews MD | | | 2013 | Encounter | [address] | | | | | [address] | [address] [place], [place] | | | | | [facility] | [address] | | | | | [employer] | [phone] | | | | | [place] [address] | | | | | | [phone] | | | +--------+ + + + [...] | | | | | | Blvd [place], [place] | | | | | | [address] | | | | | | [phone] | | | | | | | [...] GRUPO | [address] | [place], [place] | | | MONTEZ SIMMONS OF PHILLIP | [address] | [address] | | | TESTS | | | [...] JAVED | [address] | [place], [place] | | | TROY NOVINGER OF [facility] | [address] | [address] | | | TESTS | | | [...] | | | | | | Starting [facility] 01/02/14 at 0949, | | | | | | | Until [facility] 01/02/14 at 1000, | | | [...]
--- OUTSIDE RECORDS SUMMARY | ~2018-12-11 | XMS | Encounter Summary ---
Demographics + + + | Address | [address] | | | [place] [address] | + + + | Home Phone [...] + + + | Author | [place] [employer] [facility] | + + + | Organization | [facility] [employer] [facility] | + + + | Address | Unknown | + + + | Phone | Unavailable | + + + Support + + +---------+ + | Name | Relationship | Address | Phone | + + +---------+ + | Geraldine Parker | ECON | Unknown | | + + +---------+ + Care Team Providers + +------+ + | Care Lathing Supervisor Name | Role | Phone | + +------+ + | Nadeem Caruso | PCP | | + +------+ + Encounter Details +--------+ + + + + | Date | Type | Department | Care Team | Description | +--------+ + + + + | 05/30/ | Document-Sc | UNKNOWN DEPARTMENT | Unknown . | | | 2014 | anned | [address] [facility] | | | | | | [facility] | | | | | | [place], [place] | | | | | | [address] | | | +--------+ + + + [...] | | | | | | [place], [place] | | | | | | [address] | | | | | | [phone] | | | | | | | | +--------+---------+ + + + documented as of this encounter Visit Diagnoses Not on filedocumented in this encounter
--- OUTSIDE RECORDS SUMMARY | ~2018-12-11 | XMS | Encounter Summary ---
Demographics + + + | Address | [address] | | | [place] [address] | + + + | Home Phone [...] + + + | Author | [place] [employer] [facility] | + + + | Organization | [facility] [employer] [facility] | + + + | Address | Unknown | + + + | Phone | Unavailable | + + + Support + + +---------+ + | Name | Relationship | Address | Phone | + + +---------+ + | Geraldine Parker | ECON | Unknown | | + + +---------+ + Care Team Providers + +------+ + | Care Equipment Operating Engineer Name | Role | Phone | + +------+ + | Ndaeem Caruso | PCP | | + +------+ [...] | [address] | [place] [address] | | | | | [place] | [address] | | | | | [facility], | [place], [place] | | | | | [place] [address] | [address] | | | | | | [phone] | | | | | | | [...] | | | | | | [place], [place] | | | | | | [address] | | | | | | [phone] | | | | | | | [...] mg | | | | Starting Mehnaz 05/08/14 at 0735, | | 14 7:35 | | | | | Until Mehnaz 05/08/14 at 0846 | | AM PDT | | | | + +-------+ +-------+---+---+ +---+---+ | | | +---+---+ documented in this encounter
--- OUTSIDE RECORDS SUMMARY | ~2018-12-11 | XMS | Encounter Summary ---
Demographics + + + | Address | [address] | | | [place] [address] | + + + | Home Phone [...] + + + | Author | [place] [employer] [facility] | + + + | Organization | [facility] [employer] [facility] | + [...] Team Providers + +------+ + | Care Head Piece Assembler Name | Role | Phone | + +------+ + | Nadeem Caruso | PCP | | + +------+ + Reason for Visit Other (Routine) +--------+--------+ + + + + [...] | | | | | | | [address] | | [address] | [address] | | | | | | | [address] | | | | | | | [place], [place] | | | | | | | [address] | | | | | | | Phone: | | | | | | | [phone] | | | | | | | Fax: | | | | | | | [phone] | +--------+--------+ + + + + Encounter Details +--------+---------+ + + + | Date | Type | Department | Care Team | Description | +--------+---------+ + + + | 05/09/ | Office | [facility] | Susan Chau MD | Macular edema, | | 2013 | Visit | [facility] at | [address] | diabetic, type 2, | | | | [facility] [address] [place], [place] | with proliferative | | | | [address] | [address] | retinopathy (Primary | | | | Mailcode: [facility] | [phone] | Dx) | | | | [place], [place] | | | | | | [address] | | | | | | [phone] | | | +--------+---------+ + + + [...] encounter Progress Notes Susan Chau MD - 05/09/2014 7:30 AM PDTFormatting of this note might be different from melvin rachel. [facility] Progress Note 05/09/2014 CC: No chief complaint on file. Initial History: Last 3 ambulatory procedures on record: Procedure: Kenalog both eyes (02/28/14 1047) Procedure: Avasti OU (01/01/14 2224) HPI: Joyce Arnold is a 54 y.o. female Last visit: 04/16/14 at 10:00 am Here POD#1 s/p CE/IOL/SOR OD. Not much pain last night, wondering when she can have frieda oi l removed OS. Pain:No pain (0 of 0-10) POH: PPV/MP/EL, [...] three times daily. SYRING W-NDL,DISP,INSUL,0.5ML (INSULIN [facility] Past Medical History Diagnosis Date Diabetes mellitus [...] 54 y.o. female with Ophthalmologic Problems 1. POD#1 s/p CE/IOL/SOR OD for retianed silicone oil and nuclear cataract - s/p 23g PPV/MP/EL/FAx/1000cstSO OD 01/02/14, oil placed because of altitutde - for francois jaw TRD, VH, PDR - doing well, IOL well-centered,, retina attached and stable 2. 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 PDR (proliferative diabetic retinopathy) [098162] - s/p EL PRP OU, regressed OU 4. DME (diabetic macular edema) [699970] OU - will potentially treat at POW#1 OD PLAN: Pred Forte 4 times daily right eye Ocuflox 1 drop 4 times daily right eye Atropine drops twice daily right eye Use shield at night time for 1 week; Do not bend over, strain, or lift > 20lbs x 2 weeks Call for decreased vision, increased distortion, increased pain, new floaters or flashing l ights Apptmt with Dr. Sheldon and Dr. 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
--- OUTSIDE RECORDS SUMMARY | ~2018-12-11 | XMS | Encounter Summary ---
Demographics + + + | Address | [address] | | | [place] [address] | + + + | Home Phone | | + + + | Preferred Language | Unknown | + + + | Marital Status | Single | + + + | Jain Affiliation | NRP | + + + | Race | or Other | + + + | Ethnic Group | Not or | + + + Author + + + | Author | [place] [facility] [facility] | + + + | Organization | [facility] | + + + | Address | Unknown | + + + | Phone | Unavailable | + + + Support + + +---------+ + | Name | Relationship | Address | Phone | + + +---------+ + | Geraldine Parker | ECON | Unknown | | + + +---------+ + Care Team Providers + +------+ + | Care Tax Adjuster Name | Role | Phone | + +------+ + | Juan Carlos Grullon | PCP | | + +------+ + Reason for Visit + + + | Reason | Comments | + + + | New patient | | | consultation | | + + + Office Visit [...] | | | | | | | [address] | | | | | | | [place] | | | | | | | [place], [place] | | | | | | | [address] | | | | | | | Phone: | | | | | | | [phone] | | | | | | | Fax: | | | | | | | [phone] | +--------+--------+ + + + + Encounter Details +--------+---------+ + + + | Date | Type | Department | Care Team | Description | +--------+---------+ + + + | 12/06/ | Office | [facility] | Susan Chau MD | Vitreous hemorrhage | | 2013 | Visit | [facility] | [address] | ([facility]) (Primary Dx); | | | | [facility] [address] [facility] [place] [place] | Proliferative | | | | [address] | [address] | diabetic | | | | Mailcode: CE[facility] | [phone] | retinopathy(362.02) | | | | [place], [place] | | ([facility]); DME (diabetic | | | | [address] | | macular edema) | | | | [phone] | | ([facility]); Retinal | | | | | | detachment, | | | | | | tractional, both | | | | | | eyes; Nuclear | | | | | | cataract | +--------+---------+ + + + Social History + +-------+ [...] encounter Progress Notes Susan Chau MD - 12/06/2013 10:00 AM PDTFormatting of this note might be different from melvin tenorio original. Retina Division Progress Note 12/06/2013 CC: New patient consultation Referred by Dr. Rich Hutton for PDR OU. HPI: Joyce Arnold is a 53 y.o. female who complains of blurred vision OU for the st year. She notices both distance and near. Pt. Has been diabetic for the past 20+ years. She states her sugars have been running high /low alternately (highs are in the 400s, lows are in the 30s). Her blood sugar last month r anged from 146-376. Her last HA1c is unknown. She was told about 1.5 years ago by an eye d octor that she needed to see a retina specialist, but since she did not have insurance, she never went. Pt. Has never been treated for retinopathy. Pain:No pain (0 of 0-10) POH: PDR OU History Smoking status Former Smoker Quit date: 11/06/2013 Smokeless tobacco Not on file Past Medical History Diagnosis Date Diabetes mellitus type 1 Hypertension FH: family history includes Diabetes in her cousin and grandmother. There is no history of Retinal detachment, and Macular degeneration, and Glaucoma, . ROS: A review of constitutional, ophthalmic, otolaryngologic, integumentary, cardiovascular , respiratory, gastrointestinal, genitourinary, neurologic, musculoskeletal, and psychiatric systems were negative except as noted above or in the new patient questionaire. Allergies Allergen Reactions Celebrex (Celecoxib) Unknown Penicillins Unknown Sulfa (Sulfonamide Antibiotics) Unknown Current Outpatient Prescriptions (Other) Medication Sig amLODIPine Take 10 mg by mouth once daily. aspirin EC Take 81 mg by mouth once daily. citalopram Take 40 mg by mouth once daily. famotidine Take 20 mg by mouth once daily. hydrochlorothiazide Take 25 mg by mouth once daily. insulin detemir Inject 30 Units under the [...] above exam elements reviewed / performed by EDEL ALEMAN See Ophthalmology Module for Examination Diagnostics Ordered Right Left OCT CMT: 368 ERM with thickening and IRF - no posterior hyaloidal separation with tracti onal thickening at the nerve +IRF in fovea FA --- --- FUNDUS Color fundus photos obtained for documentation & future comparison Color fundus ph otos obtained for documentation & future comparison Others Bscans extramacular table top TRDs, VH Nasal TRD, VH IMPRESSION: 53 y.o. female with IDDM, HTN and the following ophthalmologic problems 1. Proliferative diabetic retinopathy with extramacular TRDs OU - previously untreated OD - francois-jaw configuration threatening macula and VH OS - inferotemporal TRD with VH (less than OD) 2. Clinically significant diabetic macular edema OU - no previously treated PLAN: Discussed options including PRP, Avastin OS, PPV/MP/EL/Gas or Oil OD for TRD with pre-op Av astin OD Pt elects to proceed with surgery. Will plan for PPM/MP/EL/Gas or Oil OD with pre-op Avastin OD and PRP OS at the same time Pt will have pre-op Avastin OU (tried to give Avastin OS today but no insurance authorizati on yet) Discussed bp and bg control Call for decreased vision, increased distortion, increased pain, new floaters or flashing l ights RTC in post op (surgery to be scheduled within the month NEXT VISIT: DILATE OU I reviewed all components above, made necessary [...] | | | | | | [place], [place] | | | | | | [address] | | | | | | [phone] | | | | | | | | +--------+---------+ + + + + + +--------+ + + | Name | Type | Priori | Associated Diagnoses | Order Schedule | | | | ty | | | + + +--------+ + + | CMPTR OPHTH DX IMG | Procedures | Routin | Vitreous | Expected: | | POST SEGMT | | e | hemorrhage (HCC) | 12/06/2013, Expires: | | | | | | 02/04/2014 | + + +--------+ + + | COLOR PHOTOGRAPHY | Procedures | Routin | Vitreous | Expected: | | | | e | hemorrhage (HCC) | 12/06/2013, Expires: | | | | | | 02/04/2014 | + + +--------+ + + | ULTRASOUND, B SCAN | Procedures | Routin | Vitreous | Expected: | | | | e | hemorrhage (HCC) | 12/06/2013, Expires: | | | | | | 02/04/2014 | + + +--------+ + + documented as of this encounter Visit Diagnoses + + | Diagnosis | + + | Vitreous hemorrhage (HCC) - Primary Vitreous hemorrhage | + + | Proliferative diabetic retinopathy(362.02) Proliferative diabetic retinopathy | + + | DME (diabetic macular edema) | + + | Retinal detachment, tractional, both eyes Traction detachment of retina | + + | Nuclear cataract Senile nuclear sclerosis | + + documented in this encounter
--- OUTSIDE RECORDS SUMMARY | ~2018-12-11 | XMS | Encounter Summary ---
Demographics + + + | Address | [address] | | | [place] [address] | + + + | Home Phone [...] + + + | Author | [place] [employer] [facility] | + + + | Organization | [facility] | [...] Team Providers + +------+ + | Care Faucets Assembler Name | Role | Phone | [...] + + | 05/08/ | Hospital | [facility] | Susan Andrews MD | | | 2013 | Encounter | [address] | | | [address] | [address] [place], [place] | | | | | [facility] | [address] | | | | | [facility] | [phone] | | | | | [place] [address] | | | | | | [phone] | | | +--------+ + + + [...] | | 2019 | Visit | | [address] | | | | | | [place], [place] | | | | | | [address] | | | | | | [phone] | | | | | | | [...] JAVED | [address] | [place], [place] | | | [facility] | [address] | [address] | | | TESTS | | | [...] MARQUAM | [address] | [place], [place] | | | [facility] | [address] | [address] | | | TESTS | | | [...] MARJORIEAM | [address] | [place], [place] | | | [facility] | [address] | [address] | | | TESTS | | | [...] + + + | [place] JAVED | [address] | [place], [place] | | | [facility] | [address] | [address] | | | TESTS | | | [...]
--- OUTSIDE RECORDS SUMMARY | ~2018-12-11 | XMS | Encounter Summary ---
Demographics + + + | Address | [address] | | | [place] [address] | + + + | Home Phone [...] + + | Author | [place] [employer] [facility] | + + + | Organization | [facility] | + + + | Address | Unknown | + + + | Phone | Unavailable | + + + Support + + +---------+ + | Name | Relationship | Address | Phone | + + +---------+ + | Geraldine Canales | ECON | Unknown | | + + +---------+ + Care Team Providers + +------+ + | Care Collections Specialist Name | Role | Phone | [...] examination | | 2013 | Visit | [facility] | | (APR) | | | | Photography at | | | | | | [place] [address] | | | | | | [address] | | | | | | Mailcode: [place] | | | | | | [place], [place] | | | | | | [address] | | | | | | [phone] | | | +--------+ + + + [...] of this encounter Progress Nola Joseph - 01/10/2014 12:31 PM PDT Joyce Arnold was seen in the [facility]Ultrasound Department today, 01/10/2014, for OCT OD. NOLA Clarkectronically signed by Nola Kevin at 01/10/2014 12:31 PM PDTdocumented in thi s encounter Plan of Treatment +--------+---------+ + + + | Date | Type | Specialty | Care Team | Description | +--------+---------+ + + + | 01/30/ | Office | Ophthalmology | Susan Andrews MD | | | 2019 | Visit | | [address] | | | | | | [place], [place] | | | | | | [address] | | | | | | [phone] | | | | | | | | +--------+---------+ + + + documented as of this encounter Visit Diagnoses + + | Diagnosis | + + | Macular edema, diabetic (HCC) - Primary Type II or unspecified [...]
--- OUTSIDE RECORDS SUMMARY | ~2018-12-11 | XMS | Encounter Summary ---
Demographics + + + | Address | [address] | | | [place] [address] | + + + | Home Phone | | + + + | Preferred Language | Unknown | + + + | Marital Status | Single | + + + | Mosque Affiliation | NRP | + + + | Race | or Other | + + + | Ethnic Group | Not or | + + + Author + + + | Author | [place] [employer] [facility] | + + + | Organization | [facility] | + + + | Address | Unknown | + + + | Phone | Unavailable | + + + Support + + +---------+ + | Name | Relationship | Address | Phone | + + +---------+ + | Geraldine Parker | ECON | Unknown | | + + +---------+ + Care Team Providers + +------+ + | Care Lsw Name | Role | Phone | + +------+ + | Nadeem Caruso | PCP | | + +------+ + Encounter Details +--------+ + + + + | Date | Type | Department | Care Team | Description | +--------+ + + + + | 02/14/ | Results/Int | [facility] | Meng Stone | Retinal detachment, | | 2013 | erpretation | [facility] | Lewis Mooney MD [address] | tractional, both | | | | [facility] [address] | eyes (Primary Dx) | | | | [address] | [place], [place] | | | | | Mailcode: [place] | [address] | | | | | [place], [place] | [phone] | | | | | [address] | | | | | | [phone] | | | +--------+ + + + [...] PDT Joyce Arnold was seen in the [facility] Photography/Ultrasound Department today, 02/14/2014, for ultrasound. The [...] [address] | | | | | | [place], [place] | | | | | | [address] | | | | | | [phone] | | | | | | | | +--------+---------+ + + + documented as of this encounter Visit Diagnoses + + | Diagnosis | + + | Retinal detachment, tractional, both eyes - Primary Traction detachment of retina | + + documented in this encounter
--- OUTSIDE RECORDS SUMMARY | ~2018-12-11 | XMS | Encounter Summary ---
Demographics + + + | Address | [address] | | | [place] [address] | + + + | Home Phone [...] + + + | Author | [place] [employer] [facility] | + + + | Organization | [facility] | + + + | Address | Unknown | + + + | Phone | Unavailable | + + + Support + + +---------+ + | Name | Relationship | Address | Phone | + + +---------+ + | Geraldine Parker | ECON | Unknown | | + + +---------+ + Care Team Providers + +------+ + | Care Tool Repairer Bench Name | Role | Phone | + [...] + + + + | 06/05/ | Hospital | [facility] | Susan Andrews MD | | | 2013 | Encounter | [address] | [address] | | | | | [address] | Blvd [place], [place] | | | | | [facility] | [address] | | | | | [facility] | [phone] | | | | | [place] [address] | | | | | | [phone] | | | +--------+ + + + [...] Discharge Instructions Instructions Ash Arroyo RN - 06/05/2014V[facility] Surgery Instructions documented in this [...] | | 2019 | Visit | | [address] | | | | | | [place], [place] | | | | | | [address] | | | | | | [phone] | | | | | | | [...] PST)PROCEDURE NOTE (08/27/2015 4:57 PM PST)PROCEDURE N OTE (08/27/2015 4:53 PM PST) + + | Transcriptions | + + | Other, Faculty - 06/11/2014 8:53 AM PST | [...] JAVED | [address] | [place], [place] | | | [facility] | [facility] | [address] | | | TESTS | | | | + + + + + documented in this encounter Visit Diagnoses Not on filedocumented in this encounter Administered Medications + +--------+ +--------+------+------+ | Medication Order | MAR | Action | Dose | Rate | Site | | | Action | Date | | | | + +--------+ +--------+------+------+ | cyclopentolate 1%-PHENYLEPHrine | Given | 06/05/20 [...] | | | | | | Starting [facility] 06/05/14 at 0640, | | | | | | | Until Mon06/05/14 at 0704, | | | | | | | pre-procedure dilation | | | | | | + +--------+ +--------+------+------+ +-------+ +--------+---+---+ | Given | 06/05/20 | [...]
--- OUTSIDE RECORDS SUMMARY | ~2018-12-11 | XMS | Encounter Summary ---
Demographics + + + | Address | [address] | | | [place] [address] | + + + | Home Phone [...] + + + | Author | [place] [facility] | + + + | Organization | [facility] | + + + | Address | Unknown | + + + | Phone | Unavailable | + + + Support + + +---------+ + | Name | Relationship | Address | Phone | + + +---------+ + | Geraldine Parker | ECON | Unknown | | + + +---------+ + Care Team Providers + +------+ + | Care Plant Maintenance Engineer Name | Role | Phone | + +------+ + | Nadeem Caruso | PCP | | + +------+ + Encounter Details +--------+ + + + + | Date | Type | Department | Care Team | Description | +--------+ + + + + | 02/21/ | Results/Int | [facility] | Meng Stone | Vitreous hemorrhage, | | 2013 | erpretation | [facility] | E MD Jesica [address] | left ([facility]) (Primary | | | | [facility] [address] | Dx) | | | | [address] | [place], [place] | | | | | Mailcode: [facility] | [address] | | | | | [place], [place] | [phone] | | | | | [address] | | | | | | [phone] | | | +--------+ + + + [...] this encounter Progress Alexey Hutchinson - 02/21/2014 11:18 AM PDT Joyce Arnold was seen in the [facility] Photography/Ultrasound Department today, 02/21/2014, for ultrasound. The [...] | | | | | | [place], [place] | | | | | | [address] | | | | | | [phone] | | | | | | | | +--------+---------+ + + + documented as of this encounter Visit Diagnoses + + | Diagnosis | + + | Vitreous hemorrhage, left (HCC) - Primary | + + documented in this encounter
--- OUTSIDE RECORDS SUMMARY | ~2018-12-11 | XMS | Encounter Summary ---
Demographics + + + | Address | [address] | | | [place] [address] | + + + | Home Phone [...] + + | Author | [place] [facility] [facility] | + + + | Organization | [facility] | + + + | Address | Unknown | + + + | Phone | Unavailable | + + + Support + + +---------+ + | Name | Relationship | Address | Phone | + + +---------+ + | Geraldine Canales | ECON | Unknown | | + + +---------+ + Care Team Providers + +------+ + | Care Faculty Administrator Name | Role | Phone | + [...] + + + + | 01/01/ | Telephone-S | Preoperative | | Pre-op evaluation | | 2013 | cheduled | Medicine Clinic at | | | | | | MPV Floor Day | | | | | | Stay [address] | | | | | | [facility] | | | | | | Mailcode: [id number] | | | | | | Melodie Dumont | | | | | | [address] [place], [place] | | | | | | [address] | | | | | | [phone] | | | +--------+ + + + [...] Instructions Patient Instructions Tessa Martínez RN - 01/01/2014 10:05 AM PDT PREOPERATIVE INSTRUCTIONS Diabetes instructions before surgery The night before the procedure SHORT ACTING: USUAL LEVEMIR: USUAL The morning of the procedure SHORT ACTING: HOLD LEVEMIR: 1/2 USUAL DOSE Check your blood sugars The night before [...] sip of water on the morning of surgery: AMLODIPINE 10 MG TABLET ISOSORBIDE MONONITRATE ER 30 MG TABLET,EXTENDED RELEASE 24 HR LEVOXYL ORAL METOPROLOL SUCCINATE ER 50 MG TABLET,EXTENDED RELEASE 24 HR CITALOPRAM 40 MG TABLET FAMOTIDINE 20 MG TABLET Do NOT take the following medications on the morning of surgery: ASPIRIN 81 MG TABLET,DELAYED RELEASE HYDROCHLOROTHIAZIDE 25 MG TABLET NITROGLYCERIN 0.4 MG SUBLINGUAL TABLET PROMETHAZINE 25 MG TABLET SIMVASTATIN 40 MG TABLET Do not take any Aspirin, vitamin E or non-steroidal anti-inflammatory (NSAIDs i.e. Advil , Aleve, Ibuprofen) or herbal supplements seven days prior to your surgery. These drugs may interfere with normal blood clotting and may cause excessive bleeding and bruising during or after the surgery. If you need a pain medication for [...] perfume, lotions or powder. Remove any nail anguillan from at least one fingernail. Do not [...] Surgery Check in Locations [facility], sixth floor Surgery Check in Time: Someone from your surgeon's office or [facility] will provide you with information regarding [...] it is after office hours, call the [facility] animation camera operator at [phone] and ask them to page your doc tor. documented in this encounter Plan of Treatment +--------+---------+ + + + | Date | Type | Specialty | Care Team | Description | +--------+---------+ + + + | 01/30/ | Office | Ophthalmology | Susan Andrews MD | | | 2019 | Visit | | [address] | | | | | | [place] | | | | | | [address] | | | | | | [phone] | | | | | | | | +--------+---------+ + + + documented as of this encounter Visit Diagnoses Not on filedocumented in this encounter
--- OUTSIDE RECORDS SUMMARY | ~2018-12-11 | XMS | Encounter Summary ---
Demographics + + + | Address | [address] | | | [place] [address] | + + + | Home Phone | | + + + | Preferred Language | Unknown | + + + | Marital Status | Single | + + + | Denominational Affiliation | NRP | + + + | Race | or Other | + + + | Ethnic Group | Not or | + + + Author + + + | Author | [place] [employer] [facility] | + + + | Organization | [facility] [facility] [...] Providers + +------+ + | Care Tool Designer Apprentice Name | Role | Phone | [...] | | | [address] | [address] [place], [place] | [employer] | | | | [facility], | [address] | REMOVAL-RIGHT *23G* | | | | [place] [address] | [phone] | (ISAC); | | | | | [...] | | 2019 | Visit | | [address] | | | | | | [place], [place] | | | | | | [address] | | | | | | [phone] | | | | | | | [...] + + + | NORBERT JAVED | [address] | [place], [place] | | | [facility] | [address] | [address] | | | TESTS | | | [...] MARQUAM | [address] | [place], [place] | | | [facility] | [facility] | [address] | | | TESTS | | | [...] - MARQUAM | [address] | [place], [place] | | | [facility] | [address] | [address] | | | TESTS | | | [...] + + + | NORBERT JAVED | [address] | [place], [place] | | | [facility] | [address] | [address] | | | TESTS | | | [...] PDT | | | | | Until [facility] 05/08/14 at 0849 | | | | [...] | | | Starting [facility] 05/08/14 at 0704, | | | | | | | Until [facility] 05/08/14 at 0718, | | | | [...]
--- OUTSIDE RECORDS SUMMARY | ~2018-12-11 | XMS | Encounter Summary ---
Demographics + + + | Address | [address] | | | [place] [address] | + + + | Home Phone [...] + + + | Author | [place] [employer] [facility] | + + + | Organization | [facility] [employer] [facility] | + + + | Address | Unknown | + + + | Phone | Unavailable | + + + Support + + +---------+ + | Name | Relationship | Address | Phone | + + +---------+ + | [place] Parker | ECON | Unknown | | + + +---------+ + Care Team Providers + +------+ + | Care Residential Youth Counselor Name | Role | Phone | [...] | +--------+ + + + + | 08/08/ | Diagnostic | [facility] | | OCT - Macula (OU) | | 2015 | Visit | [facility] | | | | | | Photography at | | | | | | [place] [id number] | | | | | | [address] | | | | | | Mailcode: [place] | | | | | | [place], [place] | | | | | | [address] | | | | | | [phone] | | | +--------+ + + + [...] + + documented as of this encounter Maryjane Parr - 09/16/2014 11:24 AM PSTThe interpretation for the following study: Apr - can be found on physician encounter on 08/08/2014. documented in this en counter Plan of Treatment +--------+---------+ + + + | Date | Type | Specialty | Care Team | Description | +--------+---------+ + + + | 01/30/ | Office | Ophthalmology | Susan Andrews MD | | | 2019 | Visit | | [address] | | | | | | [place], [place] | | | | | | [address] | | | | | | [phone] | | | | | | | | +--------+---------+ + + + documented as of this encounter Visit Diagnoses + + | Diagnosis | + + | Macular edema, diabetic, type 2, with proliferative retinopathy [250.50, 362.02, | | 362.07] | + + documented in this encounter
--- OUTSIDE RECORDS SUMMARY | ~2018-12-11 | XMS | Encounter Summary ---
Demographics + + + | Address | [address] | | | [place] [address] | + + + | Home Phone [...] + + + | Author | [place] [employer] [facility] | + + + | Organization | [facility] [employer] [facility] | + + + | Address | Unknown | + + + | Phone | Unavailable | + + + Support + + +---------+ + | Name | Relationship | Address | Phone | + + +---------+ + | [place] Parker | ECON | Unknown | | + + +---------+ + Care Team Providers + +------+ + | Care Emergency Veterinary Assistant Name | Role | Phone | [...] | | | | | | | [address] | | [address] | | | | | | | [place] | | | | | | | [place], [place] | | | | | | | [address] | | | | | | | Phone: | | | | | | | [phone] | | | | | | | Fax: | | | | | | | [phone] | +--------+--------+ + + + + Encounter Details +--------+---------+ + + + | Date | Type | Department | Care Team | Description | +--------+---------+ + + + | 06/06/ | Office | [facility] | Susan Chau MD | TRD (traction | | 2013 | Visit | [facility] at | [address] | retinal detachment), | | | | [facility] [address] [facility] [place] | bilateral (Primary | | | | [address] | [address] | Dx); PDR | | | | Mailcode: [facility] | [phone] | (proliferative | | | | [place], [place] | | diabetic | | | | [address] | | retinopathy), type | | | | [phone] | | 2, with macular | | [...] melvin rachel. [facility] Progress Note 06/06/2014 CC: Post Op Eye Surgery, One Day Initial History: S/p PPV/Silicone Oil Removal/PHACO IOL left eye for RD s/p CE/IOL/SOR OD for retained silicone oil and nuclear cataract 05/08/2014 Patient mentioned slight pain yesterday - took pain medication and slept all day Last 3 ambulatory procedures on record: Procedure: avastin OD (05/16/14 2623) Procedure: Kenalog both eyes (02/28/14 3810) Procedure: Avasti OU (01/01/14 5686) HPI: Joyce Arnold is a 54 y.o. [...] stable with regressed PDR 3. 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 PDR (proliferative diabetic retinopathy) [748642] - s/p EL PRP OU, regressed OU 5. 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
--- OUTSIDE RECORDS SUMMARY | ~2018-12-11 | XMS | Encounter Summary ---
Demographics + + + | Address | [address] | | | [place] [address] | + + + | Home Phone [...] + + + | Author | [place] [facility] | + + + | Organization | [facility] | + + + [...] + +------+ + | Care Director Of Parks And Recreation Name | Role | Phone | + [...] examination | | 2013 | Visit | [place] | | | | | | Photography at | | | | | | [place] [address] | | | | | | [address] | | | | | | Mailcode: [place] | | | | | | [place], [place] | | | | | | [address] | | | | | | [phone] | | | +--------+ + + + [...] | | | | | | [place], [place] | | | | | | [address] | | | | | | [phone] | | | | | | | | +--------+---------+ + + + documented as of this encounter Visit Diagnoses + + | Diagnosis | + + | Vitreous hemorrhage (HCC) - Primary Vitreous hemorrhage | + + documented in this encounter"
--- OUTSIDE RECORDS SUMMARY | ~2018-12-11 | XMS | Encounter Summary ---
Demographics + + + | Address | [address] | | | [place] [address] | + + + | Home Phone [...] + + + | Author | [place] [employer] [facility] | + + + | Organization | [facility] | + + + | Address | Unknown | + + + | Phone | Unavailable | + + + Support + + +---------+ + | Name | Relationship | Address | Phone | + + +---------+ + | Geraldine Canales | ECON | Unknown | | + + +---------+ + Care Team Providers + +------+ + | Care Journeyman Tool And Die Maker Name | Role | Phone | + [...] | | | | | | | [address] | | | | | | [address] | | | | | | | [place] | | | | | | | [place], [place] | | | | | | | [address] | | | | | | | Phone: | | | | | | | [phone] | | | | | | | Fax: | | | | | | | [phone] | +--------+--------+ + + + + Encounter Details +--------+---------+ + + + | Date | Type | Department | Care Team | Description | +--------+---------+ + + + | 09/19/ | Office | [facility] | Susan Chau MD | Macular edema, | | 2015 | Visit | [facility] at | [address] | diabetic, type 2, | | | | [facility] [address] [place], [place] | with proliferative | | | | [address] | [address] | retinopathy [250.50, | | | | Mailcode: [facility] | [phone] | 362.02, 362.07] | | | | [facility] [place] | | (Primary Dx) | | | | [address] | | | | | | [phone] | | | +--------+---------+ + + + [...] increased pain or decreased vision, immediately call [phone].Elec tronically signed by Capo Goodwin at 09/19/2014 2:30 PM PST documented in this encounter Progress Notes Susan Chau MD - 09/19/2014 12:56 PM PSTFormatting of this note might be different from melvin rachel. [facility] Progress Note 09/19/2014 CC: Follow-up visit [...] , vision gre at 3. 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 PDR (proliferative diabetic retinopathy) [278554] - s/p EL PRP OU, regressed OU - vision started out at CF in both eyes due to VH and TRDs OU, now MRx to 20/30 OD and 20/8 0 OS 5. DME (diabetic macular edema) [009660] OU - s/p Avastin OD on 05/16/14, [...] VISIT: DILATE OU, OCT OU Attestations: The insulator technician, under the supervision of the physician, is responsible for performing the f ollowing sections: RFV, ROS, PMH, PSH, SocHx, FH, Med list, Base Ophth Exam. The attending physician is responsible for the entire content of the note and has personall y performed the HPI and the physical examination SUSAN CHAU MD Intravitreal Injection Procedure Note 09/19/2014 for: AVASTIN, BOTH EYES LOT # [id number] and Expiration: 09/19/14 RIGHT EYE:10H LOT # [id number] and Expiration: 09/19/14 LEFT EYE:17H Attending: Susan [...] | | | | | | jesus [place], [place] | | | | | | [address] | | | | | | [phone] | | | | | | | [...] + +--------+ + + + | CA INTRAVITREAL INJ, | Routin | 09/19/2014 | [...]
--- OUTSIDE RECORDS SUMMARY | ~2018-12-11 | XMS | Encounter Summary ---
Demographics + + + | Address | [address] | | | [place] [address] | + + + | Home Phone [...] + + + | Author | [place] [employer] [facility] | + + + | Organization | [facility] [employer] [facility] | + + + | Address | Unknown | + + + | Phone | Unavailable | + + + Support + + +---------+ + | Name | Relationship | Address | Phone | + + +---------+ + | Geraldine Parker | ECON | Unknown | | + + +---------+ + Care Team Providers + +------+ + | Care Agriculture Worker Name | Role | Phone | [...] | | | [address] | [address] [place], [place] | OIL REMOVAL, PHACO | | | | [place], | [address] | IOL- LEFT EYE | | | | [place] [address] | [phone] | | | | | | | [...] | | 2019 | Visit | | [address] | | | | | | [place], [place] | | | | | | [address] | | | | | | [phone] | | | | | | | [...] [place] | [address] | [place], [place] | | | [facility] | [address] | [address] | | | TESTS | | | [...] | | | | Starting [facility] 06/05/14 at 0640, | | | | | | | Until [facility] 06/05/14 at 0704, | | | [...] 8:01 | | | | | Starting [facility] 06/05/14 at 0801, | | AM PST | | | | | Until [facility] 06/05/14 at 0850 | | | [...] PST | | | | | Starting [facility] 06/05/14 at 0806, | | | | | | | Until [facility] 06/05/14 at 0850 | | | | | | + +-------+ +--------+---+ + +---+---+ | | | +---+---+ + +-------+ +---------+---+ + | tetracaine 0.5 % ophthalmic | Given | 06/05/20 | 2 drops | | Left Eye | | drops INTRAPROCEDURE PRN, | | 14 8:06 | | | | | Starting [facility] 06/05/14 at 0806, | | AM [...]
--- OUTSIDE RECORDS SUMMARY | ~2018-12-11 | XMS | Encounter Summary ---
Demographics + + + | Address | [address] | | | [place] [address] | + + + | Home Phone [...] + + + | Author | [place] [employer] [facility] | + + + | Organization | [facility] [employer] [facility] | + + + | Address | Unknown | + + + | Phone | Unavailable | + + + Support + + +---------+ + | Name | Relationship | Address | Phone | + + +---------+ + | Geraldine Parker | ECON | Unknown | | + + +---------+ + Care Team Providers + +------+ + | Care Extrusion Supervisor Name | Role | Phone | + +------+ + | Juan Carlos Grullon | PCP | | + +------+ + Encounter Details +--------+ + + + + | Date | Type | Department | Care Team | Description | +--------+ + + + + | 12/06/ | Results/Int | [facility] | Meng Stone | Vitreous hemorrhage | | 2013 | erpretation | [facility] at | E MD Jes[place] [address] | ([facility]) (Primary Dx) | | | | [facility] [address] | | | | | [address] | [place], [place] | | | | | Mailcode: [facility] | [address] | | | | | [place], [place] | [phone] | | | | | [address] | | | | | | [phone] | | | +--------+ + + + [...] this encounter Progress Alexey Hutchinson - 12/06/2013 3:01 PM PDT B-scan OU OD OS AC: [...] Disc/ Nerve appearance: WNL Disc/ Nerve apperance: WNL ALEXEY DELUCA I have reviewed the images [...] | | | | | | [place], [place] | | | | | | [address] | | | | | | [phone] | | | | | | | | +--------+---------+ + + + documented as of this encounter Visit Diagnoses + + | Diagnosis | + + | Vitreous hemorrhage (HCC) - Primary Vitreous hemorrhage | + + documented in this encounter"
--- OUTSIDE RECORDS SUMMARY | ~2018-12-11 | XMS | Encounter Summary ---
Demographics + + + | Address | [address] | | | [place] [address] | + + + | Home Phone | | + + + | Preferred Language | Unknown | + + + | Marital Status | Single | + + + | Orthodoxy Affiliation | NRP | + + + | Race | or Other | + + + | Ethnic Group | Not or | + + + Author + + + | Author | [place] [employer] [facility] | + + + | Organization | [facility] [employer] [facility] | + [...] Team Providers + +------+ + | Care Application Security Engineer Name | Role | Phone | [...] + + | 02/21/ | Hospital | [facility] | Susan Andrews MD | | | 2013 | Encounter | [facility] | | | | [address] | [address] [place], [place] | | | | | [facility] | [address] | | | | | [facility] | [phone] | | | | | [place] [address] | | | | | | [phone] | | | +--------+ + + + [...] | | | | | | [place], [place] | | | | | | [address] | | | | | | [phone] | | | | | | | [...] [facility] | [address] | [place], [place] | | | [facility] CARE | [address] | [address] | | | TESTS | | | [...] [place] | [address] | [place], [place] | | | [facility] OF CARE | [address] | [address] | | | TESTS | | | [...]
--- OUTSIDE RECORDS SUMMARY | ~2018-12-11 | XMS | Encounter Summary ---
Demographics + + + | Address | [address] | | | [place] [address] | + + + | Home Phone [...] + + + | Author | [place] [employer] [facility] [[email or web address]] | + + + | Organization | [facility] [employer] [facility] [[email or web address]] | + [...] Team Providers + +------+ + | Care Farmworker Fur Name | Role | Phone | + [...] | | | | | | | [address] | | | | | | [address] | | | | | | | [address] | | | | | | | [place], [place] | | | | | | | [address] | | | | | | | Phone: | | | | | | | [phone] | | | | | | | Fax: | | | | | | | [phone] | +--------+--------+ + + + + Encounter Details +--------+---------+ + + + | Date | Type | Department | Care Team | Description | +--------+---------+ + + + | 05/09/ | Office | [facility] | Susan Chau MD | Macular edema, | | 2013 | Visit | [facility] at | [address] | diabetic, type 2, | | | | [facility] [address] [place], [place] | with proliferative | | | | [address] | [address] | retinopathy (Primary | | | | Mailcode: [facility] | [phone] | Dx) | | | | [place], [place] | | | | | | [address] | | | | | | [phone] | | | +--------+---------+ + + + [...] note might be different from melvin rachel. [facility] Progress Note 05/09/2014 CC: No chief complaint on file. Initial History: Last 3 ambulatory procedures on record: Procedure: Kenalog both eyes (02/28/14 1047) Procedure: Avasti OU (01/01/14 6804) HPI: Joyce Arnold is a 54 y.o. [...] three times daily. SYRING W-NDL,DISP,INSUL,0.5ML (INSULIN [facility]YRINGE [facility]) Past Medical History Diagnosis Date Diabetes mellitus [...] and stable 2. 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 PDR (proliferative diabetic retinopathy) [111341] - s/p EL PRP OU, regressed OU 4. DME (diabetic macular edema) [691519] OU - will potentially treat at POW#1 [...] and schedule for SOR OS Attestations: The x ray service technician, under the supervision of the [...] | | | | | | [place], [place] | | | | | | [address] | | | | | | [phone] | | | | | | | | +--------+---------+ + + + documented as of this encounter Visit Diagnoses + + | Diagnosis | + + | Macular edema, diabetic, type 2, with proliferative retinopathy - Primary | + + documented in this encounter
--- OUTSIDE RECORDS SUMMARY | ~2018-12-11 | XMS | Encounter Summary ---
Demographics + + + | Address | [address] | | | [place] [address] | + + + | Home Phone | | + + + | Preferred Language | Unknown | + + + | Marital Status | Single | + + + | Episcopal Affiliation | NRP | + + + | Race | or Other | + + + | Ethnic Group | Not or | + + + Author + + + | Author | [place] [employer] [facility] | + + + | Organization | [facility] [employer] [facility] | + + + | Address | Unknown | + + + | Phone | Unavailable | + + + Support + + +---------+ + | Name | Relationship | Address | Phone | + + +---------+ + | Geraldine Parker | ECON | Unknown | | + + +---------+ + Care Team Providers + +------+ + | Care Cane Loader Name | Role | Phone | [...] [address] | | | | | | [facility] | | | | | | [place], [place] | | | | | | [address] | | | +--------+ + + + [...] | 01/30/ | Office | Ophthalmology | Suasn Andrews MD | | | 2019 | Visit | | [address] | | | | | | [place], [place] | | | | | | [address] | | | | | | [phone] | | | | | | | [...] + + | [facility] - | [address] | [place] [address] | | | IMMUNOGENETICS/TRANS | [address] [...] [facility] - | [address] | [place] [address] | | | IMMUNOGENETICS/TRANS | [address] | | | | [facility] | | | | + + + + + documented in this encounter Visit Diagnoses Not on filedocumented in this encounter
--- OUTSIDE RECORDS SUMMARY | ~2018-12-11 | XMS | Encounter Summary ---
Demographics + + + | Address | [address] | | | [place] [address] | + + + | Home Phone | | + + + | Preferred Language | Unknown | + + + | Marital Status | Single | + + + | Tenriism Affiliation | NRP | + + + | Race | or Other | + + + | Ethnic Group | Not or | + + + Author + + + | Author | [place] [employer] [facility] | + + + | Organization | [facility] [employer] [facility] | + + + | Address | Unknown | + + + | Phone | Unavailable | + + + Support + + +---------+ + | Name | Relationship | Address | Phone | + + +---------+ + | Geraldine Parker | ECON | Unknown | | + + +---------+ + Care Team Providers + +------+ + | Care Conveyor Technician Name | Role | Phone | [...] | | | | | | [place], [place] | | | | | | | [address] | | | | | | | Phone: | | | | | | | [phone] | | | | | | | Fax: | | | | | | | [phone] | +--------+--------+ + + + + Encounter Details +--------+---------+ + + + | Date | Type | Department | Care Team | Description | +--------+---------+ + + + | 05/27/ | Office | [facility] | Indira Chau MD | Proliferative | | 2016 | Visit | [facility] at | [address] | diabetic retinopathy | | | | [facility] [address] [facility] [place] | with macular edema | | | | [address] | [address] | associated with type | | | | Mailcode: [place] | [phone] | 2 diabetes mellitus | | | | [facility] [place] | | ([facility]) (Primary Dx) | | | | [address] | | | | | | [phone] | | | +--------+---------+ + + + [...] melvin rachel. [facility] Progress Note 05/27/2016 CC: Diabetic Retinopathy Follow-up Initial History: Patient states that vision is stable if not better in both eyes. She reports having occasio nal dry eyes, using AT's for relief. Blood sugars were 121 and working to better her A1c, la st was 8.6. Last 3 ambulatory procedures on record: Procedure: Ozurdex both eyes (08/21/15 6857) Procedure: Ozurdex both eyes (02/06/15 2422) Procedure: Ozurdex right eye (10/31/14 7605) HPI: Joyce Arnold is a 56 y.o. [...] preo p 3. PDR (proliferative diabetic retinopathy) [574889] - regressed OU after the above procedures - initial vision was CF OU 4. DME (diabetic macular edema) [562544] OU - s/p Avastin OD on 05/16/14, [...] VISIT: DILATE OU, OCT OU Attestations: The deburr technician, under the supervision of the physician, is responsible for performing the f ollowing sections: RFV, ROS, PMH, PSH, SocHx, FH, Med list, Base Ophth Exam. The attending physician is responsible for the entire content of the note and has personall y performed the HPI and the physical examination INDIRA CHUA MD documented in this encounter Plan of Treatment +--------+---------+ + + + | Date | Type | Specialty | Care Team | Description | +--------+---------+ + + + | 01/30/ | Office | Ophthalmology | Indira Chau MD | | | 2018 | Visit | | [address] | | | | | | [place], [place] | | | | | | [address] | | | | | | [phone] | | | | | | | [...]
--- OUTSIDE RECORDS SUMMARY | ~2018-12-11 | XMS | Encounter Summary ---
Demographics + + + | Address | [address] | | | [place] [address] | + + + | Home Phone [...] Author + + + | Author | [place] [employer] [facility] | + + + | Organization | [facility] [employer] [facility] | + + + | Address | Unknown | + + + | Phone | Unavailable | + + + Support + + +---------+ + | Name | Relationship | Address | Phone | + + +---------+ + | Geraldine Canales | ECON | Unknown | | + + +---------+ + Care Team Providers + +------+ + | Care Rigging Foreman Name | Role | Phone | + [...] examination | | 2013 | Visit | [place] | | (APR) | | | | Photography at | | | | | | [place] [address] | | | | | | [address] | | | | | | Mailcode: [place] | | | | | | [place], [place] | | | | | | [address] | | | | | | [phone] | | | +--------+ + + + [...] Arnold was seen in the [facility]Ultrasound Department today, 01/10/2014, for OCT OD. [...] | | | | | | [place], [place] | | | | | | [address] | | | | | | [phone] | | | | | | | [...]
--- OUTSIDE RECORDS SUMMARY | ~2018-12-11 | XMS | Encounter Summary ---
Demographics + + + | Address | [address] | | | [place] [address] | + + + | Home Phone [...] + + + | Author | [place] [facility] | + + + | Organization | [facility] [employer] [facility] | + + [...] + +------+ + | Care Key Account Coordinator Name | Role | Phone | + +------+ + | Nadeem Caruso | PCP | | + +------+ + Reason for Visit + + + | Reason | Comments | + + + | Pre-operative | PARS PLANA VITRECTOMY, SILICONE OIL REMOVAL, PHACO, IOL LEFT | | evaluation | *25G* (JULIANA); PHACO W/IOL - LEFT(JEFFREY) on 06/05/2014 by Susan | | | MD Juliana at [facility] | + + + Encounter Details +--------+---------+ + + + | Date | Type | Department | Care Team | Description | +--------+---------+ + + + | 06/04/ | Office | Preoperative | Kathy Urbano | Preoperative | | 2013 | Visit | Medicine Clinic at | R, [facility] [address] [facility] | examination, | | | | [facility] 4th Floor [address] | unspecified (Primary | | | | [address] | [place], [place] | Dx); Chorioretinal | | | | Code: [address] | [address] | scar, left; | | | | for Health and | [phone] | Unspecified | | | | Healing,4th Floor | | cataract; CAD | | | | [place], [place] | | (coronary artery | | | | [address] | | disease); CHF | | | | [phone] | | (congestive heart | | | | | | failure), | | | | | | unspecified failure | | | | | | chronicity, | | | | | | unspecified type; | | | | | | CVA (cerebral | | | | | | infarction) ([facility]); | | | | | | Type 1 diabetes | | | | | | ([facility]); CKD (chronic | | | | | | kidney disease), | | | | | | stage 4 (severe) | | | | | | ([facility]); Anemia; | | | | | | Hypothyroidism; | | | | | | Anxiety and | | | | | | depression | +--------+---------+ + + + Anesthesia Record + + + + + | Procedure Name | Responsible | Anesthesia Start | Anesthesia Stop Time | | | Anesthesiologist | Time | | + + + + + | 23G VITRECTOMY WITH | Brandt Ortez MD | 06/05/1425 | 06/05/14 0853 | | SILICONE OIL REMOVAL | | [...] 06/05/14; 701 (by Naveed Villa RN); | 06/05/14 07 by | 06/05/14923 by | | D [...] + + + | Blood Pressure | 175/81 | 06/04/2014 3:55 PM | | | | | PST | | + + + + + | Pulse | 55 | 06/04/2014 3:44 PM | | | | | PST | | + + + + + | Temperature | 36.7 C (98.1 F) | 06/04/2014 3:44 PM | | | | | PST | | + + + + + | Respiratory Rate | 14 | 06/04/2014 3:44 PM | | | | | PST | | + + + + + | Oxygen Saturation | 99% | 06/04/2014 3:44 PM | | | | | PST | | + + + + + | Inhaled Oxygen | - | - | | | Concentration | | | | + + + + + | Weight | 85.3 kg (188 lb) | 06/04/2014 3:44 PM | | | | | PST | | + + + + + | Height | 162.6 cm (5' 4") | 06/04/2014 3:44 PM | | | | | PST | | + + + + + | Body Mass Index | 32.27 | 06/04/2014 3:44 PM | | | | | PST | | + + + + + documented in this encounter Patient Instructions Patient Instructions Kathy Urbano NP - 06/04/2014 4:00 PM PST PREOPERATIVE INSTRUCTIONS Empty stomach before surgery NOTHING to eat or drink after midnight the night before surgery. This includes water, coffee, candy, mints, gum. Diabetes instructions before surgery The night before the procedure Levemir (detemir) Give 80% of usual dose (for pts also taking MEALTIME insulin) 12 units. The morning of the procedure Levemir (detemir) Give 80% of usual dose (for pts also taking MEALTIME insulin) 12 units Do not take meal time insulin while you are fasting. Check your blood sugars The night before [...] it to correct the high blood sugar. insulin detemir (LEVEMIR) 100 unit/mL subcutaneous solution, Inject 15 Units under the skin (SUBC) two times daily. insulin lispro 100 unit/mL subcutaneous solution, Inject 10-22 Units under the skin (SUBC) four times daily. With every meal. Medications Instructions TAKE the following medications with a sip of water on the mornin g of surgery:amLODIPine 10 mg oral tablet, Take 10 mg by mouth once daily. aspirin EC 81 mg oral tablet,delayed release (DR/EC), Take 81 mg by mouth once daily. citalopram 40 mg oral tablet, Take 40 mg by mouth once daily. famotidine 20 mg oral tablet, Take 20 mg by mouth once daily. isosorbide mononitrate CR 30 mg oral tablet extended release 24 hr, Take 30 mg by mouth onc e daily. LEVOTHYROXINE SODIUM (LEVOXYL ORAL), Take 0.2 mg by mouth once daily. metoprolol succinate 50 mg oral tablet extended release 24 hr, Take 50 mg by mouth once savage ly. simvastatin 40 mg oral tablet, Take 40 mg by mouth once daily. sodium bicarbonate 650 mg oral tablet, Take 650 mg by mouth three times daily. Do NOT take the following medications on the morning of surgery: hydrochlorothiazide 25 mg oral tablet, Take 25 mg by mouth two times daily. losartan 50 mg oral tablet, Take 50 mg by mouth two times daily. Other Important Guidelines Do not shave the surgical area Do not smoke, drink alcohol or use recreational drugs f or 24 hours before your surgery Watch for any change in your health condition. Let your surgeon know right away if you do not feel well. Do not wear makeup, perfume, lotions, deodorant, powder or hairspray. Do not wear any jewelry to the hospital. Wear loose, comfortable clothing. Leave all your valuables at home. Allow enough travel time so you re not late for your check in for surgery. Take a bath or shower and remember to shampoo your hair using your usual hair product bef ore your arrival at the hospital. Please remember to brush your teeth the night before and the morning of your procedure. Surgery Check in Locations [facility] [place] Check in Time: [facility] not in the position to give you accurate information regarding surg ical check in time. We refer you back to your surgical office regarding this important info rmation. Going Home Your surgical team will decide when you are medically ready to go home. If you are released to go home on the same day as your procedure/surgery please note the following: You will not be able to drive. You will be required to have a competent person drive you or accompany you by taxi or pu blic transportation on the day of discharge. It is also required that you have a competent person assist you and look after you on th e first night after you have undergone regional blocks (72 hours for patients going home wit h regional block pump), deep sedation, and/or general anesthesia. If you have questions or concerns after you go home, call your doctor s office. If it is after office hours, call the [facility] brake operator helper at [phone] and ask them to page him or h er. documented in this encounter Progress Notes Kathy Urbano NP - 06/04/2014 3:41 PM PST PREOPERATIVE CONSULT NOTE Consulting Provider: KATHY URBANO NP Referring Physician: Susan Andrews MD Primary Care Provider: VALENTIN Martínez Reason for Consult: Preoperative evaluation and risk assessment Proposed Procedure/Date: PARS PLANA VITRECTOMY, SILICONE OIL REMOVAL, PHACO, IOL LEFT *25G* (JULIANA); PHACO W/IOL - LEFT(JEFFREY); 06/05/2014 HISTORY OF PRESENT ILLNESS: Joyce Arnold is a 54 y.o. female here for preoperative evaluation for above procedure. Pt has dx of chorioretinal scar and unspecified cataract characterized by hx vitrectomy and cataract surgery on right eye on 05/08/2014. Pt reports improvement in vision in that eye. Now with decreased vision in left eye. plan for left eye surgery. PMHx: CAD S/P PCI in 10/2010, CHF, CVA, HTN, HLD, type I Dm, CKD stage IV, depression/anxie ty, anemia, hypothyroidism Functional capacity is moderate ROS: Pulmonary: cough recent URI (started about 3 weeks ago. fevers initially, but none in the l ast week. +cough, now non-productive. worse at night. states she didn't cough the whole [address] feels much better than she did.) current No dx of sleep apnea Risks factors for sleep apnea: Pt SNORE's loudly (louder than talking) BMI>35, Age>50 and Neck circumference> 40 cm pt. at high risk of SHAKEEL Cardiovascular: >4 METS; able to climb 2 flights of stairs Denies sob, valente, orthopnea, pnd, peripheral edema, palpitations or dizziness/syncope. Reports an episode of chest pain on Friday 05/25, took 2 NTG, which relieved pain. Occurred after a coughing spell. Right sided pain, radiating down right arm. Last took NTG beginning of this year under similar circumstances. No exertional chest pain. Reports that pain she had prior to WY felt like a squeezing sensation more over her left ch est. +CAD - [place] and s/p stent to left circumflex (2010). Last seen by Cards on 05/12/2014 (see note in care everywhere). Per cards note, "Her stress perfusion imaging suggests small to moderate sized area of isch emia involving the LCx distribution, however at this point, her renal insufficiency would ma ke any attempts at invasive workup rather prohibitive. For now we will continue her current medical regimen." Functional Capacity: Moderate CAD Cad Sx: cardiac stents past [place] CHF EF by Echo: >70% hypertension poorly controlled Vascular: VASCULAR SYMPTOMS hyperlipidemia no pacemaker GI/Hepatic: Within Defined Limits except as noted below GERD Control: Well controlled : +CKD stage IV Within Defined Limits except as noted below renal failure Type: Chronic I nsufficiency Endo: Diabetes: type 1, poorly controlled insulin injections Thyroid:+ hypothyroid Neurological: +diabetic neuropathy feet and hands +migraines - none in > 1 month +CVA -- possible, 2006? Within Defined limits except as noted below Sign/Sx Hx of CVA Treat ments: Treated w/medications psychiatric problem depression Current Pain Level: Current pain level: 0 MS: Within Defined Limits except as noted below Heme/Onc: Within Defined Limits except as noted below Pt. has: no active bleeding Skin: Within Defined Limits except as noted below Current Medication List Name Sig AMLODIPINE 10 MG TABLET Take 10 mg by mouth once daily. ASPIRIN 81 MG TABLET,DELAYED RELEASE Take 81 mg by mouth once daily. ATROPINE 1 % EYE DROPS Instill 1 drop into the right eye two times daily. CITALOPRAM 40 MG TABLET Take 40 mg by mouth once daily. FAMOTIDINE 20 MG TABLET Take 20 mg by mouth once daily. HYDROCHLOROTHIAZIDE 25 MG TABLET Take 25 mg by mouth two times daily. INSULIN DETEMIR 100 UNIT/ML SUBCUTANEOUS SOLUTION Inject 15 Units under the skin (SUBC) two times daily. INSULIN LISPRO 100 UNIT/ML SUBCUTANEOUS SOLUTION Inject 10-22 Units under the skin (SUBC) f our times daily. With every meal. ISOSORBIDE MONONITRATE ER 30 MG TABLET,EXTENDED RELEASE 24 HR Take 30 mg by mouth once bibiana y. LANCETS & BLOOD GLUCOSE STRIPS MISC LEVOXYL ORAL Take 0.2 mg by mouth once daily. LOSARTAN 50 MG TABLET Take 50 mg by mouth two times daily. METOPROLOL SUCCINATE ER 50 MG TABLET,EXTENDED RELEASE 24 HR Take 50 mg by mouth once daily. NITROGLYCERIN 0.[address] 0.4 mg under tongue every five minutes as need ed for chest pain. Place under tongue and allow to dissolve. Administer every 5 minutes, ma x of 3 doses in 15 minutes. OXYCODONE 5 MG TABLET Take 1 tablet by mouth every six hours as needed (pain). PREDNISOLONE ACETATE 1 % EYE DROPS,SUSPENSION Instill 1 drop into the right eye four times daily. PROMETHAZINE 25 MG TABLET Take 25 mg by mouth three times daily as needed for nausea/vomiti ng. SIMVASTATIN 40 MG TABLET Take 40 mg by mouth once daily. SODIUM BICARBONATE 650 MG TABLET Take 650 mg by mouth three times daily. INSULIN SYRINGE MISC Allergies Allergen Reactions Iron Dextran Unknown Numb lips, itchy on face Celebrex [Celecoxib] Pruritis and Rash Penicillins Unknown Pt. States it doesn't work on her. Sulfa (Sulfonamide Antibiotics) Pruritis and Rash Pt. States she also gets horrible yeast infection. Past Medical History Diagnosis Date Diabetes mellitus [...] classified panic attack Past Surgical History Procedure Date Tonsillectomy Tubal ligation Cholecystectomy Thyroid lobectomy Carpal tunnel surgery Family History Problem Relation Retinal detachment Neg Hx Macular degeneration Neg Hx Glaucoma Neg Hx Diabetes Grandmother Diabetes Cousin Blindness Neg Hx Strabismus Neg Hx Amblyopia Neg Hx Diabetes Paternal Cousin Additional Family History Maternal Grandmother breast cancer Additional Family History Paternal Grandmother breast cancer Cataract Paternal Cousin Cataract Paternal Uncle History Substance Use Topics Smoking status: Former Smoker -- 2.50 packs/day for 33 years Types: Cigarettes Quit date: 05/31/2014 Smokeless tobacco: Never Used Alcohol Use: No Comment: used to "drink heavily" PHYSICAL EXAM: Last Vitals: BP 175/81 | Pulse 55 | Temp (Src) 36.7 C (98.1 F) (Oral) | RR 14 | Ht 1.62 6 m (5' 4") | Wt 85.276 kg (188 lb) | SpO2 99% | BMI 32.25 kg/(m^2) Body mass index is 32.25 kg/(m^2). Physical Exam General: Patients general appearance: No distress, Healthy, Alert and Smiling Head & Neck/Airway: Dentition: dentition is normal Thomas: No Mallampati: II Mouth Opening: > = 3 cm C-Spine: no rmal Neck Anatomy: Normal Jaw Protrusion: Normal, lower incisors can protrude past upper inc isors Lung Exam: CTA sara; easy, even, unlabored respirations breath sounds normal Cardiac: 2/6 MILY at RUSB; +1 pitting edema ankles Rhythm: regular Rate: normal Abdominal: General Findings: Deferred Musculoskeletal: Findings: tone normal and normal strength Neuro/Psych: alert Findings: Normal gait and station, Alert, oriented to person, place, shelly e and Normal affect Integument: Implants: None, Comments: Denies any personal or family hx of anesthesia complications LAB DATA REVIEWED/ORDERED OUTSIDE LABS (05/26/2014, in care everywhere):BMP - WNL except glucose 311, bun 50, creat 2. 9, GFR 17 CBC -- Hb 10.5, Hct 30.8 Hb a1c - 8.3 (12/19/2013) EKG: sinus bradycardia, heart rate 51, bifascicular block - RBBB + LAFB. (per Cards note, 05/12/2014) ECHO (02/24/2014, care everywhere):IMPRESSIONS: 1. Normal LV size and systolic function with LVEF 74%. 2. Mild aortic, mitral, and tricuspid insufficiency. 3. Mild pulmonary systolic hypertension. Nuc Med stress test (02/06/2014, in care everywhere):1. Pharmacologic stress notable for bas tolu abnormal ECG without diagnostic changes or symptoms. 2. Perfusion imaging notable for small to moderate sized inferolateral defect, predominantl y reversible, consistent with flow-limiting lesions in the LCx distribution. 3. Normal LV size and systolic function with LVEF 71%. Left heart cath with angio (11/13/2010, care everywhere): S/p PCI stent to mid left circumflex artery CORONARY ARTERIES 1. Left main was normal. 2. The LAD had mild diffuse calcification and mild diffuse disease. The distal LAD had a 60 % to 65% stenosis that appeared to be unchanged as compared to the previous cardiac catheter ization done on February 24, 2009. 3. The left circumflex artery had a 50% proximal plaque and a mid 70% to 75% stenosis with haziness that appeared to be worse as compared to the previous cardiac catheterization done on February 24, 2009. The second and third obtuse marginal branches had blao-zq-idlnycqq diffus e disease without any significantly obstructive stenosis. 4. The right coronary artery had mild diffuse disease without any significantly obstructive stenosis. MEDICAL DECISION MAKIN ACC/ AHA Perioperative Guidelines1. Need for emergency noncardiac surgery? b. No -> Proceed to next step. 2. Active Cardiac Conditions? These conditions mandate further investigation and manageme nt. A. Acute WY within 7 days: no B. Unstable angina/Recent WY (7- 30 days): no C. Decompensated CHF: no D. Significant arrhythmia: None E. Severe valvular disease: NONE 3. Low risk surgery? a. Yes -> proceed with planned surgery. Rate of cardiac , non fatal WY, non fatal cardiac arrest (RCRI) 0 risk factors - 0.4% 1 risk factors - 1%, 2 risk factors - 7%, 3 or >risk factors - 11% (may benefit from perioperative beta blockers) Risk Factor Recommendations: 3 or more risk factors AND high risk surgery- consider testing if it will change managment Surgery Risk: Low Patient-related risk: Estimated ASA class -- 4 ASSESSMENT and RECOMMENDATIONS: Surgical/anesthesia risk assessment: Joyce Arnold is a 54 y.o. female with diagn osis of chorioretinal scar and unspecified cataract, scheduled for PARS PLANA VITRECTOMY, SI LICONE OIL REMOVAL, PHACO, IOL LEFT *25G*. According to ACC/AHA, this patient has 5 clinica l risk factors and the recommendation is to proceed with planned surgery without additional cardiac testing. Medication management recommendations: The patient was advised to continue all usual med ications except as noted in Patient Instructions (After Visit Summary given to pt) Perioperative antibiotic prophylaxis: Standard (Consider IV Vanco one hr before procedu re in pts with Cephalosporin/PCN allergy and/or with hx of MRSA) CAD - [place] and s/p stent 2010. On asa, bb and statin, as well as isosorbide. Continue all as scheduled. Pt reports an episode of chest pain after coughing fit on Friday 05/25. Took 2 NTG and pain resolved. None since that time. Discussed case with Dr. Neelima martines to steve d with low risk surgery in AM. Strongly recommend that pt f/u with trim sawyer for further evaluation as needed. Pt understands and agrees with plan. CHF - normal EF. Mild ankle edema today. Just finished 4 hour car ride. Otherwise no s/s x decompensation. CVA - approx 2006 per pt. No new neurological sx HTN - poorly controlled today at visit. On 4 agents. Cont BB, CCB, hold HCTZ and ARB day of surgery. type I Dm - poorly controlled. Insulin per [facility] protocol. CKD - stage IV. Creat 2.9 two weeks ago. Continue to follow as needed. Caution with neph rotoxic agents. Depression/anxiety - on ssri. Continue as scheduled. Anemia - h/h 10.5/30.8 Hypothyroidism - clinically stable on replacement. Continue as scheduled. This patient is medically fragile, but stable for low risk surgery. Further testing/optimi zation is not needed. Thank you for the opportunity to contribute to this patient's care. KATHY URBANO NP [facility] [address]TH [address] [place] [address] I advised the patient regarding NPO requirement, hydration before surgery, showering, gener al body hygiene. All pre-procedure instructions given to the patient. All of patient's que stions answered and clarified. Patient verbalized understanding of the instructions given.E lectronically signed by Kathy Urbano NP at 06/04/2014 9:09 PM PSTdocumented in this e ncounter Plan of Treatment +--------+---------+ + + + | Date | Type | Specialty | Care Team | Description | +--------+---------+ + + + | 01/30/ | Office | Ophthalmology | Susan Andrews MD | | | 2019 | Visit | | [address] | | | | | | [place], [place] | | | | | | [address] | | | | | | [phone] | | | | | | | | +--------+---------+ + + + documented as of this encounter Visit Diagnoses + + | Diagnosis | + + | Preoperative examination, unspecified - Primary | + + | Chorioretinal scar, left | + + | Unspecified cataract | + + | CAD (coronary artery disease) Coronary atherosclerosis of unspecified type of vessel, | | [place] or graft | + + | CHF (congestive heart failure), unspecified failure chronicity, unspecified type | + + | CVA (cerebral infarction) Unspecified cerebral artery occlusion with cerebral | | infarction | + + | Type 1 diabetes (HCC) | + + | CKD (chronic kidney disease), stage 4 (severe) | + + | Anemia Anemia, unspecified | + + | Hypothyroidism Unspecified hypothyroidism | + + | Anxiety and depression Dysthymic disorder | + + documented in this encounter
--- OUTSIDE RECORDS SUMMARY | ~2018-12-11 | XMS | Encounter Summary ---
Demographics + + + | Address | [address] | | | [place] [address] | + + + | Home Phone | | + + + | Preferred Language | Unknown | + + + | Marital Status | Single | + + + | Evangelical Affiliation | NRP | + + + | Race | or Other | + + + | Ethnic Group | Not or | + + + Author + + + | Author | [employer] [facility] | + + + | Organization | [facility] [employer] [facility] | + + + | Address | Unknown | + + + | Phone | Unavailable | + + + Support + + +---------+ + | Name | Relationship | Address | Phone | + + +---------+ + | Geraldine Canales | ECON | Unknown | | + + +---------+ + Care Team Providers + +------+ + | Care Color Maker Name | Role | Phone | [...] edema, | | 2013 | Visit | [facility] at | [address] | diabetic, type 2, | | | | [facility] [address] [place], [place] | with proliferative | | | | [address] [facility] | [address] | retinopathy [250.50, | | | | Mailcode: [facility] | [phone] | 362.02, 362.07] | | | | [place], [place] | | (Primary Dx) | | | | [address] | | | | | | [phone] | | | +--------+---------+ + + + [...] 40mg Injection, Right Eye Lot# & Expiration: [id number] - 5C exp 05/2015 Attending: Susan Chau [...] 40mg Injection, Left Eye Lot# & Expiration: [id number] 2A exp 06/2015 Attending: Susan Chau MD [...] MD Susan - 014 9:26 AM PDT [facility] Progress Note 02/28/2014 CC: Return Patient Initial History: Post op Pt. Doing well. She has noticed some improvement. Last 3 ambulatory procedures on record: Procedure: Avasti OU (01/01/14 2475) ROS Negative for: Constitutional, Gastrointestinal, Neurological, Skin, [...] Ophthalmologic Problems 1. POW# 2 s/p PPV/EL/1000 senior outside sales representative SO OS - for serous choroidals and serous RD (small) - retina attached, IOP good, vision better than previously 2. POM# 2 s/p 23g PPV/MP/EL/FAx/1000cstSO OD 6/12/14 PDR (proliferative diabetic retinopathy) [091906] OD - francois-jaw TRD threatening macula and VH - doing well, retina attached, stable - oil was placed due to poor vision in contralateral eye, and [place] 3. DME (diabetic macular edema) [795647] OU s/p Avastin x 1 OU pre-op [...] VISIT: DILATE OU, OCT OU Attestations: The screen making technician, under the supervision of the physician, [...] | | | | | | [place], [place] | | | | | | [address] | | | | | | [phone] | | | | | | | [...] + +--------+ + + + | TX INJ,THER AGENT | Routin | 02/28/2014 | Macular edema, | | | INTO TENON'S CAPSULE | e | 10:50 AM | diabetic, type 2, | | | | | PDT | with proliferative | | | | | | retinopathy [250.50, | | | | | | 362.02, 362.07] | | + +--------+ + + + | TX INJ,THER AGENT | Routin | 02/28/2014 | Macular edema, | | | INTO TENON'S CAPSULE | e | 10:50 AM | diabetic, type 2, | | | | | PDT | with proliferative | | | | | | retinopathy [250.50, | | | | | | 362.02, 362.07] | | + +--------+ + + + | TX INJ,THER AGENT | Routin | 02/28/2014 | Macular edema, | | | INTO TENON'S CAPSULE | e | 10:50 AM | diabetic, type 2, | | | | | PDT | with proliferative | | | | | | retinopathy [250.50, | | | | | | 362.02, 362.07] | | + +--------+ + + + | TX INJ,THER AGENT | Routin | 02/28/2014 | [...]
--- OUTSIDE RECORDS SUMMARY | ~2018-12-11 | XMS | Encounter Summary ---
Demographics + + + | Address | [address] | | | [place] [address] | + + + | Home Phone | | + + + | Preferred Language | Unknown | + + + | Marital Status | Single | + + + | Rastafari Affiliation | NRP | + + + | Race | or Other | + + + | Ethnic Group | Not or | + + + Author + + + | Author | [place] [employer] [facility] | + + + | Organization | [facility] | + + + | Address | Unknown | + + + | Phone | Unavailable | + + + Support + + +---------+ + | Name | Relationship | Address | Phone | + + +---------+ + | Geraldine Parker | ECON | Unknown | | + + +---------+ + Care Team Providers + +------+ + | Care Filter Press Tender Name | Role | Phone | [...] hemorrhage | | 2013 | erpretation | [facility] at | E MD [address] | ([facility]) (Primary Dx) | | | | [facility] [address] | | | | | [address] | [place], [place] | | | | | Mailcode: [facility] | [address] | | | | | [place], [place] | [phone] | | | | | [address] | | | | | | [phone] | | | +--------+ + + + [...] | | | | | | [place], [place] | | | | | | [address] | | | | | | [phone] | | | | | | | | +--------+---------+ + + + documented as of this encounter Visit Diagnoses + + | Diagnosis | + + | Vitreous hemorrhage (HCC) - Primary Vitreous hemorrhage | + + documented in this encounter"
--- OUTSIDE RECORDS SUMMARY | ~2018-12-11 | XMS | Encounter Summary ---
Demographics + + + | Address | [address] | | | [place] [address] | + + + | Home Phone | | + + + | Preferred Language | Unknown | + + + | Marital Status | | + + + | Yazidi Affiliation | Unknown | + + + | Race | Unknown | + + + | Ethnic Group | Unknown | + + + Author + + + | Author | [facility] [employer] | + + + | Organization | [facility] [employer] | + + + | Address [...] Team Providers + +------+ + | Care Clothes Drier Assembler Name | Role | Phone | [...] | | | | | [place] [address] | | | | | | [phone] | | | +--------+ + + + [...] PAUL | | | | | | [place] [address] | | | | | | [phone] | | | | | | | | +--------+---------+ + + + as of this encounter Visit Diagnoses Not on filein this encounter"
--- OUTSIDE RECORDS SUMMARY | ~2018-12-11 | XMS | Encounter Summary ---
Demographics + + + | Address | [address] | | | [place] [address] | + + + | Home Phone [...] + + | Author | [place] [facility] [facility] | + + + | Organization | [facility] | + + + | Address | Unknown | + + + | Phone | Unavailable | + + + Support + + +---------+ + | Name | Relationship | Address | Phone | + + +---------+ + | Geraldine [place] | ECON | Unknown | | + + +---------+ + Care Team Providers + +------+ + | Care Fur Cutting Machine Operator Name | Role | Phone [...] [address] | | | | | | [facility] | | | | | | [place], [place] | | | | | | [address] | | | +--------+ + + + [...] | | | | | | [place], [place] | | | | | | [address] | | | | | | [phone] | | | | | | | [...] + | [facility] - | [address] | [place] [address] | | | IMMUNOGENETICS/TRANS | [address] | | | | PLANT LABORATORY | | | | + + + + + documented in this encounter Visit Diagnoses Not on filedocumented in this encounter
--- OUTSIDE RECORDS SUMMARY | ~2018-12-11 | XMS | Encounter Summary ---
Demographics + + + | Address | [address] | | | [place] [address] | + + + | Home Phone [...] + + + | Author | [place] [employer] [facility] | + + + | Organization | [facility] [employer] [facility] | + + + | Address | Unknown | + + + | Phone | Unavailable | + + + Support + + +---------+ + | Name | Relationship | Address | Phone | + + +---------+ + | Geraldine Parker | ECON | Unknown | | + + +---------+ + Care Team Providers + +------+ + | Care Media Relations Manager Name | Role | Phone | + +------+ + | Rohan iWlkes DO | PCP | | + +------+ [...] | | | | | | | [place], [place] | | | | | | | [address] | | | | | | | Phone: | | | | | | | [phone] | | | | | | | Fax: | | | | | | | [phone] | +--------+--------+ + + + + Encounter Details +--------+---------+ + + + | Date | Type | Department | Care Team | Description | +--------+---------+ + + + | 01/27/ | Office | [facility] | Indira Chau MD | Proliferative | | 2017 | Visit | [facility] at | [address] | diabetic retinopathy | | | | [facility] [address] [place], [place] | of both eyes with | | | | [address] | [address] | macular edema | | | | Mailcode: [facility] | [phone] | associated with type | | | | [place], [place] | | 2 diabetes mellitus | | | | [address] | | ([facility]) (Primary Dx) | | | | [phone] | | | +--------+---------+ + + + [...] PM PDT [facility] Progress Note 01/27/2017 CC: Diabetic Retinopathy Follow-up Initial History: Last 3 ambulatory procedures on record: Procedure: Ozurdex both eyes (08/21/15 6170) Procedure: Ozurdex both eyes (02/06/15 1231) Procedure: Ozurdex right eye (10/31/14 8530) HPI: Joyce Arnold is a 56 y.o. [...] preo p 3. PDR (proliferative diabetic retinopathy) [005758] - regressed OU after the above procedures - initial vision was CF OU 4. 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
--- OUTSIDE RECORDS SUMMARY | ~2018-12-11 | XMS | Encounter Summary ---
Demographics + + + | Address | [address] | | | [place] [address] | + + + | Home Phone [...] + + + | Author | [place] [employer] [facility] | + + + | Organization | [facility] [employer] [facility] | + + + | Address | Unknown | + + + | Phone | Unavailable | + + + Support + + +---------+ + | Name | Relationship | Address | Phone | + + +---------+ + | Geraldine Parker | ECON | Unknown | | + + +---------+ + Care Team Providers + +------+ + | Care Telephony Engineer Name | Role | Phone | + +------+ + | Nadeem Caruso | PCP | | + +------+ + Encounter Details +--------+---------+ + + + | Date | Type | Department | Care Team | Description | +--------+---------+ + + + | 02/22/ | Office | [facility] | Susan Chau MD | PDR (proliferative | | 2013 | Visit | [facility] at | [address] | diabetic | | | | [facility] [address] [facility] [place] | retinopathy), type | | | | [address] | [address] | 2, with macular | | | | Mailcode: [facility] | [phone] | edema (Primary Dx); | | | | [place], [place] | | TRD (traction | | | | [address] | | retinal detachment), | | | | [phone] | | bilateral | +--------+---------+ + + [...] note might be different from melvin rachel. [facility] Progress Note 02/22/2014 CC: No chief complaint on file. Initial History: Last 3 ambulatory procedures on record: Procedure: Avasti OU (01/01/14 2444) HPI: Joyce Arnold is a 53 y.o. [...] Ophthalmologic Problems 1. 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 POM# 1.5 s/p 23g PPV/MP/EL/FAx/1000cstSO OD 01/02/14 PDR (proliferative diabetic retinopathy) [489343] OD - francois-jaw TRD threatening macula and VH - doing well, retina attached, stable - oil was placed due to poor vision in contralateral eye, and [place] 3. 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
--- OUTSIDE RECORDS SUMMARY | ~2018-12-11 | XMS | Encounter Summary ---
Demographics + + + | Address | [address] | | | [place] [address] | + + + | Home Phone [...] + + + | Author | [place] [employer] [facility] | + + + | Organization | [facility] | + + + | Address | Unknown | + + + | Phone | Unavailable | + + + Support + + +---------+ + | Name | Relationship | Address | Phone | + + +---------+ + | Geraldine Parker | ECON | Unknown | | + + +---------+ + Care Team Providers + +------+ + | Care Intermodal Owner Operator Truck Driver Name | Role | Phone | + +------+ + | Rohan Wilkes DO | PCP | | + +------+ + Encounter Details +--------+ + + + + | Date | Type | Department | Care Team | Description | +--------+ + + + + | 05/01/ | Lab | LAB IMMUNOGENETIC | | | | 2016 | Requisition | AND TRANSPLANT LAB | | | | | | [address] | | | | | | [facility] | | | | | | [place], [place] | | | | | | [address] | | | +--------+ + + + [...] | | | | | | [place], [place] | | | | | | [address] | | | | | | [phone] | | | | | | | | +--------+---------+ + + + documented as of this encounter Procedures + +--------+ + + + | Procedure Name | Priori | Date/Time | Associated Diagnosis | Comments | | | ty | | | | + +--------+ + + + | HLA LHS KIDNEY | Routin | 05/01/2017 | | Results for this | | RECIPIENT PANEL | e | 11:25 AM | | procedure are in the | | | | PDT | | results section. | + +--------+ + + + | LIT FLOW HLA AB PRA | Routin | 05/01/2017 | | | | SCREEN I/II | e | 11:25 AM | | | | | | PDT | | | + +--------+ + + + | LIT HLA-B LOW RES | Routin | 05/01/2017 | | | | | e | 11:25 AM | | | | | | PDT | | | + +--------+ + + + | LIT HLA-A LOW RES | Routin | 05/01/2017 | | | | | e | 11:25 AM | | | | | | PDT | | | + +--------+ + + + | LIT HLA-DQ LOW RES | Routin | 05/01/2017 | | | | | e | 11:25 AM | | | | | | PDT | | | + +--------+ + + + | LIT RBC GROUP - TX, | Routin | 05/01/2017 | | | | BLOOD | e | 11:25 AM | | | | | | PDT | | | + +--------+ + + + | LIT-HLA-DR LOW RES | Routin | 05/01/2017 | | Results for this | | | e | 11:25 AM | | procedure are in the | | | | PDT | | results section. | + +--------+ + + + documented in this encounter Results LIT FLOW HLA AB PRA SCREEN I/II (05/01/2017 11:25 AM PDT) + + | Specimen | + + | Blood | + + + + + + + | Performing | Address | City/State/Zipcode | Phone Number | | Organization | | | | + + + + + | [facility] - | [address] | [place] [address] | | | IMMUNOGENETICS/TRANS | [address] | | | | PLANT LABORATORY | | | | + + + + + LIT HLA-DQ LOW RES (05/01/2017 11:25 AM PDT) + + | Specimen | + + | Blood | + + + + + + + | Performing | Address | City/State/Zipcode | Phone Number | | Organization | | | | + + + + + | [facility] - | [address] | [place] [address] | | | IMMUNOGENETICS/TRANS | [address] | | | | PLANT LABORATORY | | | | + + + + + LIT-HLA-DR LOW RES (05/01/2017 11:25 AM PDT) + + + + + [...] + + + | [facility] - | [address], | [place] [address] | | | IMMUNOGENETICS/TRANS | [address] | | | | PLANT LABORATORY | | | | + + + + + LIT HLA-B LOW RES (05/01/2017 11:25 AM PDT) + + | Specimen | + + | Blood | + + + + + + + | Performing | Address | City/State/Zipcode | Phone Number | | Organization | | | | + + + + + | [facility] - | [address] | [place] [address] | | | IMMUNOGENETICS/TRANS | [address] | | | | PLANT LABORATORY | | | | + + + + + LIT HLA-A LOW RES (05/01/2017 11:25 AM PDT) + + | Specimen | + + | Blood | + + + + + + + | Performing | Address | City/State/Zipcode | Phone Number | | Organization | | | | + + + + + | [facility] - | [address] | [place] [address] | | | IMMUNOGENETICS/TRANS | [address] | | | | PLANT LABORATORY | | | | + + + + + LIT RBC GROUP - [place], BLOOD (05/01/2017 11:25 AM PDT) + + | Specimen | + + | Blood | + + + + + + + | Performing | Address | City/State/Zipcode | Phone Number | | Organization | | | | + + + + + | [facility] - | [address] | [place] [address] | | | IMMUNOGENETICS/TRANS | [address] | | | | PLANT LABORATORY | | | | + + + + + documented in this encounter Visit Diagnoses Not on filedocumented in this encounter
--- OUTSIDE RECORDS SUMMARY | ~2018-12-11 | XMS | Encounter Summary ---
Demographics + + + | Address | [address] | | | [place] [address] | + + + | Home Phone | | + + + | Preferred Language | Unknown | + + + | Marital Status | Single | + + + | Christian Affiliation | NRP | + + + | Race | or Other | + + + | Ethnic Group | Not or | + + + Author + + + | Author | [place] [facility] [employer] [facility] | + + + | Organization | [facility] [employer] [facility] | + + + | Address | Unknown | + + + | Phone | Unavailable | + + + Support + + +---------+ + | Name | Relationship | Address | Phone | + + +---------+ + | Geraldine Parker | ECON | Unknown | | + + +---------+ + Care Team Providers + +------+ + | Care Human Resource Consultant Name | Role | Phone | + [...] | +--------+ + + + + | 10/01/ | Diagnostic | [facility] | | OCT - Macula (OU) | | 2016 | Visit | [place] | | | | | | Photography at | | | | | | [place] [address] | | | | | | [address] | | | | | | Mailcode: [place] | | | | | | [place], [place] | | | | | | [address] | | | | | | [phone] | | | +--------+ + + + [...] as of this encounter Raghavendra Brewster - 10/02/2015 4:32 PM PSTThe interpretation for the following study: Apr can be found on physician encounter on 10/02/2015. documented in this e ncounter Plan of Treatment +--------+---------+ + + + | Date | Type | Specialty | Care Team | Description | +--------+---------+ + + + | 01/30/ | Office | Ophthalmology | Susan Andrews MD | | | 2019 | Visit | | [address] | | | | | | [address] [place], [place] | | | | | | [address] | | | | | | [phone] | | | | | | | | +--------+---------+ + + + documented as of this encounter Visit Diagnoses + + | Diagnosis | + + | Macular edema, diabetic (HCC) Type II or unspecified type diabetes mellitus with | | ophthalmic manifestations, not stated as uncontrolled | + + documented in this encounter
--- OUTSIDE RECORDS SUMMARY | ~2018-12-11 | XMS | Encounter Summary ---
Demographics + + + | Address | [address] | | | [place] [address] | + + + | Home Phone [...] + + + | Author | [place] [employer] [facility] | + + + | Organization | [facility] [employer] [facility] | + + + | Address | Unknown | + + + | Phone | Unavailable | + + + Support + + +---------+ + | Name | Relationship | Address | Phone | + + +---------+ + | [place] | ECON | Unknown | | + + +---------+ + Care Team Providers + +------+ + | Care Spanish Instructor Name | Role | Phone | + +------+ + | Nadeem Caruos | PCP | | + +------+ + [...] | | OPHTH DX IMG | | [address] | | | | | [address] | [address] | | | | | [address] | | [address] | | | | | [place] | | [place], [place] | | | | | [place] | | [address] | | | | | ANGIOGRAPHY | | Phone: | | | | | [place] FUNDAL | | [phone] | | | | | PHOTOGRAPHY | | Fax: | | | | | [place] INJECT | | [phone] | | | | | INTRAVITREAL | [...] detachment | | 2013 | Visit | [facility] at | [address] | of retina, bilateral | | | | [facility] [address] [place], [place] | [006.66] (Primary | | | | [address] | [address] | Dx); Vitreous | | | | Mailcode: [facility] | [phone] | hemorrhage, | | | | [place], [place] | | bilateral [969.73] | | | | [address] | | | | | | [phone] | | | +--------+---------+ + + + [...] note might be different from melvin rachel. [facility] Progress Note 02/14/2014 CC: Post Op Eye [...] in contralateral eye) PDR (proliferative diabetic retinopathy) [823136] OD - francois-jaw TRD threatening macula and VH - doing well, retina attached, epi defect healed 2. DME (diabetic macular edema) [562264] OU s/p Avastin x 1 OU pre-op to above surgery - stable OD last visit - unable to determine OS due to VH OS 3. 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
--- OUTSIDE RECORDS SUMMARY | ~2018-12-11 | XMS | Encounter Summary ---
Demographics + + + | Address | [address] | | | [place] [address] | + + + | Home Phone [...] + + + | Author | [place] [facility] | + + + | Organization | [facility] | + + [...] Providers + +------+ + | Care Combat Systems Officer Name | Role | Phone | + +------+ + | Rohan Wilkes DO | PCP | | + +------+ + Encounter Details +--------+ + + + + | Date | Type | Department | Care Team | Description | +--------+ + + + + | 09/14/ | Lab | LAB IMMUNOGENETIC | | | | 2019 | Requisition | AND TRANSPLANT LAB | | | | | | [address] | | | | | | [facility] | | | | | | [place], [place] | | | | | | [address] | | | +--------+ + + + [...] [address] | | | | | | [place], [place] | | | | | | [address] | | | | | | [phone] | | | | | | | [...] FLOW HLA II AB AG ID, BLOOD (09/14/2018 12:00 AM PST) + + | Specimen | + + | Blood | + + + + + + + | Performing | Address | City/State/Zipcode | Phone Number | | Organization | | | | + + + + + | [facility] - | [address] | [place] [address] | | | IMMUNOGENETICS/TRANS | [address] | | | | PLANT LABORATORY | | | | + + + + + LIT FLOW HLA I AB AG ID, BLOOD (09/14/2018 12:00 AM PST) + + + + + + | [...] [facility] - | [address] | [place] [address] | | | IMMUNOGENETICS/TRANS | [address] | | | | PLANT LABORATORY | | | | + + + + + documented in this encounter Visit Diagnoses Not on filedocumented in this encounter
--- OUTSIDE RECORDS SUMMARY | ~2018-12-11 | XMS | Encounter Summary ---
Demographics + + + | Address | [address] | | | [place] [address] | + + + | Home Phone | | + + + | Preferred Language | Unknown | + + + | Marital Status | Single | + + + | Lutheran Affiliation | NRP | + + + | Race | or Other | + + + | Ethnic Group | Not or | + + + Author + + + | Author | [place] [facility] | + + + | Organization | [facility] | + + + | Address | Unknown | + + + | Phone | Unavailable | + + + Support + + +---------+ + | Name | Relationship | Address | Phone | + + +---------+ + | Geraldine Parker | ECON | Unknown | | + + +---------+ + Care Team Providers + +------+ + | Care State Editor Name | Role | Phone | + +------+ + | Rohan Wilkes DO | PCP | | + +------+ + Encounter Details +--------+ + + + + | Date | Type | Department | Care Team | Description | +--------+ + + + + | 08/17/ | Lab | LAB IMMUNOGENETIC | | | | 2019 | Requisition | AND TRANSPLANT LAB | | | | | | [address] | | | | | | [facility] | | | | | | [place], [place] | | | | | | [address] | | | +--------+ + + + [...] | | | | | | [place], [place] | | | | | | [address] | | | | | | [phone] | | | | | | | | +--------+---------+ + + + documented as of this encounter Procedures + +--------+ + + + | Procedure Name | Priori | Date/Time | Associated Diagnosis | Comments | | | ty | | | | + +--------+ + + + | LIT FLOW HLA AB PRA | Routin | 08/10/2018 | | | | SCREEN I/II | e | 12:00 AM | | | | | | PST | | | + +--------+ + + + | LIT ANTI - A TITER, | Routin | 08/10/2018 | | | | BLOOD | e | 12:00 AM | | | | | | PST | | | + +--------+ + + + documented in this encounter Results LIT ANTI - A TITER, BLOOD (08/10/2018 12:00 AM PST) + + | Specimen | + + | Blood | + + + + + + + | Performing | Address | City/State/Zipcode | Phone Number | | Organization | | | | + + + + + | [facility] - | [address] | [place] [address] | | | IMMUNOGENETICS/TRANS | [address] | | | | PLANT LABORATORY | | | | + + + + + LIT FLOW HLA AB PRA SCREEN I/II (08/10/2018 12:00 AM PST) + + | Specimen | + + | Blood | + + + + + + + | Performing | Address | City/State/Zipcode | Phone Number | | Organization | | | | + + + + + | [facility] - | [address] | [place] [address] | | | IMMUNOGENETICS/TRANS | [address] | | | | PLANT LABORATORY | | | | + + + + + documented in this encounter Visit Diagnoses Not on filedocumented in this encounter
--- OUTSIDE RECORDS SUMMARY | ~2018-12-11 | XMS | Encounter Summary ---
Demographics + + + | Address | [address] | | | [place] [address] | + + + | Home Phone [...] + + + | Author | [place] [employer] | + + + | Organization | [facility] [facility] | [...] Team Providers + +------+ + | Care Basket Hand Weaver Name | Role | Phone | + [...] [address] | | | | | | [place], [place] | | | | | | [address] | | | | | | [phone] | | | +--------+ + + + [...] | | | | | [place], [place] | | | | | | [address] | | | | | | [phone] | | | | | | | | +--------+---------+ + + + documented as of this encounter Visit Diagnoses Not on filedocumented in this encounter
--- OUTSIDE RECORDS SUMMARY | ~2018-12-11 | XMS | Encounter Summary ---
Demographics + + + | Address | [address] | | | [place] [address] | + + + | Home Phone [...] + + + | Author | [place] [employer] [facility] | + + + | Organization | [facility] | + + + | Address | Unknown | + + + | Phone | Unavailable | + + + Support + + +---------+ + | Name | Relationship | Address | Phone | + + +---------+ + | Geraldine Parker | ECON | Unknown | | + + +---------+ + Care Team Providers + +------+ + | Care Settlement Agent Name | Role | Phone | + [...] examination | | 2013 | Visit | [place] | | | | | | Photography at | | | | | | [place] [address] | | | | | | [address] | | | | | | Mailcode: [place] | | | | | | [place], [place] | | | | | | [address] | | | | | | [phone] | | | +--------+ + + + [...] + documented as of this encounter Progress Ez [facility]ote - 12/10/2013 3:15 PM PDT Joyce Arnold was seen in the [facility] [place]/Ultrasound Department today, 12/06/2013, for fundus photography and OCT OU. EZ BUSH documented in this encount er Plan of Treatment +--------+---------+ + + + | Date | Type | Specialty | Care Team | Description | +--------+---------+ + + + | 01/30/ | Office | Ophthalmology | Susan Andrews MD | | | 2019 | Visit | | [address] | | | | | | [place], [place] | | | | | | [address] | | | | | | [phone] | | | | | | | | +--------+---------+ + + + documented as of this encounter Visit Diagnoses + + | Diagnosis | + + | Vitreous hemorrhage (HCC) - Primary Vitreous hemorrhage | + + documented in this encounter"
--- OUTSIDE RECORDS SUMMARY | ~2018-12-11 | XMS | Encounter Summary ---
Demographics + + + | Address | [address] | | | [place] [address] | + + + | Home Phone | | + + + | Preferred Language | Unknown | + + + | Marital Status | | + + + | Gnosticist Affiliation | Unknown | + + + | Race | Unknown | + + + | Ethnic Group | Unknown | + + + Author + + + | Author | [facility] | + + + | Organization | [facility] | + + + | Address [...] Team Providers + +------+ + | Care Package Line Operator Name | Role | Phone | [...] | | | | | [place] [address] | | | | | | [phone] | | | +--------+ + + + [...] PAUL | | | | | | [place] [address] | | | | | | [phone] | | | | | | | | +--------+---------+ + + + as of this encounter Visit Diagnoses Not on filein this encounter"
--- OUTSIDE RECORDS SUMMARY | ~2018-12-11 | XMS | Encounter Summary ---
Demographics + + + | Address | [address] | | | [place] [address] | + + + | Home Phone [...] + + + | Author | [place] [employer] [facility] | + + + | Organization | [facility] [employer] [facility] | + + + | Address | Unknown | + + + | Phone | Unavailable | + + + Support + + +---------+ + | Name | Relationship | Address | Phone | + + +---------+ + | Geraldine [place] | ECON | Unknown | | + + +---------+ + Care Team Providers + +------+ + | Care Rock Dust Sprayer Name | Role | Phone | + +------+ + | Rohan Wilkes DO | PCP | | + +------+ + Encounter Details +--------+ + + + + | Date | Type | Department | Care Team | Description | +--------+ + + + + | 02/23/ | Lab | LAB IMMUNOGENETIC | | | | 2017 | Requisition | AND TRANSPLANT LAB | | | | | | [address] | | | | | | [facility] | | | | | | [place], [place] | | | | | | [address] | | | +--------+ + + + [...] | | | | | | [place], [place] | | | | | | [address] | | | | | | [phone] | | | | | | | | +--------+---------+ + + + documented as of this encounter Procedures + +--------+ + + + | Procedure Name | Priori | Date/Time | Associated Diagnosis | Comments | | | ty | | | | + +--------+ + + + | LIT FLOW HLA AB PRA | Routin | 02/21/2018 | | | | SCREEN I/II | e | 12:00 AM | | | | | | PDT | | | + +--------+ + + + documented in this encounter Results LIT FLOW HLA AB PRA SCREEN I/II (02/21/2018 12:00 AM PDT) + + | Specimen | + + | Blood | + + + + + + + | Performing | Address | City/State/Zipcode | Phone Number | | Organization | | | | + + + + + | [facility] - | [address], | [place] [address] | | | IMMUNOGENETICS/TRANS | [address] | | | | [facility] | | | | + + + + + documented in this encounter Visit Diagnoses Not on filedocumented in this encounter
--- OUTSIDE RECORDS SUMMARY | ~2018-12-11 | XMS | Encounter Summary ---
Demographics + + + | Address | [address] | | | [place] [address] | + + + | Home Phone | | + + + | Preferred Language | Unknown | + + + | Marital Status | Single | + + + | Alevism Affiliation | NRP | + + + | Race | or Other | + + + | Ethnic Group | Not or | + + + Author + + + | Author | [place] [employer] [facility] | + + + | Organization | [facility] [email or web address] [facility] | + [...] Team Providers + +------+ + | Care Drop Wire Aligner Name | Role | Phone | + [...] | | | | | | | [address] | | | | | | | [address] | | | | | | | [place] | | | | | | | [place], [place] | | | | | | | [address] | | | | | | | Phone: | | | | | | | [phone] | | | | | | | Fax: | | | | | | | [phone] | +--------+--------+ + + + + Encounter Details +--------+---------+ + + + | Date | Type | Department | Care Team | Description | +--------+---------+ + + + | 02/06/ | Office | [facility] | Susan Chau MD | Proliferative | | 2015 | Visit | [facility] at | [address] | diabetic retinopathy | | | | [facility] [address] [facility] [place] | with macular edema | | | | [address] | [address] | associated with type | | | | Mailcode: [facility] | [phone] | 2 diabetes mellitus | | | | [facility] [place] | | ([facility]) | | | | [address] | | | | | | [phone] | | | +--------+---------+ + + + [...] Patient Instructions Patient Instructions Akash Guzman - 02/06/2015 2:39 PM PDT dexamethasone intravitreal implant Pronunciation: DEX [...] be injected into your eye by healthcare professionpaul bledsoe in a clinic setting. After the implant [...] others may occur. Call your doctor for [facility] advice about side effects. You may report side effects to FDA at [phone]-GWK-[phone]. What other drugs will affect dexamethasone intravitreal implant? It is not likely that other drugs you take orally or inject will have an effect on dexameth asone used in the eyes. But many drugs can interact with each other. Tell each of your healt hcare providers about all medicines you use, including prescription and yntr-qlm-xwswyec med icines, vitamins, and herbal products. Where [...] to ensure that the information provided by [employer] ( '[employer]') is accurate, up-to-date, and complete, but no guarantee is made to that effect. Dr janette information contained herein may be time sensitive. [employer] ([employer]) information has been compiled for use by healthcare practitioners and consumers in the [place] and therefore [employer]) does not warrant that uses outside of the [place] are appropriate, unless specifically indicated otherwise. [employer] drug information does not endorse drugs, diagnose patients or recommend therapy. [employer] drug information is an informational resource designed [...] effective or appropriate for any given patient. [employer] ([place]) does not assume any respon sibility for any aspect of healthcare administered with the aid of information [employer] provid es. The information contained herein is not intended to cover all possible uses, directions, precautions, warnings, drug interactions, allergic reactions, or adverse effects. If you negro ve questions about the drugs you are taking, check with your doctor, nurse or pharmacist. Copyright 3989-7061 [employer] Version: 2.02. Revision date: 06/25/2013. This information does not replace the advice of a doctor. [employer], [employer] disclaim s any warranty or liability for your use of this information. Content Version: 10.3.359917 documented in this encounter Progress Notes Akash Guzman - 02/06/2015 2:38 PM PDT Procedure Report 02/06/2015 for: Ozurdex Implant Insertion, both eyes Lot# & Expiration: [id number] exp 05/2017 right eye [id number] exp 05/2017 right eye Attending: Susan Chau MD Diagnosis: Macular edema, diabetic (primary encounter diagnosis) Diabetes mellitus due to underlying condition with moderate nonproliferative diabetic retin opathy with macular edema [249.50, 362.05, 362.07] Indication: Risk of further vision loss without treatment Allergies: Iron dextran; Celebrex; Penicillins; and Sulfa (sulfonamide antibiotics) Anesthesia: Subconjunctival with 1% lidocaine with epinephrine PARQ held for above. Team Pause: At 2:38 PM, prior to the beginning of the [...] the pars plana using the supp lied sheet roller operator 4. Patent central retinal artery or IOP < 30 mmHG post injection confirmed 5. After the injection patient reported: No pain (0 of 0-10) Complications: None EBL: None Instructions: 1. Artificial tears every hour today, every hours tomorrow 2. Call immediately for worsening redness, light sensitivity, decreased vision or increase d pain Susan Chau MD @ED erenice Ren - 2014 1:28 PM PDT [facility] Progress Note 02/06/2015 CC: Follow-up visit Initial History: DME. Blood sugars= Last 3 ambulatory procedures on record: Procedure: Ozurdex right eye (10/31/14 1428) Procedure: Ozurdex Left eye (10/17/14 1516) Procedure: Avastin bilateral (09/19/14 1423) HPI: Joyce Arnold is a 54 y.o. female Last visit: 11/28/14 at 1:30 pm Reports that vision is stable. She did have a bad mechanical fall this past month, resultin g in an orbital fracture on the right side, which has since healed. Vision has improved sinc e the accident. Pain:No pain (0 of 0-10) POH: 08/08/2014 [...] every me al. isosorbide mononitrate CR Take 60 mg by [...] daily as needed for nausea/vomiting. simvastatin Take 60 mg by mouth once daily. sodium bicarbonate [...] Examination Diagnostics Ordered Right Left OCT CMT/Vol: 308/9.21 few intraretinal cysts in fovea; stable from previously CMT/Vol: 32 1/9.17 few intraretinal cysts in fovea; stable from previously FA --- --- FUNDUS --- --- Others [...] vision great 3. PDR (proliferative diabetic retinopathy) [542625] - regressed OU after the above procedures - starting vision was CF OU 4. DME (diabetic macular edema) [795849] OU - s/p Avastin OD on 05/16/14, OU x3 06/27/14, 08/08/14, 09/19/14 - s/p PSTK OU in the past also with minimal benefit - s/p Ozurdex OS on 10/17/14 - s/p Ozurdex OD on 10/31/14 - stable DME OU, IOP good PLAN: PARQ held for Ozurdex OU, given with subconjunctival lidocaine without complication Call for decreased vision, increased distortion, increased pain, new floaters or flashing l ights Follow up: 3.5 months 06/05/15 at 1:00 pm NEXT VISIT: DILATE OU, OCT OU Attestations: The ammonia technician, under the supervision of the physician, [...] | | | | | | Blvd [place], [place] | | | | | | [address] | | | | | | [phone] | | | | | | | | +--------+---------+ + + + + + +--------+ + + | Name | Type | Priori | Associated Diagnoses | Order Schedule | | | | ty | | | + + +--------+ + + | CMPTR OPHTH DX IMG | Procedures | Routin | | Expected: | | POST SEGMT | | e | | 02/05/2015, Expires: | | | | | | 08/08/2016 | + + +--------+ + + documented as of this encounter Procedures + +--------+ + + + | Procedure Name | Priori | Date/Time | Associated Diagnosis | Comments | | | ty | | | | + +--------+ + + + | [facility] EYE ROOM | Routin | 02/06/2015 | | | | CHARGE | e | 2:38 PM | | | | | | PDT | | | + +--------+ + + + | HI INJECT | Routin | 02/06/2015 | | | | INTRAVITREAL | e | 2:38 PM | | | | PHARMCOLOGIC | | PDT | | | + +--------+ + + + documented in this encounter Visit Diagnoses + + | Diagnosis | + + | Proliferative diabetic retinopathy with macular edema associated with type 2 diabetes | | mellitus (HCC) | + + documented in this encounter
--- OUTSIDE RECORDS SUMMARY | ~2018-12-11 | XMS | Encounter Summary ---
Demographics + + + | Address | [address] | | | [place] [address] | + + + | Home Phone | | + + + | Preferred Language | Unknown | + + + | Marital Status | Single | + + + | Buddhism Affiliation | NRP | + + + | Race | or Other | + + + | Ethnic Group | Not or | + + + Author + + + | Author | [place] [facility] | + + + | Organization | [facility] [employer] [facility] | + + + | Address | Unknown | + + + | Phone | Unavailable | + + + Support + + +---------+ + | Name | Relationship | Address | Phone | + + +---------+ + | Geraldine Canales | ECON | Unknown | | + + +---------+ + Care Team Providers + +------+ + | Care Survey Methodologist Name | Role | Phone | + +------+ + | Nadeem Caruso | PCP | | + +------+ + Reason for Visit +---------+ + | Reason | Comments | +---------+ + | Post Op | | +---------+ + AUTH/CERT +--------+--------+ + + + + [...] +--------+---------+ + + + | 02/21/ | Office | [facility] | Susan Chau MD | PDR (proliferative | | 2014 | Visit | [facility] at | [address] | diabetic | | | | [employer] [address] | [place], [place] | retinopathy), type | | | | [address] [place] | [address] | 2, with macular | | | | Mailcode: [facility] | [phone] | edema [250.50, | | | | [facility] [place] | | 362.02, 362.07] | | | | [address] | | (Primary Dx); | | | | [phone] | | Traction detachment | | | | | | of retina, bilateral | | | | | | [361.81]; Vitreous | | | | | | hemorrhage, | | | | | | bilateral [379.23] | +--------+---------+ + + + Social History [...] encounter Progress Notes Susan Chau MD - 02/21/2014 9:52 AM PDTFormatting of this note might be different from melvin rachel. [facility] Progress Note 02/21/2014 CC: Post Op Initial History: s/p PPV/MP/EL/FAx OS for NCVH and TRD OS 02/13/14 Patient mentioned the left eye bandage contact lens is starting to dry out and get irritate d with some minor itching Patient notices the right eye vision fluctuates at times No new flashes, floaters, or eye pain Last 3 ambulatory procedures on record: Procedure: Avasti OU (01/01/14 1454) HPI: Joyce Arnold is a 53 y.o. female Last visit: 02/14/14 at 9:00 am Following up per recommendation with no new issues, including eye pain, decreased vision, i ncreased floaters or increased distortion Pain:No pain (0 of 0-10) POH: PPV/MP/EL, [...] Ordered Right Left OCT CMT: 345 IRF Improved --- FA --- --- FUNDUS Infrared fundus photos obtained for documentation & OCT localization --- Others IMPRESSION: 53 y.o. female with Ophthalmologic Problems 1. POM# 1.5 s/p 23g PPV/MP/EL/FAx/1000cstSO OD 01/02/14 (oil used because of poor vision in contralateral eye) PDR (proliferative diabetic retinopathy) [493382] OD - francois-jaw TRD threatening macula and VH - doing well, retina attached, epi defect healed 2. DME (diabetic macular edema) [621939] OU s/p Avastin x 1 OU pre-op to above surgery - stable OD last visit - unable to determine OS due to VH OS 3. 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 POW # 1 s/p PPV/MP/EL/FAx OS for NCVH and TRD OS - with mild vitreous hemorrhage -shallow detachment on ultrasound -macula attached PLAN: PARQ held for pars plana vitrectomy left eye TODAY Call for decreased vision, increased distortion, increased pain, new floaters or flashing l ights Follow up:post op Attestations: The claim technician, under the supervision of the physician, [...] [address] | | | | | | [address] [place], [place] | | | | | | [address] | | | | | | [phone] | | | | | | | | +--------+---------+ + + + + + +--------+ + + | Name | Type | Priori | Associated Diagnoses | Order Schedule | | | | ty | | | + + +--------+ + + | CMPTR OPHTH DX IMG | Procedures | Routin | PDR (proliferative | Expected: | | POST SEGMT | | e | diabetic | 02/20/2014, Expires: | | | | | retinopathy), type | 04/21/2014 | | | | | 2, with macular | | | | | | edema [250.50, | | | | | | 362.02, 362.07] | | | | | | Traction detachment | | | | | | of retina, bilateral | | | | | | [361.81] Vitreous | | | | | | hemorrhage, | | | | | | bilateral [379.23] | | + + +--------+ + + | ULTRASOUND, B SCAN | Procedures | Routin | PDR (proliferative | Expected: | | | | e | diabetic | 02/20/2014, Expires: | | | | | retinopathy), type | 04/21/2014 | | | | | 2, with macular | | | | | | edema [250.50, | | | | | | 362.02, 362.07] | | | | | | Traction detachment | | | | | | of retina, bilateral | | | | | | [361.81] Vitreous [...]
--- OUTSIDE RECORDS SUMMARY | ~2018-12-11 | XMS | Encounter Summary ---
Demographics + + + | Address | [address] | | | [place] [address] | + + + | Home Phone [...] + + | Author | [place] [facility] | + + + | Organization | [facility] | + + + | Address | Unknown | + + + | Phone | Unavailable | + + + Support + + +---------+ + | Name | Relationship | Address | Phone | + + +---------+ + | Geraldine [place] | ECON | Unknown | | + + +---------+ + Care Team Providers + +------+ + | Care Packaging Materials Inspector Name | Role | Phone | [...] (OU) | | 2016 | Visit | [facility] | | | | | | Photography at | | | | | | [place] [address] | | | | | | [address] | | | | | | Mailcode: [place]IS | | | | | | [place], [place] | | | | | | [address] | | | | | | [phone] | | | +--------+ + + + [...] | | | | | | Blvd [place], [place] | | | | | | [address] | | | | | | [phone] | | | | | | | | +--------+---------+ + + + documented as of this encounter Visit Diagnoses + + | Diagnosis | + + | Proliferative diabetic retinopathy with macular edema associated with type 2 diabetes | | mellitus (HCC) | + + documented in this encounter
--- OUTSIDE RECORDS SUMMARY | ~2018-12-11 | XMS | Encounter Summary ---
Demographics + + + | Address | [address] | | | [place] [address] | + + + | Home Phone [...] + + + | Author | [place] [employer] [facility] | + + + | Organization | [facility] [employer] [facility] | + + + | Address | Unknown | + + + | Phone | Unavailable | + + + Support + + +---------+ + | Name | Relationship | Address | Phone | + + +---------+ + | Geraldine [place] | ECON | Unknown | | + + +---------+ + Care Team Providers + +------+ + | Care Quarter Lining Smoother Name | Role | Phone | + [...] | | | | | | [facility] | | | | | | [place], [place] | | | | | | [address] | | | +--------+ + + + [...] | | | | | | [place], [place] | | | | | | [address] | | | | | | [phone] | | | | | | | [...] [facility] - | [address] | [place] [address] | | | IMMUNOGENETICS/TRANS | [address] [...] [facility] - | [address] | [place] [address] | | | IMMUNOGENETICS/TRANS | [address] | | | | [facility] | | | | + + + + + documented in this encounter Visit Diagnoses Not on filedocumented in this encounter
--- OUTSIDE RECORDS SUMMARY | ~2018-12-11 | XMS | Encounter Summary ---
Demographics + + + | Address | [address] | | | [place] [address] | + + + | Home Phone [...] + + + | Author | [place] [employer] [facility] | + + + | Organization | [facility] [employer] [facility] | + + + | Address | Unknown | + + + | Phone | Unavailable | + + + Support + + +---------+ + | Name | Relationship | Address | Phone | + + +---------+ + | Geraldine Canales | ECON | Unknown | | + + +---------+ + Care Team Providers + +------+ + | Care Pan Shaker Name | Role | Phone | + [...] Omar | | | | | | [facility] | | | | | | Mailcode: UHN65 | | | | | | [place] | | | | | | [address], [place] | | | | | | [address] | | | | | | [phone] | | | +--------+ + + + [...] perfume, lotions or powder. Remove any nail beninese from at least one fingernail. Do not [...] Surgery Check in Locations [facility], sixth floor Surgery Check in Time: Someone from your surgeon's office or [facility] will provide you with information regarding [...] it is after office hours, call the [facility] band sawmill operator at [phone] and ask them to page your doc tor. documented in this encounter Plan of Treatment +--------+---------+ + + + | Date | Type | Specialty | Care Team | Description | +--------+---------+ + + + | 01/30/ | Office | Ophthalmology | Susan Andrews MD | | | 2019 | Visit | | [address] | | | | | | [place] | | | | | | [address] | | | | | | [phone] | | | | | | | | +--------+---------+ + + + documented as of this encounter Visit Diagnoses Not on filedocumented in this encounter
--- OUTSIDE RECORDS SUMMARY | ~2018-12-11 | XMS | Encounter Summary ---
Demographics + + + | Address | [address] | | | [place] [address] | + + + | Home Phone [...] + + + | Author | [place] [employer] [facility] | + + + | Organization | [facility] [facility] | + + + | Address | Unknown | + + + | Phone | Unavailable | + + + Support + + +---------+ + | Name | Relationship | Address | Phone | + + +---------+ + | Geraldine Canales | ECON | Unknown | | + + +---------+ + Care Team Providers + +------+ + | Care Weights And Measures Sealer Name | Role | Phone | [...] | [place], | | | | | [place] [facility] | Epic Dept | MD Susan | | | | | OPHTH DX IMG | | [address] | | | | | [address] | | [address] | | | | | SEGMT-RETINA | | [address] | | | | | [place] | | [place], [place] | | | | | [place] | | [address] | | | | | ANGIOGRAPHY | | Phone: | | | | | [place] FUNDAL | | [phone] | | | | | PHOTOGRAPHY | | Fax: | | | | | [place] INJECT | | [phone] | | | | | INTRAVITREAL | | | | | | | | | | | | | | PHARMCOLOGIC | | | | | | | [place] | | | | | | | TRIAMCINOLON | | | | | | | E ACETONIDE | | | | | | | INJ 10 MG | | | | | | | [place] INJ,THER | | | | | | [...] edema, | | 2013 | Visit | [facility] at | [address] | diabetic, type 2, | | | | [place] [address] [place], [place] | with proliferative | | | | [address] [facility] | [address] | retinopathy [250.50, | | | | Mailcode: [facility] | [phone] | 362.02, 362.07] | | | | [place], [place] | | (Primary Dx); TRD | | | | [address] | | (traction retinal | | | | [phone] | | detachment), | | | | [...] note might be different from melvin rachel. [facility] Progress Note 03/14/2014 CC: Postoperative visit Initial History: Increased vision in the left eye. Right eye stable. Pain rating 6 in the left eye 500 mg Tylenol brings pain to 0. No new flashes or floaters. Double vision persists-horizontal. Last 3 ambulatory procedures on record: Procedure: Kenalog both eyes (02/28/14 1047) Procedure: Avasti OU (01/01/14 7184) HPI: Joyce Arnold is a 53 y.o. [...] Ophthalmologic Problems 1. 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 POM# 2 s/p 23g PPV/MP/EL/FAx/1000cstSO OD 01/02/14 PDR (proliferative diabetic retinopathy) [390741] OD - francois-jaw TRD threatening macula and VH - doing well, retina attached, stable, vision improved - oil was placed due to poor vision in contralateral eye, and [place] 3. DME (diabetic macular edema) [122936] OU - s/p Avastin x 1 OU [...] VISIT: DILATE OU, OCT OU Attestations: The durability technician, under the supervision of the physician, [...] | | | | | | [address] [place], [place] | | | | | | [address] | | | | | | [phone] | | | | | | | [...]
--- OUTSIDE RECORDS SUMMARY | ~2018-12-11 | XMS | Encounter Summary ---
Demographics + + + | Address | [address] | | | [place] [address] | + + + | Home Phone [...] + + + | Author | [place] [employer] [facility] [[email or web address]] | + + + | Organization | [facility] [employer] [facility] [[email or web address]] | + [...] Team Providers + +------+ + | Care Transonic Engineer Name | Role | Phone | [...] To Cancel | | 2015 | | [facility] at | [address] | Appointment | | | | [facility] [address] | [place], [place] | | | | | [address] [facility] | [address] | | | | | Mailcode: [place] | [phone] | | | | | [place], [place] | | | | | | [address] | | | | | | [phone] | | | +--------+ + + + [...] | | | | | | [place], [place] | | | | | | [address] | | | | | | [phone] | | | | | | | | +--------+---------+ + + + documented as of this encounter Visit Diagnoses Not on filedocumented in this encounter
--- OUTSIDE RECORDS SUMMARY | ~2018-12-11 | XMS | Encounter Summary ---
Demographics + + + | Address | [address] | | | [place] [address] | + + + | Home Phone [...] + + + | Author | [place] [facility] | + + + | Organization | [facility] [employer] [facility] | + + + | Address | Unknown | + + + | Phone | Unavailable | + + + Support + + +---------+ + | Name | Relationship | Address | Phone | + + +---------+ + | Geraldine Parker | ECON | Unknown | | + + +---------+ + Care Team Providers + +------+ + | Care Impregnation Operator Name | Role | Phone | + +------+ + | Rohan Wilkes DO | PCP | | + +------+ + Encounter Details +--------+ + + + + | Date | Type | Department | Care Team | Description | +--------+ + + + + | 06/06/ | Pharmacy | [facility] | | | | 2013 | Visit | [address] | | | | | | [address] | | | | | | [place], [place] | | | | | | [address] | | | | | | [phone] | | | +--------+ + + + [...] | | | | | | [place], [place] | | | | | | [address] | | | | | | [phone] | | | | | | | | +--------+---------+ + + + documented as of this encounter Visit Diagnoses Not on filedocumented in this encounter
--- OUTSIDE RECORDS SUMMARY | ~2018-12-11 | XMS | Encounter Summary ---
Demographics + + + | Address | [address] | | | [place] [address] | + + + | Home Phone [...] + + + | Author | [place] [employer] [facility] | + + + | Organization | [facility] [email or web address] [facility] | + + + | Address | Unknown | + + + | Phone | Unavailable | + + + Support + + +---------+ + | Name | Relationship | Address | Phone | + + +---------+ + | Geraldine Parker | ECON | Unknown | | + + +---------+ + Care Team Providers + +------+ + | Care Drawer In Plain Loom Name | Role | Phone | + [...] examination | | 2013 | Visit | [facility] | | | | | | Photography at | | | | | | [place] [address] | | | | | | [address] | | | | | | Mailcode: [address] | | | | | | [place], [place] | | | | | | [address] | | | | | | [phone] | | | +--------+ + + + [...] PDT Joyce Arnold was seen in the [facility]Ultrasound Department today, 12/06/2013, for fundus photography [...] | | | | | | [place], [place] | | | | | | [address] | | | | | | [phone] | | | | | | | | +--------+---------+ + + + documented as of this encounter Visit Diagnoses + + | Diagnosis | + + | Vitreous hemorrhage (HCC) - Primary Vitreous hemorrhage | + + documented in this encounter"
--- OUTSIDE RECORDS SUMMARY | ~2018-12-11 | XMS | Encounter Summary ---
Demographics + + + | Address | [address] | | | [place] [address] | + + + | Home Phone [...] + + + | Author | [place] [employer] [facility] | + + + | Organization | [facility] | + + + | Address | Unknown | + + + | Phone | Unavailable | + + + Support + + +---------+ + | Name | Relationship | Address | Phone | + + +---------+ + | Geraldine Parker | ECON | Unknown | | + + +---------+ + Care Team Providers + +------+ + | Care Certified Tumor Registrar Name | Role | Phone | + [...] + + | 02/13/ | Hospital | [facility] | Ankush Ramos V, | | | 2013 | Encounter | [address] | Retinal | | | | | [address] | [facility] [place] | | | | | [facility] [place] | [address] | | | | | [address] | [place], [place] | | | | | [place] [address] | [address] | | | | | [phone] | | | | | | | Susan Andrews MD | | | | | | [address] | | | | | | [place], [place] | | | | | | [address] | | | | | | [phone] | | | | | | | [...] | | 2019 | Visit | | [address] | | | | | | [place], [place] | | | | | | [address] | | | | | | [phone] | | | | | | | [...] | | | | left ([facility]) | | | | | | Proliferative | | | | | | diabetic | | | | | | retinopathy(362.02) | | | | | | ([facility]) | | + +--------+ + + [...] GRUPO | [address] | [place], [place] | | | [facility] | [facility] | [address] | | | TESTS | | | [...] (H) | 60 - 99 mg/dL | [facility] - | | | GLUCOSE, | | [...] MARQUAM | [address] | [place], [place] | | | [facility] | [address] | [address] | | | TESTS | | | [...] JAVED | [address] | [place], [place] | | | [facility] | [facility] | [address] | | | TESTS | | | [...] GRUPO | [address] | [place], [place] | | | [facility] | [address] | [address] | | | TESTS | | | [...] | | | | | | Starting [facility] 02/13/14 at 0647, | | | | | | | Until [facility] 02/13/14 at 0650, | | | [...]
--- OUTSIDE RECORDS SUMMARY | ~2018-12-11 | XMS | Encounter Summary ---
Demographics + + + | Address | [address] | | | [place] [address] | + + + | Home Phone [...] + + + | Author | [place] [employer] [facility] | + + + | Organization | [facility] | + + + | Address | Unknown | + + + | Phone | Unavailable | + + + Support + + +---------+ + | Name | Relationship | Address | Phone | + + +---------+ + | [place] Parker | ECON | Unknown | | + + +---------+ + Care Team Providers + +------+ + | Care Vocational Services Specialist Name | Role | Phone | [...] | | | | | [facility] | 1986 | | | | | | [facility] | [address] | | | | | | [address] | | | | | | [place] | [place], [place] | | | | | | [place] | [address] | | | | | | [place], | Phone: | | | | | | [place] [address] | [phone] | | | | | | Phone: | Fax: | | | | | | [phone] | [phone] | | | | | | Fax: | | | | | | | [phone] | | +--------+--------+ + + + + Encounter Details +--------+---------+ + + + | Date | Type | Department | Care Team | Description | +--------+---------+ + + + | 10/01/ | Office | [facility] | Anderson Sheldon, | Meibomian gland | | 2016 | Visit | [facility] [facility] at | MD [address] | dysfunction (MGD) of | | | | [facility] [address] | upper and lower | | | | [address] | [place], [place] | lids of both eyes | | | | Mailcode: [facility] | [address] | (Primary Dx); S/P | | | | [place], [place] | [phone] | bilateral cataract | | | | [address] | | extraction | | | | [phone] | | | +--------+---------+ + + + [...] neurologic, endocrine, bleeding/blood disorders, AIDS/HIV, cancer/tumors, arthritis) Floor Person Attestation:Anni Antonio, performed, reviewed or revised the [...] Anderson Sheldon MD Cornea/External Disease Refractive Surgery [facility] documented in this e ncounter Plan of Treatment +--------+---------+ + + + | Date | Type | Specialty | Care Team | Description | +--------+---------+ + + + | 01/30/ | Office | Ophthalmology | Susan Andrews MD | | | 2019 | Visit | | [address] | | | | | | [place], [place] | | | | | | [address] | | | | | | [phone] | | | | | | | [...]
--- OUTSIDE RECORDS SUMMARY | ~2018-12-11 | XMS | Encounter Summary ---
Demographics + + + | Address | [address] | | | [place] [address] | + + + | Home Phone | | + + + | Preferred Language | Unknown | + + + | Marital Status | Single | + + + | Mandaen Affiliation | NRP | + + + | Race | or Other | + + + | Ethnic Group | Not or | + + + Author + + + | Author | [place] [employer] [facility] | + + + | Organization | [facility] [employer] [facility] | + + [...] Providers + +------+ + | Care Automotive Product Engineer Name | Role | Phone | [...] | | | | | | | [address] | | | | | | | [address] | | | | | | | [place] | | | | | | | [place], [place] | | | | | | | [address] | | | | | | | Phone: | | | | | | | [phone] | | | | | | | Fax: | | | | | | | [phone] | +--------+--------+ + + + + Encounter Details +--------+---------+ + + + | Date | Type | Department | Care Team | Description | +--------+---------+ + + + | 10/17/ | Office | [facility] | Susan Chau MD | Macular edema, | | 2015 | Visit | [facility] | [address] | diabetic, type 2, | | | | [facility] [address] [place], [place] | with proliferative | | | | [address] | [address] | retinopathy [250.50, | | | | Mailcode: [facility] | [phone] | 362.02, 362.07] | | | | [facility] [place] | | (Primary Dx) | | | | [address] | | | | | | [phone] | | | +--------+---------+ + + + [...] others may occur. Call your doctor for [facility] advice about side effects. You may report side effects to FDA at 7-006-QRB-2149. What other drugs will affect dexamethasone intravitreal implant? It is not likely that other drugs you take orally or inject will have an effect on dexameth asone used in the eyes. But many drugs can interact with each other. Tell each of your healt hcare providers about all medicines you use, including prescription and oqqd-xyy-lmgolfz med icines, vitamins, and herbal products. Where [...] to ensure that the information provided by [employer]. ( '[employer]') is accurate, up-to-date, and complete, but no guarantee is made to that effect. Dr janette information contained herein may be time sensitive. [employer] information has been compiled for use by healthcare practitioners and consumers in the [place] and therefore [employer] does not warrant that uses outside of the [place] are appropriate, unless specifically indicated otherwise. Consignd drug information does not endorse drugs, diagnose patients or recommend therapy. Consignd drug information is an informational resource designed [...] effective or appropriate for any given patient. [employer] does not assume any respon sibility for any aspect of healthcare administered with the aid of information [employer] provid es. The information contained herein is not intended to cover all possible uses, directions, precautions, warnings, drug interactions, allergic reactions, or adverse effects. If you negro ve questions about the drugs you are taking, check with your doctor, nurse or pharmacist. Copyright 7893-9761 [employer]. Version: 2.02. Revision date: 06/25/2013. This information does not replace the advice of a doctor. [employer] [place], [employer] disclaim s any warranty or liability for your use of this information. Content Version: 10.3.277788 documented in this encounter Progress Notes Susan Chau MD - 10/17/2014 2:18 PM PDTFormatting of this note might be different from melvin rachel. [facility] Progress Note 10/17/2014 CC: Follow-up visit [...] , vision gre at 3. 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 PDR (proliferative diabetic retinopathy) [387983] - s/p EL PRP OU, regressed OU - vision started out at CF in both eyes due to VH and TRDs OU, now MRx to 20/30 OD and 20/8 0 OS 5. DME (diabetic macular edema) [036042] OU - s/p Avastin OD on 05/16/14, OU x3 06/27/14, 08/08/14, 09/19/14 - s/p PSTK OU in the past also with minimal benefit - Center involving IRF OS > OD PLAN: Is approved for Ozurdex switch, will start with OS due to worse DMEOS, given OS without com plication Look into retina specialist in [facility], Patrick Nguyen, [facility], [place] or [place] for decreased vision, increased distortion, increased pain, new floaters or flashing l ights Follow up: 2 weeks for IOP check OS, also possible OZurdex OD next visit NEXT VISIT: DILATE OU, OCT OU Addendum PLIN: [facility] specialists: [phone] Mago Durbin MD, PhD Uveitis Fellow Attestations: The install and repair technician, under the supervision of the physician, is responsible for performing the f ollowing sections: RFV, ROS, PMH, PSH, SocHx, FH, Med list, Base Ophth Exam. The attending physician is responsible for the entire content of the note and has personall y performed the HPI and the physical examination SUSAN CHAU MD Procedure Report 10/17/2014 for: Ozurdex Implant Insertion, left eye Lot#[id number] & Expiration: 01/2017(4dd) Attending: Susan Chau MD [...] the pars plana using the supp lied core inserter 4. Patent central retinal artery or IOP [...] | | | | | | [place], [place] | | | | | | [address] | | | | | | [phone] | | | | | | | [...] | + +--------+ + + + | [facility] | Routin | 10/17/2014 | Macular edema, | | | CHARGE | e | 3:24 PM | diabetic, type 2, | | | | | PDT | with proliferative | | | | | | retinopathy [250.50, | | | | | | 362.02, 362.07] | | + +--------+ + + + | MD INJECT | Routin | 10/17/2014 | Macular [...]
--- OUTSIDE RECORDS SUMMARY | ~2018-12-11 | XMS | Encounter Summary ---
Demographics + + + | Address | [address] | | | [place] [address] | + + + | Home Phone | | + + + | Preferred Language | Unknown | + + + | Marital Status | Single | + + + | Zoroastrian Affiliation | NRP | + + + | Race | or Other | + + + | Ethnic Group | Not or | + + + Author + + + | Author | [place] [employer] [facility] | + + + | Organization | [facility] [employer] [facility] | + + + | Address | Unknown | + + + | Phone | Unavailable | + + + Support + + +---------+ + | Name | Relationship | Address | Phone | + + +---------+ + | Geraldine Canales | ECON | Unknown | | + + +---------+ + Care Team Providers + +------+ + | Care Awake Overnight Counselor Name | Role | Phone | [...] | | | | | | | [address] | | | | | | | [address] | | | | | | | [place] | | | | | | | [place], [place] | | | | | | | [address] | | | | | | | Phone: | | | | | | | [phone] | | | | | | | Fax: | | | | | | | [phone] | +--------+--------+ + + + + Encounter Details +--------+---------+ + + + | Date | Type | Department | Care Team | Description | +--------+---------+ + + + | 11/28/ | Office | [facility] | Susan Chau MD | Proliferative | | 2015 | Visit | [facility] at | [address] | diabetic retinopathy | | | | [facility] [address] [facility] [place] | with macular edema | | | | [address] | [address] | associated with type | | | | Mailcode: [facility] | [phone] | 2 diabetes mellitus | | | | [facility] [place] | | [167.50, 362.07, | | | | [address] | | 362.02] | | | | [phone] | | | +--------+---------+ + + + [...] note might be different from melvin rachel. [facility] Progress Note 11/28/2014 CC: Follow-up visit Initial History: H/o DME - Patient mentioned no new vision changes, flashes, floaters, or eye pain. Patient mentioned her blood sugars has fluctuated from 40s - 170s - will be seeing PCP and Endocrin ologist soon Last 3 ambulatory procedures on record: Procedure: Ozurdex right eye (10/31/14 2176) Procedure: Ozurdex Left eye (10/17/14 8096) Procedure: Avastin bilateral (09/19/14 2393) HPI: Joyce Arnold is a 54 y.o. [...] three times daily. SYRING W-NDL,DISP,INSUL,0.5ML ([place]UL[place] [facility] [place] Past Medical History Diagnosis Date Diabetes mellitus [...] vision great 3. PDR (proliferative diabetic retinopathy) [556265] - regressed OU after the above procedures - starting vision was CF OU 4. DME (diabetic macular edema) [662384] OU - s/p Avastin OD on 05/16/14, [...] VISIT: DILATE OU, OCT OU Attestations: The waste management recycling technician, under the supervision of the physician, [...] | | | | | | [place], [place] | | | | | | [address] | | | | | | [phone] | | | | | | | [...]
--- OUTSIDE RECORDS SUMMARY | ~2018-12-11 | XMS | Encounter Summary ---
Demographics + + + | Address | [address] | | | [place] [address] | + + + | Home Phone [...] + + + | Author | [place] [employer] [facility] | + + + | Organization | [facility] [employer] [facility] | + + + | Address | Unknown | + + + | Phone | Unavailable | + + + Support + + +---------+ + | Name | Relationship | Address | Phone | + + +---------+ + | Hector Parker | ECON | Unknown | | + + +---------+ + Care Team Providers + +------+ + | Care Binder And Box Builder Name | Role | Phone | + [...] (ou) | | 2015 | Visit | [place] | | | | | | Photography at | | | | | | [place] [address] | | | | | | [address] | | | | | | Mailcode: [place] | | | | | | [place], [place] | | | | | | [address] | | | | | | [phone] | | | +--------+ + + + [...] | | | | | | [place], [place] | | | | | | [address] | | | | | | [phone] | | | | | | | | +--------+---------+ + + + documented as of this encounter Visit Diagnoses + + | Diagnosis | + + | Macular edema, diabetic, type 2, with proliferative retinopathy [250.50, 362.02, | | 362.07] | + + documented in this encounter
--- OUTSIDE RECORDS SUMMARY | ~2018-12-11 | XMS | Encounter Summary ---
Demographics + + + | Address | [address] | | | [place] [address] | + + + | Home Phone [...] + + + | Author | [place] [employer] [facility] | + + + | Organization | [facility] [employer] [facility] | + [...] Team Providers + +------+ + | Care Dedicated Regional Driver Name | Role | Phone | [...] | +--------+ + + + + | 03/17/ | Diagnostic | [facility] | | Eye examination | | 2013 | Visit | [place] | | | | | | Photography at | | | | | | [place] [address] | | | | | [address] | | | | | | Mailcode: [address] | | | | | | [place], [place] | | | | | | [address] | | | | | | [phone] | | | +--------+ + + + [...] + documented as of this encounter Progress Ash Sherman - 03/14/2014 2:07 PM PDT Joyce Arnold was seen in the [facility] [place] Photography/Ultrasound Department today, 03/14/2014, for Biometry OU Silicone filled phakic OU No contact lens use. ASH SALEH documented in this en counter Plan of Treatment +--------+---------+ + + + | Date | Type | Specialty | Care Team | Description | +--------+---------+ + + + | 01/30/ | Office | Ophthalmology | Susan Andrews MD | | | 2019 | Visit | | [address] | | | | | | [place], [place] | | | | | | [address] | | | | | | [phone] | | | | | | | | +--------+---------+ + + + documented as of this encounter Visit Diagnoses + + | Diagnosis | + + | Unspecified cataract - Primary | + + | Macular edema, diabetic, type 2, with proliferative retinopathy [250.50, 362.02, | | 362.07] | + + documented in this encounter
--- OUTSIDE RECORDS SUMMARY | ~2018-12-11 | XMS | Encounter Summary ---
Demographics + + + | Address | [address] | | | [place] [address] | + + + | Home Phone | | + + + | Preferred Language | Unknown | + + + | Marital Status | | + + + | Lutheran Affiliation | Unknown | + + + | Race | Unknown | + + + | Ethnic Group | Unknown | + + + Author + + + | Author | [facility] [employer] | + + + | Organization | [facility] [employer] | + + + | Address [...] Team Providers + +------+ + | Care Charter Representative Name | Role | Phone | [...] [address] | | | | | | [place] [address] | | | | | | [phone] | | | +--------+ + + + [...] | | | | | [place] [address] | | | | | | [phone] | | | | | | | | +--------+---------+ + + + as of this encounter Visit Diagnoses Not on filein this encounter"
--- OUTSIDE RECORDS SUMMARY | ~2018-12-11 | XMS | Encounter Summary ---
Demographics + + + | Address | [address] | | | [place] [address] | + + + | Home Phone | | + + + | Preferred Language | Unknown | + + + | Marital Status | Single | + + + | Quaker Affiliation | NRP | + + + | Race | or Other | + + + | Ethnic Group | Not or | + + + Author + + + | Author | [place] [employer] [facility] | + + + | Organization | [facility] [employer] [facility] | + + + | Address | Unknown | + + + | Phone | Unavailable | + + + Support + + +---------+ + | Name | Relationship | Address | Phone | + + +---------+ + | Geraldine Canales | ECON | Unknown | | + + +---------+ + Care Team Providers + +------+ + | Care Geospatial Specialist Name | Role | Phone | + +------+ + | Nadeem Caruso | PCP | | + +------+ + Reason for Visit + + + | Reason | Comments | + + + | Eye examination | OCT | + + + AUTH/CERT +--------+--------+ + [...] examination | | 2013 | Visit | [place] | | (APR) | | | | Photography at | | | | | | [employer] [address] | | | | | | [address] | | | | | | Mailcode: [address] | | | | | | [place], [place] | | | | | | [address] | | | | | | [phone] | | | +--------+ + + + [...] of this encounter Progress Nola Joseph - 02/21/2014 10:05 AM PDT Joyce Arnold was seen in the [facility] [place] Photography/Ultrasound Department today, 02/21/2014, for OCT OD. NOLA Clarkectronically signed by Nola Kevin at 02/21/2014 10:05 AM PDTdocumented in thi s encounter Plan of Treatment +--------+---------+ + + + | Date | Type | Specialty | Care Team | Description | +--------+---------+ + + + | 01/30/ | Office | Ophthalmology | Susan Andrews MD | | | 2018 | Visit | | [address] | | | | | | [place], [place] | | | | | | [address] | | | | | | [phone] | | | | | | | [...]
--- OUTSIDE RECORDS SUMMARY | ~2018-12-11 | XMS | Clinical Summary ---
Demographics + + + | Address | [address] | | | [place] [address] | + + + | Home Phone | | + + + | Preferred Language | Unknown | + + + | Marital Status | | + + + | Synagogue Affiliation | Unknown | + + + | Race | Unknown | + + + | Ethnic Group | Unknown | + + + Author + + + | Author | [facility] [employer] | + + + | Organization | [facility] [employer] | + + + | Address [...] Team Providers + +------+ + | Care Cryptographer Name | Role | Phone | + [...] | | | Activ | | ([place]IS[place]) [id number] | mouth once a week. | | [...] Immunosuppression | | | | | | ([facility]); Fever and | | | | | [...] (Scheduling) | | 2019 | | | LIBRARY PAGE | | +--------+ + + + + | 09/18/ | Documentati | | Maria Teresa | Care Coordination | | 2019 | on Only | | AMANDA Dupont | ([facility] | | | | | | [facility] | | | | | | Intermediate Care | | | | | | Unit - 09/18/18 - | | | | | | Discharge Summary | | | | | | notes - | | | | | | Quoc/Emely) | +--------+ + + + + | 09/17/ | Documentati | | Maria Teresa, | Other ([facility] | | 2018 | on Only | | AMANDA Dupont | services - Surgical | | | | | | Pathology Report - | | | | | | 09/14/18 - | | | | | | Quoc/emely); Other | | | | | | [facility] | | | | | | services - Pathology | | | | | | addendum Report - | | | | | | 09/14/18 - emely) | +--------+ + + + + | 09/14/ | Telephone | | Viktoria Mancini | Other ([facility] | | 2018 | | | DINORAH King | transplant received | | | | [...] PAUL | | | | | | [place] [address] | | | | | | [phone] | | | | | | | [...] | | | [place] | | | /[address] | | | | | | | | [address] | | | | | | | | /[address] | | | | | | | | [address] | + +------+------+ +--------+--------+--------+ Results Not on [...] +------+-------+ + | MEDICARE | MEDICA | [id number] | | | [address] | | | RE | | | | [place] [address] | | | IP-OP | | | [...] | gucci | | | [address]28 | [phone] | + +--------+ +--------+ + +
--- OUTSIDE RECORDS SUMMARY | ~2018-12-11 | XMS | Encounter Summary ---
Demographics + + + | Address | [address] | | | [place] [address] | + + + | Home Phone [...] + + + | Author | [place] [employer] [facility] | + + + | Organization | [facility] | + + + | Address | Unknown | + + + | Phone | Unavailable | + + + Support + + +---------+ + | Name | Relationship | Address | Phone | + + +---------+ + | Geraldine Parker | ECON | Unknown | | + + +---------+ + Care Team Providers + +------+ + | Care Cupola Melter Name | Role | Phone | + [...] | | | | | | | [address] | | | | | | | [address] | | | | | | | [place] | | | | | | | [place], [place] | | | | | | | [address] | | | | | | | Phone: | | | | | | | [phone] | | | | | | | Fax: | | | | | | | [phone] | +--------+--------+ + + + + Encounter Details +--------+---------+ + + + | Date | Type | Department | Care Team | Description | +--------+---------+ + + + | 12/06/ | Office | [facility] | Susan Chau MD | Vitreous hemorrhage | | 2013 | Visit | [facility] at | [address] | ([facility]) (Primary Dx); | | | | [facility] [address] [facility] [place] [place] | Proliferative | | | | [address] | [address] | diabetic | | | | Mailcode: [facility] | [phone] | retinopathy(362.02) | | | | [place], [place] | | ([facility]); DME (diabetic | | | | [address] | | macular edema) | | | | [phone] | | ([facility]); Retinal | | | | | [...] | | | | | | [place], [place] | | | | | | [address] | | | | | | [phone] | | | | | | | [...]
--- OUTSIDE RECORDS SUMMARY | ~2018-12-11 | XMS | Encounter Summary ---
Demographics + + + | Address | [address] | | | [place] [address] | + + + | Home Phone [...] + + + | Author | [place] [employer] [facility] | + + + | Organization | [facility] [employer] [facility] | + + + | Address | Unknown | + + + | Phone | Unavailable | + + + Support + + +---------+ + | Name | Relationship | Address | Phone | + + +---------+ + | Winfield Parker | ECON | Unknown | | + + +---------+ + Care Team Providers + +------+ + | Care Commercial Fishing Vessel Operator Name | Role | Phone | [...] | +--------+ + + + + | 09/19/ | Diagnostic | [facility] | | OCT - Macula (ou) | | 2015 | Visit | [place] | | | | | | Photography at | | | | | | [place] [address] | | | | | | [address] | | | | | | Mailcode: [place] | | | | | | [place], [place] | | | | | | [address] | | | | | | [phone] | | | +--------+ + + + [...] | | | | | | [place], [place] | | | | | | [address] | | | | | | [phone] | | | | | | | | +--------+---------+ + + + documented as of this encounter Visit Diagnoses + + | Diagnosis | + + | Macular edema, diabetic, type 2, with proliferative retinopathy [250.50, 362.02, | | 362.07] | + + documented in this encounter
--- OUTSIDE RECORDS SUMMARY | ~2018-12-11 | XMS | Encounter Summary ---
Demographics + + + | Address | [address] | | | [place] [address] | + + + | Home Phone [...] + + | Author | [place] [employer] [facility] | + + + | Organization | [facility] [employer] [facility] | + + + | Address | Unknown | + + + | Phone | Unavailable | + + + Support + + +---------+ + | Name | Relationship | Address | Phone | + + +---------+ + | Geraldine Canales | ECON | Unknown | | + + +---------+ + Care Team Providers + +------+ + | Care Geotechnical Operating Engineer Name | Role | Phone [...] examination | | 2013 | Visit | [facility] | | (APR) | | | | Photography at | | | | | | [facility] [address] | | | | | | [address] | | | | | | Mailcode: [place] | | | | | | [place], [place] | | | | | | [address] | | | | | | [phone] | | | +--------+ + + + [...] PDT Joyce Arnold was seen in the [facility]Ultrasound Department today, 02/21/2014, for OCT OD. [...] | | | | | | [place], [place] | | | | | | [address] | | | | | | [phone] | | | | | | | [...]
--- OUTSIDE RECORDS SUMMARY | ~2018-12-11 | XMS | Encounter Summary ---
Demographics + + + | Address | [address] | | | [place] [address] | + + + | Home Phone [...] + + + | Author | [place] [employer] [facility] | + + + | Organization | [facility] [employer] [facility] [...] Providers + +------+ + | Care Public School Teacher Name | Role | Phone | [...] (OU) | | 2016 | Visit | [place] | | | | | | Photography at | | | | | | [place] [address] | | | | | | [address] | | | | | | Mailcode: [place] | | | | | | [place], [place] | | | | | | [address] | | | | | | [phone] | | | +--------+ + + + [...] | | | | | | Blvd [place], [place] | | | | | | [address] | | | | | | [phone] | | | | | | | | +--------+---------+ + + + documented as of this encounter Visit Diagnoses + + | Diagnosis | + + | Macular edema, diabetic (HCC) Type II or unspecified type diabetes mellitus with | | ophthalmic manifestations, not stated as uncontrolled | + + documented in this encounter
--- OUTSIDE RECORDS SUMMARY | ~2018-12-11 | XMS | Encounter Summary ---
Demographics + + + | Address | [address] | | | [place] [address] | + + + | Home Phone [...] + + + | Author | [place] [facility] | + + + | Organization | [facility] [employer] [facility] | + + + | Address | Unknown | + + + | Phone | Unavailable | + + + Support + + +---------+ + | Name | Relationship | Address | Phone | + + +---------+ + | Geraldine Canales | ECON | Unknown | | + + +---------+ + Care Team Providers + +------+ + | Care Red Hat Engineer Name | Role | Phone | [...] Susan | | | MD Juliana at [facility] | + + + Encounter Details +--------+---------+ + + + | Date | Type | Department | Care Team | Description | +--------+---------+ + + + | 06/04/ | Office | Preoperative | Kathy Urbano | Preoperative | | 2013 | Visit | Medicine Clinic at | R, SPACE TECHNOLOGIST [address] [facility] | examination, | | | | [facility] 4th Floor [address] | unspecified (Primary | | | | [address] Mail | [place], [place] | Dx); Chorioretinal | | | | Code: [address] | [address] | scar, left; | | | | for Health and | [phone] | Unspecified | | | | Healing,4th Floor | | cataract; CAD | | | | [place], [place] | | (coronary artery | | | | [address] | | disease); CHF | | | | [phone] | | (congestive heart | | | | | | failure), | | | | | | unspecified failure | | | | | | chronicity, | | | | | | unspecified type; | | | | | | CVA (cerebral | | | | | | infarction) ([facility]); | | | | | | Type 1 diabetes | | | | | | ([facility]); CKD (chronic | | | | | | kidney disease), | | | | | | stage 4 (severe) | | | | | | ([facility]); Anemia; | | | | | | [...] Surgery Check in Locations [facility] Check in Time: The [facility] is not in the [...] it is after office hours, call the [facility] reinforcing steel machine operator at [phone] and ask them to page him or [...] Reports that pain she had prior to SD felt like a squeezing sensation more over her left ch est. +CAD - SD and s/p stent to left circumflex (2010). [...] Moderate CAD Cad Sx: cardiac stents past SD CHF EF by Echo: >70% hypertension poorly [...] second and third obtuse marginal branches had [id number] diffus e disease without any significantly obstructive stenosis. 4. The right coronary artery had mild diffuse disease without any significantly obstructive stenosis. MEDICAL DECISION MAKIN ACC/ AHA Perioperative Guidelines1. Need for emergency noncardiac surgery? b. No -> Proceed to next step. 2. Active Cardiac Conditions? These conditions mandate further investigation and manageme nt. A. Acute SD within 7 days: no B. Unstable angina/Recent SD (7- 30 days): no C. Decompensated CHF: no D. Significant arrhythmia: None E. Severe valvular disease: NONE 3. Low risk surgery? a. Yes -> proceed with planned surgery. Rate of cardiac , non fatal SD, non fatal cardiac arrest (RCRI) 0 risk [...] and/or with hx of MRSA) CAD - SD and s/p stent 2010. On asa, bb and statin, as well as isosorbide. Continue all as scheduled. Pt reports an episode of chest pain after coughing fit on Friday 05/25. Took 2 NTG and pain resolved. None since that time. Discussed case with Dr. Neelima martines to steve d with low risk surgery in AM. Strongly recommend that pt f/u with program and research coordinator for further evaluation as needed. Pt understands [...] I Dm - poorly controlled. Insulin per [facility] protocol. CKD - stage IV. [...] to this patient's care. KATHY URBANO NP [facility] AT [facility] 4TH FLOOR [address] [facility] [place] [address] I advised the patient regarding [...] | | | | | | [place], [place] | | | | | | [address] | | | | | | [phone] | | | | | | | | +--------+---------+ + + + documented as of this encounter Visit Diagnoses + + | Diagnosis | + + | Preoperative examination, unspecified - Primary | + + | Chorioretinal scar, left | + + | Unspecified cataract | + + | CAD (coronary artery disease) Coronary atherosclerosis of unspecified type of vessel, | | capitan grande band or graft | + + | CHF [...]
--- OUTSIDE RECORDS SUMMARY | ~2018-12-11 | XMS | Encounter Summary ---
Demographics + + + | Address | [address] | | | [place] [address] | + + + | Home Phone [...] + + + | Author | [place] [employer] [facility] | + + + | Organization | [facility] [employer] [facility] | + + + | Address | Unknown | + + + | Phone | Unavailable | + + + Support + + +---------+ + | Name | Relationship | Address | Phone | + + +---------+ + | [place] Parker | ECON | Unknown | | + + +---------+ + Care Team Providers + +------+ + | Care Network Field Engineer Name | Role | Phone | [...] | | | | | | | [address] | | | | | | | [address] | | | | | | | [place] | | | | | | | [place], [place] | | | | | | | [address] | | | | | | | Phone: | | | | | | | [phone] | | | | | | | Fax: | | | | | | | [phone] | +--------+--------+ + + + + Encounter Details +--------+---------+ + + + | Date | Type | Department | Care Team | Description | +--------+---------+ + + + | 10/31/ | Office | [facility] | Susan Chau MD | Macular edema, | | 2015 | Visit | [facility] at | [address] | diabetic, type 2, | | | | [facility] [address] [place], [place] | with proliferative | | | | [address] [facility] | [address] | retinopathy [250.50, | | | | Mailcode: [facility] | [phone] | 362.02, 362.07] | | | | [place], [place] | | (Primary Dx) | | | | [address] | | | | | | [phone] | | | +--------+---------+ + + + [...] Ozurdex implant, right eye Lot# & Expiration: [id number] - 5EE exp 05/09 Attending: Susan Chau [...] Bang MD - 015 1:29 PM PDT [facility] Progress Note 10/31/2014 CC: Diabetic Retinopathy Follow-up [...] vision great 3. PDR (proliferative diabetic retinopathy) [294668] - regressed OU after the above procedures - starting vision was CF OU 4. DME (diabetic macular edema) [423580] OU - s/p Avastin OD on 05/16/14, [...] follow up with [facility]: [phone] Follow up: 4-5 weeks NEXT VISIT: DILATE OU, OCT OU Attestations: The optical technician, under the supervision of the physician, [...] | | | | | | [place], [place] | | | | | | [address] | | | | | | [phone] | | | | | | | [...] | + +--------+ + + + | VA INJ,THER AGENT | Routin | 10/31/2014 | Macular edema, | | | INTO TENON'S CAPSULE | e | 2:29 PM | diabetic, type 2, | | | | | PDT | with proliferative | | | | | | retinopathy [250.50, | | | | | | 362.02, 362.07] | | + +--------+ + + + | VA INJ,THER AGENT | Routin | 10/31/2014 | [...]
--- OUTSIDE RECORDS SUMMARY | ~2018-12-11 | XMS | Encounter Summary ---
Demographics + + + | Address | [address] | | | [place] [address] | + + + | Home Phone [...] + + | Author | [place] [employer] [facility] | + + + | Organization | [facility] [employer] [facility] | + + [...] Providers + +------+ + | Care Research Administrator Name | Role | Phone | [...] (proliferative | | 2014 | Visit | [facility] at | [address] | diabetic | | | | [facility] [address] [place], [place] | retinopathy) ([facility]) | | | | [address] | [address] | (Primary Dx); DME | | | | Mailcode: [facility] | [phone] | (diabetic macular | | | | [place], [place] | | edema) ([facility]); | | | | [address] | | Vitreous hemorrhage | | | | [phone] | | ([facility]); Retinal | | | | [...] | | | | | | [place], [place] | | | | | | [address] | | | | | | [phone] | | | | | | | [...]
--- OUTSIDE RECORDS SUMMARY | ~2018-12-11 | XMS | Encounter Summary ---
Demographics + + + | Address | [address] | | | [place] [address] | + + + | Home Phone | | + + + | Preferred Language | Unknown | + + + | Marital Status | Single | + + + | Gnosticism Affiliation | NRP | + + + | Race | or Other | + + + | Ethnic Group | Not or | + + + Author + + + | Author | [place] [employer] [facility] | + + + | Organization | [facility] [employer] [facility] | + [...] Team Providers + +------+ + | Care Business Office Associate Name | Role | Phone | [...] | | | | | | | [place], [place] | | | | | | | [address] | | | | | | | Phone: | | | | | | | [phone] | | | | | | | Fax: | | | | | | | [phone] | +--------+--------+ + + + + Encounter Details +--------+---------+ + + + | Date | Type | Department | Care Team | Description | +--------+---------+ + + + | 06/27/ | Office | [facility] | Carolyn Murphy Christopher, | Cataract extraction | | 2013 | Visit | [place] [facility] at | [address] | status, right | | | | [facility] [address] | (Primary Dx); | | | | [address] | [place], [place] | Cataract extraction | | | | Mailcode: [facility] | [address] | status, left | | | | [place], [place] | [phone] | | | | | [address] | | | | | | [phone] | | | +--------+---------+ + + + [...] the original. Cornea Division Progress Note 06/27/2014 Joyce Arnold is a 54 y.o. female [...] neurologic, endocrine, bleeding/blood disorders, AIDS/HIV, cancer/tumors, arthritis) Psychologist Experimental Attestation: JOSEF Hutton, performed, reviewed or revised [...] Time: 8:51 AM Manifest Refraction Sphere Cylinder Adair Dist Right _0.25 -1.25 002 20/60-1 Left [...] mildly irritated from suture. 2. 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 PDR (proliferative diabetic retinopathy) [771026] - s/p EL PRP OU, regressed OU 4. DME (diabetic macular edema) [387193] OU - follow with Dr Andrews PLAN: Prednisolone 1 drop daily for 7 days both eyes Oflox QID x 7days both eyes Return to Dr Murphy in 3-4 months sooner prn CAROLYN MURPHY MD Cornea/External Disease Refractive Surgery [facility] [place] documented in this e ncounter Plan of Treatment +--------+---------+ + + + | Date | Type | Specialty | Care Team | Description | +--------+---------+ + + + | 01/30/ | Office | Ophthalmology | Susan Andrews MD | | | 2019 | Visit | | [address] | | | | | | [place], [place] | | | | | | [address] | | | | | | [phone] | | | | | | | | +--------+---------+ + + + documented as of this encounter Visit Diagnoses + + | Diagnosis | + + | Cataract extraction status, right - Primary | + + | Cataract extraction status, left | + + documented in this encounter
--- OUTSIDE RECORDS SUMMARY | ~2018-12-11 | XMS | Encounter Summary ---
Demographics + + + | Address | [address] | | | [place] [address] | + + + | Home Phone [...] + + + | Author | [place] [employer] [facility] | + + + | Organization | [facility] [employer] [facility] | + + + | Address | Unknown | + + + | Phone | Unavailable | + + + Support + + +---------+ + | Name | Relationship | Address | Phone | + + +---------+ + | Geraldine Parker | ECON | Unknown | | + + +---------+ + Care Team Providers + +------+ + | Care Kitchen Porter Name | Role | Phone | + +------+ + | Nadeem Caruso | PCP | | + +------+ + Encounter Details +--------+ + + + + | Date | Type | Department | Care Team | Description | +--------+ + + + + | 05/30/ | Document-Sc | UNKNOWN DEPARTMENT | Unknown . | | | 2014 | anned | [address] [facility] | | | | | | [facility] | | | | | | [place], [place] | | | | | | [address] | | | +--------+ + + + [...] | | | | | | [place], [place] | | | | | | [address] | | | | | | [phone] | | | | | | | | +--------+---------+ + + + documented as of this encounter Visit Diagnoses Not on filedocumented in this encounter
--- OUTSIDE RECORDS SUMMARY | ~2018-12-11 | XMS | Encounter Summary ---
Demographics + + + | Address | [address] | | | [place] [address] | + + + | Home Phone | | + + + | Preferred Language | Unknown | + + + | Marital Status | Single | + + + | Jew Affiliation | NRP | + + + | Race | or Other | + + + | Ethnic Group | Not or | + + + Author + + + | Author | [place] [employer] [facility] | + + + | Organization | [facility] [employer] [facility] | + + + | Address | Unknown | + + + | Phone | Unavailable | + + + Support + + +---------+ + | Name | Relationship | Address | Phone | + + +---------+ + | Geraldine Parker | ECON | Unknown | | + + +---------+ + Care Team Providers + +------+ + | Care Stone Polisher Machine Name | Role | Phone | [...] (OU) | | 2016 | Visit | [place] | | | | | | Photography at | | | | | | [place] [address] | | | | | | [address] | | | | | | Mailcode: [place] | | | | | | [place], [place] | | | | | | [address] | | | | | | [phone] | | | +--------+ + + + [...] | | | | | | Blvd [place], [place] | | | | | | [address] | | | | | | [phone] | | | | | | | | +--------+---------+ + + + documented as of this encounter Visit Diagnoses + + | Diagnosis | + + | Proliferative diabetic retinopathy with macular edema associated with type 2 diabetes | | mellitus (HCC) | + + documented in this encounter
--- OUTSIDE RECORDS SUMMARY | ~2018-12-11 | XMS | Encounter Summary ---
Demographics + + + | Address | [address] | | | [place] [address] | + + + | Home Phone [...] + + | Author | [place] [employer] [facility] | + + + | Organization | [facility] [employer] [facility] | + + + | Address | Unknown | + + + | Phone | Unavailable | + + + Support + + +---------+ + | Name | Relationship | Address | Phone | + + +---------+ + | Geraldine Parker | ECON | Unknown | | + + +---------+ + Care Team Providers + +------+ + | Care Baggageman Name | Role | Phone | + [...] [place] | | | | | | [place], [place] | | | | | | [address] | | | | | | [phone] | | | +--------+ + + + [...] | | | | | | [place], [place] | | | | | | [address] | | | | | | [phone] | | | | | | | | +--------+---------+ + + + documented as of this encounter Visit Diagnoses Not on filedocumented in this encounter
--- OUTSIDE RECORDS SUMMARY | ~2018-12-11 | XMS | Encounter Summary ---
Demographics + + + | Address | [address] | | | [place] [address] | + + + | Home Phone [...] + + + | Author | [place] [employer] [facility] | + + + | Organization | [facility] [employer] [facility] | + [...] Team Providers + +------+ + | Care Roving Hauler Name | Role | Phone | + [...] | | | | | | | [address] | | | | | | [address] | | | | | | | [place] | | | | | | | [place], [place] | | | | | | | [address] | | | | | | | Phone: | | | | | | | [phone] | | | | | | | Fax: | | | | | | | [phone] | +--------+--------+ + + + + Encounter Details +--------+---------+ + + + | Date | Type | Department | Care Team | Description | +--------+---------+ + + + | 05/16/ | Office | [facility] | Susan Chau MD | Macular edema, | | 2013 | Visit | [facility] at | [address] | diabetic, type 2, | | | | [facility] [address] [place], [place] | with proliferative | | | | [address] | [address] | retinopathy [250.50, | | | | Mailcode: [facility] | [phone] | 362.02, 362.07] | | | | [place], [place] | | (Primary Dx); TRD | | | | [address] | | (traction retinal | | | | [phone] | | detachment), | | | | [...] sensation for next 2-3 days. Call immediately [phone] for increased pain or decreased vision.Electronically sign ed by Nanci Whittaker at 05/16/2014 1:35 PM PDT documented in this encounter Progress Notes Susan Chau MD - 05/16/2014 1:35 PM PDT Intravitreal Injection Procedure Note 05/16/2014 for: AVASTIN, RIGHT EYE LOT #[id number] and Expiration 05/27/14 RIGHT EYE: Attending: Susan [...] Bang MD - 014 12:02 PM PDT [facility] Progress Note 05/16/2014 CC: Postoperative visit Initial History: Patient reports improved vision in the right eye since surgery. She is taking: Pred Forte 4 times daily right eye Ocuflox 1 drop 4 times daily right eye Atropine drops twice daily right eye Last 3 ambulatory procedures on record: Procedure: Kenalog both eyes (02/28/14 1047) Procedure: Avasti OU (01/01/14 5024) HPI: Joyce Arnold is a 54 y.o. [...] regressed PDR 2. 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 PDR (proliferative diabetic retinopathy) [405618] - s/p EL PRP OU, regressed OU 4. DME (diabetic macular edema) [621070] OU - Stable center involving IRF OU PLAN: D/c ofloxacin, taper prednisolone gtts, atropine daily Avastin today OD, given without complication PARQ for CE/IOL/Shaunna oil removal OS with Dr. Sheldon Call for decreased vision, increased distortion, increased pain, new floaters or flashing l ights Follow up: for surgery and post op Amde Edwina Durbin MD, PhD Uveitis Fellow Attestations: The diet technician registered, under the supervision of the physician, is [...] | | | | | | [place], [place] | | | | | | [address] | | | | | | [phone] | | | | | | | [...] | + +--------+ + + + | [facility] | Routin | 05/16/2014 | | | | CHARGE | e | 1:35 PM | | | | | | PDT | | | + +--------+ + + + | [place] INTRAVITREAL INJ, | Routin | 05/16/2014 | [...]
--- OUTSIDE RECORDS SUMMARY | ~2018-12-11 | XMS | Encounter Summary ---
Demographics + + + | Address | [address] | | | [place] [address] | + + + | Home Phone [...] + + + | Author | [place] [facility] [facility] | + + + | Organization | [facility] | + + [...] Providers + +------+ + | Care Manager Mobility Name | Role | Phone | + [...] examination | | 2013 | Visit | [place] | | | | | | Photography at | | | | | | [place] [address] | | | | | | [address] | | | | | | Mailcode: [place] | | | | | | [place], [place] | | | | | | [address] | | | | | | [phone] | | | +--------+ + + + [...] Arnold was seen in the [facility] [place] [facility]Ultrasound Department today, 03/14/2014, for Biometry OU [...] | | | | | | [place], [place] | | | | | | [address] | | | | | | [phone] | | | | | | | | +--------+---------+ + + + documented as of this encounter Visit Diagnoses + + | Diagnosis | + + | Unspecified cataract - Primary | + + | Macular edema, diabetic, type 2, with proliferative retinopathy [250.50, 362.02, | | 362.07] | + + documented in this encounter
--- OUTSIDE RECORDS SUMMARY | ~2018-12-11 | XMS | Encounter Summary ---
Demographics + + + | Address | [address] | | | [place] [address] | + + + | Home Phone [...] + + + | Author | [place] [employer] [facility] | + + + | Organization | [facility] [employer] [facility] | + + + | Address | Unknown | + + + | Phone | Unavailable | + + + Support + + +---------+ + | Name | Relationship | Address | Phone | + + +---------+ + | Geraldine Parker | ECON | Unknown | | + + +---------+ + Care Team Providers + +------+ + | Care Photo Specialist Name | Role | Phone | + +------+ + | Nadeem Caruso | PCP | | + +------+ + Encounter Details +--------+ + + + + | Date | Type | Department | Care Team | Description | +--------+ + + + + | 02/12/ | Document-Sc | UNKNOWN DEPARTMENT | Unknown . | | | 2013 | anned | [address] | | | | | | [facility] | | | | | | [place], [place] | | | | | | [address] | | | +--------+ + + + [...] | | | | | | [place], [place] | | | | | | [address] | | | | | | [phone] | | | | | | | [...]
--- OUTSIDE RECORDS SUMMARY | ~2018-12-11 | XMS | Encounter Summary ---
Demographics + + + | Address | [address] | | | [place] [address] | + + + | Home Phone | | + + + | Preferred Language | Unknown | + + + | Marital Status | | + + + | Scientology Affiliation | Unknown | + + + | Race | Unknown | + + + | Ethnic Group | Unknown | + + + Author + + + | Author | [facility] [employer] | + + + | Organization | [facility] [employer] | + + + | Address [...] Team Providers + +------+ + | Care Water Taxi Boat Mate Name | Role | Phone | + +------+ + | Rohan Wilkes DO | PCP | | + +------+ + Reason for Visit + + + | Reason | Comments | + + + | Care Coordination | [facility] Care Unit - 09/18/18 - | | | Discharge Summary notes - Dalton/Trish | + + + Encounter Details +--------+ + + + + | Date | Type | Department | Care Team | Description | +--------+ + + + + | 09/18/ | Documentati | [facility] | Maria Teresa, | Care Coordination | | 2019 | on Only | [address] | [address] | (Bola Monreal | | | | [address] | | Jew | | | | [place] [address] | | Intermediate Care | | | | [phone] | | Unit - 09/18/18 - | | | | | | Discharge Summary | | | | | | notes - | | | | | | Dalton/Trish) | +--------+ + + + + Social [...] | | | | | [place] [address] | | | | | | [phone] | | | | | | | | +--------+---------+ + + + as of this encounter Visit Diagnoses Not on filein this encounter"
--- OUTSIDE RECORDS SUMMARY | ~2018-12-11 | XMS | Encounter Summary ---
Demographics + + + | Address | [address] | | | [place] [address] | + + + | Home Phone [...] + + + | Author | [place] [employer] [facility] | + + + | Organization | [facility] [employer] [facility] | + + + | Address | Unknown | + + + | Phone | Unavailable | + + + Support + + +---------+ + | Name | Relationship | Address | Phone | + + +---------+ + | Newton [place] | ECON | Unknown | | + + +---------+ + Care Team Providers + +------+ + | Care Go Cart Mechanic Name | Role | Phone | [...] (ou) | | 2015 | Visit | [place] | | | | | | Photography at | | | | | | [place] [address] | | | | | | [address] | | | | | | Mailcode: [place] | | | | | | [place], [place] | | | | | | [address] | | | | | | [phone] | | | +--------+ + + + [...] | | | | | [place], [place] | | | | | | [address] | | | | | | [phone] | | | | | | | | +--------+---------+ + + + documented as of this encounter Visit Diagnoses + + | Diagnosis | + + | Macular edema, diabetic (HCC) Type II or unspecified type diabetes mellitus with | | ophthalmic manifestations, not stated as uncontrolled | + + documented in this encounter
--- OUTSIDE RECORDS SUMMARY | ~2018-12-11 | XMS | Encounter Summary ---
Demographics + + + | Address | [address] | | | [place] [address] | + + + | Home Phone [...] + + + | Author | [place] [employer] [facility] | + + + | Organization | [facility] | + + + | Address | Unknown | + + + | Phone | Unavailable | + + + Support + + +---------+ + | Name | Relationship | Address | Phone | + + +---------+ + | Geraldine Parker | ECON | Unknown | | + + +---------+ + Care Team Providers + +------+ + | Care Sleeve Tailor Name | Role | Phone | + [...] [place] | | | | | | [place], [place] | | | | | | [address] | | | | | | [phone] | | | +--------+ + + + [...] | | | | | | [place], [place] | | | | | | [address] | | | | | | [phone] | | | | | | | | +--------+---------+ + + + documented as of this encounter Visit Diagnoses Not on filedocumented in this encounter
--- OUTSIDE RECORDS SUMMARY | ~2018-12-11 | XMS | Encounter Summary ---
Demographics + + + | Address | [address] | | | [place] [address] | + + + | Home Phone | | + + + | Preferred Language | Unknown | + + + | Marital Status | | + + + | Episcopal Affiliation | Unknown | + + + | Race | Unknown | + + + | Ethnic Group | Unknown | + + + Author + + + | Author | [employer] | + + + | Organization | [employer] | + + + | Address [...] Providers + +------+ + | Care Kitchen Work Supervisor Name | Role | Phone | + +------+ + | Rohan Wilkes DO | PCP | | + +------+ + Reason for Visit +--------+ + | Reason | Comments | +--------+ + | Other | [facility] - Surgical Pathology Report - [...] | | 2019 | on Only | [place] [address] | AM[place]ont | services - Surgical | | | | [address] | | Pathology Report - | | | | [place] [address] | | 09/14/18 - | | | | [phone] | | Quoc/emely); Other | | | [...] PAUL | | | | | | [place] [address] | | | | | | [phone] | | | | | | | | +--------+---------+ + + + as of this encounter Visit Diagnoses Not on filein this encounter"
--- OUTSIDE RECORDS SUMMARY | ~2018-12-11 | XMS | Encounter Summary ---
Demographics + + + | Address | [address] | | | [place] [address] | + + + | Home Phone [...] + + + | Author | [place] [employer] [facility] | + + + | Organization | [facility] [employer] [facility] | + + + | Address | Unknown | + + + | Phone | Unavailable | + + + Support + + +---------+ + | Name | Relationship | Address | Phone | + + +---------+ + | Geraldine Canales | ECON | Unknown | | + + +---------+ + Care Team Providers + +------+ + | Care Silk Printer Name | Role | Phone | + [...] extraction | | 2015 | Visit | [place] [facility]nea at | [address] | status, right | | | | [facility] [address] | (Primary Dx); | | | | [address] | [facility] [place] | Cataract extraction | | | | Mailcode: [facility] | [address] | status, left; | | | | [place], [place] | [phone] | Diabetic macular | | | | [address] | | edema(362.07) ([facility]) | | | | [phone] | | | +--------+---------+ + + + [...] neurologic, endocrine, bleeding/blood disorders, AIDS/HIV, cancer/tumors, arthritis) Practice Support Specialist Attestation: JOSEF Hutton, performed, reviewed or revised [...] Time: 11:09 AM Manifest Refraction Sphere Cylinder Morris Dist Right -0.25 -1.25 175 20/30-2 Left +0.50 -1.00 005 20/80-1 Final Rx Sphere Cylinder Morris Add Right -0.25 -1.25 175 +2.50 Left [...] doing well, IOL well-centered 2. 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 PDR (proliferative diabetic retinopathy) [408910] - s/p EL PRP OU, regressed OU 4. DME (diabetic macular edema) [473880] OU - follow with Dr Andrews PLAN: MRx given today Continue Artificial tears Follow up with me in 1 year Continue retina exams CAROLYN MURPHY MD Cornea/External Disease Refractive Surgery [facility] documented in this e ncounter Plan of Treatment +--------+---------+ + + + | Date | Type | Specialty | Care Team | Description | +--------+---------+ + + + | 01/30/ | Office | Ophthalmology | Susan Andrews MD | | | 2019 | Visit | | [address] | | | | | | [place], [place] | | | | | | [address] | | | | | | [phone] | | | | | | | [...]
--- OUTSIDE RECORDS SUMMARY | ~2018-12-11 | XMS | Encounter Summary ---
Demographics + + + | Address | [address] | | | [place] [address] | + + + | Home Phone | | + + + | Preferred Language | Unknown | + + + | Marital Status | Single | + + + | Caodaism Affiliation | NRP | + + + | Race | or Other | + + + | Ethnic Group | Not or | + + + Author + + + | Author | [place] [facility] [facility] | + + + | Organization | [facility] [employer] | [...] Team Providers + +------+ + | Care Realtime Reporter Name | Role | Phone | + +------+ + | Rohna Wilkes DO | PCP | | + [...] [address] | | | | | | [facility] | | | | | | [place], [place] | | | | | | [address] | | | +--------+ + + + [...] | | | | | | [place], [place] | | | | | | [address] | | | | | | [phone] | | | | | | | [...] + + | [facility] - | [address] | [place] [address] | | | IMMUNOGENETICS/TRANS | [address] [...] + + | [facility] - | [address] | [place] [address] | | | IMMUNOGENETICS/TRANS | [address] [...] + + + | [facility] - | [address], | [place] [address] | | | IMMUNOGENETICS/TRANS | [address] [...] | [facility] - | [address] | [place] [address] | | | IMMUNOGENETICS/TRANS | [address] [...] [facility] - | [address] | [place] [address] | | | IMMUNOGENETICS/TRANS | [address] [...] [facility] - | [address] | [place] [address] | | | IMMUNOGENETICS/TRANS | [address] | | | | [facility] | | | | + + + + + documented in this encounter Visit Diagnoses Not on filedocumented in this encounter
--- OUTSIDE RECORDS SUMMARY | ~2018-12-11 | XMS | Encounter Summary ---
Demographics + + + | Address | [address] | | | [place] [address] | + + + | Home Phone [...] + + + | Author | [place] [employer] [facility] | + + + | Organization | [facility] [employer] | + + + | Address | Unknown | + + + | Phone | Unavailable | + + + Support + + +---------+ + | Name | Relationship | Address | Phone | + + +---------+ + | [place] | ECON | Unknown | | + + +---------+ + Care Team Providers + +------+ + | Care Rn Night Name | Role | Phone | + [...] (ou) | | 2015 | Visit | [place] | | | | | | Photography at | | | | | | [place] [address] | | | | | | [address] | | | | | | Mailcode: [place] | | | | | | [place], [place] | | | | | | [address] | | | | | | [phone] | | | +--------+ + + + [...] | | | | | | [place], [place] | | | | | | [address] | | | | | | [phone] | | | | | | | | +--------+---------+ + + + documented as of this encounter Visit Diagnoses + + | Diagnosis | + + | Macular edema, diabetic (HCC) Type II or unspecified type diabetes mellitus with | | ophthalmic manifestations, not stated as uncontrolled | + + documented in this encounter
--- OUTSIDE RECORDS SUMMARY | ~2018-12-11 | XMS | Encounter Summary ---
Demographics + + + | Address | [address] | | | [place] [address] | + + + | Home Phone [...] Author + + + | Author | [place] [facility] | + + + | Organization | [facility] | + + + | Address | Unknown | + + + | Phone | Unavailable | + + + Support + + +---------+ + | Name | Relationship | Address | Phone | + + +---------+ + | Geraldine Canales | ECON | Unknown | | + + +---------+ + Care Team Providers + +------+ + | Care Stitching Machine Operator Name | Role | Phone [...] examination | | 2013 | Visit | [place] | | (APR) | | | | Photography at | | | | | | [place] [address] | | | | | | [address] | | | | | | Mailcode: [place] | | | | | | [place], [place] | | | | | | [address] | | | | | | [phone] | | | +--------+ + + + [...] Arnold was seen in the [facility] [place] Photography/Ultrasound Department today, 05/16/2014, for OCT OU. REECE ALBERTO documented in t his encounter Plan of Treatment +--------+---------+ + + + | Date | Type | Specialty | Care Team | Description | +--------+---------+ + + + | 01/30/ | Office | Ophthalmology | Susan Anderws MD | | | 2019 | Visit | | [address] | | | | | | [place], [place] | | | | | | [address] | | | | | | [phone] | | | | | | | | +--------+---------+ + + + documented as of this encounter Visit Diagnoses + + | Diagnosis | + + | Macular edema, diabetic, type 2, with proliferative retinopathy [250.50, 362.02, | | 362.07] - Primary | + + documented in this encounter
--- OUTSIDE RECORDS SUMMARY | ~2018-12-11 | XMS | Encounter Summary ---
Demographics + + + | Address | [address] | | | [place] [address] | + + + | Home Phone [...] + + + | Author | [place] [employer] [facility] | + + + | Organization | [facility] [employer] [facility] | + + + | Address | Unknown | + + + | Phone | Unavailable | + + + Support + + +---------+ + | Name | Relationship | Address | Phone | + + +---------+ + | Geraldine Canales | ECON | Unknown | | + + +---------+ + Care Team Providers + +------+ + | Care Cuff Matcher Name | Role | Phone | + +------+ + | Nadeem Caruso | PCP | | + +------+ + Reason for Visit + + + | Reason | Comments | + + + | TRD - Traction | | | retinal detachment | | + + + Office Visit - E/M Services (Routine) +--------+--------+ + + + + | Status | Reason | Specialty | Diagnoses / | Referred By | Referred To | | | | | Procedures | Contact | Contact | +--------+--------+ + + + + | Closed | | Ophthalmology | | Non-[facility] | [facility]iana | | | | | | [facility] Dept | MD Susan | | | | | | | [address] | | | | | | [address] | | | | | | | [place] | | | | | | | [place], [place] | | | | | | | [address] | | | | | | | Phone: | | | | | | | [phone] | | | | | | | Fax: | | | | | | | [phone] | +--------+--------+ + + + + Encounter Details +--------+ + + + + | Date | Type | Department | Care Team | Description | +--------+ + + + + | 01/01/ | Procedure | [facility] | Anderson Mg, | TRD - Traction | | 2013 | | [facility] at | [address] | retinal detachment | | | | [facility] | | | | | [address] | [place], [place] | | | | | Mailcode: [facility] | [address] | | | | | [place], [place] | [phone] | | | | | [address] | | | | | | [phone] | | | +--------+ + + + [...] of this encounter Patient Instructions Patient Instructions Hattie Ramos - 01/01/2014 2:53 PM PDT Care Instructions After Eye Injection: Do not rub or touch your eyes. Redness in the corner of the eye is okay. Use Artificial tears every hour for BOTH EYES as needed for gritty sensation over the ne xt 2-3 days. If you experience increased pain or decreased vision, immediately call [phone].Elec tronically signed by Hattie Ramos at 01/01/2014 2:53 PM PDT documented in this encounter Progress Notes Hattie Ramos - 01/01/2014 2:53 PM PDT Intravitreal Injection Procedure Note 01/01/2014 for: AVASTIN, BOTH EYES LOT # and Expiration RIGHT EYE:349679 exp 01/13/14 17T LOT # and Expiration LEFT EYE:289372 exp 01/13/14 15T Attending: Anderson Mg MD Diagnosis: Type II or unspecified type diabetes mellitus with ophthalmic manifestations, no t stated as uncontrolled(250.50) (primary encounter diagnosis) Diabetic macular edema(362.07) Indication: Risk of further vision loss without treatment Allergies: Celebrex; Penicillins; and Sulfa (sulfonamide antibiotics) Anesthesia: Subconjunctival lidocaine injection PARQ held for above. Team Pause: At 2:53 PM, prior to the beginning of the [...] decreased vision or increase d pain Dr. Anderson Mg, as the attending surgeon, performed the entire procedure.Electronicall y signed by Hattie Ramos at 01/01/2014 3:30 PM PDTdocumented in this encounter Plan of Treatment +--------+---------+ + + + | Date | Type | Specialty | Care Team | Description | +--------+---------+ + + + | 01/30/ | Office | Ophthalmology | Susan Andrews MD | | | 2019 | Visit | | [address] | | | | | | Blvd [place], [place] | | | | | | [address] | | | | | | [phone] | | | | | | | | +--------+---------+ + + + documented as of this encounter Procedures + +--------+ + + + | Procedure Name | Priori | Date/Time | Associated Diagnosis | Comments | | | ty | | | | + +--------+ + + + | [facility] | Routin | 01/01/2014 | Diabetic macular | | | CHARGE | e | 2:53 PM | edema(362.07) ([facility]) | | | | | PDT | Type II or | | | | | | unspecified type | | | | | | diabetes mellitus | | | | | | with ophthalmic | | | | | | manifestations, not | | | | | | stated as | | | | | | uncontrolled(250.50) | | + +--------+ + + + | [facility], | Routin | 01/01/2014 | Diabetic macular | | | AVASTIN | e | 2:53 PM | edema(362.07) ([facility]) | | | | | PDT | Type II or | | | | | | unspecified type | | | | | | diabetes mellitus | | | | | | with ophthalmic | | | | | | manifestations, not | | | | | | stated as | | | | | | uncontrolled(250.50) | | + +--------+ + + + documented in this encounter Visit Diagnoses + + | Diagnosis | + + | Type II or unspecified type diabetes mellitus with ophthalmic manifestations, not | | stated as uncontrolled(250.50) ([facility]) - Primary Type II or unspecified type diabetes | | mellitus with ophthalmic manifestations, not stated as uncontrolled | + + | Diabetic macular edema(362.07) Diabetic macular edema | + + documented in this encounter
--- OUTSIDE RECORDS SUMMARY | ~2018-12-11 | XMS | Encounter Summary ---
Demographics + + + | Address | [address] | | | [place] [address] | + + + | Home Phone | | + + + | Preferred Language | Unknown | + + + | Marital Status | | + + + | Latter-Day Affiliation | Unknown | + + + | Race | Unknown | + + + | Ethnic Group | Unknown | + + + Author + + + | Author | [facility] [employer] | + + + | Organization | [employer] [employer] | + + + | Address [...] Team Providers + +------+ + | Care Nurse Executive Name | Role | Phone | + [...] + + | 11/27/ | Telephone | [facility] | Maryjane Palacios, | Other (Scheduling) | | 2019 | | Endocrinology [address] | | | | | [address] | | | | | | [place], [place] | | | | | | [address] | | | | | | [phone] | | | +--------+ + + + [...] | | | | | [place] [address] | | | | | | [phone] | | | | | | | | +--------+---------+ + + + as of this encounter Visit Diagnoses Not on filein this encounter"
--- OUTSIDE RECORDS SUMMARY | ~2018-12-11 | XMS | Encounter Summary ---
Demographics + + + | Address | [address] | | | [place] [address] | + + + | Home Phone [...] + + + | Author | [place] [facility] [facility] | + + + | Organization | [facility] [employer] [facility] | + + + | Address | Unknown | + + + | Phone | Unavailable | + + + Support + + +---------+ + | Name | Relationship | Address | Phone | + + +---------+ + | Geraldine Canales | ECON | Unknown | | + + +---------+ + Care Team Providers + +------+ + | Care Loader Malt House Name | Role | Phone | + [...] + + + + | 03/14/ | Diagnostic | [facility] | | Eye examination | | 2013 | Visit | [place] | | (APR) | | | | Photography at | | | | | | [place] [address] | | | | | [address] | | | | | | Mailcode: [place] | | | | | | [place], [place] | | | | | | [address] | | | | | | [phone] | | | +--------+ + + + [...] of this encounter Progress Nola Joseph - 03/14/2014 4:29 PM PDT Joyce Soto Arnold was seen in the [facility] [place] Photography/Ultrasound Department today, 03/14/2014, for OCT OU. NOLA Clarkectronically signed by Nola Kevin at 03/14/2014 4:29 PM PDTdocumented in thi s encounter Plan [...] [place] | | | | | | [address] | | | | | | [phone] | | | | | | | | +--------+---------+ + + + documented as of this encounter Visit Diagnoses + + | Diagnosis | + + | Macular edema, diabetic, type 2, with proliferative retinopathy [250.50, 362.02, | | 362.07] - Primary | + + documented in this encounter
--- OUTSIDE RECORDS SUMMARY | ~2018-12-11 | XMS | Encounter Summary ---
Demographics + + + | Address | [address] | | | [place] [address] | + + + | Home Phone [...] + + | Author | [place] happ[employer]! [facility] | + + + | Organization | [facility] Team [employer] [facility] | + [...] Team Providers + +------+ + | Care Fruit Vendor Name | Role | Phone | + [...] | | | | | | | [address] | | | | | | | [address] | | | | | | | [place] | | | | | | | [place], [place] | | | | | | | [address] | | | | | | | Phone: | | | | | | | [phone] | | | | | | | Fax: | | | | | | | [phone] | +--------+--------+ + + + + Encounter Details +--------+---------+ + + + | Date | Type | Department | Care Team | Description | +--------+---------+ + + + | 02/06/ | Office | [facility] | Susan Chau MD | Proliferative | | 2015 | Visit | [facility] at | [address] | diabetic retinopathy | | | | [facility] [address] [facility] [place] | with macular edema | | | | [address] | [address] | associated with type | | | | Mailcode: CEI | [phone] | 2 diabetes mellitus | | | | [facility] [place] | | ([facility]LY [facility]) | | | | [address] | | | | | | [phone] | | | +--------+---------+ + + + [...] occur. Call your doctor for [facility] advice about side effects. You may report side effects to FDA at 1-784-CDU-4496. What other drugs will affect dexamethasone intravitreal implant? It is not likely that other drugs you take orally or inject will have an effect on dexameth asone used in the eyes. But many drugs can interact with each other. Tell each of your healt hcare providers about all medicines you use, including prescription and xrcq-idu-hnwgazy med icines, vitamins, and herbal products. Where [...] to ensure that the information provided by [employer]. ( 'Multum') is accurate, up-to-date, and complete, but no guarantee is made to that effect. Dr janette information contained herein may be time sensitive. [employer] information has been compiled for use by healthcare practitioners and consumers in the [place] and therefore [employer] does not warrant that uses outside of the [place] are appropriate, unless specifically indicated otherwise. [employer] drug information does not endorse drugs, diagnose patients or recommend therapy. [employer] drug information is an informational resource designed [...] effective or appropriate for any given patient. [employer] does not assume any respon sibility for any aspect of healthcare administered with the aid of information Multum provid es. The information contained herein is not intended to cover all possible uses, directions, precautions, warnings, drug interactions, allergic reactions, or adverse effects. If you negro ve questions about the drugs you are taking, check with your doctor, nurse or pharmacist. Copyright 3271-5838 [employer]. Version: 2.02. Revision date: 06/25/2013. This information does not replace the advice of a doctor. [employer], [employer] disclaim s any warranty or liability for your use of this information. Content Version: 10.3.326712 documented in this encounter Progress Notes Akash Guzman - 02/06/2015 2:38 PM PDT Procedure Report 02/06/2015 for: Ozurdex Implant Insertion, both eyes Lot# & Expiration: [id number] exp 05/2017 right eye [id number] exp 05/2017 right eye Attending: Susan [...] the pars plana using the supp lied woven paper hat mender 4. Patent central retinal artery or IOP < 30 mmHG post injection confirmed 5. After the injection patient reported: No pain (0 of 0-10) Complications: None EBL: None Instructions: 1. Artificial tears every hour today, every hours tomorrow 2. Call immediately for worsening redness, light sensitivity, decreased vision or increase d pain Susan Chau MD @ED erenice Ren - 2014 1:28 PM PDT [facility] Progress Note 02/06/2015 CC: Follow-up visit [...] vision great 3. PDR (proliferative diabetic retinopathy) [761179] - regressed OU after the above procedures - starting vision was CF OU 4. 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
--- OUTSIDE RECORDS SUMMARY | ~2018-12-11 | XMS | Encounter Summary ---
Demographics + + + | Address | [address] | | | [place] [address] | + + + | Home Phone [...] + + | Author | [place] [employer] [facility] | + + + | Organization | [facility] [employer] [facility] | + + + | Address | Unknown | + + + | Phone | Unavailable | + + + Support + + +---------+ + | Name | Relationship | Address | Phone | + + +---------+ + | Geraldine Canales | ECON | Unknown | | + + +---------+ + Care Team Providers + +------+ + | Care Want Ad Clerk Name | Role | Phone | [...] | | | | | | | [address] | | | | | | [address] | | | | | | | [place] | | | | | | | [place], [place] | | | | | | | [address] | | | | | | | Phone: | | | | | | | [phone] | | | | | | | Fax: | | | | | | | [phone] | +--------+--------+ + + + + Encounter Details +--------+ + + + + | Date | Type | Department | Care Team | Description | +--------+ + + + + | 01/01/ | Procedure | [facility] | Anderson Mg, | TRD - Traction | | 2013 | | [facility] at | [address] | retinal detachment | | | | [facility] | | | | | [address] | [place], [place] | | | | | Mailcode: [facility] | [address] | | | | | [place], [place] | [phone] | | | | | [address] | | | | | | [phone] | | | +--------+ + + + [...] increased pain or decreased vision, immediately call [phone].Elec tronically signed by Hattie Ramos at 01/01/2014 2:53 PM PDT documented in this encounter Progress Notes Hattie Ramos - 01/01/2014 2:53 PM PDT Intravitreal Injection Procedure Note 01/01/2014 for: AVASTIN, BOTH EYES LOT # and Expiration RIGHT EYE:[id number] exp 01/13/14 17T LOT # and Expiration LEFT EYE:[id number] exp 01/13/14 15T Attending: Anderson Mg MD [...] | | | | | | Blvd [place], [place] | | | | | | [address] | | | | | | [phone] | | | | | | | | +--------+---------+ + + + documented as of this encounter Procedures + +--------+ + + + | Procedure Name | Priori | Date/Time | Associated Diagnosis | Comments | | | ty | | | | + +--------+ + + + | [facility] | Routin | 01/01/2014 | Diabetic macular | | | CHARGE | e | 2:53 PM | edema(362.07) ([facility]) | | | | | PDT | [...] | RI INTRAVITREAL INJ, | Routin | 01/01/2014 | Diabetic macular | | | AVASTIN | e | 2:53 PM | edema(362.07) ([facility]) | | | | | PDT | [...] manifestations, not | | stated as uncontrolled(250.50) ([facility]) - Primary Type II or unspecified type diabetes | | mellitus with ophthalmic manifestations, not stated as uncontrolled | + + | Diabetic macular edema(362.07) Diabetic macular edema | + + documented in this encounter
--- OUTSIDE RECORDS SUMMARY | ~2018-12-11 | XMS | Encounter Summary ---
Demographics + + + | Address | [address] | | | [place] [address] | + + + | Home Phone | | + + + | Preferred Language | Unknown | + + + | Marital Status | Single | + + + | Roman Catholic Affiliation | NRP | + + + | Race | or Other | + + + | Ethnic Group | Not or | + + + Author + + + | Author | [place] [employer] [facility] | + + + | Organization | [facility] [employer] [facility] | + + + | Address | Unknown | + + + | Phone | Unavailable | + + + Support + + +---------+ + | Name | Relationship | Address | Phone | + + +---------+ + | Geraldine Canales | ECON | Unknown | | + + +---------+ + Care Team Providers + +------+ + | Care Sewing Machine Adjuster Name | Role | Phone | [...] (proliferative | | 2014 | Visit | [facility] at | [address] | diabetic | | | | [facility] [address] | [place], [place] | retinopathy), type | | | | [address] | [address] | 2, with macular | | | | Mailcode: CEI | [phone] | edema [250.50, | | | | [facility] [place] | | 362.02, 362.07] | | | | [address] | | (Primary Dx); | | | | [phone] | | Traction detachment | | | [...] note might be different from melvin rachel. [facility] Progress Note 02/21/2014 CC: Post Op [...] in contralateral eye) PDR (proliferative diabetic retinopathy) [482895] OD - francois-jaw TRD threatening macula and VH - doing well, retina attached, epi defect healed 2. DME (diabetic macular edema) [016090] OU s/p Avastin x 1 OU pre-op to above surgery - stable OD last visit - unable to determine OS due to VH OS 3. 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
--- OUTSIDE RECORDS SUMMARY | ~2018-12-11 | XMS | Encounter Summary ---
Demographics + + + | Address | [address] | | | [place] [address] | + + + | Home Phone [...] + + + | Author | [place] [employer] [facility] | + + + | Organization | [facility] [employer] [facility] | + + + | Address | Unknown | + + + | Phone | Unavailable | + + + Support + + +---------+ + | Name | Relationship | Address | Phone | + + +---------+ + | Geraldine Canales | ECON | Unknown | | + + +---------+ + Care Team Providers + +------+ + | Care Shampoo Person Name | Role | Phone | + [...] examination | | 2013 | Visit | [place] | | (APR) | | | | Photography at | | | | | | [place] [address] | | | | | | [address] | | | | | | Mailcode: [place] | | | | | | [place], [place] | | | | | | [address] | | | | | | [phone] | | | +--------+ + + + [...] Arnold was seen in the [facility] [place] [facility]/Ultrasound Department today, 03/14/2014, for OCT OU. [...] | | | | | | [place], [place] | | | | | | [address] | | | | | | [phone] | | | | | | | | +--------+---------+ + + + documented as of this encounter Visit Diagnoses + + | Diagnosis | + + | Macular edema, diabetic, type 2, with proliferative retinopathy [250.50, 362.02, | | 362.07] - Primary | + + documented in this encounter
--- OUTSIDE RECORDS SUMMARY | ~2018-12-11 | XMS | Encounter Summary ---
Demographics + + + | Address | [address] | | | [place] [address] | + + + | Home Phone [...] + + + | Author | [place] [employer] [facility] | + + + | Organization | [facility] [employer] [facility] | + + + | Address | Unknown | + + + | Phone | Unavailable | + + + Support + + +---------+ + | Name | Relationship | Address | Phone | + + +---------+ + | Geraldine Parker | ECON | Unknown | | + + +---------+ + Care Team Providers + +------+ + | Care Life Science Teacher Name | Role | Phone | + +------+ + | Nadeem Caruso | PCP | | + +------+ + Encounter Details +--------+ + + + + | Date | Type | Department | Care Team | Description | +--------+ + + + + | 01/01/ | Document-Sc | UNKNOWN DEPARTMENT | Unknown . | | | 2013 | anned | [address] [facility] | | | | | | [facility] | | | | | | [place], [place] | | | | | | [address] | | | +--------+ + + + [...] | | | | | | [place], [place] | | | | | | [address] | | | | | | [phone] | | | | | | | | +--------+---------+ + + + documented as of this encounter Visit Diagnoses Not on filedocumented in this encounter
--- OUTSIDE RECORDS SUMMARY | ~2018-12-11 | XMS | Encounter Summary ---
Demographics + + + | Address | [address] | | | [place] [address] | + + + | Home Phone [...] + + + | Author | [place] [employer] [facility] | + + + | Organization | [facility] | + [...] Team Providers + +------+ + | Care Field Recorder Name | Role | Phone | + [...] | | 2013 | Visit | [place] | | | | | | Photography at | | | | | | [place] [address] | | | | | | [address] | | | | | | Mailcode: [place] | | | | | | [place], [place] | | | | | | [address] | | | | | | [phone] | | | +--------+ + + + [...] PDT Joyce Arnold was seen in the [facility] [place] Photography/Ultrasound Department today, 02/14/2014, for ultrasound. The [...] 2019 | Visit | | [address] | | | | | | [place], [place] | | | | | | [address] | | | | | | [phone] | | | | | | | [...]
--- OUTSIDE RECORDS SUMMARY | ~2018-12-11 | XMS | Encounter Summary ---
Demographics + + + | Address | [address] | | | [place] [address] | + + + | Home Phone [...] + + + | Author | [place] [employer] [facility] | + + + | Organization | [facility] [employer] [facility] | + + + | Address | Unknown | + + + | Phone | Unavailable | + + + Support + + +---------+ + | Name | Relationship | Address | Phone | + + +---------+ + | [place] Parker | ECON | Unknown | | + + +---------+ + Care Team Providers + +------+ + | Care Supervisor Vacuum Metalizing Name | Role | Phone | + [...] (ou) | | 2015 | Visit | [place] | | | | | | Photography at | | | | | | [place] [address] | | | | | | [address] | | | | | | Mailcode: [place] | | | | | | [place], [place] | | | | | | [address] | | | | | | [phone] | | | +--------+ + + + [...] | | | | | | [place], [place] | | | | | | [address] | | | | | | [phone] | | | | | | | | +--------+---------+ + + + documented as of this encounter Visit Diagnoses + + | Diagnosis | + + | Macular edema, diabetic, type 2, with proliferative retinopathy [250.50, 362.02, | | 362.07] | + + documented in this encounter
--- OUTSIDE RECORDS SUMMARY | ~2018-12-11 | XMS | Encounter Summary ---
Demographics + + + | Address | [address] | | | [place] [address] | + + + | Home Phone [...] + + + | Author | [place] [employer] [facility] | + + + | Organization | [facility] [employer] [facility] | + [...] examination | | 2013 | Visit | [place] | | | | | | Photography at | | | | | | [facility] [address] | | | | | | [address] | | | | | | Mailcode: [place] | | | | | | [place], [place] | | | | | | [address] | | | | | | [phone] | | | +--------+ + + + [...] PDT Joyce Arnold was seen in the [facility] [place] Photography/Ultrasound Department today, 02/21/2014, for ultrasound. The [...] | | 2018 | Visit | | [address] | | | | | | [place], [place] | | | | | | [address] | | | | | | [phone] | | | | | | | [...]
--- OUTSIDE RECORDS SUMMARY | ~2018-12-11 | XMS | Encounter Summary ---
Demographics + + + | Address | [address] | | | [place] [address] | + + + | Home Phone [...] + + + | Author | [place] [employer] [facility] | + + + | Organization | [facility] | + + + | Address | Unknown | + + + | Phone | Unavailable | + + + Support + + +---------+ + | Name | Relationship | Address | Phone | + + +---------+ + | Leoti Parker | ECON | Unknown | | + + +---------+ + Care Team Providers + +------+ + | Care Physician General Practice Name | Role | Phone | + [...] (OU) | | 2015 | Visit | [place] | | | | | | Photography at | | | | | | [place] [address] | | | | | | [address] | | | | | | Mailcode: [place] | | | | | | [place], [place] | | | | | | [address] | | | | | | [phone] | | | +--------+ + + + [...] | | | | | | [place], [place] | | | | | | [address] | | | | | | [phone] | | | | | | | | +--------+---------+ + + + documented as of this encounter Visit Diagnoses + + | Diagnosis | + + | Macular edema, diabetic, type 2, with proliferative retinopathy [250.50, 362.02, | | 362.07] | + + documented in this encounter
--- OUTSIDE RECORDS SUMMARY | ~2018-12-11 | XMS | Encounter Summary ---
Demographics + + + | Address | [address] | | | [place] [address] | + + + | Home Phone [...] + + + | Author | [place] [employer] [facility] | + + + | Organization | [facility] [employer] [facility] | + [...] Team Providers + +------+ + | Care Clerical Order Filler Name | Role | Phone | + +------+ + | Nadeem Caruso | PCP | | + +------+ + Encounter Details +--------+ + + + + | Date | Type | Department | Care Team | Description | +--------+ + + + + | 02/21/ | Results/Int | [facility] | Meng Stone | Vitreous hemorrhage, | | 2013 | erpretation | [facility] | E MD Jesica [address] | left ([facility]) (Primary | | | | [facility] [address] | Dx) | | | | [address] | [place], [place] | | | | | Mailcode: [facility] | [address] | | | | | [place], [place] | [phone] | | | | | [address] | | | | | | [phone] | | | +--------+ + + + [...] Joyce Arnold was seen in the [facility] Photography/Ultrasound Department today, 02/21/2014, for ultrasound. The [...] | | | | | | [place], [place] | | | | | | [address] | | | | | | [phone] | | | | | | | | +--------+---------+ + + + documented as of this encounter Visit Diagnoses + + | Diagnosis | + + | Vitreous hemorrhage, left (HCC) - Primary | + + documented in this encounter
--- OUTSIDE RECORDS SUMMARY | ~2018-12-11 | XMS | Encounter Summary ---
Demographics + + + | Address | [address] | | | [place] [address] | + + + | Home Phone [...] + + + | Author | [place] [employer] [facility] | + + + | Organization | [facility] [employer] [facility] | + [...] Team Providers + +------+ + | Care Appraisal Specialist Name | Role | Phone | [...] + + | 06/05/ | Hospital | [facility] | Susan Andrews MD | | | 2013 | Encounter | [facility] [address] | | | | [address] | [address] [place], [place] | | | | | [facility] | [address] | | | | | [facility] | [phone] | | | | | [place] [address] | | | | | | [phone] | | | +--------+ + + + [...] | | 2019 | Visit | | [address] | | | | | | [place], [place] | | | | | | [address] | | | | | | [phone] | | | | | | | [...] JAVED | [address] | [place], [place] | | | [facility] | [facility] | [address] | | | TESTS | | | [...] | | | Starting [facility] 06/05/14 at 0640, | | | [...]
--- OUTSIDE RECORDS SUMMARY | ~2018-12-11 | XMS | Encounter Summary ---
Demographics + + + | Address | [address] | | | [place] [address] | + + + | Home Phone [...] + + + | Author | [place] [employer] [facility] | + + + | Organization | [facility] [employer] [facility] | + [...] Team Providers + +------+ + | Care Heel Scourer Name | Role | Phone | + [...] | Juliana, | | | | | MA CPTR | Epic Dept | MD Susan | | | | | OPHTH DX IMG | | [address] | | | | | POST | | [address] | | | | | SEGMT-RETINA | | [address] | | | | | [place] | | [place], [place] | | | | | [place] | | [address] | | | | | ANGIOGRAPHY | | Phone: | | | | | MA FUNDAL | | [phone] | | | | | PHOTOGRAPHY | | Fax: | | | | | [place] INJECT | | [phone] | | | | | INTRAVITREAL | | | | | | | | | | | | | | PHARMCOLOGIC | | | | | | | MA | | | | | | | TRIAMCINOLON | | | | | | | E ACETONIDE | | | | | | | INJ 10 MG | | | | | | | MA INJ,THER | | | | | | [...] edema, | | 2013 | Visit | [facility] | [address] | diabetic, type 2, | | | | [facility] [address] [place], [place] | with proliferative | | | | [address] [facility] | [address] | retinopathy [250.50, | | | | Mailcode: [facility] | [phone] | 362.02, 362.07] | | | | [place], [place] | | (Primary Dx); TRD | | | | [address] | | (traction retinal | | | | [phone] | | detachment), | | | | [...] melvin rachel. [facility] Progress Note 04/16/2014 CC: Post Op Initial History: H/o s/p PPV/MP/EL/silicone oil left eye on 02/13/14 and PPV/MP/EL/WDp1979vow SO right eye on 01/09/14 Patient mentioned [...] Ophthalmologic Problems 1. POM# 2 s/p PPV/EL/1000 edge bander operator SO OS performed on 02/21/14 - for [...] doing great 3. PDR (proliferative diabetic retinopathy) [526893] - s/p EL PRP OU, regressed OU 4. 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
--- OUTSIDE RECORDS SUMMARY | ~2018-12-11 | XMS | Clinical Summary ---
Demographics + + + | Address | [address] | | | [place] [address] | + + + | Home Phone [...] + + | Author | [facility] | + + + | Organization | [facility] | + + + | Address | Unknown | + + + | Phone | Unavailable | + + + Support + + +---------+ + | Name | Relationship | Address | Phone | + + +---------+ + | Geraldine Canales | ECON | Unknown | | + + +---------+ + Care Team Providers + +------+ + | Care Catalogue Illustrator Name | Role | Phone | + +------+ + | Rohan Wilkes DO | PP | | + +------+ + Source Comments NORBERT is fully live on both [facility] and [facility] InPatient.[facility] Allergies + + + + + + [...] | | | | | | [place], [place] | | | | | | [address] | | | | | | [phone] | | | | | | | [...] | | AJAY | | 03/23/ | [id number] | | [id number]: Qty: 1 on | | | | | 2013 | 1185 / | | 01/02/2014 by Susan Andrews, | | | | | | | | MD at [facility] REV LOC | | | | | | /TPHY. | | | | | | | | 09.01 | + +------+--------+ +--------+--------+--------+ | Oil Silicone 1000 - | | Left: | AJAY | | 08/23/ | [id number] | | [id number]: Qty: 1 on | | Eye | | | 2014 | 1185 / | | 02/21/2014 by Susan Andrews, | | | | | | | | MD at [facility] REV LOC | | | [...] - | | | | | | /[address] | | [id number]: Qty: 1 | | | | | | [id number] | | on 05/08/2014 by Pito, | | | | | | / | | Anderson White MD at [facility] | | | | | [...] - | | | | | | /[id number] | | [id number]: Qty: 1 | | | | | | [id number] | | on 06/05/2014 by Pito, | | | | | | / | | Anderson White MD at [facility] | | | | | [...] + + | [facility] - | [address] | [place] [address] | | | IMMUNOGENETICS/TRANS | [address] [...] [facility] - | [address] | [place] [address] | | | IMMUNOGENETICS/TRANS | [address] [...] | | | | | | | [address] | | + +--------+ +--------+ + +--------+ | MEDICAID [place] | MCAID | xxxxxxxx | 02/22/20 | [phone] | [address] | [address] | | | QMM | | [address] | [address] | [address] | id | | | QMB | | sent | | [place], [place] | | | | | | | | [address] | | + +--------+ +--------+ + +--------+ [...] | | al/Fam | | 1959 | [phone] | [place] [address] | | | gucci | | | 8 (Home) | | + +--------+ +--------+ + +
--- OUTSIDE RECORDS SUMMARY | ~2018-12-11 | XMS | Encounter Summary ---
Demographics + + + | Address | [address] | | | [place] [address] | + + + | Home Phone [...] + + + | Author | [place] [email or web address] [facility] | + + + | Organization | [facility] [employer] [facility] | + + + | Address | Unknown | + + + | Phone | Unavailable | + + + Support + + +---------+ + | Name | Relationship | Address | Phone | + + +---------+ + | Geraldine Parker | ECON | Unknown | | + + +---------+ + Care Team Providers + +------+ + | Care Edge Setter Name | Role | Phone | + [...] [place] | | | | | | [facility] | | | | | | [place], [place] | | | | | | [address] | | | +--------+ + + + [...] | | | | | | [place], [place] | | | | | | [address] | | | | | | [phone] | | | | | | | [...] + + | [facility] - | [address] | [place] [address] | | | IMMUNOGENETICS/TRANS | [address] [...] [facility] - | [address] | [place] [address] | | | IMMUNOGENETICS/TRANS | [address] | | | | [facility] | | | | + + + + + documented in this encounter Visit Diagnoses Not on filedocumented in this encounter
--- OUTSIDE RECORDS SUMMARY | ~2018-12-11 | XMS | Encounter Summary ---
Demographics + + + | Address | [address] | | | [place] [address] | + + + | Home Phone [...] + + + | Author | [place] [facility] | + + + | Organization | [facility] [employer] [facility] | + + + | Address | Unknown | + + + | Phone | Unavailable | + + + Support + + +---------+ + | Name | Relationship | Address | Phone | + + +---------+ + | Geraldine Parker | ECON | Unknown | | + + +---------+ + Care Team Providers + +------+ + | Care Test And Research Reactor Operator Name | Role | Phone | [...] [place] | | | | | | [facility] | | | | | | [place], [place] | | | | | | [address] | | | +--------+ + + + [...] | | | | | | [place], [place] | | | | | | [address] | | | | | | [phone] | | | | | | | [...] [facility] - | [address] | [place] [address] | | | IMMUNOGENETICS/TRANS | [address] [...] [facility] - | [address] | [place] [address] | | | IMMUNOGENETICS/TRANS | [address] | | | | [facility] | | | | + + + + + documented in this encounter Visit Diagnoses Not on filedocumented in this encounter
--- OUTSIDE RECORDS SUMMARY | ~2018-12-11 | XMS | Encounter Summary ---
Demographics + + + | Address | [address] | | | [place] [address] | + + + | Home Phone [...] + + | Author | [place] [employer] [facility] | + + + | Organization | [facility] [employer] [facility] | + + + | Address | Unknown | + + + | Phone | Unavailable | + + + Support + + +---------+ + | Name | Relationship | Address | Phone | + + +---------+ + | Geraldine Canales | ECON | Unknown | | + + +---------+ + Care Team Providers + +------+ + | Care Auto Accessories Installer Name | Role | Phone | + [...] | Juliana, | | | | | [place] [facility] | Epic Dept | MD Susan | | | | | OPHTH DX IMG | | [address] | | | | | [address] | | [address] | | | | | [address] | | [address] | | | | | [place] | | [place], [place] | | | | | FLUORESCEIN | | [address] | | | | | ANGIOGRAPHY | | Phone: | | | | | DC FUNDAL | | [phone] | | | | | PHOTOGRAPHY | | Fax: | | | | | DC INJECT | | [phone] | | | | | INTRAVITREAL | | | | | | | | | | | | | | PHARMCOLOGIC | | | | | | | DC | | | | | | | TRIAMCINOLON | | | | | | | E ACETONIDE | | | | | | | INJ 10 MG | | | | | | | DC INJ,THER | | | | | | [...] (proliferative | | 2014 | Visit | [facility] at | [address] | diabetic | | | | [facility] [address] [facility] [place] | retinopathy), type | | | | [place] [address] | [address] | 2, with macular | | | | Mailcode: CEI | [phone] | edema (Primary Dx); | | | | [facility] [place] | | TRD (traction | | | | [address] | | retinal detachment), | | | | [phone] | | bilateral; Vitreous | | | [...] melvin rachel. [facility] Progress Note 01/22/2014 CC: Post Op Initial History: PPV/MP/EL/FAx/1000cstSO right eye and small amount of PRP left eye with preop avastin both eyes. Vision slightly better though having difficulty using eyes together. Denies pain th ough reports intermittent occurrence of sensation similar to a growing pain in legs. Resolv es on its own. Last 3 ambulatory procedures on record: Procedure: Avasti OU (01/01/14 6914) HPI: Joyce Arnold is a 53 y.o. [...] minutes as needed for chest pain. Pl rmoel under tongue and allow to dissolve. Administer [...] co ntralateral eye) PDR (proliferative diabetic retinopathy) [775321] - previously untreated OD - francois-jaw TRD threatening macula and VH - doing well, retina attached, epi defect healed 2. DME (diabetic macular edema) [206750] OU s/p Avastin x 1 OU pre-op to above surgery - stable OD last visit - unable to determine OS due to VH OS 3. 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
--- OUTSIDE RECORDS SUMMARY | ~2018-12-11 | XMS | Encounter Summary ---
Demographics + + + | Address | [address] | | | [place] [address] | + + + | Home Phone | | + + + | Preferred Language | Unknown | + + + | Marital Status | Single | + + + | Latter-Day Affiliation | NRP | + + + | Race | or Other | + + + | Ethnic Group | Not or | + + + Author + + + | Author | [place] [employer] [facility] | + + + | Organization | [facility] [employer] [facility] | + + + | Address | Unknown | + + + | Phone | Unavailable | + + + Support + + +---------+ + | Name | Relationship | Address | Phone | + + +---------+ + | Geraldine Canales | ECON | Unknown | | + + +---------+ + Care Team Providers + +------+ + | Care Event Executive Name | Role | Phone | [...] examination | | 2013 | Visit | [place] [facility] | | (APR) | | | | Photography at | | | | | | [place] [address] | | | | | | [address] | | | | | | Mailcode: [place] | | | | | | [place], [place] | | | | | | [address] | | | | | | [phone] | | | +--------+ + + + [...] Arnold was seen in the [facility] [place] [facility] Photography/Ultrasound Department today, 04/16/2014, for OCT OU. NOLA Clarkectronically signed by Nola Keivn at 04/16/2014 2:22 PM PDTdocumented in thi s encounter Plan of Treatment +--------+---------+ + + + | Date | Type | Specialty | Care Team | Description | +--------+---------+ + + + | 01/30/ | Office | Ophthalmology | Susan Andrews MD | | | 2019 | Visit | | [address] | | | | | | [place], [place] | | | | | | [address] | | | | | | [phone] | | | | | | | | +--------+---------+ + + + documented as of this encounter Visit Diagnoses + + | Diagnosis | + + | Macular edema, diabetic, type 2, with proliferative retinopathy [250.50, 362.02, | | 362.07] - Primary | + + documented in this encounter
--- OUTSIDE RECORDS SUMMARY | ~2018-12-11 | XMS | Encounter Summary ---
Demographics + + + | Address | [address] | | | [place] [address] | + + + | Home Phone [...] + + + | Author | [place] [employer] [facility] | + + + | Organization | [facility] [employer] [facility] | [...] Providers + +------+ + | Care Energy Advisor Name | Role | Phone | + [...] (OU) | | 2017 | Visit | [place] | | | | | | Photography at | | | | | | [place] [address] | | | | | | [address] | | | | | | Mailcode: [address] | | | | | | [place], [place] | | | | | | [address] | | | | | | [phone] | | | +--------+ + + + [...] interpretation for the following study: APR - [facility] - can be found on physician encounter [...] | | | | | | [place], [place] | | | | | | [address] | | | | | | [phone] | | | | | | | | +--------+---------+ + + + documented as of this encounter Visit Diagnoses + + | Diagnosis | + + | Proliferative diabetic retinopathy of both eyes with macular edema associated with | | type 2 diabetes mellitus (HCC) | + + documented in this encounter
--- OUTSIDE RECORDS SUMMARY | ~2018-12-11 | XMS | Encounter Summary ---
Demographics + + + | Address | [address] | | | [place] [address] | + + + | Home Phone | | + + + | Preferred Language | Unknown | + + + | Marital Status | Single | + + + | Pentecostalism Affiliation | NRP | + + + | Race | or Other | + + + | Ethnic Group | Not or | + + + Author + + + | Author | [place] [employer] [facility] | + + + | Organization | [facility] [employer] [facility] | + + + | Address | Unknown | + + + | Phone | Unavailable | + + + Support + + +---------+ + | Name | Relationship | Address | Phone | + + +---------+ + | Geraldine Parker | ECON | Unknown | | + + +---------+ + Care Team Providers + +------+ + | Care Account Administrator Name | Role | Phone | [...] Hospital | | | | | | [place], [place] | | | | | | [address] | | | +--------+ + + + [...] | | | | | | [place], [place] | | | | | | [address] | | | | | | [phone] | | | | | | | [...] [facility] - | [address], | [place] [address] | | | IMMUNOGENETICS/TRANS | [address] | | | | [facility] | | | | + + + + + documented in this encounter Visit Diagnoses Not on filedocumented in this encounter
--- OUTSIDE RECORDS SUMMARY | ~2018-12-11 | XMS | Encounter Summary ---
Demographics + + + | Address | [address] | | | [place] [address] | + + + | Home Phone [...] + + | Author | [place] [employer] [facility] | + + + | Organization | [facility] [employer] [facility] | + + + | Address | Unknown | + + + | Phone | Unavailable | + + + Support + + +---------+ + | Name | Relationship | Address | Phone | + + +---------+ + | Geraldine Canales | ECON | Unknown | | + + +---------+ + Care Team Providers + +------+ + | Care Ward Supervisor Name | Role | Phone | [...] extraction | | 2014 | Visit | [facility] at | [address] | status, right | | | | [place] [address] | (Primary Dx) | | | | [address] | [place], [place] | | | | | Mailcode: [facility] | [address] | | | | | [place], [place] | [phone] | | | | | [address] | | | | | | [phone] | | | +--------+---------+ + + + [...] neurologic, endocrine, bleeding/blood disorders, AIDS/HIV, cancer/tumors, arthritis) Perinatal Specialist Attestation: JOSEF Hutton, performed, reviewed or revised the above history, medications, allergies, as well as performed elements noted in the Base Ophthalmology Exam, including visual acuity, pupils, EOMs, CVF and IOP. Examination: Base Exam Visual Acuity Right Left Dist sc 20/80 -1+2 Dist ph sc 20/70 Tonometry Right Left Pressure 8 Method: Tonopen Time: 11:19 AM Manifest Refraction Sphere Cylinder [place] Dist Right +0.50 -0.75 020 20/70-1 Left [...] month visit 2. 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 PDR (proliferative diabetic retinopathy) [032831] - s/p EL PRP OU, regressed OU 4. DME (diabetic macular edema) [863943] OU - will potentially treat at POW#1 [...] CAROLYN MURPHY MD Cornea/External Disease Refractive Surgery [facility] documented in this e ncounter Plan of Treatment +--------+---------+ + + + | Date | Type | Specialty | Care Team | Description | +--------+---------+ + + + | 01/30/ | Office | Ophthalmology | Susan Andrews MD | | | 2019 | Visit | | [address] | | | | | | [place], [place] | | | | | | [address] | | | | | | [phone] | | | | | | | | +--------+---------+ + + + documented as of this encounter Visit Diagnoses + + | Diagnosis | + + | Cataract extraction status, right - Primary | + + documented in this encounter
== END ==
LOC: ED 16:13
DX: N39.0 Urinary tract infection, site not specified (principal); R19.7 Diarrhea, unspecified; R11.10 Vomiting, unspecified; R50.9 Fever, unspecified; E87.1 Hypo-osmolality and hyponatremia; E11.9 Type 2 diabetes mellitus without complications; E03.9 Hypothyroidism, unspecified; I10 Essential (primary) hypertension; J44.9 Chronic obstructive pulmonary disease, unspecified; Z87.891 Personal history of nicotine dependence; Z88.0 Allergy status to penicillin; Z88.1 Allergy status to other antibiotic agents; Z88.2 Allergy status to sulfonamides; Z88.8 Allergy status to other drugs, medicaments and biological substances; Z79.4 Long term (current) use of insulin; Z79.52 Long term (current) use of systemic steroids; Z79.82 Long term (current) use of aspirin; Z79.899 Other long term (current) drug therapy
CPT/HCPCS: 71045; 80053; 81001; 83605; 85025; 87077; 87088; 87186; 96361; 96365; 96375; 99291; 99292; J0692; J2405; J2550; J7030; J7060